=== PATIENT | male | born 1945 | race Caucasian/White ===

== ENCOUNTER 2019-10-10 13:25 | Emergency (ER) | payer MEDICARE, SELFPAY ==
[2019-10-10 13:26] VITALS: BP 148/107; PULSE 73; RESP 15; TEMP 36.4; O2SAT 96; BMI 29.4
[2019-10-10 14:32] LABS: Absolute Lymphocyte Count 1.58 X10^3/uL (0.83-4.51); Absolute Neutrophil Count 3.7 X10^3/uL (2.0-7.7); Basophil# 0.06 X10^3/uL; Eosinophil# 0.13 X10^3/uL; Eosinophils% 2.1 % (0-5); Hemoglobin 15.6 g/dL (13.0-16.5); Lymphocyte # 1.58 X10^3/ul (4.0); Lymphocyte % 25.5 % (19-41); Mean Corp Hgb Conc 33.2 g/dL (32-36); Mean Corpuscular Hgb 28.4 pg (27.0-32.0); Mean Corpuscular Volume 85.6 fL (80-94); Mean Platelet Vol. 10.1 fl (6.2-12.0); Monocyte# 0.75 X10^3/uL; Monocyte% 12.1 % (0-10); NRBC Flagged by Analyzer 0 % (0-5); Neutrophil # 3.65 X10^3/uL (2.7-7.7); Platelet Count 211 K/mm3 (150-450); RBC Distribution Width CV 12.2 % (11.6-14.6); RBC Distribution Width SD 38.5 fl (35.1-43.9); Red Blood Count 5.49 M/mm3 (4.6-6.2); White Blood Count 6.2 K/mm3 (4.4-11.0)
[2019-10-10 14:37] LABS: AST(SGOT) 17 U/L (15-37); Alanine Aminotransfer ALT/SGPT 25 U/L (16-61); Albumin, Serum 3.8 g/dL (3.2-5.0); Alkaline Phosphatase 90 U/L (45-117); Anion Gap 7 (5-15); BUN 15 mg/dL (7-18); BUN/Creat Ratio 13.3 RATIO (10-20); Calcium,Total 8.9 mg/dL (8.5-10.1); Chloride 105 mmol/L (98-107); Creatinine, Serum 1.13 mg/dL (0.70-1.30); EST Glomerular Filtration Rate 68 mL/min (>60); Est Glom Filt Rate - Afr Amer 82 mL/min (>60); Estimated Creatinine Clearance 61.01 ml/min; Globulin 3.9 g/dL (2.2-4.2); Glucose 87 mg/dL (74-106); Lipase 207 U/L (73-393); Protein, Total 7.7 g/dL (6.4-8.2); Sodium Level 138 mmol/L (136-145)
--- NOTE | 2019-10-10 16:01 | ED.DCSUM_ITS ---
- ER Visit Summary Date of Service: 10/10/19 Chief Complaint: Abdominal pain History of Present Illness: The patient is a 74 M who is been getting worse over the past 3 to 4 days. Patient states that it has actually been waxing and waning over the past 3 to 4 days. Patient states the pain is in the epigastric area. Patient describes the pain as aching. Patient states the pain has gradually gotten worse. Patient denies any radiation of the pain. Patient states nothing makes the pain better or worse. Patient denies any fevers or chills. Patient states he has had a slight cough. Patient denies any sputum production. Patient denies any nausea or vomiting. Patient denies any diarrhea or constipation. Physical Examination: Vital signs are stable. Patient is afebrile. Patient is in no acute distress. Oral mucosa is pink and moist. Neck is supple. Trachea is midline. There is no JVD noted. Heart was regular rate and rhythm. Lungs are clear and equal bilaterally. Abdomen is soft. Bowel sounds are normal. There is no tenderness. There is no rebound or guarding noted. Skin is warm dry. Cranial nerves II through XII are intact. There are no focal motor or sensory deficits noted. Extremities are intact. There is no calf tenderness or edema. Test Results: CBC, comprehensive metabolic profile, and lipase were obtained and were all within normal limits. Emergency Department Course and Treatment: Patient was feeling better on reevaluation. Patient was instructed to follow-up with his primary care physician for further evaluation. Patient was instructed to eat a bland diet and advance his diet as tolerated. Patient was instructed to return if worse in any way. Patient understood and was agreeable with the plan. All questions were answered. Disposition: Discharge home Impression: Epigastric abdominal pain This note was generated with [employer] dictation software. It may contain incorrect words, spelling, and punctuation that were not noted in review of the chart prior to signing ED Disposition - Plan for ED Patient: Disposition: Home or Assisted Living Diagnosis: Epigastric abdominal pain of unknown etiology Instructions: ED Unknown Causes of Abdominal Pain Male Referrals: Niki Nj NP-C [Primary Care Provider] - 5-7 Days
== END 2019-10-10 16:09 | disposition home or self-care (01) ==
PROVIDERS: Emergency Provider Emergency Medicine; PCP Registered Nurse
DX: R10.13 Epigastric pain (principal); R05 Cough
CPT/HCPCS: 80053; 83690; 85025; 99283

== ENCOUNTER 2021-06-21 13:19 | Emergency (ER) | payer MEDICARE, SELFPAY ==
[2021-06-21 13:21] VITALS: BP 150/109; PULSE 85; RESP 28; TEMP 36.7; O2SAT 99; BMI 29.4
[2021-06-21 13:44] VITALS: O2SAT 97
[2021-06-21 13:45] VITALS: O2SAT 98
--- NOTE | 2021-06-21 14:32 | ED.VIS.DYS ---
HPI History of Present Illness Chief Complaint: Shortness of Breath Narrative Narrative: 76-year-old male presenting with shortness of breath. Apparently he had started having symptoms of COVID-19 on . He tested positive on Saturday. He is here today for monoclonal antibodies and it was noted that he was tachypneic while they were evaluating him to get his monoclonal antibodies. He was not hypoxic. Patient denies any chest pain. He states he feels improved now that he has been able to sit and catch his breath. He feels otherwise well at this time. PFSH PFSH Home Medications NK 10/10/19 [History Last Taken Unknown] Allergy/AdvReac Type Severity Reaction Status Date / Time No Known Allergies Allergy Verified 06/21/21 13:21 Social History Smoking Status: Never smoker ROS ROS ED Constitutional Constitutional ED: Denies chills or fever(s) Eyes Eyes: Denies blurry vision or diplopia ENT ENT ED: Denies rhinorrhea or sore throat Cardiovascular Cardiovascular: Denies chest pain or palpitations Respiratory/Chest Respiratory/Chest: Reports cough, dyspnea and dyspnea on exertion Gastrointestinal Gastrointestinal: Denies abdominal pain, nausea or vomiting Genitourinary Genitourinary ED: Denies dysuria or hematuria Musculoskeletal Musculoskeletal: Denies arthralgias or myalgias Integumentary Denies Abrasions or rash Neurologic Neurologic: Denies headache(s) or paresthesias Psychiatric Psychiatric: Denies anxiety or depression EXAM Physical Exam Const Vital Signs: 06/21/21 13:21 06/21/21 13:44 06/21/21 13:45 Temperature 98.1 F Temperature Source Temporal Pulse Rate 85 Respiratory Rate 28 H Respiratory Effort Labored Respiratory Pattern Tachypnea Blood Pressure 150/109 H Blood Pressure Mean 122 Pulse Ox 99 97 Oxygen Delivery Method Room Air Room Air Room Air Positive well nourished General Appearance ED: NAD; Negative for pallor HEENT Reports moist mucous membranes atraumatic Eyes PERRL and EOMs intact bilaterally Resp normal respiratory effort and clear to auscultation bilaterally Cardio regular rate and regular rhythm GI non-tender and non-distended Palpation: soft Extremity General Extremety ED: Negative for edema or tenderness General Extremity: Negative for edema Neuro oriented x3 Sensorium / Orientation: alert Psych mental status grossly normal Thought Process: normal thought process Skin General Skin Exam: Negative for jaundice or pallor MDM MDM MDM Narrative Medical decision making narrative: Patient presenting from attempted to get his monoclonal antibodies and it was noted he was tachypneic. He currently feels well and his respiratory rate is 15-20 in the room while I am talking to him. His pulse ox is 97-99 while he is talking. He denies any chest pain. He feels like he has had time to catch his breath. Patient's lungs are clear to auscultation. At this point I do not believe the patient needs any further work-up. I spoke with Narcisa Romero at the infusion center and she will try to set him up for monoclonal antibodies tomorrow. She requested that I give him her telephone number and I will do this. Patient will be discharged home for follow-up tomorrow. Impression: 1. COVID-19 2. Dyspnea Discharge Plan Triage Chief Complaint: Shortness of Breath ED Provider: Toribio Holden Dx/Rx/DC Orders Instructions: Coronavirus Disease 2019 (COVID-19): Caring for Yourself or Others Prescriptions: No Action NK RF: 0 Primary Care Provider: Bryon Ovalles Referrals: Bryon Ovalles, PA [Primary Care Provider] - Disposition Disposition: Home, Self Care
[2021-06-21 15:09] VITALS: O2SAT 97
== END 2021-06-21 15:17 | disposition home or self-care (01) ==
LOC: ED 14:45
PROVIDERS: Emergency Provider Student in an Organized Health Care Education/Training Program; PCP Physician Assistant
DX: U07.1 COVID-19 (principal); R06.00 Dyspnea, unspecified
CPT/HCPCS: 99283; A4216

== ENCOUNTER 2021-06-22 16:55 | Outpatient (CLI) | payer MEDICARE, SELFPAY ==
--- NOTE | 2021-06-21 13:13 | NURSING ---
Pt received for antibody infusion w/ tachypnea and resps in 40. Narcisa Lepe notified and pt sent to ED
[2021-06-22] MEDS: 0.9% Saline Lock 10 ML Syringe IV (17:02)
[2021-06-22 17:05] VITALS: BP 126/91; PULSE 91; RESP 32; TEMP 36.6; O2SAT 100; BMI 29.4
[2021-06-22 18:08] VITALS: BP 129/88; PULSE 68; RESP 28; TEMP 37.1; O2SAT 99
[2021-06-22 19:00] VITALS: BP 149/79; PULSE 65; RESP 28; TEMP 36.8; O2SAT 100
== END 2021-06-22 19:04 ==
LOC: MS3OUT 16:55 → MS3 16:55
PROVIDERS: PCP Registered Nurse; Visit Provider Nurse Practitioner Adult Health
DX: Z23 Encounter for immunization (principal); U07.1 COVID-19
CPT/HCPCS: 99283; J7050; M0245; Q0245; A4216

== ENCOUNTER 2024-04-06 15:15 | Emergency (ER) | payer MEDICARE, SELFPAY ==
[2024-04-06 15:16] VITALS: BP 141/124; PULSE 82; RESP 18; TEMP 36.6; O2SAT 99; BMI 27.6
[2024-04-06 18:37] VITALS: BP 136/99; PULSE 76; RESP 18; O2SAT 99
--- NOTE | 2024-04-06 18:47 | RAD_ITS ---
STUDY: X-RAY - LEFT SHOULDER REASON FOR EXAM: Male, 78 years old. Pain TECHNIQUE: 2 view(s) of the shoulder. COMPARISON: None. FINDINGS: There is mild degenerative arthrosis of the glenohumeral articulation. There is hypertrophic osteoarthrosis of the acromioclavicular joint with inferior osseous spur formation. Normal acromion. There is demineralization of the humerus and visualized osseous structures. The soft tissue structures are unremarkable. There is no demonstrated fracture. Normal visualized pulmonary apex. RAD/Shoulder min 2 Views IMPRESSION: Degenerative change. Electronically Signed: Jed Escobar MD at 19:29 EDT ,
--- NOTE | 2024-04-06 19:25 | EDS_ITS ---
HPI History of Present Illness HPI Narrative: Patient presents with left shoulder pain that has been getting worse over the past 2 weeks. Patient states it became worse 2 days ago. Patient denies any trauma or injury. Patient describes the pain as sharp. Patient states it is worse with any movement. Patient states nothing seems to help with it. Patient mitts to some tingling into his left arm. Patient denies any weakness. Patient also admits to some pain in his neck. Chief Complaint: Upper Extremity Injury Informant: patient Onset/Context/Timing Onset: Weeks (2) Context: Gradual Onset Timing: Continuous Quality of Pain: Sharp Location: Left shoulder area Worsened by: Movement Relieved by: Rest Associated Symptoms Associated Symptoms: Positive for Parasthesia; Negative for Weakness or Loss of Funtion PFSH [facility] Medical History (Updated 04/06/24 @ 19:[address] Shilo Daugherty DO) Hypercholesterolemia Hypertension Home Medications ?Medication ?Instructions ?Recorded ?Last Taken ?Type hydrocodone-acetaminophen 5-325mg 1 tab PO Q6H PRN PRN Pain 3 days 04/06/24 Unknown Rx 5mg-325mg #10 TABLETS Allergy/AdvReac Type Severity Reaction Status Date / Time No Known Allergies Allergy Verified 04/06/24 15:16 Surgical History (Updated 04/06/24 @ 19:[address] Shilo Daugherty DO) Status post surgical removal of malignant neoplasm of skin Social History Smoking Status: Never smoker ROS ROS ED Constitutional Constitutional ED: Denies chills or fever(s) Eyes Eyes: Denies blurry vision or change in vision ENT ENT ED: Denies rhinorrhea or sore throat Cardiovascular Cardiovascular: Denies chest pain or palpitations Respiratory/Chest Respiratory/Chest: Denies cough or dyspnea Gastrointestinal Gastrointestinal: Reports nausea; Denies vomiting Genitourinary Genitourinary ED: Denies dysuria or hematuria Musculoskeletal Musculoskeletal: Reports neck pain; Denies back pain Integumentary Denies abscess or rash Neurologic Neurologic: Denies headache(s) or weakness Allergic/Immunologic Allergic/Immunologic ED: Denies mouth swelling or urticaria EXAM Physical Exam Const Vital Signs: 04/06/24 15:16 04/06/24 18:37 Temperature 98 F Temperature Source Oral Pulse Rate 82 76 Respiratory Rate 18 18 Blood Pressure 141/124 H 136/99 H Blood Pressure Mean 129 111 Pulse Ox 99 99 Oxygen Delivery Method Room Air Positive well nourished and well developed General Appearance ED: well developed and NAD HEENT Reports moist mucous membranes Neck Neck Narrative: There is tenderness over the left cervical paraspinal muscles and left trapezius muscle. There is no edema or ecchymosis. There is no bony crepitance or step- off noted. Range of motion of the cervical spine was somewhat limited secondary to pain. General: tenderness Extremity Extremity Narrative: There is tenderness over the left shoulder area. There is no edema or ecchymosis. There is no deformity noted. Range of motion of the left shoulder was limited in all motions of the shoulder secondary to pain. There is no pain with motion of the elbow or wrist. Strength is 5/5 bilaterally in the upper extremities. There are no sensory deficits noted. Radial pulses are equal bilaterally. Neuro oriented x3, CN's II-XII intact bilaterally, moves all extremities, no focal motor deficits and no sensory deficits noted Sensorium / Orientation: alert Motor Exam: strength 5/5 throughout MDM MDM MDM Narrative Medical decision making narrative: Differential diagnosis includes tendinitis, muscle strain, radiculopathy, occult fracture, rotator cuff tear, and arthritis. X-rays of the left shoulder will be obtained to assess for occult fracture and arthritis. Radiography Diagnostic Testing: X-rays of the left shoulder were obtained. There are 2 views. On my independent interpretation, there is no acute fracture. There are some degenerative changes noted. Radiologist also interpreted the x-rays and agrees. Treatment and Re-Evaluation Narrative: Patient was given a dose of [place] here. Patient was given a sling and ice pack. Patient was instructed to use ice to the area. Patient was instructed to take his arm out of his sling several times during the day to do range of motion exercises. Patient was given a prescription for a short course of [place]. Patient was instructed to follow-up with his primary care physician in 5 to 7 days. Patient and spouse were advised that if his symptoms do not improve, he may need referral for orthopedics or MRI or physical therapy, or further testing. Patient understood and was agreeable with the plan. All questions were answered. Discharge Plan Triage Chief Complaint: Upper Extremity Injury ED Provider: Shilo Daugherty Dx/Rx/DC Orders Clinical Impression: Acute pain of left shoulder, Hypertension Instructions: ED Shoulder Pain, Uncertain Cause Prescriptions: New hydrocodone-acetaminophen 5-325 mg tablet 1 tab PO Q6H PRN PRN (Reason: Pain) 3 Days Qty: 10 0RF Primary Care Provider: Bryon Ovalles Referrals: Bryon Ovalles, PA [Primary Care Provider] - 5-7 Days Print Language: Ukrainian Disposition Disposition: Home, Self Care
[2024-04-06] MEDS: HYDROcodone Bitartrate/Apap 5/325 Tablet PO (19:52)
[2024-04-06 20:00] VITALS: BP 187/95; PULSE 76; RESP 16; TEMP 36.6; O2SAT 99
== END 2024-04-06 20:02 | disposition home or self-care (01) ==
PROVIDERS: Emergency Provider Emergency Medicine; PCP Physician Assistant; Visit Provider Emergency Medicine
DX: M25.512 Pain in left shoulder (principal); E78.00 Pure hypercholesterolemia, unspecified; I10 Essential (primary) hypertension
CPT/HCPCS: 73030; 99283

== ENCOUNTER 2024-08-10 16:54 | Observation (INO) | payer MEDICARE, SELFPAY ==
[2024-08-10] VITALS (8 sets, daily range): BP systolic 108–202; BP diastolic 65–109; PULSE 64–95; RESP 18–34; TEMP 35.2; O2SAT 95–97; BMI 28.0
--- NOTE | 2024-08-10 17:02 | EKG12_ITS ---
Test Reason : DYSRHYTHMIA Blood Pressure : */* mmHG Vent. Rate : 94 BPM Atrial Rate : 94 BPM P-R Int : 164 ms QRS Dur : 132 ms QT Int : 428 ms P-R-T Axes : 37 -53 -7 degrees QTcB Int : 535 ms Normal sinus rhythm Possible Left atrial enlargement Right bundle branch block Left anterior fascicular block Bifascicular block Minimal voltage criteria for LVH, may be normal variant ( R in aVL ) Septal infarct , age undetermined Abnormal ECG Confirmed by SARAH TRAORE, ELIZABETH ([id number]), video editor AMITA FOREMAN ([id number]) on 08/11/2024 8:56:00 AM Referred By: Ashley Hess Confirmed By: ELIZABETH SMITH MD
--- NOTE | 2024-08-10 17:03 | CT_ITS ---
PROCEDURE: CTA CHST, ABD, PEL W AND/OR WO REASON FOR EXAM: Sudden onset of abdominal pain TECHNIQUE: Chest CTA with intravenous contrast and 3D reconstructions. Abdomen and pelvis CT using the same COMPARISON: None. FINDINGS: CHEST: Lines and tubes: None. Mediastinum: No evidence of mediastinal hemorrhage. Heart: Normal heart size. No pericardial effusion. Thoracic Aorta: No evidence of acute traumatic aortic injury. Lungs and Airways: The lungs are normally expanded and clear. Pleura: No pleural effusion. No pneumothorax. Bones: Degenerative changes of the spine. ABDOMEN AND PELVIS: Liver: Unremarkable. Gallbladder: Unremarkable. Spleen: Unremarkable. Pancreas: Unremarkable. Adrenals: Unremarkable. Kidneys: Right distal ureter 2 mm calculus with moderate upstream hydroureteronephrosis. Left kidney simple cyst. Assessment for renal calculi is limited with intravenous contrast. Bladder: Unremarkable. Reproductive Organs: Enlarged prostate indenting the posterior wall of the urinary bladder. Partially visualized fluid-filled scrotal sac. Bowel: Tubular appearance of the descending and sigmoid colon which may be due to underdistention or chronic findings of colitis. Vasculature: Moderate atherosclerosis. Peritoneum / Retroperitoneum: No free fluid. No free air. Bones: Degenerative changes of the spine. CT/CTA Chst, Abd, Pel W and/or WO IMPRESSION: Right distal ureter 2 mm calculus with moderate upstream hydroureteronephrosis. Enlarged prostate indenting the posterior wall of the urinary bladder. Correla te with PSA. Tubular appearance of the descending and sigmoid colon which may be due to unde rdistention or chronic findings of colitis. Specifically correlate for history of ulcerative colitis. Partially visualized fluid-filled scrotal sac which may represent hydroceles. One or more dose reduction techniques were used (e.g., Automated exposure contr ol, adjustment of the mA and/or kV according to patient size, use of iterative reconstruction technique). Reading Location: [id number]
--- NOTE | 2024-08-10 17:05 | EDS_ITS ---
<Statement entered by Bienvenido Del Cid DO - 08/10/24 23:27> Patient was seen and examined with nurse dianne Church All components of the history and physical confirmed and agreed. History of present illness and physical exam: Patient is a 79-year-old male with past medical history of hypertension, hyperlipidemia who presented to the emergency department with a chief complaint of abdominal pain. Per EMS the patient started having pain when he woke up this morning however progressively worsened throughout the day. According to them he was constantly thrashing and decided call the ambulance to have him brought here for the valuation management. He states that he is significant pain rates his pain a 10 out of 10. Review of systems: Agree with above Physical exam: General: Patient lying in bed does appear to be uncomfortable secondary to his abdominal pain Head: Atraumatic, normocephalic Eyes: PERRL bilaterally, EOMI bilaterally, no conjunctival injection noted Neck: Soft, supple, trachea midline Cardiovascular: Regular rate and rhythm no murmurs gallops rubs noted Respiratory: Clear to auscultation bilaterally Abdomen: Soft, nondistended, diffuse tenderness to palpation no rebound or guarding on exam Extremities: +5/5 strength noted in the bilateral upper and lower extremities, no pedal edema no exam Neurological: Patient following commands knew that he was at [facility] year is 2024 Skin: Warm, dry, intact no rashes or lesions noted MDM Patient is a 79-year-old male who presented to the emergency department with a chief complaint of abdominal pain. On the differential diagnose includes but not limited to small bowel obstruction, dissection, ischemic colitis, pancreatitis. Once workup is obtained reviewed he will be reevaluated. Patient CBC reviewed showed a leukocytosis of 16,000, hemoglobin 15.1, platelet count was noted be normal at 302. Patient sodium normal at 141, potassium normal at 3.1, creatinine was 1.66. Patient lactic acid elevated to 9, troponin was less than 3 lipase normal at 48. Patient's urinalysis reviewed showed no evidence of infection. Patient's glucose was noted to be 199 and his anion gap was noted to be 18. Patient's CTA of the chest abdomen pelvis showed a right distal ureter 2 mm calculus with moderate upstream hydroureteronephrosis. Enlarged prostate. Tubular appearance of the descending and sigmoid colon which may be due to underdistention or chronic findings of colitis patient does not have any history of ulcerative colitis. Partially visualized fluid-filled scrotal sac which may represent hydroceles. Patient's EKG reviewed and independently turbid of myself showed sinus rhythm with a rate of [address] changes noted.troponin normal less than 3 On reevaluation the patient he was still writhing in the bed in significant pain after multiple doses of pain medication. Given his lactic acidosis leukocytosis and myself reviewing the CT scan was concerned that he may have free air in his abdomen therefore I called the radiologist spoke with him directly and asked him to review the imaging which she did and states that he does not believe there is any free air. We called and discussed the case with on-call general surgeon Dr. Whitehead and states given his clinical presentation and his laboratory evaluation she would recommend doing CT with oral contrast. This was ordered. Patient did have vomiting here in the emergency department. Patient did not get the full noncontrast into his stomach however there still underwent CT CAP with oral contrast. This was reviewed as well which showed a right distal ureter 3 mm calculus with mild upstream hydroureteronephrosis bilateral nephrolithiasis and large prostate. Mild concentric urinary bladder wall thickening favored to represent chronic outlet obstruction patient does not have evidence of UTI on urinalysis. Fluid-filled scrotal sac which may represent bilateral hydroceles. We reach back out to Dr. Whitehead who is recommending observation admission to the medicine team. Discussed case with hospitalist Dr. Hess who is recommending adding a acetone level on which I did as well as I added a VBG on as there is a chance that he has new onset diabetes with DKA. Once these are obtained reviewed the patient will be admitted to her service. Patient's case signed out to oncoming provider to place ultimate admission ordered. Plan: Final impression: Abdominal pain Lactic acidosis resolved JANICE Hyperglycemia Disposition: Patient will be admitted to the hospital further evaluation management Supervising attending attestation: Bienvenido BARTHOLOMEW History of Present Illness Chief Complaint: Abd Pain Narrative Narrative: Patient is a 79-year-old male with history of dementia, hypertension, hyperlipidemia who presents to the emergency department for severe abdominal pain. Per the EMS, the patient started having some pain when he woke up this morning, however the pain is progressed over the day. The patient is now inconsolable, constantly thrashing and the decided to call the ambulance. Patient keeps his eyes closed, is holding his stomach and complaining of significant pain. Denies any known history of fever or chills. No vomiting PFSH PFSH Medical History (Updated 08/10/24 @ 23:[address] Ashley Hess MD) CKD (chronic kidney disease) Dementia Hypercholesterolemia Hypertension Home Medications ?Medication ?Instructions ?Recorded ?Last Taken ?Type hydrocodone-acetaminophen 5-325mg 1 tab PO Q6H PRN PRN Pain 3 days 04/06/24 Unknown Rx 5mg-325mg #10 TABLETS atorvastatin 40 mg tablet 40 mg PO DAILY 08/10/24 Unkn own History gabapentin 300 mg capsule 600 mg PO QHS 08/10/24 Unkno wn History Allergy/AdvReac Type Severity Reaction Status Date / Time No Known Allergies Allergy Verified 04/06/24 15:16 Surgical History (Updated 04/06/24 @ 19:[address] Shilo Daugherty DO) Status post surgical removal of malignant neoplasm of skin Social History Smoking Status: Never smoker ROS ROS ED ROS Narrative Upon my initial evaluation, patient was thrashing in the bed, eyes closed, difficulty answer questions, however he does complain of abdominal pain Constitutional: Negative for fever, chills, weight loss, weakness Eyes: Negative for vision loss, vision change, double vision ENT: Negative for any sore throat, ear pain, congestion Cardiovascular: Negative for any chest pain, tightness, palpitations Respiratory: Negative for any cough, sputum production, hemoptysis, dyspnea, dyspnea on exertion, orthopnea Gastrointestinal: Negative for any nausea, vomiting, diarrhea, constipation, blood in stool, blood in vomit. Positive for severe abdominal pain : Negative for any urinary frequency, dysuria, retention, blood in urine Muscle skeletal: Negative for any neck pain, back pain Neurological: Negative for any headache, syncope, dizziness Skin: Negative for any rashes, itching, abrasions, lacerations Psychiatric: Negative for any depression, anxiety, stress, suicidal ideation, homicidal ideation Hematologic: Negative for any excessive bruising, easy bleeding EXAM Physical Exam Const Vital Signs: 08/10/24 16:55 08/10/24 17:54 08/10/24 18:00 Temperature 95.4 F L Temperature Source Temporal Pulse Rate 94 95 Respiratory Rate 34 H 28 H Blood Pressure 175/109 H 202/92 H 202/92 H Blood Pressure Mean 131 128 128 Pulse Ox 97 95 Oxygen Delivery Method Room Air Room Air 08/10/24 19:00 08/10/24 19:57 08/10/24 21:00 Temperature Temperature Source Pulse Rate 88 64 Respiratory Rate 18 18 Blood Pressure 194/92 H 177/81 H 143/82 H Blood Pressure Mean 126 113 102 Pulse Ox 96 97 Oxygen Delivery Method Room Air Room Air 08/10/24 22:00 Temperature Temperature Source Pulse Rate 71 Respiratory Rate 18 Blood Pressure 108/65 Blood Pressure Mean 79 Pulse Ox 95 Oxygen Delivery Method Room Air MDM MDM Lab Data Labs: Laboratory Results - last 24 hr 08/10/24 08/10/24 08/10/24 17:04 18:14 21:47 WBC 16.7 H RBC 5.16 Hgb 15.1 Hct 45.3 MCV 87.8 MCH 29.3 MCHC 33.3 RDW Std Deviation 39.6 RDW Coeff of [place] 12.4 Plt Count 302 MPV 10.7 Immature Gran % (Auto) 0.700 Neut % (Auto) 71.1 H Lymph % (Auto) 19.4 [place] % (Auto) 7.6 Eos % (Auto) 0.7 Baso % (Auto) 0.5 Absolute Neuts (auto) 11.9 H Absolute Lymphs (auto) 3.25 Nucleated RBC % 0 PT 13.2 INR 1.0 Sodium 141 Potassium 3.1 L Chloride 106 Carbon Dioxide 17.0 L Anion Gap 18 H BUN 14 Creatinine 1.66 H Estim Creat Clear Calc 41.75 Est GFR (MDRD) Af Amer 52 L Est GFR (MDRD) Non-Af 43 L BUN/Creatinine Ratio 8.4 L Glucose 199 H Lactic Acid 9.0 H* 1.8 Calcium 10.1 Total Bilirubin 0.80 Direct Bilirubin 0.22 AST 29 ALT 33 Alkaline Phosphatase 146 H Troponin I High Sens < 3 L Total Protein 7.8 Albumin 4.1 Globulin 3.7 Lipase 48 Urine Color Yellow Urine Clarity Clear Urine pH 6.0 Ur Specific [place] 1.010 Urine Protein 15 H Urine Glucose (UA) 100 H Urine Ketones 50 H Urine Occult Blood 50 H Urine Nitrite Negative Urine Bilirubin Negative Urine Urobilinogen Normal Ur Leukocyte Esterase Negative Urine RBC 0-5 SEEN Urine WBC 0 SEEN Ur Squamous Epith Cells 0 SEEN Urine Bacteria 0 SEEN Urine Mucus 0 SEEN Radiography Diagnostic Testing: Clinical Impression(s) from Imaging Studies Chest/Abdomen/Pelvis CTA 08/10/24 17:03 IMPRESSION: Right distal ureter 2 mm calculus with moderate upstream hydroureteronephrosis. Enlarged prostate indenting the posterior wall of the urinary bladder. Correlate with PSA. Tubular appearance of the descending and sigmoid colon which may be due to underdistention or chronic findings of colitis. Specifically correlate for history of ulcerative colitis. Partially visualized fluid-filled scrotal sac which may represent hydroceles. One or more dose reduction techniques were used (e.g., Automated exposure control, adjustment of the mA and/or kV according to patient size, use of iterative reconstruction technique). Reading Location: [facility] Abdomen CT 08/10/24 18:56 IMPRESSION: Right distal ureter 3 mm calculus with mild upstream hydroureteronephrosis. Bilateral nephrolithiasis. Enlarged prostate. Correlate with PSA. Mild concentric urinary bladder wall thickening favored to represent chronic outlet obstruction. Correlate with urinalysis to exclude cystitis. Fluid-filled scrotal sac which may represent bilateral hydroceles. One or more dose reduction techniques were used (e.g., Automated exposure control, adjustment of the mA and/or kV according to patient size, use of iterative reconstruction technique). Reading Location: [facility] EKG Normal sinus rhythm: Attestation: I personally reviewed and interpreted this EKG as follows: Interpretation: Sinus Rhythm Comments: Normal sinus rhythm, rate of 94 bpm, AL interval 164 ms, QRS duration 132 ms, no acute ST elevation, no acute infarct noted. Treatment and Re-Evaluation :: Differential diagnosis includes however is not limited to: Aortic dissection, pancreatitis, free air, acute cholecystitis, bowel obstruction On my initial evaluation, patient was holding his stomach, rolling around the bed stating that he is in severe pain. It was difficult to do an examination. Anywhere I touch on his abdomen he did have pain, it did seem soft, I did not appreciate any peritoneal signs. Difficult to hear any bowel sounds. Patient had an 18-gauge to the right AC immediately placed, Nelly ordered a CTA of the chest abdomen pelvis concern for any dissection, patient will receive IV fluids, morphine, Zofran. All radiologic examinations were read, reviewed by the emergency department attending. From these reads, a plan of care will be put in place. Patient was given 4 mg IV morphine, then redosed of IV Dilaudid. Patient CT scan of the chest abdomen pelvis shows a right distal ureter 2 mm calculus with moderate upstream hydronephrosis. Enlarged prostate, tubular appearance of the descending and sigmoid colon which may be due to under distention or chronic findings of colitis. Patient is slightly improving however he still rolling around the bed. Patient rechecked at 6:26 PM,Patient still seems to be in significant amount of pain. We did reach out to the radiologist who did look through the scan again and did not see anything more acute. Patient did have only minor relief with the medications. Patient's CBC shows a leukocytosis white blood count 16.7, chemistries show a creatinine of 1.66, potassium 3.1, lactic acid was critical high at 9.0. Patient be given 1 more liter of normal saline. I spoke with surgery, they recommended a CT scan with oral contrast only. I did update the patient and the family. The patient does look better however he still rolling around in pain. Still slightly diaphoretic. Patient will drink the oral contrast. Will wait for 2 hours and go get a CT scan of the abdomen pelvis. Patient CT scan of the abdomen pelvis with p.o. contrast showed right distal ureter 3 mm calculus with mild upstream high sea kayaking guide, bilateral nephrolithiasis enlarged prostate. Mild concentric urinary bladder wall thickening could represent chronic outlet obstruction. Fluid-filled scrotal sac with may resent bilateral hydroceles. Secondary to this finding, I will reach out to Dr. Whitehead, currently waiting on a lactic acid. Discharge Plan Triage Chief Complaint: Abd Pain ED Midlevel Provider: Ranjit Willams ED Provider: Bienvenido Del Cid Dx/Rx/DC Orders Prescriptions: No Action hydrocodone-acetaminophen 5-325 mg tablet 1 tab PO Q6H PRN PRN (Reason: Pain) 3 Days Qty: 10 0RF atorvastatin 40 mg tablet 40 mg PO DAILY gabapentin 300 mg capsule 600 mg PO QHS Primary Care Provider: Bryon Ovalles Referrals: Bryon Ovalles, PA [Primary Care Provider] - Print Language: [place] Leone[place] Disposition Disposition: Acute Care [facility]
[2024-08-10] MEDS: 0.9% Normal Saline (1000mL) 1,000 ML 999 ML IV ×2 (17:17→19:55)
[2024-08-10] MEDS: Ondansetron 4 MG/2 ML Vial IV ×2 (17:18→18:35)
[2024-08-10] MEDS: Morphine 4 MG/ML Syringe IV (17:18)
[2024-08-10 17:29] LABS: Absolute Lymphocyte Count 3.25 X10^3/uL (0.83-4.51); Absolute Neutrophil Count 11.9 X10^3/uL (2.0-7.7); Basophil# 0.08 X10^3/uL; Basophil% 0.5 % (0-1); Eosinophil# 0.12 X10^3/uL; Eosinophils% 0.7 % (0-5); Hematocrit 45.3 % (40-54); Hemoglobin 15.1 g/dL (13.0-16.5); Lymphocyte # 3.25 X10^3/ul (0.83-4.51); Lymphocyte % 19.4 % (19-41); Mean Corp Hgb Conc 33.3 g/dL (32-36); Mean Corpuscular Hgb 29.3 pg (27.0-32.0); Mean Corpuscular Volume 87.8 fL (80-94); Mean Platelet Vol. 10.7 fl (6.2-12.0); Monocyte# 1.27 X10^3/uL; Monocyte% 7.6 % (0-10); NRBC Flagged by Analyzer 0 % (0-5); Neutrophil # 11.88 X10^3/uL (2.7-7.7); Neutrophil % 71.1 % (47-70); Platelet Count 302 K/mm3 (150-450); RBC Distribution Width CV 12.4 % (11.6-14.6); RBC Distribution Width SD 39.6 fl (35.1-43.9); Red Blood Count 5.16 M/mm3 (4.6-6.2); White Blood Count 16.7 K/mm3 (4.4-11.0)
[2024-08-10] MEDS: HYDROmorphone 1 MG/ML Syringe IV ×2 (17:36→18:35)
[2024-08-10 17:38] LABS: Prothrombin Time (Protime)PT. 13.2 SECONDS (11.7-14.9)
[2024-08-10 17:49] LABS: AST(SGOT) 29 U/L (15-37); Alanine Aminotransfer ALT/SGPT 33 U/L (16-61); Albumin, Serum 4.1 g/dL (3.2-5.0); Alkaline Phosphatase 146 U/L (45-117); Anion Gap 18 (5-15); BUN 14 mg/dL (7-18); BUN/Creat Ratio 8.4 RATIO (10-20); Bilirubin, Direct 0.22 mg/dL (0.00-0.30); Calcium,Total 10.1 mg/dL (8.5-10.1); Chloride 106 mmol/L (98-107); Creatinine, Serum 1.66 mg/dL (0.70-1.30); EST Glomerular Filtration Rate 43 mL/min (>60); Est Glom Filt Rate - Afr Amer 52 mL/min (>60); Estimated Creatinine Clearance 41.75 ml/min; Globulin 3.7 g/dL (2.2-4.2); Glucose 199 mg/dL (74-106); Lipase 48 U/L (13-75); Potassium 3.1 mmol/L (3.5-5.1); Protein, Total 7.8 g/dL (6.4-8.2); Sodium Level 141 mmol/L (136-145); Troponin-I HS < 3 pg/mL (3.0-78.0)
[2024-08-10 18:28] LABS: Bacteria 0 SEEN /hpf (None Seen); Mucous, Urine 0 SEEN /hpf (<or=2+); Squamous Epithelial Cells - UA 0 SEEN /hpf (0-5); White Blood Cells 0 SEEN /hpf (0-5)
[2024-08-10] MEDS: Piperacil/Tazobactam 4.5 GM in 0.9% Normal Saline (100mL MB+) 100 ML IV (18:35)
[2024-08-10 18:55] LABS: Color, Urine Yellow (Yellow); Glucose, Dipstick 100 mg/dl (Normal); Ketone-Dipstick 50 mg/dl (Negative); Leukocyte Esterase-Dipstick Negative /ul (Negative); Nitrite-Dipstick Negative (Negative); Occult Blood-Urine 50 /ul (Negative); Protein-Dipstick 15 mg/dl (Negative); Urine Bilirubin Dipstick Negative (Negative); Urine Clarity Clear (Clear); Urine Urobilinogen Normal (Normal)
--- NOTE | 2024-08-10 18:56 | CT_ITS ---
PROCEDURE: ABDOMEN/PEL W ORAL CONT ONLY REASON FOR EXAM: Abdominal pain. TECHNIQUE: Abdomen and pelvis CT with oral contrast. COMPARISON: None. FINDINGS: Lung bases: Clear Liver: Unremarkable. Gallbladder: Unremarkable. Spleen: Unremarkable. Pancreas: Unremarkable. Adrenals: Unremarkable. Kidneys: Right distal ureter 2 mm calculus with mild upstream hydroureteronephrosis. Additional bilateral renal calculi. Left kidney simple cyst. Bladder: Mild concentric urinary bladder wall thickening. Reproductive Organs: Enlarged prostate indenting the posterior wall of the urinary bladder. Fluid-filled scrotal sac. Bowel: Unremarkable. Appendix: Normal. Lymph nodes: No suspicious lymph node enlargement. Vasculature: Mild to moderate atherosclerosis. Peritoneum / Retroperitoneum: No ascites. No free air. Bones: Degenerative changes of the spine. CT/Abdomen/Pel W ORAL Cont Only IMPRESSION: Right distal ureter 3 mm calculus with mild upstream hydroureteronephrosis. Bilateral nephrolithiasis. Enlarged prostate. Correlate with PSA. Mild concentric urinary bladder wall thickening favored to represent chronic ou tlet obstruction. Correlate with urinalysis to exclude cystitis. Fluid-filled scrotal sac which may represent bilateral hydroceles. One or more dose reduction techniques were used (e.g., Automated exposure contr ol, adjustment of the mA and/or kV according to patient size, use of iterative reconstruction technique). Reading Location: [id number]
[2024-08-10 19:12] LABS: Red Blood Cells-Urine 0-5 SEEN /hpf (0-5)
[2024-08-10] MEDS: LORazepam 2 MG/ML Syringe 1 MG IV (19:54)
[2024-08-10 21:24] LABS: Reflex Lactate? Y
[2024-08-10 22:46] LABS: Lactic Acid 1.8 mmol/L (0.4-1.9)
[2024-08-10 23:45] LABS: Blood Gas Specimen Type VEN; O2 Delivery Device Room Air; SITE Not entered; VBG BASE EXCESS -2 mmol/L (-1.0-3.5); VBG Bicarbonate 24 mmol/L (22-26); VBG PO2 35 mmHg (25-40); VBG SO2 63 % (50-70); VBG TCO2 25 mmol/L (23-33); VBG pCO2 45.8 mmHg (41-51); VBG pH 7.33 (7.32-7.42)
[2024-08-10 23:59] LABS: Anion Gap 6 (5-15); BUN 13 mg/dL (7-18); BUN/Creat Ratio 10.3 RATIO (10-20); Chloride 112 mmol/L (98-107); Creatinine, Serum 1.26 mg/dL (0.70-1.30); EST Glomerular Filtration Rate 59 mL/min (>60); Est Glom Filt Rate - Afr Amer 71 mL/min (>60); Glucose 161 mg/dL (74-106); Potassium 4.1 mmol/L (3.5-5.1); Sodium Level 143 mmol/L (136-145)
[2024-08-11] VITALS (8 sets, daily range): BP systolic 118–147; BP diastolic 62–74; PULSE 58–86; RESP 14–20; TEMP 36.4–36.7; O2SAT 92–98; BMI 28.0
--- NOTE | 2024-08-11 00:01 | HP.PCM.HOS_ITS ---
[facility] - General General Date of Service: 08/10/24 Chief Complaint: Abdominal pain. HPI Narrative The patient is a 79-year-old male with past medical history chronic cannabis usage, hypertension, hyperlipidemia who presents to the [facility] ED on 08/10/2024 with persistent severe abdominal discomfort starting upon awakening in the morning however progressed throughout the day noted to be severe 10 out of 10 with patient thrashing at home prompting to eventually call the ambulance with no recent fevers or chills nor any episodes of emesis or diarrhea. Workup in the ED included T95.4, heart rate 94, BP 175/109, respiratory rate 34, 97% on room air with most recent repeat vitals heart rate 71, BP 108/65, respiratory rate 18, 95% room air, CBC with WBC 16.7, human 15.1, platelet 302 with left shift, unremarkable coags, CMP with potassium 3.1, come back side 17, anion gap 18, BUN/creatinine 14/1.66, GFR 43, glucose 199, initial lactic acid 9 with repeat 1.8, alk phos 146 otherwise hepatic profile unremarkable, troponin less than 3, urinalysis with specific [place] 1.010, protein 15, glucose 100, ketones 50, occult blood 50 with no evidence of UTI, CT chest/abdomen/pelvis with and/or without with a right distal ureter 2 mm calculus with moderate upstream hydroureteronephrosis with enlarged prostate indenting the posterior wall of the urinary bladder, tubular appearance of descending and sigmoid colon possibly secondary to underdistention or chronic findings, partially visualized fluid- filled scrotal sac possibly 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 In the ED patient administered 2 L normal saline, Zofran 4 mg IV x 2, morphine 4 mg IV x 1, Dilaudid 1 mg IV x 2, Ativan 1 mg IV x 1 as well as Zosyn 4.5 g IV x 1. Given mild anion gap elevation although in the setting of significant initial lactic acidosis with concurrent hyperglycemia and noted ketones and glucose in the urine with no diabetic previous history, discussed with ED physician and acetone will be obtained to be cautious. In addition repeat BMP and VBG will be obtained. ED discussed case with assessment consultant Surgeon Dr. Whitehead who recommended overnight observation. [facility] Medical History (Updated 08/11/24 @ 00:[address] Ashley Hess MD) CKD (chronic kidney disease) Hypercholesterolemia Hypertension Home Medications ?Medication ?Instructions ?Recorded ?Last Taken ?Type hydrocodone-acetaminophen 5-325mg 1 tab PO Q6H PRN PRN Pain 3 days 04/06/24 Unknown Rx 5mg-325mg #10 TABLETS atorvastatin 40 mg tablet 40 mg PO DAILY 08/10/24 Unkn own History gabapentin 300 mg capsule 600 mg PO QHS 08/10/24 Unkno wn History Allergy/AdvReac Type Severity Reaction Status Date / Time No Known Allergies Allergy Verified 04/06/24 15:16 Family History (Updated 08/10/24 @ 23:[address] Ashley Hess MD) Mother Cancer Father Cancer Surgical History (Updated 04/06/24 @ 19:[address] Shilo Daugherty, DO) Status post surgical removal of malignant neoplasm of skin Social History (Updated 08/10/24 @ 23:[address] Ashley Hess MD) household members: spouse Smoking Status: Never smoker alcohol intake: never substance use type: marijuana ROS Review of Systems ROS Unobtainable: other Details: s/p sedative medication in the ED. Unable to provide ROS. Family notes only periumbilical abdominal pain. Vital Signs Vital Signs Vital Signs: 08/10/24 16:55 08/10/24 17:54 08/10/24 18:00 Temperature 95.4 F L Temperature Source Temporal Pulse Rate 94 95 Respiratory Rate 34 H 28 H Blood Pressure 175/109 H 202/92 H 202/92 H Blood Pressure Mean 131 128 128 Pulse Ox 97 95 Oxygen Delivery Method Room Air Room Air 08/10/24 19:00 08/10/24 19:57 08/10/24 21:00 Temperature Temperature Source Pulse Rate 88 64 Respiratory Rate 18 18 Blood Pressure 194/92 H 177/81 H 143/82 H Blood Pressure Mean 126 113 102 Pulse Ox 96 97 Oxygen Delivery Method Room Air Room Air 08/10/24 22:00 Temperature Temperature Source Pulse Rate 71 Respiratory Rate 18 Blood Pressure 108/65 Blood Pressure Mean 79 Pulse Ox 95 Oxygen Delivery Method Room Air Weight Weight: 195 lb 1.745 oz Body Mass Index (BMI) 28.0 Physical Exam Narrative Physical Examination: General: Patient awakens but is very lethargic status post sedated regimen in the ED, not alert, not answering orientation questions, comfortable appearing, not grimacing to any palpation of the abdomen, currently no acute distress but had been previously severely agitated, thrashing in the bed reporting severe pain. Skin: Normal color, normal turgor, no icterus, no cyanosis. HEENT: AT/NC, EOMI, PERRLA, dry MM, no carotid bruits or JVD noted. Lungs: Mildly diminished, greater bases, poor effort, no rales, ronchi or wheezing. Heart: Currently regular rate and rhythm; no gallop, rub audible. Abdomen: Soft, no obvious evidence of any discomfort to palpation with no grimacing or guarding, nonsurgical abdomen, no obvious distention, normal BS, no appreciated HSM. Extremities: No cyanosis, clubbing, or edema. Neurological: Patient awakens but is very lethargic status post sedated regimen in the ED, not alert, not answering orientation questions, comfortable appearing, cognitive function not baseline intact given recent sedative regimen; pupils equally reactive to light and accommodation, cranial nerves difficult to assess given current sedated status, spontaneously still moving extremities during evaluation. Psychiatric: Affect appears flat, sedated, no acute evidence of depressive or anxiety feelings. Results Lab / Micro Data 08/10/24 17:04 08/10/24 23:34 Labs: Laboratory Results - last 24 hr 08/10/24 17:04: WBC 16.7 H, RBC 5.16, Hgb 15.1, Hct 45.3, MCV 87.8, MCH 29.3, MCHC 33.3, RDW Std Deviation 39.6, RDW Coeff of Clarence 12.4, Plt Count 302, MPV 10.7, Immature Gran % (Auto) 0.700, Neut % (Auto) 71.1 H, Lymph % (Auto) 19.4, [place] % (Auto) 7.6, Eos % (Auto) 0.7, Baso % (Auto) 0.5, Absolute Neuts (auto) 11.9 H, Absolute Lymphs (auto) 3.25, Nucleated RBC % 0, PT 13.2, INR 1.0, Sodium 141, Potassium 3.1 L, Chloride 106, Carbon Dioxide 17.0 L, Anion Gap 18 H, BUN 14, Creatinine 1.66 H, Estim Creat Clear Calc 41.75, Est GFR (MDRD) Af Amer 52 L , Est GFR (MDRD) Non-Af 43 L, BUN/Creatinine Ratio 8.4 L, Glucose 199 H, Lactic Acid 9.0 H*, Calcium 10.1, Total Bilirubin 0.80, Direct Bilirubin 0.22, AST 29, ALT 33, Alkaline Phosphatase 146 H, Troponin I High Sens < 3 L, Total Protein 7.8, Albumin 4.1, Globulin 3.7, Lipase 48 08/10/24 18:14: Urine Color Yellow, Urine Clarity Clear, Urine pH 6.0, Ur Specific [place] 1.010, Urine Protein 15 H, Urine Glucose (UA) 100 H, Urine Ketones 50 H, Urine Occult Blood 50 H, Urine Nitrite Negative, Urine Bilirubin Negative, Urine Urobilinogen Normal, Ur Leukocyte Esterase Negative, Urine RBC 0-5 SEEN, Urine WBC 0 SEEN, Ur Squamous Epith Cells 0 SEEN, Urine Bacteria 0 SEEN, Urine Mucus 0 SEEN 08/10/24 21:47: Lactic Acid 1.8 Imaging Radiology Impression Chest/Abdomen/Pelvis CTA 08/10/24 17:03 IMPRESSION: Right distal ureter 2 mm calculus with moderate upstream hydroureteronephrosis. Enlarged prostate indenting the posterior wall of the urinary bladder. Correlate with PSA. Tubular appearance of the descending and sigmoid colon which may be due to underdistention or chronic findings of colitis. Specifically correlate for history of ulcerative colitis. Partially visualized fluid-filled scrotal sac which may represent hydroceles. One or more dose reduction techniques were used (e.g., Automated exposure control, adjustment of the mA and/or kV according to patient size, use of iterative reconstruction technique). Reading Location: [id number] Abdomen CT 08/10/24 18:56 IMPRESSION: Right distal ureter 3 mm calculus with mild upstream hydroureteronephrosis. Bilateral nephrolithiasis. Enlarged prostate. Correlate with PSA. Mild concentric urinary bladder wall thickening favored to represent chronic outlet obstruction. Correlate with urinalysis to exclude cystitis. Fluid-filled scrotal sac which may represent bilateral hydroceles. One or more dose reduction techniques were used (e.g., Automated exposure control, adjustment of the mA and/or kV according to patient size, use of iterative reconstruction technique). Reading Location: [id number] Assessment & Plan Assessment/Plan (1) Abdominal pain: PLAN: Plan The patient is a 79-year-old male with past medical history Chronic cannabis usage, hypertension, hyperlipidemia who presents to the [facility] ED on 08/10/2024 with persistent severe abdominal discomfort starting upon awakening in the morning however progressed throughout the day noted to be severe 10 out of 10 with patient thrashing at home prompting to eventually call the ambulance with no recent fevers or chills nor any episodes of emesis or diarrhea. #1. Severe abdominal pain potentially secondary to right distal ureteral with moderate upstream hydroureteronephrosis with incidentally noted enlarged prostate as well as potential bilateral hydroceles with significant lactic acidosis potentially secondary to severe dehydration given normalized quickly in addition to #2 with ongoing evaluation as noted, concern for possibility of DKA: Given size likely would pass on its own, will maintain on hydration, urinalysis with no obvious evidence of UTI, once clinically improving would at least allow clears if amenable for surgery, maintain on IV PPI, will have as needed pain regimen and antiemetic regimen. Will hold on immediate urological involvement given very minimal size but given prostate size will benefit from early follow- up with urology outpatient. Will continue ED initiated general surgery consultation to be cautious; however, #2. Hyperglycemia with elevated anion gap with questionable mild Acute DKA with no diabetic history: Given mild anion gap elevation although in the setting of significant initial lactic acidosis with concurrently noted hyperglycemia and noted ketones and glucose in the urine with no diabetic previous history, discussed with ED physician and acetone will be obtained to be cautious. If this is consistent with DKA given very mild nature may be able to given significant recent hydration administer subcu insulin with repeat serial assessments and deferred drip, will obtain magnesium and phosphorus levels, will obtain hemoglobin A1c if this provides to be the case. Repeat BMP also requested in the ED. #3. Acute kidney injury on CKD stage III per previous GFR trending however labs are remote and from 2019 prior: Secondary to acute presentation. Admission BUN/Cr 14/1.66, GFR 43, prior baseline creatinine noted to be 1.1 however labs are from 2020 the certainly could have progressed with more chronic renal disease but uncertain. Will hydrate, hold nephrotoxic medications and repeat chemistry in AM. If no improvement would plan FeNa assessment and further investigate. #4. Hypokalemia: Admission K+ 3.1, magnesium level requested, supplementation given, repeat level in AM. #5. Hypertension: Noted history, per current list not on regimen, BP initially elevated upon arrival however clinically improved with pain control, continue to monitor and add oral regimen if clinically appropriate, as needed IV hydralazine in the interim. #6. Hyperlipidemia: We will continue patient on statin therapy. #7. DVT prophylaxis: Heparin. #8. CODE status: Patient healthcare power of trial attorney and living will are not in place but patient's who is present would be his medical decision-maker if necessary. Discussed CODE status at length including difference between FULL code, DNR-CCA and DNR-CC status. Following discussions about the differences in these status, patient's spouse requested Full Code status. She noted that he would not want long-term ventilation support. Advanced Care Planning Face to Face Time: 16 minutes. Charges/Coding Visit Charges Inpatient E&M: 84239 Init Hosp L3 Procedures Hospitalists Procedures: 60721 Advncd Care Plan 30 Min
[2024-08-11 00:34] LABS: Magnesium 2.2 mg/dL (1.6-2.6)
[2024-08-11 00:46] LABS: Procalcitonin 0.35 ng/mL (0.00-0.09)
[2024-08-11] MEDS: Pantoprazole Sodium 40 MG in 0.9% Normal Saline (100mL MB+) 100 ML 330 MG IV ×3 (03:11→21:11)
[2024-08-11] MEDS: 0.9% Normal Saline (1000mL) 1,000 ML 100 ML IV (03:11)
[2024-08-11] MEDS: oxyCODONE 5 MG Tablet PO ×2 (03:59→19:45)
[2024-08-11] MEDS: Morphine 2 MG/ML Syringe IV ×3 (04:44→17:02)
[2024-08-11] MEDS: Ondansetron 4 MG/2 ML Vial IV ×3 (04:44→20:42)
[2024-08-11 06:44] LABS: Bedside Glucose 162 mg/dL (74-106)
--- NOTE | 2024-08-11 08:13 | CON.PCM.SX_ITS ---
Assessment & Plan Assessment/Plan (1) Abdominal pain: QUALIFIERS: Abdominal location: epigastric Qualified Code(s): R 10.13 - Epigastric pain PLAN: I have been consulted in conjunction with Dr. Whitehead. She will independently evaluate this patient. Patient with a 1 day history of worsening epigastric pain associated with nausea and dry heaves. Patient's abdominal pain has improved since that time. Etiology of abdominal pain is unknown at this time. Possible gastritis. Discuss with patient and his family that no surgical intervention is being recommended at this time. Recommend increasing patient diet to regular. If no pain experienced with diet, patient may be discharged from a surgical standpoint. Recommend discharge on omeprazole for 2 months. Plan to follow-up with Dr. Whitehead as an outpatient in 2 weeks to review progress on the medication and possibly discuss upper scope. 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 Patient will need to follow-up with urology to monitor known kidney stone as well as enlarged prostate. Patient and his family have had the opportunity to ask and have questions answered. Patient verbally understands and agrees with the plan. Thank you for allowing us to participate in this patient's care. HPI Consult Data Date of Consult: 08/11/24 HPI Narrative Reason for Consultation: Abdominal pain HPI Narrative: MARQUEZ ENNIS, is a 79 M who presents with a 1 day history of abdominal pain. Patient notes mid morning yesterday he has a sharp stabbing pain in the upper middle part of his stomach. He noted the pain never let up and continued to increase in intensity. Patient states this pain was associated with nausea and dry heaves. He notes having previous stomach pain in the same area that would go away. He denies any recent change in appetite. He denies any fever. He denies being around any sick contacts. He states he is a chronic marijuana user multiple times per day. He denies any reflux symptoms. He is not currently on any PPI as an outpatient. He denies any previous abdominal surgeries. He denies any recent bowel habit changes. He denies any urinary concerns or issues. He has never had an upper scope. CTA scan of the chest/ab/pel demonstrated Right distal ureter 2 mm calculus with moderate upstream hydroureteronephrosis. Enlarged prostate indenting the posterior wall of the urinary bladder. Correlate with PSA. Tubular appearance of the descending and sigmoid colon which may be due to underdistention or chronic findings of colitis. Specifically correlate for history of ulcerative colitis. Partially visualized fluid-filled scrotal sac which may represent hydroceles. CT scan of ab/pel with oral contrast showed 3 mm calculus with mild upstream hydroureteronephrosis, bilateral nephrolithiasis, enlarged prostate, chronic outlet obstruction, fluid-filled scrotal sac which may represent bilateral hydroceles. [facility] Medical History (Updated 08/11/24 @ 11:57 by Sheila TENORIO, MARIAH) Skin cancer CKD (chronic kidney disease) Hypercholesterolemia Hypertension Home Medications ?Medication ?Instructions ?Recorded ?Last Taken ?Type atorvastatin 40 mg tablet 40 mg PO DAILY 08/10/2409/01 History gabapentin 300 mg capsule 600 mg PO QHS 08/10/2408/09 History acetaminophen 500 mg tablet 1,000 mg PO Q6H PRN pain 0 08/11/24 08/10/24 History diphenhydramine 25 2 tab PO QHS 08/11/24 History mg-acetaminophen 500 mg tablet (Tylenol PM Extra Strength) fluoxetine 20 mg capsule 20 mg PO QHS 08/11/24 History fluoxetine 40 mg capsule 40 mg PO DAILY 08/11/2409/29 History lisinopril 10 mg tablet 10 mg PO DAILY 08/11/2409/29 History Allergy/AdvReac Type Severity Reaction Status Date / Time No Known Allergies Allergy Verified 04/06/24 15:16 Family History (Updated 08/10/24 @ 23:[address] Ashley Hess MD) Mother Cancer Father Cancer Surgical History (Updated 04/06/24 @ 19:[address] Shilo Daugherty, DO) Status post surgical removal of malignant neoplasm of skin Social History (Updated 08/10/24 @ 23:[address] Ashley Hess MD) household members: spouse Smoking Status: Never smoker alcohol intake: never substance use type: marijuana ROS Constitutional Constitutional: Reports poor appetite Eyes Eyes: Reports systems reviewed and no addt'l complaints, except as documented ENT HEENT: Reports systems reviewed and no addt'l complaints, except as documented Cardiovascular Cardiovascular: Reports systems reviewed and no addt'l complaints, except as documented Respiratory/Chest Respiratory/Chest: Reports systems reviewed and no addt'l complaints, except as documented Gastrointestinal Gastrointestinal: Reports systems reviewed and no addt'l complaints, except as documented Genitourinary Genitourinary: Reports systems reviewed and no addt'l complaints, except as documented Musculoskeletal Musculoskeletal: Reports systems reviewed and no addt'l complaints, except as documented Integumentary Integumentary: Reports systems reviewed and no addt'l complaints, except as documented Neurologic Neurologic: Reports systems reviewed and no addt'l complaints, except as documented Psychiatric Psychiatric: Reports systems reviewed and no addt'l complaints, except as documented Endocrine Endocrinology: Reports systems reviewed and no addt'l complaints, except as documented Hematologic/Lymphatic Hematologic/Lymphatic: Reports systems reviewed and no addt'l complaints, except as documented Allergic/Immunologic Allergic/Immunologic: Reports systems reviewed and no addt'l complaints, except as documented Physical Exam Const alert, oriented x3 and no apparent distress HEENT normocephalic and head/scalp atraumatic Eyes PERRL Neck full ROM Resp normal respiratory effort and clear to auscultation bilaterally Cardio regular rate and regular rhythm GI GI Narrative: Abdomen- soft, non-distended, tenderness in the epigastric region. Positive bowel sounds. no CVA tenderness Back/Spine no CVA tenderness Extremity normal to inspection Skin no rashes or lesions noted Neuro no focal motor deficits and no sensory deficits noted Psych mental status grossly normal, thought process normal and cooperative Lab / Micro Data 08/11/24 08:10 08/11/24 08:10 Labs: Laboratory Results - last 24 hr 08/10/24 17:04: WBC 16.7 H, RBC 5.16, Hgb 15.1, Hct 45.3, MCV 87.8, MCH 29.3, MCHC 33.3, RDW Std Deviation 39.6, RDW Coeff of Clarence 12.4, Plt Count 302, MPV 10.7, Immature Gran % (Auto) 0.700, Neut % (Auto) 71.1 H, Lymph % (Auto) 19.4, [place] % (Auto) 7.6, Eos % (Auto) 0.7, Baso % (Auto) 0.5, Absolute Neuts (auto) 11.9 H, Absolute Lymphs (auto) 3.25, Nucleated RBC % 0, PT 13.2, INR 1.0, Sodium 141, Potassium 3.1 L, Chloride 106, Carbon Dioxide 17.0 L, Anion Gap 18 H, BUN 14, Creatinine 1.66 H, Estim Creat Clear Calc 41.75, Est GFR (MDRD) Af Amer 52 L , Est GFR (MDRD) Non-Af 43 L, BUN/Creatinine Ratio 8.4 L, Glucose 199 H, Lactic Acid 9.0 H*, Calcium 10.1, Total Bilirubin 0.80, Direct Bilirubin 0.22, AST 29, ALT 33, Alkaline Phosphatase 146 H, Troponin I High Sens < 3 L, Total Protein 7.8, Albumin 4.1, Globulin 3.7, Lipase 48 08/10/24 18:14: Urine Color Yellow, Urine Clarity Clear, Urine pH 6.0, Ur Specific [place] 1.010, Urine Protein 15 H, Urine Glucose (UA) 100 H, Urine Ketones 50 H, Urine Occult Blood 50 H, Urine Nitrite Negative, Urine Bilirubin Negative, Urine Urobilinogen Normal, Ur Leukocyte Esterase Negative, Urine RBC 0-5 SEEN, Urine WBC 0 SEEN, Ur Squamous Epith Cells 0 SEEN, Urine Bacteria 0 SEEN, Urine Mucus 0 SEEN 08/10/24 21:47: Lactic Acid 1.8 08/10/24 23:24: Procalcitonin 0.35 H, Acetone Level NEGATIVE 08/10/24 23:34: Sodium 143, Potassium 4.1, Chloride 112 H, Carbon Dioxide 25.0, Anion Gap 6, BUN 13, Creatinine 1.26, Estim Creat Clear Calc 55.00, Est GFR (MDRD) Af Amer 71, Est GFR (MDRD) Non-Af 59 L, BUN/Creatinine Ratio 10.3, G lucose 161 H, Calcium 9.0, Magnesium 2.2 08/11/24 06:23: POC Glucose 162 H ABG Data ABG results: ABG 08/10/24 23:42 Specimen Type ANAYELI Sample Site Not entered VBG pH 7.33 VBG pO2 35 VBG HCO3 24 VBG Total CO2 25 VBG O2 Sat (Calc) 63 VBG Base Excess -2 L POC Mix VBG pCO2 Pt Tmp 45.8 O2 Delivery Device Room Air Imaging Radiology Impression Chest/Abdomen/Pelvis CTA 08/10/24 17:03 IMPRESSION: Right distal ureter 2 mm calculus with moderate upstream hydroureteronephrosis. Enlarged prostate indenting the posterior wall of the urinary bladder. Correlate with PSA. Tubular appearance of the descending and sigmoid colon which may be due to underdistention or chronic findings of colitis. Specifically correlate for history of ulcerative colitis. Partially visualized fluid-filled scrotal sac which may represent hydroceles. One or more dose reduction techniques were used (e.g., Automated exposure control, adjustment of the mA and/or kV according to patient size, use of iterative reconstruction technique). Reading Location: [facility] Abdomen CT 08/10/24 18:56 IMPRESSION: Right distal ureter 3 mm calculus with mild upstream hydroureteronephrosis. Bilateral nephrolithiasis. Enlarged prostate. Correlate with PSA. Mild concentric urinary bladder wall thickening favored to represent chronic outlet obstruction. Correlate with urinalysis to exclude cystitis. Fluid-filled scrotal sac which may represent bilateral hydroceles. One or more dose reduction techniques were used (e.g., Automated exposure control, adjustment of the mA and/or kV according to patient size, use of iterative reconstruction technique). Reading Location: [facility] Charges/Coding Visit Charges Inpatient E&M: 89680 Init Hosp L2
[2024-08-11 08:26] LABS: Absolute Lymphocyte Count 1.67 X10^3/uL (0.83-4.51); Absolute Neutrophil Count 10.7 X10^3/uL (2.0-7.7); Basophil# 0.02 X10^3/uL; Basophil% 0.1 % (0-1); Eosinophil# 0.01 X10^3/uL; Eosinophils% 0.1 % (0-5); Hematocrit 39.6 % (40-54); Hemoglobin 13.1 g/dL (13.0-16.5); Lymphocyte # 1.67 X10^3/ul (0.83-4.51); Lymphocyte % 12.3 % (19-41); Mean Corp Hgb Conc 33.1 g/dL (32-36); Mean Corpuscular Hgb 29.8 pg (27.0-32.0); Mean Platelet Vol. 10.2 fl (6.2-12.0); Monocyte# 1.12 X10^3/uL; Monocyte% 8.2 % (0-10); NRBC Flagged by Analyzer 0 % (0-5); Neutrophil # 10.73 X10^3/uL (2.7-7.7); Neutrophil % 78.9 % (47-70); Platelet Count 233 K/mm3 (150-450); RBC Distribution Width SD 42.7 fl (35.1-43.9); White Blood Count 13.6 K/mm3 (4.4-11.0)
[2024-08-11 08:47] LABS: ALB/GLOB Ratio 1.1 RATIO (0.9-2.4); AST(SGOT) 27 U/L (15-37); Alanine Aminotransfer ALT/SGPT 27 U/L (16-61); Albumin, Serum 3.4 g/dL (3.2-5.0); Alkaline Phosphatase 110 U/L (45-117); Anion Gap 7 (5-15); BUN 13 mg/dL (7-18); Chloride 112 mmol/L (98-107); Creatinine, Serum 1.18 mg/dL (0.70-1.30); EST Glomerular Filtration Rate 64 mL/min (>60); Est Glom Filt Rate - Afr Amer 77 mL/min (>60); Estimated Creatinine Clearance 58.73 ml/min; Globulin 3.1 g/dL (2.2-4.2); Glucose 120 mg/dL (74-106); Potassium 3.9 mmol/L (3.5-5.1); Protein, Total 6.5 g/dL (6.4-8.2); Sodium Level 142 mmol/L (136-145)
[2024-08-11] MEDS: Heparin Injection (Vial) 5,000 UNIT/ML VIAL 5000 UNIT SC ×2 (09:52→21:00)
[2024-08-11 09:59] LABS: Hemoglobin A1c 5.6 % (3.8-5.6)
[2024-08-11] MEDS: 0.9% Saline Lock 10 ML Syringe IV ×4 (12:34→20:43)
--- NOTE | 2024-08-11 13:04 | PCM.CONS.U ---
Assessment & Plan Assessment/Plan (1) Abdominal pain: QUALIFIERS: Abdominal location: epigastric Qualified Code(s): R10.13 - Epigastric pain (2) Kidney stone on right side: PLAN: Small stone in the distal right ureter about 3 mm in size it's possible he may be a pass a stone the past is bone spontaneously to no intervention would be necessary but at this point without resolution to put him on the schedule for tomorrow for surgery, and pure midnight and will discussed the procedure the patient prior to him coming down. HPI Consult Data Date of Consult: 08/11/24 HPI Narrative Reason for Consultation: Abdominal pain and kidney stone HPI Narrative: MRAQUEZ ENNIS, is a 79 M who presents To the hospital with a small stone the distal right ureter about 3 mm in size is been having severe abdominal pain was a blood into the hospital for control of his pain CAT scan was done at demonstrated a small stone the distal right ureter he may be able to pass a stone on his own but if he fails a pass a stone little taken the surgery for surgical intervention. Will make them NPO tonight at him on the schedule for tomorrow. [facility] Medical History Skin cancer CKD (chronic kidney disease) Hypercholesterolemia Hypertension Home Medications ?Medication ?Instructions ?Recorded ?Last Taken ?Type atorvastatin 40 mg tablet 40 mg PO DAILY 08/10/24 08/09/24 History gabapentin 300 mg capsule 600 mg PO QHS 08/10/24 08/09/24 History acetaminophen 500 mg tablet 1,000 mg PO Q6H PRN pain 08/11/24 08/10/24 History diphenhydramine 25 2 tab PO QHS 08/11/24 08/09/24 History mg-acetaminophen 500 mg tablet (Tylenol PM Extra Strength) fluoxetine 20 mg capsule 20 mg PO QHS 08/11/24 08/09/24 History fluoxetine 40 mg capsule 40 mg PO DAILY 08/11/24 08/10/24 History lisinopril 10 mg tablet 10 mg PO DAILY 08/11/24 08/10/24 History Allergy/AdvReac Type Severity Reaction Status Date / Time No Known Allergies Allergy Verified 04/06/24 15:16 Family History Mother Cancer Father Cancer Surgical History Status post surgical removal of malignant neoplasm of skin Social History household members: spouse Smoking Status: Never smoker alcohol intake: never substance use type: marijuana ROS Constitutional Constitutional: Denies chills, fever(s) or malaise Eyes Eyes: Denies blurry vision or change in vision ENT HEENT: Reports none Cardiovascular Cardiovascular: Denies chest pain or palpitations Respiratory/Chest Respiratory/Chest: Denies cough or shortness of breath with exertion Gastrointestinal Gastrointestinal: Denies abdominal pain, constipation or diarrhea Musculoskeletal Musculoskeletal: Denies back pain, joint stiffness or joint swelling Integumentary Integumentary: Denies dry skin, jaundice, lesions or rash Neurologic Neurologic: Denies confusion, syncope or weakness Psychiatric Psychiatric: Reports none; Denies anxiety or depression Endocrine Endocrinology: Denies excessive sweating, fatigue or flushing Hematologic/Lymphatic Hematologic/Lymphatic: Denies anemia, easy bleeding or easy bruising Lab / Micro Data 08/11/24 08:10 08/11/24 08:10 Labs: Laboratory Results - last 24 hr 08/10/24 17:04: WBC 16.7 H, RBC 5.16, Hgb 15.1, Hct 45.3, MCV 87.8, MCH 29.3, MCHC 33.3, RDW Std Deviation 39.6, RDW Coeff of Clarence 12.4, Plt Count 302, MPV 10.7, Immature Gran % (Auto) 0.700, Neut % (Auto) 71.1 H, Lymph % (Auto) 19.4, [place] % (Auto) 7.6, Eos % (Auto) 0.7, Baso % (Auto) 0.5, Absolute Neuts (auto) 11.9 H, Absolute Lymphs (auto) 3.25, Nucleated RBC % 0, PT 13.2, INR 1.0, Sodium 141, Potassium 3.1 L, Chloride 106, Carbon Dioxide 17.0 L, Anion Gap 18 H, BUN 14, Creatinine 1.66 H, Estim Creat Clear Calc 41.75, Est GFR (MDRD) Af Amer 52 L, Est GFR (MDRD) Non-Af 43 L, BUN/Creatinine Ratio 8.4 L, Glucose 199 H, Lactic Acid 9.0 H*, Calcium 10.1, Total Bilirubin 0.80, Direct Bilirubin 0.22, AST 29, ALT 33, Alkaline Phosphatase 146 H, Troponin I High Sens < 3 L, Total Protein 7.8, Albumin 4.1, Globulin 3.7, Lipase 48 08/10/24 18:14: Urine Color Yellow, Urine Clarity Clear, Urine pH 6.0, Ur Specific [place] 1.010, Urine Protein 15 H, Urine Glucose (UA) 100 H, Urine Ketones 50 H, Urine Occult Blood 50 H, Urine Nitrite Negative, Urine Bilirubin Negative, Urine Urobilinogen Normal, Ur Leukocyte Esterase Negative, Urine RBC 0-5 SEEN, Urine WBC 0 SEEN, Ur Squamous Epith Cells 0 SEEN, Urine Bacteria 0 SEEN, Urine Mucus 0 SEEN 08/10/24 21:47: Lactic Acid 1.8 08/10/24 23:24: Procalcitonin 0.35 H, Acetone Level NEGATIVE 08/10/24 23:34: Sodium 143, Potassium 4.1, Chloride 112 H, Carbon Dioxide 25.0, Anion Gap 6, BUN 13, Creatinine 1.26, Estim Creat Clear Calc 55.00, Est GFR (MDRD) Af Amer 71, Est GFR (MDRD) Non-Af 59 L, BUN/Creatinine Ratio 10.3, Glucose 161 H, Calcium 9.0, Magnesium 2.2 08/11/24 06:23: POC Glucose 162 H 08/11/24 08:10: WBC 13.6 H, RBC 4.40 L, Hgb 13.1, Hct 39.6 L, MCV 90.0, MCH 29.8, MCHC 33.1, RDW Std Deviation 42.7, RDW Coeff of [place] 13.0, Plt Count 233, MPV 10.2, Immature Gran % (Auto) 0.400, Neut % (Auto) 78.9 H, Lymph % (Auto) 12.3 L, [place] % (Auto) 8.2, Eos % (Auto) 0.1, Baso % (Auto) 0.1, Absolute Neuts (auto) 10.7 H, Absolute Lymphs (auto) 1.67, Nucleated RBC % 0, Sodium 142, Potassium 3.9, Chloride 112 H, Carbon Dioxide 24.0, Anion Gap 7, BUN 13, Creatinine 1.18, Estim Creat Clear Calc 58.73, Est GFR (MDRD) Af Amer 77, Est GFR (MDRD) Non-Af 64, BUN/Creatinine Ratio 11.0, Glucose 120 H, Hemoglobin A1c 5.6, Calcium 9.0, Total Bilirubin 0.70, AST 27, ALT 27, Alkaline Phosphatase 110, Total Protein 6.5, Albumin 3.4, Globulin 3.1, Albumin/Globulin Ratio 1.1 ABG Data ABG results: ABG 08/10/24 23:42 Specimen Type ANAYELI Sample Site Not entered VBG pH 7.33 VBG pO2 35 VBG HCO3 24 VBG Total CO2 25 VBG O2 Sat (Calc) 63 VBG Base Excess -2 L POC Mix VBG pCO2 Pt Tmp 45.8 O2 Delivery Device Room Air Imaging Radiology Impression Chest/Abdomen/Pelvis CTA 08/10/24 17:03 IMPRESSION: Right distal ureter 2 mm calculus with moderate upstream hydroureteronephrosis. Enlarged prostate indenting the posterior wall of the urinary bladder. Correlate with PSA. Tubular appearance of the descending and sigmoid colon which may be due to underdistention or chronic findings of colitis. Specifically correlate for history of ulcerative colitis. Partially visualized fluid-filled scrotal sac which may represent hydroceles. One or more dose reduction techniques were used (e.g., Automated exposure control, adjustment of the mA and/or kV according to patient size, use of iterative reconstruction technique). Reading Location: [facility] Abdomen CT 08/10/24 18:56 IMPRESSION: Right distal ureter 3 mm calculus with mild upstream hydroureteronephrosis. Bilateral nephrolithiasis. Enlarged prostate. Correlate with PSA. Mild concentric urinary bladder wall thickening favored to represent chronic outlet obstruction. Correlate with urinalysis to exclude cystitis. Fluid-filled scrotal sac which may represent bilateral hydroceles. One or more dose reduction techniques were used (e.g., Automated exposure control, adjustment of the mA and/or kV according to patient size, use of iterative reconstruction technique). Reading Location: [facility]
--- NOTE | 2024-08-11 15:35 | PN_ITS ---
Subjective Subjective Patient seen and examined. His and brother were by his bedside. He had no active complaints. He was admitted with a complaint of abdominal pain which was mainly in the right flank and went down to his groin. He denied passing any kidney stones. Review of systems otherwise negative. Objective Data Objective Data Vital Signs: Vital Signs Temp Pulse Resp BP Pulse Ox O2 Del Method 97.7 F L 72 20 H 147/73 H 95 Room Air 08/11/24 08:30 08/11/24 08:30 08/11/24 08:30 08/11/24 08:30 08/11/24 08:30 08/11/24 10:00 Oxygen Delivery Method Room Air Weight: 195 lb 1.745 oz Body Mass Index (BMI) 28.0 Intake & Output: Intake and Output for Last 24 Hours 08/09/24 08/10/24 08/11/24 23:59 23:59 23:59 Intake Total 2099 / 2099 1919 / 192 Balance 2099 / 1919 Lab / Micro Data 08/11/24 08:10 08/11/24 08:10 Labs: Laboratory Results - last 24 hr 08/10/24 17:04: WBC 16.7 H, RBC 5.16, Hgb 15.1, Hct 45.3, MCV 87.8, MCH 29.3, MCHC 33.3, RDW Std Deviation 39.6, RDW Coeff of [place]rence 12.4, Plt Count 302, MPV 10.7, Immature Gran % (Auto) 0.700, Neut % (Auto) 71.1 H, Lymph % (Auto) 19.4, [place] % (Auto) 7.6, Eos % (Auto) 0.7, Baso % (Auto) 0.5, Absolute Neuts (auto) 11.9 H, Absolute Lymphs (auto) 3.25, Nucleated RBC % 0, PT 13.2, INR 1.0, Sodium 141, Potassium 3.1 L, Chloride 106, Carbon Dioxide 17.0 L, Anion Gap 18 H, BUN 14, Creatinine 1.66 H, Estim Creat Clear Calc 41.75, Est GFR (MDRD) Af Amer 52 L , Est GFR (MDRD) Non-Af 43 L, BUN/Creatinine Ratio 8.4 L, Glucose 199 H, Lactic Acid 9.0 H*, Calcium 10.1, Total Bilirubin 0.80, Direct Bilirubin 0.22, AST 29, ALT 33, Alkaline Phosphatase 146 H, Troponin I High Sens < 3 L, Total Protein 7.8, Albumin 4.1, Globulin 3.7, Lipase 48 08/10/24 18:14: Urine Color Yellow, Urine Clarity Clear, Urine pH 6.0, Ur Specific [employer] 1.010, Urine Protein 15 H, Urine Glucose (UA) 100 H, Urine Ketones 50 H, Urine Occult Blood 50 H, Urine Nitrite Negative, Urine Bilirubin Negative, Urine Urobilinogen Normal, Ur Leukocyte Esterase Negative, Urine RBC 0-5 SEEN, Urine WBC 0 SEEN, Ur Squamous Epith Cells 0 SEEN, Urine Bacteria 0 SEEN, Urine Mucus 0 SEEN 08/10/24 21:47: Lactic Acid 1.8 08/10/24 23:24: Procalcitonin 0.35 H, Acetone Level NEGATIVE 08/10/24 23:34: Sodium 143, Potassium 4.1, Chloride 112 H, Carbon Dioxide 25.0, Anion Gap 6, BUN 13, Creatinine 1.26, Estim Creat Clear Calc 55.00, Est GFR (MDRD) Af Amer 71, Est GFR (MDRD) Non-Af 59 L, BUN/Creatinine Ratio 10.3, G lucose 161 H, Calcium 9.0, Magnesium 2.2 08/11/24 06:23: POC Glucose 162 H 08/11/24 08:10: WBC 13.6 H, RBC 4.40 L, Hgb 13.1, Hct 39.6 L, MCV 90.0, MCH 29.8, MCHC 33.1, RDW Std Deviation 42.7, RDW Coeff of [place]rence 13.0, Plt Count 233, MPV 10.2, Immature Gran % (Auto) 0.400, Neut % (Auto) 78.9 H, Lymph % (Auto) 12.3 L, [place] % (Auto) 8.2, Eos % (Auto) 0.1, Baso % (Auto) 0.1, Absolute Neuts (auto) 10.7 H, Absolute Lymphs (auto) 1.67, Nucleated RBC % 0, Sodium 142, Potassium 3.9, Chloride 112 H, Carbon Dioxide 24.0, Anion Gap 7, BUN 13, Creatinine 1.18, Estim Creat Clear Calc 58.73, Est GFR (MDRD) Af Amer 77, Est GFR (MDRD) Non-Af 64, BUN/Creatinine Ratio 11.0, Glucose 120 H, Hemoglobin A1c 5.6, Calcium 9.0, Total Bilirubin 0.70, AST 27, ALT 27, Alkaline Phosphatase 110, Total Protein 6.5, Albumin 3.4, Globulin 3.1, Albumin/Globulin Ratio 1.1 ABG Data ABG results: ABG 08/10/24 23:42 Specimen Type ANAYELI Sample Site Not entered VBG pH 7.33 VBG pO2 35 VBG HCO3 24 VBG Total CO2 25 VBG O2 Sat (Calc) 63 VBG Base Excess -2 L POC Mix VBG pCO2 Pt Tmp 45.8 O2 Delivery Device Room Air Radiography Diagnostic Testing: Radiology Impression Chest/Abdomen/Pelvis CTA 08/10/24 17:03 IMPRESSION: Right distal ureter 2 mm calculus with moderate upstream hydroureteronephrosis. Enlarged prostate indenting the posterior wall of the urinary bladder. Correlate with PSA. Tubular appearance of the descending and sigmoid colon which may be due to underdistention or chronic findings of colitis. Specifically correlate for history of ulcerative colitis. Partially visualized fluid-filled scrotal sac which may represent hydroceles. One or more dose reduction techniques were used (e.g., Automated exposure control, adjustment of the mA and/or kV according to patient size, use of iterative reconstruction technique). Reading Location: [facility] Abdomen CT 08/10/24 18:56 IMPRESSION: Right distal ureter 3 mm calculus with mild upstream hydroureteronephrosis. Bilateral nephrolithiasis. Enlarged prostate. Correlate with PSA. Mild concentric urinary bladder wall thickening favored to represent chronic outlet obstruction. Correlate with urinalysis to exclude cystitis. Fluid-filled scrotal sac which may represent bilateral hydroceles. One or more dose reduction techniques were used (e.g., Automated exposure control, adjustment of the mA and/or kV according to patient size, use of iterative reconstruction technique). Reading Location: [facility] Physical Exam Const alert, oriented x3, no apparent distress and well nourished General Appearance: cooperative and well developed HEENT normocephalic, head/scalp atraumatic, moist oral mucous membranes and oropharynx normal Eyes PERRL and EOMs intact bilaterally Neck no lymphadenopathy and supple Lymph Lymphatic: no lymphadenopathy noted Resp normal respiratory effort, normal air movement and clear to auscultation bilaterally Cardio regular rate, regular rhythm, S1 normal heart sound, S2 normal heart sound and no murmurs GI normal to inspection, nondistended, normoactive bowel sounds, soft to palpation, non-tender and non-distended GI Narrative: no CVA tenderness. Extremity normal capillary refill, no clubbing, cyanosis or edema and no calf tenderness General Extremity: no tenderness to palpation of joints or extremities Skin General Skin Exam: no breakdown Neuro CN's II-XII intact bilaterally, no focal motor deficits and no sensory deficits noted Motor Exam: strength 5/5 throughout and general weakness Psych thought process normal and cooperative Appearance: appropriate Assessment & Plan Assessment/Plan (1) Kidney stone on right side: (2) Abdominal pain: QUALIFIERS: Abdominal location: epigastric Qualified Code(s): R 10.13 - Epigastric pain PLAN: Plan #Abdominal pain * Patient admitted with complaint of abdominal pain. Pain started in the right flank. * CT of the abdomen and pelvis done showed right distal ureter 2 mm calculus with moderate upstream hydroureteronephrosis with enlarged prostate indenting the posterior wall of the urinary bladder and tubular appearance of descending and sigmoid colon possibly secondary to underdistention or chronic findings and partially visualized fluid-filled scrotal sac possibly transportation services representative of hydrocele. * Abdominal pain has improved now. Patient is feeling better. * Urology consulted. General surgery was also consulted. I am not clear the reason why general surgery was consulted. However they did review patient and per their review they do not have any active recommendations from their end. * Per my discussion with patient he does not remember having passed any kidney stone. I do think he may have surreptitiously passed a kidney stone and that was likely the cause of his symptoms. * Per urology, to be placed on schedule for surgery tomorrow. * Keep n.p.o. past midnight. * Hydrate with IV fluids. P.o. Tylenol and p.o. oxycodone as well as IV morphine prn for pain * Lactic acid was markedly elevated at 9 on admission that went down to 1.8. WBC is down to 13.6 from 16. * Urinalysis did not show any evidence of UTI so hold off on antibiotics for now. * #Hyperlipidemia: On statin #Hypertension: Lisinopril #Depression: On fluoxetine DVT prophylaxis: heparin. Charges/Coding Visit Charges Inpatient E&M: 08577 Subs Hosp L2
--- NOTE | 2024-08-11 16:39 | CASEMGMT ---
Met with patient to complete FRASER form. FRASER form explained to patient who voiced understanding and signed form. Original form placed in pt?s chart and copy provided to patient. Alana Villagomez, Discharge Planning Asst
[2024-08-11] MEDS: proCHLORPERazine 10 MG/2 ML Vial 5 MG IV (17:25)
[2024-08-11] MEDS: Acetaminophen 325 MG Tablet 650 MG PO (19:45)
[2024-08-11] MEDS: MELATONIN 3 MG TABLET PO (21:00)
[2024-08-11] MEDS: Atorvastatin Calcium 40 MG Tablet PO (21:00)
[2024-08-11] MEDS: Gabapentin 600 MG Tablet PO (21:00)
[2024-08-12] VITALS (13 sets, daily range): BP systolic 145–166; BP diastolic 76–96; PULSE 63–86; RESP 16–18; TEMP 36.1–37.1; O2SAT 92–98; BMI 26.3
[2024-08-12 06:27] LABS: Absolute Lymphocyte Count 2.44 X10^3/uL (0.83-4.51); Absolute Neutrophil Count 5.1 X10^3/uL (2.0-7.7); Basophil# 0.02 X10^3/uL; Basophil% 0.2 % (0-1); Eosinophil# 0.07 X10^3/uL; Eosinophils% 0.8 % (0-5); Hemoglobin 12.3 g/dL (13.0-16.5); Lymphocyte # 2.44 X10^3/ul (0.83-4.51); Lymphocyte % 29.5 % (19-41); Mean Corp Hgb Conc 31.5 g/dL (32-36); Mean Corpuscular Hgb 28.7 pg (27.0-32.0); Mean Corpuscular Volume 90.9 fL (80-94); Mean Platelet Vol. 11.1 fl (6.2-12.0); Monocyte# 0.66 X10^3/uL; NRBC Flagged by Analyzer 0 % (0-5); Neutrophil # 5.07 X10^3/uL (2.7-7.7); Neutrophil % 61.3 % (47-70); Platelet Count 198 K/mm3 (150-450); RBC Distribution Width CV 13.1 % (11.6-14.6); RBC Distribution Width SD 42.8 fl (35.1-43.9); Red Blood Count 4.29 M/mm3 (4.6-6.2); White Blood Count 8.3 K/mm3 (4.4-11.0)
[2024-08-12 06:48] LABS: Anion Gap 6 (5-15); BUN 14 mg/dL (7-18); BUN/Creat Ratio 13.5 RATIO (10-20); Calcium,Total 9.3 mg/dL (8.5-10.1); Chloride 108 mmol/L (98-107); Creatinine, Serum 1.04 mg/dL (0.70-1.30); EST Glomerular Filtration Rate 74 mL/min (>60); Est Glom Filt Rate - Afr Amer 89 mL/min (>60); Estimated Creatinine Clearance 61.42 ml/min; Glucose 96 mg/dL (74-106); Potassium 3.4 mmol/L (3.5-5.1); Sodium Level 140 mmol/L (136-145)
--- NOTE | 2024-08-12 09:00 | PN.SURG_ITS ---
Subjective Subjective Patient seen and examined during AM rounds. Is found resting in bed and is initially difficult to arouse but this appears to be due to his hearing impairment. He awakens and responds appropriately. He denies any present abdominal discomfort. He confirms plans for later today to go if urology to address a kidney stone. Objective Data Objective Data Vital Signs: Vital Signs Temp Pulse Resp BP Pulse Ox O2 Del Method 98.1 F 72 16 149/77 H 93 Room Air 08/12/24 07:49 08/12/24 07:49 08/12/24 07:49 08/12/24 07:49 08/12/24 08:13 08/12/24 08:13 Oxygen Delivery Method Room Air Weight: 183 lb 10.321 oz Body Mass Index (BMI) 26.3 Intake & Output: Intake and Output for Last 24 Hours 08/10/24 08/11/24 08/12/24 23:59 23:59 23:59 Intake Total 2099 2430 / 2430 Output Total 200 / 200 Balance 2099 2430 / 2430 -200 / -200 Lab / Micro Data 08/12/24 04:50 08/12/24 04:50 Labs: Laboratory Results - last 24 hr 08/11/24 08:10: Hemoglobin A1c 5.6 08/12/24 04:50: WBC 8.3, RBC 4.29 L, Hgb 12.3 L, Hct 39.0 L, MCV 90.9, MCH 28.7, MCHC 31.5 L, RDW Std Deviation 42.8, RDW Coeff of [place]rence 13.1, Plt Count 198, MPV 11.1, Immature Gran % (Auto) 0.200, Neut % (Auto) 61.3, Lymph % (Auto) 29.5, [place] % (Auto) 8.0, Eos % (Auto) 0.8, Baso % (Auto) 0.2, Absolute Neuts (auto) 5.1, Absolute Lymphs (auto) 2.44, Nucleated RBC % 0, Sodium 140, Potassium 3.4 L , Chloride 108 H, Carbon Dioxide 26.0, Anion Gap 6, BUN 14, Creatinine 1.04, Estim Creat Clear Calc 61.42, Est GFR (MDRD) Af Amer 89, Est GFR (MDRD) Non-Af 74, BUN/Creatinine Ratio 13.5, Glucose 96, Calcium 9.3 Physical Exam Const oriented x3 and no apparent distress Resp normal respiratory effort GI GI Narrative: Nondistended, soft, no tenderness to palpation x 4 quadrants and absolutely no tenderness reported despite deeper palpation across the epigastrium where patient reported his initial discomfort. Assessment & Plan Assessment/Plan (1) Abdominal pain: QUALIFIERS: Abdominal location: epigastric Qualified Code(s): R 10.13 - Epigastric pain PLAN: Patient is seen in consultation related to a presentation of acute, severe epigastric pain with associated lactic acidosis. The latter spontaneously improved to normal and patient is seen today without any abdominal complaints. Further, his abdominal exam is entirely benign. He is pending treatment of a right-sided kidney stone with urology later today. As such I find no cause for further general surgical involvement and will now sign off. Patient was counseled to refrain from any use of cannabis during his recovery as this certainly can contribute epigastric pain (a more specifically stomach/early small bowel dysmotility). Patient confirms understanding and willingness to comply as directed. Malik Luna MD General Surgery Endocrine Surgery Pager: [facility] [address] [place] [address], [address] [place] [address] Office: [phone] Charges/Coding Visit Charges Inpatient E&M: 14182 Subs Hosp L2
[2024-08-12] MEDS: Pantoprazole Sodium 40 MG in 0.9% Normal Saline (100mL MB+) 100 ML 330 MG IV ×2 (10:26→21:23)
[2024-08-12] MEDS: 0.9% Saline Lock 10 ML Syringe IV ×2 (10:27→21:23)
--- NOTE | 2024-08-12 14:37 | PRE.ANES_ITS ---
ASA Classification* ASA Classification ASA Classification: 2 Assessment & Plan Anesthesia* Anesthesia Assessment Anesthesia Assessment: Discussed sedation and/or anesthesia options, risks, benefits, and alternatives with patient/parents/legal guardian/POA. Questions invited. The patient/parents/legal guardian/POA seems to understand and agrees to proceed with anesthesia plan. Reviewed the physical assessment, medical history, allergy history and patient home medications list prior to surgery/procedure/anesthetic and documented any changes. Performed airway and anesthesia risk assessments. Anesthesia Type Anesthesia Type: MAC Anesthesia Focused Assessment* Temperature: 98.1 F Pulse Rate: 72 Blood Pressure: 149/77 Respiratory Rate: 16 Pulse Ox: 93 Airway Assessment Mouth opens: >3 cm Mallampati Score: II Focused Labs Anesthesia Preop lab: CBC WBC 8.3 K/mm3 (4.4-11.0) 08/12/24 04:50 08/12/24 RBC 4.29 M/mm3 (4.6-6.2) L 08/12/24 04:50 08/12/24 Hgb 12.3 g/dL (13.0-16.5) L 08/12/24 04:50 5 Hct 39.0 % (40-54) L 08/12/24 04:50 08/12/24 Plt Count 198 K/mm3 (150-450) 08/12/24 04:50 08/12/24 CHEMISTRY Potassium 3.4 mmol/L (3.5-5.1) L 08/12/24 04:50 08/12/24 Sodium 140 mmol/L (136-145) 08/12/24 04:50 08/12/24 Magnesium 2.2 mg/dL (1.6-2.6) 08/10/24 23:34 08/10/24 BUN 14 mg/dL (7-18) 08/12/24 04:50 08/12/24 Creatinine 1.04 mg/dL (0.70-1.30) 08/12/24 04:50 08/12/24 Glucose 96 mg/dL (74-106) 08/12/24 04:50 08/12/24 POC Glucose 162 mg/dL (74-106) H 08/11/24 06:23 08/11/24 COAG PT 13.2 SECONDS (11.7-14.9) 08/10/24 17:04 Pre-Assessment Diagnosis/Proposed Procedure Planned Operative Procedure(s): Cystoscopy, right stent insertion ureter Anesthesia History Anesthesia History - medical director of hospice: Anesthesia History - medical director of hospice Hx Hospitalization Any Problems With Anesthesia No 08/11/24 21:23 Cholinesterase deficiency No 08/11/24 21:23 You/Your Family Experience No 08/11/24 21:23 fever (hyperthermia) with Relationship Recent Exposure to Contagious No 08/11/24 21:23 Disease Does patient have nerve No 08/11/24 21:23 stimulator Patient instructed to have device shut off --Does patient have Pacemaker or ICD? When Was Last Pacemaker Check QUESTION #4 FULL TEXT: You/Your Family Experience fever (hyperthermia) with Anesthesia Last Oral Intake Last Oral intake: Last Oral Intake NPO since Meds taken in AM with sips of water? Meds patient instructed to take am of surgery PONV PONV - medical director of hospice: PONV - medical director of hospice Female HX of Motion Sickness HX of N/V After Surgery Non-Smoker Duration of Surgery greater than 60 minutes Number of Risk Factors PONV Score Height & Weight Height & Weight: Anesthesia: Height & Weight Height 5 ft 10 in 08/11/24 02:08 Weight: 83.3 kg 08/12/24 04:21 Body Mass Index (BMI) 26.3 08/12/24 04:21 Respiratory Assessment Respiratory Assessment - medical director of hospice: Respiratory Tract Infection Hx - medical director of hospice Hx Respiratory Tract Infection No 08/11/24 21:23 STOP Sleep Apnea STOP Sleep Apnea - medical director of hospice: STOP Sleep Apnea - medical director of hospice Hx Hypertension Yes 08/11/24 02:10 Hx Sleep Apnea No 08/11/24 02:10 CPAP BIPAP Do you snore loudly (louder No 08/11/24 02:10 than talking or can be heard Do you often feel tired/ Yes 08/11/24 02:10 fatigued/ sleepy during daytime? Has anyone observed you stop No 08/11/24 02:10 breathing during sleep? STOP Results Positive 08/11/24 02:10 QUESTION #5 FULL TEXT : Do you snore loudly (louder than talking or can be heard through closed doors)? 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 Specify any problems Hx of Preganancy in last 3 N/A 08/11/24 02:10 Months Nurse Filling Out Transfusion JLAMP 08/11/24 02:10 & Questions: Date: 08/11/24 08/11/24 02:10 Time: 02:12 08/11/24 02:10 Patient unable to answer at this time (ie. confused, unrespo /Reproduction History /Reproductive History - medical director of hospice: /Reproductive Hx- medical director of hospice Hx Now No 08/11/24 21:23 Gestational Age (in weeks): EDC: Hx Hx Para Hx Section SAB No 08/11/24 21:23 Active Medications Active Medications: Current Medications Generic Name Dose Route Start Last Admin Trade Name Freq PRN Reason Stop Dose Admin Acetaminophen 650 mg 08/11/24 02:26 08/11/24 19:45 Acetaminophen 325 Mg Tablet PO 650 mg Q4H PRN PRN Administration Fever, pain 1-04/16 Al Hydroxide/Mg Hydroxide 30 ml 08/11/24 02:26 Mag Hydrox/Al Hydrox/Simeth 30 Ml Udc PO Q6H PRN PRN Gastric Burning Albuterol Sulfate 2.5 mg 08/11/24 02:26 Albuterol 2.5 Mg/3 Ml Vial.Neb. INHALATION Q2H PRN PRN Dyspnea, wheezing Atorvastatin Calcium 40 mg 08/11/24 22:00 08/11/24 21:00 Atorvastatin Calcium 40 Mg Tablet PO 40 mg 2200 ASHLEY Administration Gabapentin 600 mg 08/11/24 22:00 08/11/24 21:00 Gabapentin 600 Mg Tablet PO 600 mg QHS ASHLEY Administration Guaifenesin 20 ml 08/11/24 02:26 Guaifenesin 10 Ml Udc (200mg/10ml) PO Q4H PRN PRN COUGH Heparin Sodium (Porcine) 5,000 unit 08/11/24 10:00 08/12/24 09:30 Heparin Injection (Vial) 5,000 Unit/Ml Vial SC Not Given Q12 ASHLEY Hydralazine HCl 10 mg 08/11/24 02:26 Hydralazine 20 Mg/Ml Vial IV Q4H PRN PRN SBP > 160 Protocol Pantoprazole Sodium 40 mg/ 110 mls @ 330 mls/hr 08/11/24 02:26 08/12/24 10:46 Sodium Chloride IV Infused Q12 ASHLEY Infusion Sodium Chloride 100 mls @ 15 mls/hr 08/11/24 21:03 IV .Q6H40M PRN Saline Flush Sodium Chloride 100 mls @ 15 mls/hr 08/11/24 21:03 IV .Q6H40M PRN Additional IVPB Infusion Melatonin 3 mg 08/11/24 02:26 08/11/24 21:00 Melatonin 3 Mg Tablet PO 3 mg QHS PRN PRN Administration INSOMNIA Morphine Sulfate 2 mg 08/11/24 02:26 08/11/24 17:02 Morphine 2 Mg/Ml Syringe IV 2 mg Q3H PRN PRN Administration Pain Score 6-10 Ondansetron HCl 4 mg 08/11/24 02:26 08/11/24 20:42 Ondansetron 4 Mg/2 Ml Vial IV 4 mg Q8H PRN PRN Administration NAUSEA/VOMITING Oxycodone HCl 5 mg 08/11/24 02:26 08/11/24 19:45 Oxycodone 5 Mg Tablet PO 5 mg Q4H PRN PRN Administration Pain Score 4-10 Prochlorperazine Edisylate 5 mg 08/11/24 02:26 08/11/24 17:25 Prochlorperazine 10 Mg/2 Ml Vial IV 5 mg Q4H PRN PRN Administration Breakthrough nausea/vomiting Senna/Docusate Sodium 2 tablet 08/11/24 02:26 Senna/Docusate Sodium 1 Tablet PO BID PRN PRN Constipation Sodium Chloride 10 - 40 ml 08/11/24 02:13 08/12/24 10:27 0.9% Saline Lock 10 Ml Syringe IV 10 ml UD PRN Administration SALINE FLUSH PFSH Medical History Skin cancer CKD (chronic kidney disease) Hypercholesterolemia Hypertension Home Medications ?Medication ?Instructions ?Recorded ?Last Taken ?Type atorvastatin 40 mg tablet 40 mg PO DAILY 08/10/2409/01 History gabapentin 300 mg capsule 600 mg PO QHS 08/10/2408/09 History acetaminophen 500 mg tablet 1,000 mg PO Q6H PRN pain 0 08/11/24 08/10/24 History diphenhydramine 25 2 tab PO QHS 08/11/24 History mg-acetaminophen 500 mg tablet (Tylenol PM Extra Strength) fluoxetine 20 mg capsule 20 mg PO QHS 08/11/24 History fluoxetine 40 mg capsule 40 mg PO DAILY 08/11/2409/29 History lisinopril 10 mg tablet 10 mg PO DAILY 08/11/2409/29 History Allergy/AdvReac Type Severity Reaction Status Date / Time No Known Allergies Allergy Verified 04/06/24 15:16 Family History Mother Cancer Father Cancer Surgical History Status post surgical removal of malignant neoplasm of skin Social History household members: spouse Smoking Status: Never smoker alcohol intake: never substance use type: marijuana Review of Systems (Anesthesia) ROS Narrative System reviewed and no additional complaints, except as documented.
--- NOTE | 2024-08-12 15:02 | DCINST_ITS ---
Discharge Instructions Diet Discharge Diet: No restrictions DC O2, CPAP, BIPAP needs Home O2 Discharge instructions: No Dressing / Incision Discharge Activity: Return to Normal Activity and May Not Drive (while taking narcotic pain medications.) Dressing / Incision Call your doctor if you observe: Fever of 101 or Higher Follow Up Care Please Follow Up With: Armaan Solis MD When: Call [phone] for an appointment Test Results: Test results from this visit will be discussed in further detail at your follow- up appointment, if applicable. Discharge Plan Admission Admit Date/Time: 08/11/24 00:05 Attending Provider: Jing Tanner Primary Care Provider: Bryon Ovalles Consulting Providers: Alondra Whitehead; Ashley Hess; Armaan Solis Discharge Orders/Prescriptions Prescriptions: No Action atorvastatin 40 mg tablet 40 mg PO DAILY gabapentin 300 mg capsule 600 mg PO QHS fluoxetine 40 mg capsule 40 mg PO DAILY fluoxetine 20 mg capsule 20 mg PO QHS Patient Comments: take 1 capsule by mouth once daily WITH 40 MG AND 60 MG CAPSULES lisinopril 10 mg tablet 10 mg PO DAILY diphenhydramine-acetaminophen [Tylenol PM Extra Strength] 25-500 mg tablet 2 tab PO QHS acetaminophen 500 mg tablet 1,000 mg PO Q6H PRN (Reason: pain) Referrals / Follow Up: Bryon Ovalles PA [Primary Care Provider] -
--- NOTE | 2024-08-12 15:15 | CALC_PTH ---
PATIENT: MARQUEZ ENNIS LOC: MS2 U#:[id number] AGE/SX: 79/M ROOM: [facility] [place] RE08/11/[address]: Dr. Jing Tanner MD : 1945 BED: 1 DIS: 08/13/2024 SPEC #: [id number] RECD: 08/12/24 17:32 STATUS: OSCAR RERaghavendra #: [id number] MARTIN: 08/12/24 15:[address]: Armaan Solis DEPT: SURGICAL PATHOLOGY RECD BY: Charity Marcial ENTERED: 08/13/24 07:22 SP TYPE: Calculi OTHR DR: MD Dr. Armaan Goodwin MD Dr. Nana Yaa Koram, MD Dr. Tamera Robotham, MD M Gregory Barton, PA Tissues: CALCULI Procedures: Surgery Specimen Level I Comments: @ Ordering doctor for VERÓNICA edited from to @ by YOKASTA at 08/13/24 0851 @ Submitting doctor edited from to @ by YOKASTA at 08/13/24 0851 HEADER OPERATION: Cyst, stone removal PRE-OP DIAGNOSIS: Right ureteral calculi TISSUE SUBMITTED: Right ureteral stone GROSS DIAGNOSIS A fragment of stone, clinically right ureteral stone (gross only). 08/13/2024 COMMENT The calculus is submitted in its entirety for chemical stone analysis. The results from this study will be reported separately. GROSS DESCRIPTION Received without fixative labeled with the patient's name and designated right ureteral calculi. The specimen consists of a fragment of brown stone measuring 0.4 x 0.3 x 0.2 cm. The entire specimen is submitted for stone analysis. 08/13/2024 CPT: 51135
--- NOTE | 2024-08-12 15:23 | PN_ITS ---
Subjective Subjective Patient seen and examined. His and brother were by his bedside. He had no active complaints. Review of systems otherwise negative. He has remained hemodynamically stable. Objective Data Objective Data Vital Signs: Vital Signs Temp Pulse Resp BP Pulse Ox O2 Del Method 98.1 F 72 16 149/77 H 93 Room Air 08/12/24 14:38 08/12/24 14:38 08/12/24 14:38 08/12/24 14:38 08/12/24 14:38 08/12/24 14:15 Oxygen Delivery Method Room Air Weight: 183 lb 10.321 oz Body Mass Index (BMI) 26.3 Intake & Output: Intake and Output for Last 24 Hours 08/10/24 08/11/24 08/12/24 23:59 23:59 23:59 Intake Total 2099 / 2099 2430 / 2430 110 / 110 Output Total 380 / 380 Balance 2099 2430 / 2430 -270 / -270 Lab / Micro Data 08/12/24 04:50 08/12/24 04:50 Labs: Laboratory Results - last 24 hr 08/12/24 04:50: WBC 8.3, RBC 4.29 L, Hgb 12.3 L, Hct 39.0 L, MCV 90.9, MCH 28.7, MCHC 31.5 L, RDW Std Deviation 42.8, RDW Coeff of Clarence 13.1, Plt Count 198, MPV 11.1, Immature Gran % (Auto) 0.200, Neut % (Auto) 61.3, Lymph % (Auto) 29.5, Knott % (Auto) 8.0, Eos % (Auto) 0.8, Baso % (Auto) 0.2, Absolute Neuts (auto) 5.1, Absolute Lymphs (auto) 2.44, Nucleated RBC % 0, Sodium 140, Potassium 3.4 L , Chloride 108 H, Carbon Dioxide 26.0, Anion Gap 6, BUN 14, Creatinine 1.04, Estim Creat Clear Calc 61.42, Est GFR (MDRD) Af Amer 89, Est GFR (MDRD) Non-Af 74, BUN/Creatinine Ratio 13.5, Glucose 96, Calcium 9.3 Physical Exam Const alert, oriented x3, no apparent distress and well nourished General Appearance: cooperative and well developed HEENT normocephalic, head/scalp atraumatic, moist oral mucous membranes and oropharynx normal Eyes PERRL and EOMs intact bilaterally Neck no lymphadenopathy and supple Lymph Lymphatic: no lymphadenopathy noted Resp normal respiratory effort, normal air movement and clear to auscultation bilaterally Cardio regular rate, regular rhythm, S1 normal heart sound, S2 normal heart sound and no murmurs GI normal to inspection, nondistended, normoactive bowel sounds, soft to palpation, non-tender and non-distended GI Narrative: no CVA tenderness. Extremity normal capillary refill, no clubbing, cyanosis or edema and no calf tenderness General Extremity: no tenderness to palpation of joints or extremities Skin General Skin Exam: no breakdown Neuro CN's II-XII intact bilaterally, no focal motor deficits and no sensory deficits noted Motor Exam: strength 5/5 throughout and general weakness Psych thought process normal and cooperative Appearance: appropriate Assessment & Plan Assessment/Plan (1) Kidney stone on right side: (2) Abdominal pain: QUALIFIERS: Abdominal location: epigastric Qualified Code(s): R 10.13 - Epigastric pain PLAN: Plan #Abdominal pain due to kidney stone * abdominal pain has resolved. 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 * urology on board. For cystoscopy and stent placement today. * Per my discussion with patient he does not remember having passed any kidney stone. I do think he may have surreptitiously passed a kidney stone and that was likely the cause of his symptoms. * Hydrate with IV fluids. P.o. Tylenol and p.o. oxycodone as well as IV morphine prn for pain * Lactic acid was markedly elevated at 9 on admission that went down to 1.8. wbc is down to 8.3 today * Urinalysis did not show any evidence of UTI so hold off on antibiotics for now. * #Hyperlipidemia: On statin #Hypertension: Lisinopril #Depression: On fluoxetine DVT prophylaxis: heparin. Charges/Coding Visit Charges Inpatient E&M: 99846 Subs Hosp L2
[2024-08-12] MEDS: Cefazolin 2 GM in Syringe IV (15:25)
--- NOTE | 2024-08-12 15:31 | OP.PCM_ITS ---
Operative Report (Standard) Operative Information Date of Procedure: 08/12/24 Pre-Operative Diagnosis: right ureteral calculi Post-Operative Diagnosis: same Surgery/Procedure Performed: cysto and right stent placement administrative services officer: No Type of Anesthesia: General RN Documented Start/Stop Times: Operation Date: 08/12/24 15:15 Case Time Into Pre-Op 08/12/24 14:45 Out of Pre-Op 08/12/24 15:18 Procedure Start Time: 15:31 Select all DRAINS/GRAFTS/IMPLANTS that apply: Drains Drain details: stent right Estimated Blood Loss: 0 Specimen collected: No Description of surgery: Patient was taken back to the operating room after induction of general anesthesia, the patient was placed in dorsolithotomy position. The urethra and genitals were prepped and draped in usual sterile fashion. Using a 21 [place]ian rigid cystourethroscope the entire length of the urethra was normal then went into the bladder. Identified the trigone the left and right ureteral orifice. I then cannulated the right ureteral orifice and advanced a wire up into the kidney. I then backloaded a 5 Namibian open ended catheter over the wire and injected contrast to delineate the anatomy. After the retrograde was performed I then used fluoroscopic images and guidance to advanced a wire up into the kidney and over the 0.038 glidewire I advanced a 6 [place]ian by 26 cm double pigtail stent. I then pulled the 0.038 Glidewire off and the stent coiled in the kidney bladder good position. The bladder was then drained. We confirmed the position of the stent by fluoroscopy. Patient anesthetic was reversed and was taken back to the PACU in good condition. Surgical Findings: stent placed on right side Complications Complications: No Admit VTE Documentation VTE Present on Admission: No VTE Mechan Device Prophylaxis: SCD's VTE Pharm Prophylaxis ordered?: No
--- NOTE | 2024-08-12 15:31 | PCM.OPRPT ---
Operative Report (Standard) Operative Information Date of Procedure: 08/12/24 Pre-Operative Diagnosis: right ureteral calculi Post-Operative Diagnosis: same Surgery/Procedure Performed: cystoscopy right ureteroscopy basket removal of stone, no stent business risk analyst: No Type of Anesthesia: General RN Documented Start/Stop Times: Operation Date: 08/12/24 15:15 Case Time Into Pre-Op 08/12/24 14:45 Out of Pre-Op 08/12/24 15:18 Procedure Start Time: 15:31 Procedure Stop Time: 15:40 Select all DRAINS/GRAFTS/IMPLANTS that apply: Drains Drain details: stent right Estimated Blood Loss: 0 Specimen collected: No Description of surgery: Patient was taken back to the op room after smooth induction of MAC local anesthesia he is placed in dorsolithotomy position. Went into the bladder with a cystoscope and then he could see the stone emanating from the right ureteral orifice I then ureter did a ureteroscope and with that I was able to extract the stone from the distal ureter using just the tip of the ureteroscope and a basket and after the stone was extracted then I decided not to put another stent in send the stone was completely out is a 3 mm stone in the distal ureter it was removed today in the surgery the stone was sent off as a specimen to see what type of stone it is no stent placed patient anesthetic was reversed and is taken back to PACU in good condition. Surgical Findings: stone removed, no stent Complications Complications: No Admit VTE Documentation VTE Present on Admission: No VTE Mechan Device Prophylaxis: SCD's VTE Pharm Prophylaxis ordered?: No
[2024-08-12] MEDS: Lidocaine Jelly 2% 20 ML Syringe (URO-JET) 1 APPLIC (15:35)
--- NOTE | 2024-08-12 16:13 | PCM.POST.ANE ---
Anesthesia: Postop Eval I Current Vital Signs Temperature: 98.8 F Pulse Rate: 74 Blood Pressure: 166/92 Respiratory Rate: 16 Pulse Ox: 96 Oxygen Delivery Method: Room Air Assessment Airway patent: Yes Spontaneous unlabored respirations: Yes Mental status: Awake and Calm nausea: No Vomiting: No Anesthesia Complication: No Fluid Hydration Crystalloid volume administer (ml): 0 Total IV fluid infused: 0 Progress Note Anesthesia document: Postop Eval 1 completed: Yes
[2024-08-12] MEDS: Atorvastatin Calcium 40 MG Tablet PO (21:23)
[2024-08-12] MEDS: Heparin Injection (Vial) 5,000 UNIT/ML VIAL 5000 UNIT SC (21:23)
[2024-08-12] MEDS: Gabapentin 600 MG Tablet PO (21:23)
[2024-08-13 02:56] VITALS: BP 140/93; PULSE 66; RESP 16; TEMP 36.9; O2SAT 95
[2024-08-13 04:49] LABS: Absolute Neutrophil Count 3.2 X10^3/uL (2.0-7.7); Basophil# 0.04 X10^3/uL; Basophil% 0.6 % (0-1); Eosinophil# 0.27 X10^3/uL; Eosinophils% 4.4 % (0-5); Hematocrit 39.3 % (40-54); Hemoglobin 12.9 g/dL (13.0-16.5); Lymphocyte % 32.5 % (19-41); Mean Corp Hgb Conc 32.8 g/dL (32-36); Mean Corpuscular Hgb 29.4 pg (27.0-32.0); Mean Corpuscular Volume 89.5 fL (80-94); Monocyte# 0.62 X10^3/uL; Monocyte% 10.1 % (0-10); NRBC Flagged by Analyzer 0 % (0-5); Neutrophil # 3.22 X10^3/uL (2.7-7.7); Neutrophil % 52.2 % (47-70); Platelet Count 184 K/mm3 (150-450); RBC Distribution Width CV 12.5 % (11.6-14.6); RBC Distribution Width SD 41.1 fl (35.1-43.9); Red Blood Count 4.39 M/mm3 (4.6-6.2); White Blood Count 6.2 K/mm3 (4.4-11.0)
[2024-08-13 05:04] LABS: Anion Gap 6 (5-15); BUN 12 mg/dL (7-18); BUN/Creat Ratio 12.2 RATIO (10-20); Calcium,Total 8.7 mg/dL (8.5-10.1); Chloride 106 mmol/L (98-107); Creatinine, Serum 0.98 mg/dL (0.70-1.30); EST Glomerular Filtration Rate 79 mL/min (>60); Est Glom Filt Rate - Afr Amer 95 mL/min (>60); Estimated Creatinine Clearance 65.18 ml/min; Glucose 90 mg/dL (74-106); Potassium 3.4 mmol/L (3.5-5.1); Sodium Level 141 mmol/L (136-145)
[2024-08-13 05:49] VITALS: BMI 26.0
[2024-08-13 07:16] VITALS: O2SAT 97
[2024-08-13] MEDS: Potassium Chloride Oral Tablet 20 MEQ 40 MEQ PO (09:57)
[2024-08-13] MEDS: Heparin Injection (Vial) 5,000 UNIT/ML VIAL 5000 UNIT SC (09:58)
[2024-08-13 10:08] VITALS: BP 140/92; PULSE 64; RESP 17; TEMP 36.5; O2SAT 98
--- NOTE | 2024-08-13 10:54 | CASEMGMT ---
JODIE MOSS NOTE: Per Dr Tanner, plan is to discharge pt today. JODIE MOSS to room. Pt sitting up in chair in room. 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 He denies having any discharge needs/concerns. Per Sweetie FELICIANO, pt has been up ad santos. Armando MEYER RN, CM
--- NOTE | 2024-08-13 11:25 | DCINST_ITS ---
Discharge Instructions Diet Discharge Diet: Low fat / Low cholesterol DC O2, CPAP, BIPAP needs Home O2 Discharge instructions: No Dressing / Incision Discharge Activity: Return to Normal Activity Weight Bearing Status: Weight bearing as tolerated Dressing / Incision Call your doctor if you observe: Fever of 101 or Higher, Shortness of breath, Dizziness, Swelling in the ankles and Chest pain Follow Up Care Please Follow Up With: Armaan Solis MD Test Results: Test results from this visit will be discussed in further detail at your follow- up appointment, if applicable. Discharge Plan Admission Admit Date/Time: 08/11/24 00:05 Primary Reason for Your Visit: kidney stone Attending Provider: Jing Tanner Primary Care Provider: Bryon Ovalles Consulting Providers: Alondra Whitehead; Ashley Hess; Armaan Solis Instructions Patient Instructions: Kidney Stone (Urine), Kidney Stone Ureteroscopy Discharge Orders/Prescriptions Prescriptions: Continued atorvastatin 40 mg tablet 40 mg PO DAILY gabapentin 300 mg capsule 600 mg PO QHS fluoxetine 40 mg capsule 40 mg PO DAILY fluoxetine 20 mg capsule 20 mg PO QHS Patient Comments: take 1 capsule by mouth once daily WITH 40 MG AND 60 MG CAPSULES lisinopril 10 mg tablet 10 mg PO DAILY diphenhydramine-acetaminophen [Tylenol PM Extra Strength] 25-500 mg tablet 2 tab PO QHS acetaminophen 500 mg tablet 1,000 mg PO Q6H PRN (Reason: pain) Referrals / Follow Up: Armaan Solis MD [Med Staff - Active Staff] - Within 2 Weeks Bryon Ovalles PA [Primary Care Provider] - Within 1 Week Disposition Disposition (needs filled in before D/C Order can be placed): Home, Self Care
--- NOTE | 2024-08-13 11:26 | DS.PCM_ITS ---
Providers Date of Admission: 08/11/24 Date of Discharge: 08/13/24 Primary Care Physician: JONA Ruano Consultations 08/11/24 02:26 Consult: General Surgery Routine Consulting Provider: Alondra Whitehead Reason for Consult: Abdominal pain, intractable EMERGENT Consult: No Notified: Yes Date Notified: 08/11/24 Time Notified: 00:08 Method of Notification: ED Physician Initiated 08/11/24 08:09 Consult: Urology Routine Consulting Provider: Armaan Solis Reason for Consult: hydronephrosis, right distal ureter 3mm calculus EMERGENT Consult: No Notified: Yes Date Notified: 08/11/24 Time Notified: 08:09 Method of Notification: Text Reason For Visit: ABDOMINAL PAIN Diagnosis Discharge Diagnosis (1) Kidney stone on right side: Status: Acute Code(s): N20.0 - Calculus of kidney (2) Abdominal pain: Status: Acute Code(s): R10.9 - Unspecified abdominal pain Qualifiers: Abdominal location: epigastric Qualified Code(s): R10.13 - Epigastric pain Plan #Abdominal pain due to kidney stone * abdominal pain has resolved. * CT of the abdomen and pelvis done showed right distal ureter 2 mm calculus with moderate upstream hydroureteronephrosis with enlarged prostate indenting the posterior wall of the urinary bladder and tubular appearance of descending and sigmoid colon possibly secondary to underdistention or chronic findings and partially visualized fluid-filled scrotal sac possibly representative phlebotomy services of hydrocele. * urology on board. For cystoscopy and stent placement today. * Per my discussion with patient he does not remember having passed any kidney stone. I do think he may have surreptitiously passed a kidney stone and that was likely the cause of his symptoms. * Hydrate with IV fluids. P.o. Tylenol and p.o. oxycodone as well as IV morphine prn for pain * Lactic acid was markedly elevated at 9 on admission that went down to 1.8. wbc is down to 8.3 today * Urinalysis did not show any evidence of UTI so hold off on antibiotics for now. * #Hyperlipidemia: On statin #Hypertension: Lisinopril #Depression: On fluoxetine DVT prophylaxis: heparin. Medications at Discharge Home Medications atorvastatin 40 mg tablet 40 mg PO DAILY 08/10/24 gabapentin 300 mg capsule 600 mg PO QHS 08/10/24 acetaminophen 500 mg tablet 1,000 mg PO Q6H PRN pain 08/11/24 diphenhydramine 25 mg-acetaminophen 500 mg tablet (Tylenol PM Extra Strength) 2 tab PO QHS 08/11/24 fluoxetine 20 mg capsule 20 mg PO QHS 08/11/24 fluoxetine 40 mg capsule 40 mg PO DAILY 08/11/24 lisinopril 10 mg tablet 10 mg PO DAILY 08/11/24 Hospital Course Operations None Procedures - (cystoscopy and ureteroscopy) Summary of Care Provided Minutes Spent on Discharge: 45 Hospital Course: Patient is a 79-year-old male with a past medical history as outlined was admitted to the ED on 08/10/2024 with a complaint of severe abdominal pain. The pain is started in the morning on waking up. He said it was mainly in the right flank and radiated down to his groin. He denied any nausea vomiting or urinary symptoms. On admission CT of the chest abdomen and pelvis with and without contrast showed right distal ureter 2 mm calculus with moderate upstream hydroureteronephrosis with enlarged prostate indenting the posterior wall of the urinary bladder and a tubular appearance of the descending and sigmoid colon possibly secondary to underdistention and partially visualized fluid-filled scrotal sac possibly representative phlebotomy services of hydrocele. He had a mildly elevated anion gap. Lactic acid was also elevated. He was admitted and managed for abdominal pain likely due to kidney stone which probably may have passed. Urology was consulted. Abdominal pain resolved with oral pain meds. Urology was consulted and he had cystoscopy with right ureteroscopy and basket removal of stone, with no stent inserted. Patient remained stable after procedure and pain did not recur. He was therefore discharged home on 08/13/2024. He is to follow up with his PCP and urologist within 1-2 weeks. Patient seen and examined. He felt very well and had no complaints. He had an uneventful night. Review of systems otherwise negative. Labs negative. Home meds reviewed and reconciled. Physical Exam Const alert, oriented x3, no apparent distress and well nourished General Appearance: cooperative, comfortable, well kempt and well developed Exam Limitations: no limitations HEENT normocephalic, head/scalp atraumatic, hearing grossly normal bilaterally, moist oral mucous membranes and oropharynx normal Eyes PERRL, EOMs intact bilaterally and conjunctivae normal Neck no lymphadenopathy and supple Lymph Lymphatic: no lymphadenopathy noted Resp normal respiratory effort, normal air movement and clear to auscultation bilaterally Cardio regular rate, regular rhythm, S1 normal heart sound, S2 normal heart sound and no murmurs GI normal to inspection, nondistended, normoactive bowel sounds, soft to palpation, non-tender and non-distended GI Narrative: no CVA tenderness. Extremity normal to inspection, full ROM, normal capillary refill, no clubbing, cyanosis or edema and no calf tenderness General Extremity: no tenderness to palpation of joints or extremities Skin no rashes or lesions noted General Skin Exam: no breakdown Neuro oriented x3, CN's II-XII intact bilaterally, moves all extremities, no focal motor deficits and no sensory deficits noted Sensorium / Orientation: awake and alert Motor Exam: strength 5/5 throughout and general weakness Psych thought process normal, cooperative and affect normal Appearance: appropriate Weight / BMI Weight Weight: 181 lb 7.047 oz Body Mass Index (BMI) 26.0 ABG / Lab / Microbiology Data 08/13/24 04:10 08/13/24 04:10 Laboratory: Laboratory Results - last 24 hr 08/13/24 04:10: WBC 6.2, RBC 4.39 L, Hgb 12.9 L, Hct 39.3 L, MCV 89.5, MCH 29.4, MCHC 32.8, RDW Std Deviation 41.1, RDW Coeff of Clarence 12.5, Plt Count 184, MPV 11.0, Immature Gran % (Auto) 0.200, Neut % (Auto) 52.2, Lymph % (Auto) 32.5, M cathy % (Auto) 10.1 H, Eos % (Auto) 4.4, Baso % (Auto) 0.6, Absolute Neuts (auto) 3.2, Absolute Lymphs (auto) 2.00, Nucleated RBC % 0, Sodium 141, Potassium 3.4 L , Chloride 106, Carbon Dioxide 29.0, Anion Gap 6, BUN 12, Creatinine 0.98, Estim Creat Clear Calc 65.18, Est GFR (MDRD) Af Amer 95, Est GFR (MDRD) Non-Af 79, BUN/Creatinine Ratio 12.2, Glucose 90, Calcium 8.7 D/C Instructions Discharge Diet: Low fat / Low cholesterol Discharge Activity: Return to Normal Activity Weight Bearing Status: Weight bearing as tolerated Call your doctor if you observe: Fever of 101 or Higher, Shortness of breath, Dizziness, Swelling in the ankles and Chest pain DC O2, CPAP, BIPAP Needs Home O2 Discharge instructions: No Please Follow Up With: Armaan Solis MD When: Call [phone] for an appointment Meaningful Use Info Meaningful Use Meaningful Use Diagnoses (Choose all that apply): None applicable Ischemic Stroke Statin Dosing Therapy Reference: STATIN DOSE THERAPY REFERENCE: * Patients > 75 years receive moderate or high dose statin therapy. * Patients 75 years or YOUNGER should receive HIGH intensity statin dose unless contraindicated. You will be required to document reason for non-treatment if statin daily dose does not meet guidelines. HIGH DOSE STATIN THERAPY DAILY Atorvastatin > than or = to 40 mg Rosuvastatin > than or = to 20 mg Amlodipine + Atorvastatin > than or = to 2.5/40 mg Ezetimibe + Simvastatin 10/80 mg Simvastatin 80mg Discharge Plan Admission Admit Date/Time: 08/11/24 00:05 Primary Reason for Your Visit: kidney stone Attending Provider: Jing Tanner Primary Care Provider: Bryon Ovalles Consulting Providers: Alondra Whitehead; Ashley Hess; Armaan Solis Instructions Patient Instructions: Kidney Stone (Urine), Kidney Stone Ureteroscopy Discharge Orders/Prescriptions Prescriptions: Continued atorvastatin 40 mg tablet 40 mg PO DAILY gabapentin 300 mg capsule 600 mg PO QHS fluoxetine 40 mg capsule 40 mg PO DAILY fluoxetine 20 mg capsule 20 mg PO QHS Patient Comments: take 1 capsule by mouth once daily WITH 40 MG AND 60 MG CAPSULES lisinopril 10 mg tablet 10 mg PO DAILY diphenhydramine-acetaminophen [Tylenol PM Extra Strength] 25-500 mg tablet 2 tab PO QHS acetaminophen 500 mg tablet 1,000 mg PO Q6H PRN (Reason: pain) Referrals / Follow Up: Armaan Solis MD [Med Staff - Active Staff] - Within 2 Weeks Bryon Ovalles PA [Primary Care Provider] - Within 1 Week Disposition Disposition (needs filled in before D/C Order can be placed): Home, Self Care Charges/Coding Visit Charges Inpatient E&M: 51356 Disch Hosp >30min
--- NOTE | 2024-08-13 15:57 | POSTOPAN2_ITS ---
Anesthesia Postop Eval I Sum Postop Eval Completion status Anesthesia document: Postop Eval 1 completed: Yes Anesthesia Postop Eval I Summary Anesthesia Postop Eval I Summary: Anesthesia Postop Eval I: Assessment Summary Airway patent Yes 08/12/24 16:13 CIVIL ENGINEERING [email or web address].[email or web address] Spontaneous unlabored Yes 08/12/24 16:13 CIVIL ENGINEERING [email or web address].JOSE respirations Mental status Awake,Calm 08/12/24 16:13 CIVIL ENGINEERING [email or web address].SKOBY nausea No 08/12/24 16:13 CIVIL ENGINEERING PROFESSIONAL.[email or web address] Vomiting No 08/12/24 16:13 CIVIL ENGINEERING PROFESSIONAL.EULAOBMalissa Anesthesia Postop Eval I: Fluid Summary Crystalloid volume administer 0 08/12/24 16:13 CIVIL ENGINEERING PROFESSIONAL.SKOBY (ml) Colloids volume administered ( ml) Blood Product volume administered (ml) Total IV fluid infused 0 08/12/24 16:13 CIVIL ENGINEERING PROFESSIONAL.JOSE Anesthesia Postop Eval I: Summary Notes Anesthesia Complication No 08/12/24 16:13 CIVIL ENGINEERING PROFESSIONAL.JOSE Anesthesia Complication Comment: Post-operative progress note Anesthesia: Postop Eval II Evaluation Mental status: Awake and Calm Pain Level: 1 nausea: No Vomiting: No Complications Anesthesia Complication: No
--- NOTE | 2024-08-13 15:57 | PCM.POSTANE2 ---
Anesthesia Postop Eval I Sum Postop Eval Completion status Anesthesia document: Postop Eval 1 completed: Yes Anesthesia Postop Eval I Summary Anesthesia Postop Eval I Summary: Anesthesia Postop Eval I: Assessment Summary Airway patent Yes 08/12/24 16:13 IGNITER [email or web address] Spontaneous unlabored Yes 08/12/24 16:13 IGNITER CAPPER.JOSE respirations Mental status Awake,Calm 08/12/24 16:13 IGNITER [email or web address].SKOBY nausea No 08/12/24 16:13 IGNITER CAPPER.[email or web address] Vomiting No 08/12/24 16:13 IGNITER CAPPER.EULAOBMalissa Anesthesia Postop Eval I: Fluid Summary Crystalloid volume administer 0 08/12/24 16:13 IGNITER [email or web address] (ml) Colloids volume administered ( ml) Blood Product volume administered (ml) Total IV fluid infused 0 08/12/24 16:13 IGNITER CAPPER.JOSE Anesthesia Postop Eval I: Summary Notes Anesthesia Complication No 08/12/24 16:13 IGNITER CAPPER.JOSE Anesthesia Complication Comment: Post-operative progress note Anesthesia: Postop Eval II Evaluation Mental status: Awake and Calm Pain Level: 1 nausea: No Vomiting: No Complications Anesthesia Complication: No
[2024-08-19 20:07] LABS: Ca Oxalate, Dihydrate 70 % (.); Ca Oxalate, Monohydrate 30 % (.); Size 5x3 mm (.)
== END 2024-08-13 13:10 | disposition home or self-care (01) ==
LOC: ED 23:19 → MS3 08-11 02:06 → MS2 08-11 11:48
PROVIDERS: Nurse Practitioner; Urology; Admitting Provider Family Medicine; Emergency Provider Emergency Medicine; PCP Physician Assistant; Referring Provider Family Medicine; Visit Provider Student in an Organized Health Care Education/Training Program
PROC: (CPT 52352; principal; 2024-08-12 15:05)
DX: N20.1 Calculus of ureter (principal); F03.90 Unspecified dementia, unspecified severity, without behavioral disturbance, psychotic disturbance, mood disturbance, and anxiety; N18.30 Chronic kidney disease, stage 3 unspecified; N17.9 Acute kidney failure, unspecified; E78.00 Pure hypercholesterolemia, unspecified; E87.20 Acidosis, unspecified; I12.9 Hypertensive chronic kidney disease with stage 1 through stage 4 chronic kidney disease, or unspecified chronic kidney disease; R73.9 Hyperglycemia, unspecified; Z79.899 Other long term (current) drug therapy; E87.6 Hypokalemia; F32.A Depression, unspecified
CPT/HCPCS: 52352; 00918; 36415; 71275; 74174; 74176; 80048; 80053; 80076; 81001; 82009; 82360; 82803; 82962; 83036; 83605; 83690; 83735; 84145; 84484; 85025; 85610; 88300; 93005; 96361; 96365; 96366; 96367; 96372; 96375; 96376; 99221; 99285; Q9967; A4216; C1769; G0378; J2405

== ENCOUNTER → 2024-09-30 | Outpatient (CLI) | payer MEDICARE, SELFPAY ==
--- NOTE | 2024-09-30 15:27 | MRI_ITS ---
EXAM: MRI brain without and with contrast CLINICAL HISTORY: Visual disturbance COMPARISON: None available TECHNIQUE: Multi planar and multi sequence MRI of the brain without and with contrast. 17 cc Clariscan FINDINGS: No acute infarct, mass effect or intracranial hemorrhage identified. The ventricles are within limits and midline. Mild volume loss, atrophy. Mild patchy bilateral supratentorial periventricular white matter foci of T2 prolongation mildly more focal in the left frontal lobe without associated enhancement statistically would represent chronic small-vessel ischemic change, nonspecific. Major intracranial flow voids appear within limits. Internal auditory canals appear within limits. Optic chiasm, suprasellar cistern and pituitary appear within limits. The orbits, paranasal sinuses and mastoids appear within limits. No abnormal enhancement identified. The temporal lobes appear symmetric. MRI/Brain W/WO Contrast IMPRESSION: No acute infarct, mass effect or intracranial hemorrhage identified. Mild patchy bilateral supratentorial periventricular white matter foci of T2 pr olongation mildly more focal in the left frontal lobe without associated enhancement statistically would represent chronic small -vessel ischemic change, nonspecific. Mild volume loss, atrophy. Reading Location: [id number]
== END | disposition home or self-care (01) ==
LOC: MRI 15:23
PROVIDERS: PCP Physician Assistant; Referring Provider Ophthalmology; Visit Provider Ophthalmology
DX: H53.10 Unspecified subjective visual disturbances (principal)
CPT/HCPCS: 70553; A9575

== ENCOUNTER 2025-04-02 23:18 | Inpatient (IN) | payer MEDICARE, SELFPAY ==
--- OUTSIDE RECORDS SUMMARY | 2025-03-22 10:27 | XMS RPT_ITS ---
Author Name Auto Generated Organization OHIP Care Team Providers Care Environmental Planning Engineer Name Role Phone RANJIT BLEVINS Referring Unavailable HAAGEN, NIKI Primary Care Unavailable MASCIRANJIT Attending Unavailable HAAGEN, NIKI Primary Care Unavailable ELIZABETH GRANADOS Referring Unavailable SOLANOLUIS Referring Unavailable KOSMORSKYMONIKA Attending Unavailable HAAGEN, NIKI Primary Care Unavailable SELF Referring Unavailable KOSMORSKYMONIKA S Attending Unavailable HAAGEN, NIKI Primary Care Unavailable MASCIRANJIT Referring Unavailable HAAGEN, NIKI Primary Care Unavailable HAAGEN, NIKI Primary Care Unavailable KOSMORSKYMONIKA Referring Unavailable HAAGEN, NIKI Primary Care Unavailable KOSMORSKYMONIKA S Referring Unavailable HAAGEN, NIKI Primary Care Unavailable HAAGEN, NIKI Primary Care Unavailable HAAGEN, NIKI Attending Unavailable SOLANO, LUIS BARRIGAORY Primary Care Unavailable HAAGEN, NIKI Attending Unavailable SOLANO, LUIS MONIKA Primary Care Unavailable HAAGEN, NIKI Attending Unavailable MASCI, RANJIT A Referring Unavailable HAAGEN, NIKI Primary Care Unavailable HAAGEN, NIKI Attending Unavailable HAAGEN, NIKI Primary Care Unavailable HAAGEN, NIKI Primary Care Unavailable HAAGEN, NIKI Attending Unavailable MASCI, RANJIT A Referring Unavailable HAAGEN, NIKI Primary Care Unavailable PROBLEMS DATE TYPE CONDITION / CODE ATTENDING STATUS [facility] 03/22/2025 Active Generalized anxi ety disorder / F41.1(ICD-10) NIKI [place] Active [facility] 03/22/2025 Active Major depressive disorder, recurrent episode, 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) NIKI NJ Active [facility] 03/22/2025 Active Restless legs sy ndrome / G25.81(ICD-10) NIKI NJ Active [facility] 03/22/2025 Active Hypertensive hea rt disease without heart failure / I11.9(ICD-10) NIKI NJ Active [facility] 03/22/2025 Active Unspecified visu al loss / H54.7(ICD-10) PREMERIC NIKI Active [facility] 03/15/2025 Active Need for influen za vaccination / Z23(ICD-10) PREMERIC [facility] Active [facility] 01/26/2025 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) NA Active [facility] 12/07/2024 Active 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) NITHYA PENDLETONDENZEL Bueno Active [facility] 11/02/2024 Active Vision loss, josep ateral / H54.3(ICD-10) Active [facility] 11/02/2024 Active 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) NA Active [facility] 11/02/2024 Active Nuclear scleroti c cataract of both eyes / H25.13(ICD-10) Active [facility] 11/02/2024 Active Retinopathy / H35.00(ICD-10) NA Active [facility] 10/29/2024 Active Malignant neopla sm of unspecified part of unspecified bronchus or lung (HCC) / C34.90(ICD-10) Active [facility] 09/16/2024 Active Kidney stone / N20.0(ICD-10) GEORGINA NIKI [facility] 12/01/2020 Active Hypertension, es sential / I10(ICD-10) GEORGINA [facility] Active [facility] 05/27/2019 Active Hyperlipidemia, mixed / E78.2(ICD-10) [facility] 08/31/2009 Active Moderate episode of recurrent major depressive disorder (HCC) / F33.1(ICD-10) GEORGINA [facility] 09/16/2024 Active Elevated glucose / R73.09(ICD-10) GEORGINA [facility] 09/16/2024 Active Fatigue, unspeci fied type / R53.83(ICD-10) GEORGINA [facility] 09/16/2024 Active Encounter for immunization / Z23(ICD-10) SANTOS NJY Active [facility] 09/16/2024 Active Bilateral impact ed cerumen / H61.23(ICD-10) PREMSANTOS REYESY [facility] 09/16/2024 Active Swallowing probl em / R13.10(ICD-10) GEORGINA NIKI [facility] 09/16/2024 Active Encounter to est ablish care / Z76.89(ICD-10) PREMERIC NIKI Active [facility] 04/07/2024 Active Acute pain of le ft shoulder / M25.512(ICD-10) GEORGINA NIKI Active [facility] PROCEDURES No Procedure Records Found RESULTS PROGRESS Observed: 03/22/2025 11:40 AM Status: COMPLETED Source: [facility] HNO ID: [id number] Author: NIKI NJ APRN.SPACE ENGINEER Service: ? Author Type: Nurse Practitioner Type: Progress Notes Filed: 03/22/2025 11:49 Note Text: This is a 79 year old male who presents today with: The patient is a 79-year-old male here for 6 month recheck. Presents with spouse. HISTORY OF PRESENT ILLNESS: Irritability: - Prabhakar Norwood and his reports increased irritability and anxiety, occurring daily or every other day. - Triggered by minor events. - Longstanding issue, but has worsened recently. - Denies physical aggression or throwing objects. - Managed with fluoxetine; no side effects reported. - Prabhakar has tried multiple antidepressants in the past with limited success. - feels more that it is an irritability or anxiety issues; as opposed to depressive. Blurred Vision: Following with heme-onc for paraneoplastic retinopathy. - Persistent blurred vision, described as a film over the eyes. - Ongoing evaluation with multiple blood tests; no diagnosis yet. - Prabhakar is scheduled for additional blood work today. Restless Leg Syndrome: - Managed with gabapentin at bedtime; Prabhakar reports effective symptom control. Hyperlipidemia: - Managed with atorvastatin, taken in the evening; no side effects reported. - Prabhakar is due for cholesterol panel. No special diet. Hypertension: - Managed with lisinopril; no side effects reported. - Denies chest pain, palpitations, dyspnea, peripheral edema, dizziness, or syncope. - Prabhakar does not monitor blood pressure at home. Diet: - Prabhakar describes diet as high in junk food and sweets. PAST MEDICAL HISTORY: PAST MEDICAL HISTORY Diagnosis Date Depression Diverticulosis of colon (without mention of hemorrhage) Hypercholesteremia Kidney stone 09/16/2024 Restless leg PAST SURGICAL HISTORY Procedure Laterality Date COLONOSCOPY FLX DX W/COLLJ SPEC WHEN PFRMD 10/26/2009 Colonoscopy CYSTOSCOPY TONSILLECTOMY AND ADENOIDECTOMY <AGE 14 ALLERGIES Patient has no known allergies. MEDICATIONS Current Outpatient Medications Medication Sig atorvastatin (LIPITOR) 40 mg tablet Take 1 tablet by mouth daily at bedtime. For cholesterol. busPIRone (BUSPAR) 5 mg tablet Start one pill by mouth at bedtime X 3 nights, then start taking it twice a day in the morning and evening. You can add a dose in the afternoon, if needed. acetaminophen (TYLENOL) 500 mg tablet Take 1,000 mg by mouth every 8 hours as needed for pain. iv contrast (will be provided with radiology test) CT Chest W -Inject, intravenously, once for 1 dose.No IV access, insert saline lock prior to the beginning of sedation, infusion, injection of imaging exam. Discontinue saline lock post exam. If Pt. has a central line or IVAD, may access for administration according to line specific nursing protocol. Once exam is complete flush line and de-access according to line specific nursing protocol in the CT contrast administration guidelines link. iv contrast (will be provided with radiology test) CT ABD/PEL -Inject, intravenously, once for 1 dose.No IV access, insert saline lock prior to the beginning of sedation, infusion, injection of imaging exam. Discontinue saline lock post exam. If Pt. has a central line or IVAD, may access for administration according to line specific nursing protocol. Once exam is complete flush line and de-access according to line specific nursing protocol in the CT contrast administration guidelines link. enteric contrast (will be provided with radiology test) For CT ABD/PEL W IVCON Routine order Administer, As Directed One Time Only, via Oral, Rectal, both Oral and Rectal, Enteric Tube, Stoma or Indwelling Catheter, Enteric Contrast as designated per enteric contrast guidelines gabapentin (NEURONTIN) 300 mg capsule Take 2 capsules by mouth daily at bedtime for 180 days. FLUoxetine (PROZAC) 40 mg capsule Take 1 capsule by mouth two times a day. lisinopril (ZESTRIL) 10 mg tablet Take 1 tablet by mouth once daily. No current facility-administered medications for this visit. FAMILY HISTORY Problem Relation Age of Onset Lung Cancer Mother other (tobacco) Mother Lung Cancer Father other (tobacco) Father other (heart problems) Sister Lung Cancer Brother ? cause other (brain tumor) Brother other (old age) Maternal Grandmother other (old age) Maternal Grandfather other (old age) Paternal Grandmother No Known Problems Paternal Grandfather None Other SOCIAL HISTORY[1] REVIEW OF SYSTEMS Eyes: (+) blurry vision, (+) vision loss Cardiovascular: (-) chest pain, (-) palpitations, (-) peripheral edema Respiratory: (-) shortness of breath Neurological: (+) finger weakness, (-) dizziness, (-) syncope, (-) seizures Psychiatric: (+) depressed mood, (+) irritability, (+) anxiety EXAM: BP 130/78 Pulse 65 Resp 16 Wt 83.5 kg (184 lb) SpO2 97% BMI 28.82 kg/m? PHYSICAL EXAM: General Appearance: Well appearing, alert, in no acute distress, well-hydrated, well nourished.. Skin: Skin color, texture, turgor normal, no suspicious rashes or lesions. Head: Normocephalic, no masses, lesions, tenderness or abnormalities. Eyes: Anicteric sclera. Extraocular movements are intact. . Neck: Supple, no adenopathy; thyroid symmetric, normal size, no bruits. Lungs: Lungs clear to auscultation. No wheezing, rhonchi, rales.. Heart: RRR without murmur, gallop, or rubs. No ectopy. Extremities: No deformities, edema, skin discoloration, clubbing or cyanosis. Good capillary refill. . Neurologic: Gait normal. Sensation grossly intact. . ASSESSMENT/PLAN 1. Hyperlipidemia, mixed (E78.2) 2. Elevated glucose (R73.09) - Takes atorvastatin in the evening with no reported side effects. - No special diet followed; high intake of junk food and sweets. - Ordered cholesterol panel. 3. Generalized anxiety disorder (F41.1) 4. Major depressive disorder, recurrent episode, mild (F33.0) - Mood described as not great with frequent irritability and anxiety; depression appears well controlled on fluoxetine. - Start buspirone, beginning with a small dose in the evening for a few days, then increase to BID; may add a midday dose if needed. - Educated on potential drowsiness with buspirone, especially when first starting. - Discussed that fluoxetine is at a high dose; if buspirone is ineffective, may consider tapering fluoxetine and starting a new medication. - Follow-up in 1 month to assess response to buspirone and adjust treatment as needed. 5. Restless legs syndrome (G25.81) - Gabapentin at bedtime is effective. 6. Hypertensive heart disease without heart failure (I11.9) - Takes lisinopril with no reported side effects. - No home BP monitoring; no chest pain, palpitations, dyspnea, edema, dizziness, or syncope. 7. Unspecified visual loss (H54.7) - Ongoing blurry vision described as a film over my eyes; etiology unknown. - Recent blood work ordered by Dr. Blevins; patient to complete labs today. Discussed treatment plan and patient voices understanding. Patient's questions answered appropriately. Medications and potential side effects were discussed and patient voices understanding. Return to the office as scheduled or as needed for worsening/no improvement. Niki Nj APRN.SPACE ENGINEER Recording using Nolio software for draft documentation of the visit was discussed with the patient/authorized labor representative; all questions welcomed and answered. Patient/authorized labor representative agreed to proceed [1] Social History Tobacco Use Smoking status: Never Smokeless tobacco: Never Vaping Use Vaping status: Never Used Substance Use Topics Alcohol use: Yes Comment: seldom - beer Drug use: Yes Types: Marijuana Comment: a little at night to help sleep ALDOLASE SERPL-CCNC Collected: 03/22/20 10:33 AM Status: F Source: [facility] Order Comment: Specimen Type : BLOOD SPECIMEN Ordering Facility: [facility] Address: [address] [place] [address] TYPE CODE TESTS RESULT OUT OF RANGE REFERENCE UNITS LAB 1761-6(LOINC) Aldolase SerPl-cCnc 3.6 1.5-8.1 U/L Result Comment: This test wa s developed, and its performance characteristics determined by the [facility] Department of Pathology and Laboratory Medicine. It has not been cleared or approved by the FDA. The [facility] Department of Pathology and Laboratory Medicine is regulated under CLIA as qualified to perform high-complexity testing. This test is used for clinical purposes. It should not be regarded as investigational or for research. Performed By: #### 1761-6 ## ## [facility] CLIA [id number] [address] [place] [address] OF GOLDEN DEPRECATED HGB A1C BLD Collected: 03/22 10:33 AM Status: F Source: [facility] Order Comment: Specimen Type : BLOOD SPECIMEN Ordering Facility: [facility] Address: [address] [place] [address] TYPE CODE TESTS RESULT OUT OF RANGE REFERENCE UNITS LAB 4548-4(LOINC) HbA1c MFr Bld 5.7 High 4.3-5.6 % Result Comment: [place] [employer] guidelines indicate that patients with HgbA1c in the range 5.7-6.4% are at increased risk for development of diabetes, and intervention by lifestyle modification may be beneficial. HgbA1c greater or equal to 6.5% is considered diagnostic of diabetes. LAB 05111-2(LOINC) Est. average glucose Bld gHb Est-mCnc 117 mg/dL Result Comment: eAG: (Estima lyndon average glucose) is a calculated value from HgbA1c and is labor representative of the average blood glucose level in the last 2-3 month period. Performed By: #### [id number] # ### [facility] CLIA [id number] [address] [place] [address] [place] CAR AUTOANTIBODY BLD Collected: 03/22/2025 10:33 AM Status: F Source: [facility] Order Comment: Specimen Type : BLOOD SPECIMEN Ordering Facility: [facility] Address: [address] [place] [address] TYPE CODE TESTS RESULT OUT OF RANGE REFERENCE UNITS LAB [id number] INTERPRETATION SEE NOTE Result Comment: NEGATIVE This test did not detect abnormal levels of anti-recoverin antibodies. LAB [id number] TECHNICAL RESULTS SEE NOTE Result Comment: Interpretive Result Table INTERPRETIVE RESULT: Negative TEST: anti-recoverin TECHNICAL RESULT: <1:50 REFERENCE RANGE: Serum <1:50 ----- LAB [id number] COMMENTS SEE NOTE Result Comment: Comments: Th is result does not exclude a diagnosis of an autoimmune etiology for the neurological symptoms associated with paraneoplastic disorder. Recommendations: Health care providers, please contact the [facility] Client Services Department at if you wish to speak with a clinical professional housing consultant regarding this test result. Other testing available: [facility] currently offers the following antibody tests: anti-amphiphysin, anti-CASPR2, anti-CV2, anti-GAD65, anti-ganlionic nAChR, anti-Hu, anti-LGI1, anti-Ma, anti-Ta, anti-NMDA, anti-Ri, anti-VGCC, anti-VGKC, anti-Yo, and anti-Zic4. Please contact the [facility] Client Services Department or visit [email or web address] for information regarding additional testing that may be appropriate based on this individual's clinical presentation. Background information: Paraneoplastic neurological syndromes or disorders (PNS or PND) are rare immune-mediated disorders resulting from nervous system damage due to the remote effects of a tumor. PND of the central nervous system may occur in association with either onconeural antibodies directed against intracellular antigens, or antibodies targeted against neuronal surface antigens. These autoantibodies have been associated with various clinical presentations and malignancies. LAB [id number] METHODS SEE NOTE Result Comment: Detection of antibodies was performed by automated nanoliter scale immunoassay. Although rare, false positive or false negative results may occur. All results should be interpreted in the context of clinical findings, relevant history, and other laboratory data. LAB [id number] REFERENCES SEE NOTE Result Comment: 1. KAMALA Harrington et al. (2011) Eur J Neurol 18: 19-e3. (PMID: 71652075) 2. Mao Yee et al. (2012) J Neurol Neurosurg Psychiatry 83: 638-45. (PMID: 22385220) This test was developed and its analytical performance characteristics have been determined by [facility]. It has not been cleared or approved by the U.S. Food and Drug Administration. This assay has been validated pursuant to the CLIA regulations and is used for clinical purposes. Laboratory oversight provided by Debbie Ramon M.D., Ph.D., CLIA license amezquita, [facility] (CLIA# [id number]) Testing performed at: [facility] [address] [place] [address] Performed By: #### CARAB ### # JESSICA CLIA [id number] [address] [place] [address] CREATININE + EGFR PNL SERPLBLD Collecte d: 03/22/2025 10:33 AM Status: F Source: [facility] Order Comment: Specimen Type : BLOOD SPECIMEN Ordering Facility: [facility] Address: [address] [place] [address] TYPE CODE TESTS RESULT OUT OF RANGE REFERENCE UNITS LAB 2160-0(LOINC) Creat SerPl-mCnc 0.95 0.73-1.22 mg/dL LAB 54072-1(LOINC) eGFRcr SerPlBld CKD-EPI 2020 82 >=60 mL/min/1. 73m??? Result Comment: Estimated Gl omerular Filtration Rate (eGFR) is calculated using the 2020 CKD-EPI creatinine equation. This equation utilizes serum creatinine, sex, and age as parameters. The creatinine assay has traceable calibration to isotope dilution-mass spectrometry. Refer to KDIGO guidelines for clinical interpretation. In patients with unstable renal function, e.g. those with acute kidney injury, the eGFR may not accurately reflect actual GFR. Performed By: #### 21148-8, LIPNF #### [facility] CLIA [id number] [address] [place] [address] [place] [address] [place] LIPID PANEL, NONFASTING Collected: 03/08 10:33 AM Status: F Source: [facility] Order Comment: Specimen Type : BLOOD SPECIMEN Ordering Facility: [facility] Address: [address] [place] [address] TYPE CODE TESTS RESULT OUT OF RANGE REFERENCE UNITS LAB CHOLNF TOTAL CHOLESTEROL NF 151 <200 mg/dL Result Comment: <200 mg/dL, Desirable 200-239 mg/dL, Borderline high >239 mg/dL, High LAB TRIGNF TRIGLYCERIDES, NF 117 <150 mg/dL Result Comment: <150 mg/dL, Normal 150-199 mg/dL, Borderline high 200-499 mg/dL, High >499 mg/dL, Very high LAB HDLNF HDL CHOLESTEROL, NF 50 >39 mg/dL Result Comment: 40-59 mg/dL, Acceptable >59 mg/dL, High: Negative risk factor for coronary heart disease <40 mg/dL, Low: Positive risk factor for coronary heart disease LAB LDLNF LDL CHOLESTEROL CALCULATED, NF 80 <100 mg/dL Result Comment: <100 mg/dL, Optimal 100-129 mg/dL, Near optimal/above optimal 130-159 mg/dL, Borderline high 160-189 mg/dL, High >189 mg/dL, Very high Secondary prevention optimal LDL Cholesterol levels are recommended to be <70 mg/dL LDL cholesterol is calculated using the Orta-NIH equation. LAB NOHDLN NON HDL CHOL, NF 101 <130 mg/dL Result Comment: <130 mg/dL, Optimal 130-159 mg/dL, Near optimal/above optimal 160-189 mg/dL, Borderline high 190-219 mg/dL, High >219 mg/dL, Very high Secondary prevention optimal non HDL Cholesterol levels are recommended to be <100 mg/dL LAB VLDLNF VLDL CHOLESTEROL, NF 18 <30 mg/dL LAB TCHDLN T CHOL/HDL RATIO NF 3.02 <5.10 mg/dL LAB LDLHDN LDL/HDL RATIO, NF 1.60 <2.54 mg/dL Result Comment: Reference: 1. National Cholesterol Education Program ATP III Guideline At-A-Glance Quick Desk Reference: National Heart, Lung, and Blood [place]. National Institutes of Health. 2001: NIH Publication No. 01-3305. 2. An International Atherosclerosis Society position paper: global recommendations for the management of dyslipidemia: executive summary, Atherosclerosis. 2014: 232(2):410-413. Performed By: #### 22657-3, LIPNF #### [facility] CLIA [id number] [address] [place] [address] CNOV Observed: 03/22/2025 9:40 AM Status: COMPLETED Source: [facility] MARQUEZ NORWOOD ([id number]) 1945 M Date Time Provider Department 03/22/25 9:40 AM NIKI NJ During your visit today, we recorded the following information about you: Pulse Respiration Blood pressure Weight 65/minute 16/minute 130/78 83.5 kg Niki Nj APRN.CNP 03/22/2025 10:08 AM Signed Continue same medications. Start the buspar (take nightly for a couple of nights, then increase to twice daily. You can add a dose in the afternoon, if needed. Get labs. Recheck in 1 month. Niki Nj APRN.CNP 03/22/2025 11:49 AM Signed This is a 79 year old male who presents today with: The patient is a 79-year-old male here for 6 month recheck. Presents with spouse. HISTORY OF PRESENT ILLNESS: Irritability: - Prabhakar Norwood and his reports increased irritability and anxiety, occurring daily or every other day. - Triggered by minor events. - Longstanding issue, but has worsened recently. - Denies physical aggression or throwing objects. - Managed with fluoxetine; no side effects reported. - Prabhakar has tried multiple antidepressants in the past with limited success. - feels more that it is an irritability or anxiety issues; as opposed to depressive. Blurred Vision: Following with heme-onc for paraneoplastic retinopathy. - Persistent blurred vision, described as a film over the eyes. - Ongoing evaluation with multiple blood tests; no diagnosis yet. - Prabhakar is scheduled for additional blood work today. Restless Leg Syndrome: - Managed with gabapentin at bedtime; Prabhakar reports effective symptom control. Hyperlipidemia: - Managed with atorvastatin, taken in the evening; no side effects reported. - Prabhakar is due for cholesterol panel. No special diet. Hypertension: - Managed with lisinopril; no side effects reported. - Denies chest pain, palpitations, dyspnea, peripheral edema, dizziness, or syncope. - Prabhakar does not monitor blood pressure at home. Diet: - Prabhakar describes diet as high in junk food and sweets. PAST MEDICAL HISTORY: PAST MEDICAL HISTORY Diagnosis Date Depression Diverticulosis of colon (without mention of hemorrhage) Hypercholesteremia Kidney stone 09/16/2024 Restless leg PAST SURGICAL HISTORY Procedure Laterality Date COLONOSCOPY FLX DX W/COLLJ SPEC WHEN PFRMD 10/26/2009 Colonoscopy CYSTOSCOPY TONSILLECTOMY AND ADENOIDECTOMY <AGE 14 ALLERGIES Patient has no known allergies. MEDICATIONS Current Outpatient Medications Medication Sig atorvastatin (LIPITOR) 40 mg tablet Take 1 tablet by mouth daily at bedtime. For cholesterol. busPIRone (BUSPAR) 5 mg tablet Start one pill by mouth at bedtime X 3 nights, then start taking it twice a day in the morning and evening. You can add a dose in the afternoon, if needed. acetaminophen (TYLENOL) 500 mg tablet Take 1,000 mg by mouth every 8 hours as needed for pain. iv contrast (will be provided with radiology test) CT Chest W -Inject, intravenously, once for 1 dose.No IV access, insert saline lock prior to the beginning of sedation, infusion, injection of imaging exam. Discontinue saline lock post exam. If Pt. has a central line or IVAD, may access for administration according to line specific nursing protocol. Once exam is complete flush line and de-access according to line specific nursing protocol in the CT contrast administration guidelines link. iv contrast (will be provided with radiology test) CT ABD/PEL -Inject, intravenously, once for 1 dose.No IV access, insert saline lock prior to the beginning of sedation, infusion, injection of imaging exam. Discontinue saline lock post exam. If Pt. has a central line or IVAD, may access for administration according to line specific nursing protocol. Once exam is complete flush line and de-access according to line specific nursing protocol in the CT contrast administration guidelines link. enteric contrast (will be provided with radiology test) For CT ABD/PEL W IVCON Routine order Administer, As Directed One Time Only, via Oral, Rectal, both Oral and Rectal, Enteric Tube, Stoma or Indwelling Catheter, Enteric Contrast as designated per enteric contrast guidelines gabapentin (NEURONTIN) 300 mg capsule Take 2 capsules by mouth daily at bedtime for 180 days. FLUoxetine (PROZAC) 40 mg capsule Take 1 capsule by mouth two times a day. lisinopril (ZESTRIL) 10 mg tablet Take 1 tablet by mouth once daily. No current facility-administered medications for this visit. FAMILY HISTORY Problem Relation Age of Onset Lung Cancer Mother other (tobacco) Mother Lung Cancer Father other (tobacco) Father other (heart problems) Sister Lung Cancer Brother ? cause other (brain tumor) Brother other (old age) Maternal Grandmother other (old age) Maternal Grandfather other (old age) Paternal Grandmother No Known Problems Paternal Grandfather None Other SOCIAL HISTORY[1] REVIEW OF SYSTEMS Eyes: (+) blurry vision, (+) vision loss Cardiovascular: (-) chest pain, (-) palpitations, (-) peripheral edema Respiratory: (-) shortness of breath Neurological: (+) finger weakness, (-) dizziness, (-) syncope, (-) seizures Psychiatric: (+) depressed mood, (+) irritability, (+) anxiety EXAM: BP 130/78 Pulse 65 Resp 16 Wt 83.5 kg (184 lb) SpO2 97% BMI 28.82 kg/m? PHYSICAL EXAM: General Appearance: Well appearing, alert, in no acute distress, well-hydrated, well nourished.. Skin: Skin color, texture, turgor normal, no suspicious rashes or lesions. Head: Normocephalic, no masses, lesions, tenderness or abnormalities. Eyes: Anicteric sclera. Extraocular movements are intact. . Neck: Supple, no adenopathy; thyroid symmetric, normal size, no bruits. Lungs: Lungs clear to auscultation. No wheezing, rhonchi, rales.. Heart: RRR without murmur, gallop, or rubs. No ectopy. Extremities: No deformities, edema, skin discoloration, clubbing or cyanosis. Good capillary refill. . Neurologic: Gait normal. Sensation grossly intact. . ASSESSMENT/PLAN 1. Hyperlipidemia, mixed (E78.2) 2. Elevated glucose (R73.09) - Takes atorvastatin in the evening with no reported side effects. - No special diet followed; high intake of junk food and sweets. - Ordered cholesterol panel. 3. Generalized anxiety disorder (F41.1) 4. Major depressive disorder, recurrent episode, mild (F33.0) - Mood described as not great with frequent irritability and anxiety; depression appears well controlled on fluoxetine. - Start buspirone, beginning with a small dose in the evening for a few days, then increase to BID; may add a midday dose if needed. - Educated on potential drowsiness with buspirone, especially when first starting. - Discussed that fluoxetine is at a high dose; if buspirone is ineffective, may consider tapering fluoxetine and starting a new medication. - Follow-up in 1 month to assess response to buspirone and adjust treatment as needed. 5. Restless legs syndrome (G25.81) - Gabapentin at bedtime is effective. 6. Hypertensive heart disease without heart failure (I11.9) - Takes lisinopril with no reported side effects. - No home BP monitoring; no chest pain, palpitations, dyspnea, edema, dizziness, or syncope. 7. Unspecified visual loss (H54.7) - Ongoing blurry vision described as a film over my eyes; etiology unknown. - Recent blood work ordered by Dr. Blevins; patient to complete labs today. Discussed treatment plan and patient voices understanding. Patient's questions answered appropriately. Medications and potential side effects were discussed and patient voices understanding. Return to the office as scheduled or as needed for worsening/no improvement. Niki Nj APRN.SPACE ENGINEER Recording using Nolio software for draft documentation of the visit was discussed with the patient/authorized labor representative; all questions welcomed and answered. Patient/authorized labor representative agreed to proceed [1] Social History Tobacco Use Smoking status: Never Smokeless tobacco: Never Vaping Use Vaping status: Never Used Substance Use Topics Alcohol use: Yes Comment: seldom - beer Drug use: Yes Types: Marijuana Comment: a little at night to help sleep Allergies As of Date: 03/22/2025 (No Known Allergies) Date Reviewed: 03/22/2025 Reviewed by: Amber Sawyer LPN - Fully Assessed Reason for Visit: Recheck [92] Cmt: 6 month follow up Primary Visit Diagnosis:Elevated glucose [R73.09] Other Visit Diagnoses:Hyperlipidemia, mixed [E78.2] Generalized anxiety disorder [F41.1] Major depressive disorder, recurrent episode, mild [F33.0] Restless legs syndrome [G25.81] Hypertensive heart disease without heart failure [I11.9] Unspecified visual loss [H54.7] Order(s):atorvastatin (LIPITOR) 40 mg tabletTake 1 tablet by mouth daily at bedtime. For cholesterol.Disp: 90 tabletRfl: 1 busPIRone (BUSPAR) 5 mg tabletStart one pill by mouth at bedtime X 3 nights, then start taking it twice a day in the morning and evening. You can add a dose in the afternoon, if needed.Disp: 90 tabletRfl: 1 LIPID PANEL, NONFASTING [SQLIPNF] Order #: [id number] FUTURE HEMOGLOBIN A1C [USQPN2S] Order #: [id number] FUTURE Prescriptions as of 03/22/2025 - atorvastatin (LIPITOR) 40 mg tablet Take 1 tablet by mouth daily at bedtime. For cholesterol. - busPIRone (BUSPAR) 5 mg tablet Start one pill by mouth at bedtime X 3 nights, then start taking it twice a day in the morning and evening. You can add a dose in the afternoon, if needed. - acetaminophen (TYLENOL) 500 mg tablet Take 1,000 mg by mouth every 8 hours as needed for pain. - iv contrast (will be provided with radiology test) CT Chest W -Inject, intravenously, once for 1 dose.No IV access, insert saline lock prior to the beginning of sedation, infusion, injection of imaging exam. Discontinue saline lock post exam. If Pt. has a central line or IVAD, may access for administration according to line specific nursing protocol. Once exam is complete flush line and de-access according to line specific nursing protocol in the CT contrast administration guidelines link. - iv contrast (will be provided with radiology test) CT ABD/PEL -Inject, intravenously, once for 1 dose.No IV access, insert saline lock prior to the beginning of sedation, infusion, injection of imaging exam. Discontinue saline lock post exam. If Pt. has a central line or IVAD, may access for administration according to line specific nursing protocol. Once exam is complete flush line and de-access according to line specific nursing protocol in the CT contrast administration guidelines link. - enteric contrast (will be provided with radiology test) For CT ABD/PEL W IVCON Routine order Administer, As Directed One Time Only, via Oral, Rectal, both Oral and Rectal, Enteric Tube, Stoma or Indwelling Catheter, Enteric Contrast as designated per enteric contrast guidelines - gabapentin (NEURONTIN) 300 mg capsule Take 2 capsules by mouth daily at bedtime for 180 days. - FLUoxetine (PROZAC) 40 mg capsule Take 1 capsule by mouth two times a day. - lisinopril (ZESTRIL) 10 mg tablet Take 1 tablet by mouth once daily. Problem List As Of Date 03/22/2025 Noted Resolved Depression [F32.A] 08/31/2009 Elevated BP [HTK4766] 08/31/2009 Hyperlipidemia, mixed [E78.2] 05/27/2019 BCC (basal cell carcinoma), face [C44.310] 12/01/2020 Hypertension, essential [I10] 12/01/2020 Recurrent major depressive disorder, in partial*12/01/2020 Kidney stone [N20.0] 09/16/2024 Other instructions from your clinician: Continue same medications. Start the buspar (take nightly for a couple of nights, then increase to twice daily. You can add a dose in the afternoon, if needed. Get labs. Recheck in 1 month. Prescriptions ordered this encounter Disp Refills Start End ATORVASTATIN 40 MG TABLET 90 t* 1 03/22/2025 09/18/2025 Route: PO Sig: Take 1 tablet by mouth daily at bedtime. For cholesterol. BUSPIRONE 5 MG TABLET 90 t* 1 03/22/2025 Sig: Start one pill by mouth at bedtime X 3 nights, then start taking it twice a day in the morning and evening. You can add a dose in the afternoon, if needed. Medications Discontinued During This Encounter Prescriptions - atorvastatin (LIPITOR) 40 mg tablet (Discontinued) Take 1 tablet by mouth daily at bedtime. For cholesterol. Level of Service: OFFICE/OUTPATIENT ESTABLISHED [facility] 30 MIN [01496] Additional E/M codes: VISIT CPLX INHERENT EANDM ASSOC WITH MED * Encounter Status:Closed by NIKI NJ on 03/22/25 CNNURSE Observed: 03/15/2025 10:20 AM Status: COMPLETED Source: [facility] Nurse Visit (FAMPWS) MARQUEZ NORWOOD ([id number]) 1945 M Date Time Provider Department 03/15/25 10:20 AM NIKI JN During your visit today, we recorded the following information about you: Allergies As of Date: 03/15/2025 (No Known Allergies) Date Reviewed: 02/08/2025 Reviewed by: Ivonne Petty, RT(R) - Fully Assessed Reason for Visit: Immunizations [194] Cmt: Flu vaccination Primary Visit Diagnosis:Need for influenza vaccination [Z23] Order(s):INFLUENZA VACCINE, PRSV FREE, AGE 65+ YR, HIGH DOSE, TRIVALENT (FLUZONE HIGH-DOSE) [[id number]] Order #: [id number] Prescriptions as of 03/15/2025 - acetaminophen (TYLENOL) 500 mg tablet Take 1,000 mg by mouth every 8 hours as needed for pain. - iv contrast (will be provided with radiology test) CT Chest W -Inject, intravenously, once for 1 dose.No IV access, insert saline lock prior to the beginning of sedation, infusion, injection of imaging exam. Discontinue saline lock post exam. If Pt. has a central line or IVAD, may access for administration according to line specific nursing protocol. Once exam is complete flush line and de-access according to line specific nursing protocol in the CT contrast administration guidelines link. - iv contrast (will be provided with radiology test) CT ABD/PEL -Inject, intravenously, once for 1 dose.No IV access, insert saline lock prior to the beginning of sedation, infusion, injection of imaging exam. Discontinue saline lock post exam. If Pt. has a central line or IVAD, may access for administration according to line specific nursing protocol. Once exam is complete flush line and de-access according to line specific nursing protocol in the CT contrast administration guidelines link. - enteric contrast (will be provided with radiology test) For CT ABD/PEL W IVCON Routine order Administer, As Directed One Time Only, via Oral, Rectal, both Oral and Rectal, Enteric Tube, Stoma or Indwelling Catheter, Enteric Contrast as designated per enteric contrast guidelines - gabapentin (NEURONTIN) 300 mg capsule Take 2 capsules by mouth daily at bedtime for 180 days. - FLUoxetine (PROZAC) 40 mg capsule Take 1 capsule by mouth two times a day. - atorvastatin (LIPITOR) 40 mg tablet Take 1 tablet by mouth daily at bedtime. For cholesterol. - lisinopril (ZESTRIL) 10 mg tablet Take 1 tablet by mouth once daily. Problem List As Of Date 03/15/2025 Noted Resolved Depression [F32.A] 08/31/2009 Elevated BP [BWH6862] 08/31/2009 Hyperlipidemia, mixed [E78.2] 05/27/2019 BCC (basal cell carcinoma), face [C44.310] 12/01/2020 Hypertension, essential [I10] 12/01/2020 Recurrent major depressive disorder, in partial*12/01/2020 Kidney stone [N20.0] 09/16/2024 Encounter Status:Closed by AMBER SAWYER on 03/15/25 VALERI Observed: 03/04/2025 12:00 AM Status: COMPLETED Source: [facility] Telephone (DELMIS) MARQUEZ NORWOOD ([id number]) 1945 M Date Time Provider Department 03/04/25 RANJIT BLEVINS During your visit today, we recorded the following information about you: Fanny May LPN 03/04/2025 4:04 PM Signed Please call to reschedule lab apt. has cancelled and no showed this lab apt. CAMELIA BarreraZi buenoa 03/04/2025 4:10 PM Signed Spoke with patients spouse who stated he will do a walk in lab tomorrow or Saturday at the other building Becki Garcialins Allergies As of Date: 03/04/2025 (No Known Allergies) Date Reviewed: 02/08/2025 Reviewed by: Ivonne Petty, RT(R) - Fully Assessed Reason for Visit: Appointment [186] Prescriptions as of 03/04/2025 - acetaminophen (TYLENOL) 500 mg tablet Take 1,000 mg by mouth every 8 hours as needed for pain. - iv contrast (will be provided with radiology test) CT Chest W -Inject, intravenously, once for 1 dose.No IV access, insert saline lock prior to the beginning of sedation, infusion, injection of imaging exam. Discontinue saline lock post exam. If Pt. has a central line or IVAD, may access for administration according to line specific nursing protocol. Once exam is complete flush line and de-access according to line specific nursing protocol in the CT contrast administration guidelines link. - iv contrast (will be provided with radiology test) CT ABD/PEL -Inject, intravenously, once for 1 dose.No IV access, insert saline lock prior to the beginning of sedation, infusion, injection of imaging exam. Discontinue saline lock post exam. If Pt. has a central line or IVAD, may access for administration according to line specific nursing protocol. Once exam is complete flush line and de-access according to line specific nursing protocol in the CT contrast administration guidelines link. - enteric contrast (will be provided with radiology test) For CT ABD/PEL W IVCON Routine order Administer, As Directed One Time Only, via Oral, Rectal, both Oral and Rectal, Enteric Tube, Stoma or Indwelling Catheter, Enteric Contrast as designated per enteric contrast guidelines - gabapentin (NEURONTIN) 300 mg capsule Take 2 capsules by mouth daily at bedtime for 180 days. - FLUoxetine (PROZAC) 40 mg capsule Take 1 capsule by mouth two times a day. - atorvastatin (LIPITOR) 40 mg tablet Take 1 tablet by mouth daily at bedtime. For cholesterol. - lisinopril (ZESTRIL) 10 mg tablet Take 1 tablet by mouth once daily. Problem List As Of Date 03/04/2025 Noted Resolved Depression [F32.A] 08/31/2009 Elevated BP [LGS6439] 08/31/2009 Hyperlipidemia, mixed [E78.2] 05/27/2019 BCC (basal cell carcinoma), face [C44.310] 12/01/2020 Hypertension, essential [I10] 12/01/2020 Recurrent major depressive disorder, in partial*12/01/2020 Kidney stone [N20.0] 09/16/2024 Encounter Status:Closed by BECKI MARES on 03/04/25 VALERI Observed: 02/21/2025 12:00 AM Status: COMPLETED [facility] Tele[facility] (HEMJERE) MARQUEZ NORWOOD ([id number]) 1945 M Date Time Provider Department 02/21/25 RANJIT BLEVINS During your visit today, we recorded the following information about you: Fanny May LPN 02/22/2025 11:10 AM Signed Path requested from 2020 BCC left cheek. -Anti-recoverin test he said to order CARAB -Zpdn-vqnfd-fokmyxn is a miscellaneous test that [facility] will result -anti-carbonic anhydrase is an immunohistology that can be tested on tissue -Anti-TRPM1 is a miscellaneous will result through [facility] -Arrestin-the only resulting lab that was found was [facility] ocular immunology institute. Our lab cannot send to their lab. I wonder if [facility] can since 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 I could order that at [facility] if you'd like. If not I will find the closest [facility] outpt lab. Ranjit Blevins DO 02/22/2025 12:58 PM Signed Thank you. We'll see what the first four show, then order the last via [facility] if needed. DO Shawn Gregory Melanie, LPN 03/01/2025 11:11 AM Signed PSS- please contact patient to schedule a lab appointment for the labs ordered by Dr. Blevins on 02/22/2025. 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 - iv contrast (will be provided with radiology test) CT Chest W -Inject, intravenously, once for 1 dose.No IV access, insert saline lock prior to the beginning of sedation, infusion, injection of imaging exam. Discontinue saline lock post exam. If Pt. has a central line or IVAD, may access for administration according to line specific nursing protocol. Once exam is complete flush line and de-access according to line specific nursing protocol in the CT contrast administration guidelines link. - iv contrast (will be provided with radiology test) CT ABD/PEL -Inject, intravenously, once for 1 dose.No IV access, insert saline lock prior to the beginning of sedation, infusion, injection of imaging exam. Discontinue saline lock post exam. If Pt. has a central line or IVAD, may access for administration according to line specific nursing protocol. Once exam is complete flush line and de-access according to line specific nursing protocol in the CT contrast administration guidelines link. - enteric contrast (will be provided with radiology test) For CT ABD/PEL W IVCON Routine order Administer, As Directed One Time Only, via Oral, Rectal, both Oral and Rectal, Enteric Tube, Stoma or Indwelling Catheter, Enteric Contrast as designated per enteric contrast guidelines - gabapentin (NEURONTIN) 300 mg capsule Take 2 capsules by mouth daily at bedtime for 180 days. - FLUoxetine (PROZAC) 40 mg capsule Take 1 capsule by mouth two times a day. - atorvastatin (LIPITOR) 40 mg tablet Take 1 tablet by mouth daily at bedtime. For cholesterol. - lisinopril (ZESTRIL) 10 mg tablet Take 1 tablet by mouth once daily. Problem List As Of Date 02/21/2025 Noted Resolved Depression [F32.A] 08/31/2009 Elevated BP [KWN3649] 08/31/2009 Hyperlipidemia, mixed [E78.2] 05/27/2019 BCC (basal cell carcinoma), face [C44.310] 12/01/2020 Hypertension, essential [I10] 12/01/2020 Recurrent major depressive disorder, in partial*12/01/2020 Kidney stone [N20.0] 09/16/2024 Encounter Status:Closed by GERALD CHOW on 03/03/25 CT ABD/PEL W IVCON Observed: 02/08/2025 11:18 AM Status: F Source: [facility] * * *Final Report* * * DATE OF EXAM: Feb 08 2025 11:18AM [facility] 0530 - CT ABD/PEL W IVCON / PROCEDURE REASON: Paraneoplastic retinopathy * * * * Physician Interpretation * * * * EXAMINATION: CT CHEST W IVCON, CT ABD/PEL W IVCON CLINICAL HISTORY: Paraneoplastic retinopathy. Evaluate for malignancy. TECHNIQUE: CT of the chest from the thoracic inlet through the diaphragm was performed following administration of IV contrast. CT of the abdomen and pelvis was performed using standard technique, scanning from just above the dome of the diaphragm to the iliac crest. MQ: CTACW_4 Contrast: IV: 100 ml of Omnipaque 350 Oral: 10 ml of Omni 240 10-25ml diluted with water CT Radiation dose: Integrated Dose-length product (DLP) for this visit = 859 mGy*cm. CT Dose Reduction Employed: Automated exposure control(AEC) and iterative recon COMPARISON: CT chest 10/29/2024. RESULT: Limitations: None. Lines, tubes, and devices: None. Lung parenchyma and airways: Mild scarring in the left lower lobe is again noted. No consolidation or edema. No suspicious pulmonary nodule. The central airways are patent. Pleural space: No pleural effusion. No pleural thickening. Lower neck, lymph nodes, and mediastinum: 5 mm right thyroid nodule is stable better delineated on the current postcontrast exam. No lymphadenopathy in the supraclavicular, axillary, mediastinal, or hilar regions. Heart, pericardium, and thoracic vessels: The thoracic aorta is normal in caliber. The main pulmonary artery is normal in caliber. The cardiac chambers are normal in size. Moderate to severe coronary artery atherosclerotic calcifications are again noted, although the study is not optimized for coronary assessment. No pericardial effusion or thickening. Liver: No mass. Biliary: No bile duct dilation. A few tiny gallstones in the gallbladder neck without gallbladder wall thickening. Spleen: No mass. No splenomegaly. Pancreas: No mass or duct dilation. Adrenals: No mass. Kidneys: Simple cyst left kidney upper pole measures 3.1 cm. No other renal lesion on early phase imaging. 2 mm nonobstructing calculus in the right kidney lower pole. No other nephrolithiasis. No hydronephrosis. GI tract: Small diverticulum extends posteriorly off the gastric fundus. No dilation or wall thickening. Lymph nodes: No lymphadenopathy. Mesentery/Peritoneum: No ascites or mass. Retroperitoneum: No mass. Vasculature: The abdominal aorta is normal in caliber with moderate atherosclerotic change. Pelvis: No lymphadenopathy. No mass, ascites or fluid collection. Tiny bilateral fat-containing inguinal hernias. No asymmetric bladder wall thickening. Bilateral hydroceles is larger on the left. Bones/Soft Tissues: Stable mild dextroscoliosis of the thoracic spine. Multiple anterior bridging osteophytes throughout the thoracic spine are noted. Moderate to severe degenerative disc disease in the thoracic and lumbar spine. No acute osseous abnormality. No lytic or blastic lesions. Cloth Napping Supervisor (topogram) images: No additional findings. IMPRESSION: 1. No evidence of malignancy in the chest, abdomen, or pelvis. 2. Small nonobstructing right nephrolithiasis and a few tiny gallstones. Credit Coordinator: BIANCA Transcribe Date/Time: Feb 10 2025 8:57A Dictated by : DAVE CARTER MD This examination was interpreted and the report reviewed and electronically signed by: DAVE CARTER MD on Feb 10 2025 11:20AM EST [id number] CT CHEST W IVCON Observed: 02/08/2025 11:18 AM Status: F Source: [facility] * * *Final Report* * * DATE OF EXAM: Feb 08 2025 11:18AM [facility] 0539 - CT CHEST W IVCON / PROCEDURE REASON: Paraneoplastic retinopathy * * * * Physician Interpretation * * * * EXAMINATION: CT CHEST W IVCON, CT ABD/PEL W IVCON CLINICAL HISTORY: Paraneoplastic retinopathy. Evaluate for malignancy. TECHNIQUE: CT of the chest from the thoracic inlet through the diaphragm was performed following administration of IV contrast. CT of the abdomen and pelvis was performed using standard technique, scanning from just above the dome of the diaphragm to the iliac crest. MQ: CTACW_4 Contrast: IV: 100 ml of Omnipaque 350 Oral: 10 ml of Omni 240 10-25ml diluted with water CT Radiation dose: Integrated Dose-length product (DLP) for this visit = 859 mGy*cm. CT Dose Reduction Employed: Automated exposure control(AEC) and iterative recon COMPARISON: CT chest 10/29/2024. RESULT: Limitations: None. Lines, tubes, and devices: None. Lung parenchyma and airways: Mild scarring in the left lower lobe is again noted. No consolidation or edema. No suspicious pulmonary nodule. The central airways are patent. Pleural space: No pleural effusion. No pleural thickening. Lower neck, lymph nodes, and mediastinum: 5 mm right thyroid nodule is stable better delineated on the current postcontrast exam. No lymphadenopathy in the supraclavicular, axillary, mediastinal, or hilar regions. Heart, pericardium, and thoracic vessels: The thoracic aorta is normal in caliber. The main pulmonary artery is normal in caliber. The cardiac chambers are normal in size. Moderate to severe coronary artery atherosclerotic calcifications are again noted, although the study is not optimized for coronary assessment. No pericardial effusion or thickening. Liver: No mass. Biliary: No bile duct dilation. A few tiny gallstones in the gallbladder neck without gallbladder wall thickening. Spleen: No mass. No splenomegaly. Pancreas: No mass or duct dilation. Adrenals: No mass. Kidneys: Simple cyst left kidney upper pole measures 3.1 cm. No other renal lesion on early phase imaging. 2 mm nonobstructing calculus in the right kidney lower pole. No other nephrolithiasis. No hydronephrosis. GI tract: Small diverticulum extends posteriorly off the gastric fundus. No dilation or wall thickening. Lymph nodes: No lymphadenopathy. Mesentery/Peritoneum: No ascites or mass. Retroperitoneum: No mass. Vasculature: The abdominal aorta is normal in caliber with moderate atherosclerotic change. Pelvis: No lymphadenopathy. No mass, ascites or fluid collection. Tiny bilateral fat-containing inguinal hernias. No asymmetric bladder wall thickening. Bilateral hydroceles is larger on the left. Bones/Soft Tissues: Stable mild dextroscoliosis of the thoracic spine. Multiple anterior bridging osteophytes throughout the thoracic spine are noted. Moderate to severe degenerative disc disease in the thoracic and lumbar spine. No acute osseous abnormality. No lytic or blastic lesions. Cloth Napping Supervisor (topogram) images: No additional findings. IMPRESSION: 1. No evidence of malignancy in the chest, abdomen, or pelvis. 2. Small nonobstructing right nephrolithiasis and a few tiny gallstones. Credit Coordinator: BIANCA Transcribe Date/Time: Feb 10 2025 8:57A Dictated by : DAVE CARTER MD This examination was interpreted and the report reviewed and electronically signed by: DAVE CARTER MD on Feb 10 2025 11:20AM EST [id number] PROGRESS Observed: 02/08/2025 10:40 AM Status: COMPLETED Source: [facility] HNO ID: [id number] Author: IVONNE PETTY RT(R) Service: ? Author Type: Log Chipper Operator Type: Progress Notes Filed: 02/08/2025 15:24 Note Text: Radiology Service Progress Note DATE OF SERVICE: February 08, 2025 TIME: 3:24 PM PATIENT IDENTITY VERIFICATION COMPLETED USING TWO (2) STANDARD IDENTIFIERS: Name and Date of confirmed by patient verbally. FALL SCREENING: Has the patient had 2 falls in the last year or 1 fall with injury or currently using an Ambulatory Assistive Device (Walker, Cane, Wheelchair, Crutches, etc.)? No PATIENT GENDER DATA: Assigned male at PATIENT RELEVANT IMPLANT DATA REVIEWED: Yes PATIENT PRESENTS WITH AN IMPLANTABLE OR ATTACHED BAND NAILER: No ALLERGIES: Reviewed and unchanged CONTRAST ALLERGY: NO. EXAM: CT -CONTRAST INDUCED NEPHROPATHY RISK FACTORS: Patient age > 60 years CREATININE: Creatinine Date Value Ref Range Status 01/26/2025 0.90 0.73 - 1.22 mg/dL Final 09/24/2023 0.96 0.73 - 1.22 mg/dL Final 07/04/2021 0.84 0.73 - 1.22 mg/dL Final Estimated Glomerular Filtration Rate Date Value Ref Range Status 01/26/2025 88 >=60 mL/min/1.73m? Final Comment: Estimated Glomerular Filtration Rate (eGFR) is calculated using the 2020 CKD-EPI creatinine equation. This equation utilizes serum creatinine, sex, and age as parameters. The creatinine assay has traceable calibration to isotope dilution-mass spectrometry. Refer to KDIGO guidelines for clinical interpretation. In patients with unstable renal function, e.g. those with acute kidney injury, the eGFR may not accurately reflect actual GFR. eGFR- Date Value Ref Range Status 07/04/2021 >60 Final P.O.C.T. RESULTS: POC done: Yes, See Lab Tab February 08, 2025 TREATMENT: N/A PERIPHERAL IV DATA: Ambulatory: A peripheral IV was started in the Left antecubital site with a Angio cath: 22 gauge. RADIOLOGY DEPARTMENT: CT; Exam(s) Completed: Chest Abdomen Pelvis SIGNATURE: RT Leonel(R) PATIENT NAME: Marquez Norwood DATE: February 08, 2025 TIME: 3:24 PM COMP METAB 1999 PNL SERPL Collected: 11:48 AM Status: F Source: [facility] Order Comment: Specimen Type : BLOOD SPECIMEN Ordering Facility: [facility] Address: [address] [place] [address] TYPE CODE TESTS RESULT OUT OF RANGE REFERENCE UNITS LAB 2885-2(LOINC) Prot SerPl-mCnc 7.0 6.3-8.0 g/dL LAB 1751-7(LOINC) Albumin SerPl-mCnc 4.4 3.9-4.9 g/dL LAB 68038-6(LOINC) Calcium SerPl-mCnc 9.5 8.5-10.2 mg/dL LAB 1975-2([facility]) Bilirub SerPl-mCnc 0.6 0.2-1.3 mg/dL LAB 6768-6([facility]) ALP SerPl-cCnc 100 38-113 U/L LAB 1920-8([facility]) AST SerPl-cCnc 21 14-40 U/L LAB 1742-6([facility]) ALT SerPl-cCnc 20 10-54 U/L LAB 2345-7([facility]) Glucose SerPl-mCnc 93 74-99 mg/dL Result Comment: The [place] [employer] (ADA) provides guidance for cutoff values for fasting glucose and random glucose. The ADA defines fasting as no caloric intake for at least 8 hours. Fasting plasma glucose results between 100 to 125 mg/dL indicate increased risk for diabetes (prediabetes). Fasting plasma glucose results greater than or equal to 126 mg/dL meet the criteria for diagnosis of diabetes. In the absence of unequivocal hyperglycemia, results should be confirmed by repeat testing. In a patient with classic symptoms of hyperglycemia or hyperglycemic crisis, random plasma glucose results greater than or equal to 200 mg/dL meet the criteria for diagnosis of diabetes. Reference: Standards of Medical Care in Diabetes 2016, [place] [employer] Association. Diabetes Care. 2016.39(Suppl 1). LAB 3094-0(LOINC) BUN SerPl-mCnc 10 9-24 mg/dL LAB 2160-0([facility]) Creat SerPl-mCnc 0.90 0.73-1.22 mg/dL LAB 2951-2(INC) Sodium SerPl-sCnc 139 136-144 mmol/L LAB 2823-3(INC) Potassium SerPl-sCnc 4.1 3.7-5.1 mmol/L LAB 2075-0(INC) Chloride SerPl-sCnc 103 98-107 mmol/L LAB 202-9(LOINC) CO2 SerPl-sCnc 23 22-30 mmol/L LAB 99649-9([facility]) Anion Gap SerPl-sCnc 13 8-15 mmol/L LAB 60876-7([facility]) eGFRcr SerPlBld CKD-EPI 2020 88 >=60 mL/min/1. 73m??? Result Comment: Estimated Gl omerular Filtration Rate (eGFR) is calculated using the 2020 CKD-EPI creatinine equation. This equation utilizes serum creatinine, sex, and age as parameters. The creatinine assay has traceable calibration to isotope dilution-mass spectrometry. Refer to KDIGO guidelines for clinical interpretation. In patients with unstable renal function, e.g. those with acute kidney injury, the eGFR may not accurately reflect actual GFR. Performed By: #### [id number] # ### [facility] CLIA [id number] [address] [place] [address] [place] CBC W AUTO DIFF BLD Collected: 01/26/2025 11:48 AM S tatus: F Source: [facility] Order Comment: Specimen Type : BLOOD SPECIMEN Ordering Facility: [facility] Address: [address] [place] [address] TYPE CODE TESTS RESULT OUT OF RANGE REFERENCE UNITS LAB 6690-2(LOINC) WBC # Bld Auto 7.96 3.70-11.00 k/uL LAB 789-8(LOINC) RBC # Bld Auto 4.45 4.20-6.00 m/ uL LAB 718-7(LOINC) Hgb Bld-mCnc 13.4 13.0-17.0 g/dL LAB 4544-3(LOINC) Hct VFr Bld Auto 40.1 39.0-51.0 % LAB 787-2(LOINC) MCV RBC Auto 90.1 80.0-100.0 fL LAB 785-6(LOINC) MCH RBC Qn Auto 30.1 26.0-34.0 p g LAB 786-4(LOINC) MCHC RBC Auto-mCnc 33.4 30.5-36.0 g/dL LAB 37740-7(LOINC) RDW RBC-Rto 12.6 11.5-15.0 % LAB 777-3(LOINC) Platelet # Bld Auto 226 150-400 k/uL LAB 16053-9(LOINC) PMV Bld Auto 9.4 9.0-12.7 fL LAB 770-8(LOINC) Neutrophils/leuk NFr Bld Auto 62.2 % LAB 751-8(LOINC) Neutrophils # Bld Auto 4.96 1.45-7.50 k/uL LAB 736-9(LOINC) Lymphocytes/leuk NFr Bld Auto 27.9 % LAB 731-0(LOINC) Lymphocytes # Bld Auto 2.22 1.00-4.00 k/uL LAB 5905-5(LOINC) Monocytes/leuk NFr Bld Auto 7.3 % LAB 742-7(LOINC) Monocytes # Bld Auto 0.58 <0.87 k/uL LAB 713-8(LOINC) Eosinophil/leuk NFr Bld Auto 1.8 % LAB 711-2(LOINC) Eosinophil # Bld Auto 0.14 <0.46 k/uL LAB 706-2(LOINC) Basophils/leuk NFr Bld Auto 0.5 % LAB 704-7(LOINC) Basophils # Bld Auto 0.04 <0.11 k/uL LAB 22170-5(LOINC) Imm Granulocytes/marie k NFr Bld Auto 0.3 % LAB 47485-3(LOINC) Imm Granulocytes # Bld Auto <0.03 <0.10 k/uL LAB 70940-7(LOINC) nRBC/100 WBC Bld-Rto 0.0 /100 WBC LAB 771-6(LOINC) nRBC # Bld Auto <0.01 <0.01 k/u L LAB 26172-6(LOINC) Differential method Bld Auto Performed By: #### [id number] # ### [facility] CLIA [id number] [address] [place] [address] [place] PARANEOPLAST AUTOABS Collected: 025 11:48 AM Status: F Source: [facility] Order Comment: Specimen Type : BLOOD SPECIMEN Ordering Facility: [facility] Address: [address] [place] [address] TYPE CODE TESTS RESULT OUT OF RANGE REFERENCE UNITS LAB PARCOM INTERP COMMENT (PARNEO/NOEVAL) SEE NOTE Result Comment: A negative b asic paraneoplastic evaluation result does not rule out all clinically relevant antibodies. If indicated, a comprehensive neurological phenotype-specific autoimmune/paraneoplastic evaluation (e.g. encephalopathy, movement disorders, myelopathy, or axonal neuropathy) should be considered [email or web address] These evaluations include screening cell-based assays optimized for detection of recently discovered antibodies. LAB AMPHIS AMPHIPHYSIN AB Negative Negative Result Comment: ADDITIONAL INFORMATION This test was developed and its performance characteristics determined by [facility] in a manner consistent with CLIA requirements. This test has not been cleared or approved by the U.S. Food and Drug Administration. LAB AGNA1 ANTI-GLIAL NUCLEAR AB, TYPE 1 Negative Negative Result Comment: ADDITIONAL INFORMATION This test was developed and its performance characteristics determined by [facility] in a manner consistent with CLIA requirements. This test has not been cleared or approved by the U.S. Food and Drug Administration. LAB ANNA1S ANTI-NEURONAL NUC AB, TYPE 1 Negative Negative Result Comment: ADDITIONAL INFORMATION This test was developed and its performance characteristics determined by [facility] in a manner consistent with CLIA requirements. This test has not been cleared or approved by the U.S. Food and Drug Administration. LAB ANNA2S ANTI-NEURONAL NUC AB, TYPE 2 Negative Negative Result Comment: ADDITIONAL INFORMATION This test was developed and its performance characteristics determined by [facility] in a manner consistent with CLIA requirements. This test has not been cleared or approved by the U.S. Food and Drug Administration. LAB ANNA3S ANTI-NEURONAL NUC AB, TYPE 3 Negative Negative Result Comment: ADDITIONAL INFORMATION This test was developed and its performance characteristics determined by [facility] in a manner consistent with CLIA requirements. This test has not been cleared or approved by the U.S. Food and Drug Administration. LAB CRMP5G CRMP-5, IGG Negative Negative Result Comment: ADDITIONAL INFORMATION This test was developed and its performance characteristics determined by [facility] in a manner consistent with CLIA requirements. This test has not been cleared or approved by the U.S. Food and Drug Administration. LAB PCA1S PURKINJE CELL CYTO AB, TYPE 1 Negative Negative Result Comment: ADDITIONAL INFORMATION This test was developed and its performance characteristics determined by [facility] in a manner consistent with CLIA requirements. This test has not been cleared or approved by the U.S. Food and Drug Administration. LAB PCA2S PURKINJE CELL CYTO AB, TYPE 2 Negative Negative Result Comment: ADDITIONAL INFORMATION This test was developed and its performance characteristics determined by [facility] in a manner consistent with CLIA requirements. This test has not been cleared or approved by the U.S. Food and Drug Administration. LAB PCATRS PURKINJE CELL CYTO AB, TYPE TR Negative Negative Result Comment: ADDITIONAL INFORMATION This test was developed and its performance characteristics determined by [facility] in a manner consistent with CLIA requirements. This test has not been cleared or approved by the U.S. Food and Drug Administration. Test Performed by: [facility] [place] [address] Board Handler: Dona Arredondo Ph.D.; CLIA# [id number] LAB [facility] - NICKI None. Performed By: #### NICKI ## ## [facility] CLIA [id number] [address] [place] [address] PSA/PROSTATE SPECIFIC ANTIGEN SCREENING Collected: 01/26/2025 11:48 AM Status: F Source: [facility] Order Comment: Specimen Type : BLOOD SPECIMEN Ordering Facility: [facility] Address: [address] [place] [address] TYPE CODE TESTS RESULT OUT OF RANGE REFERENCE UNITS LAB 2857-1(LOINC) PSA SerPl-mCnc 3.42 High <2.60 ng/mL Result Comment: Total PSA te st methodology used is the Electrochemiluminescence Immunoassay by [employer]. Total PSA values by differing methodologies cannot be interchanged. For an individual patient, the significance of a PSA level should be interpreted in a broad clinical context, including age, race, family history, digital rectal exam, prostate size, results of prior testing (prostate biopsy, free PSA, PCA3), and use of 5-alpha reductase inhibitors. Considering the high incidence of asymptomatic cancer in the general population that may not pose an ultimate risk to a patient, the decision to recommend urological evaluation or prostate biopsy should be individualized after consideration of all these factors. REFERENCE: Amber Merchant M.D., M.P.H., Eze Waller M.D., Ph.D., Luis Gillespie M.D., Ivonne Preciado, M.P.H., Nicole Layne, ScGina. Effect of Verification Bias on Screening for Prostate Cancer by Measurement of Prostatic Specific Antigen. N Engl J Med 2003,349:335-42. Performed By: #### PSAS1 ### # [facility] CLIA [id number] [address] [place], [place] [address] [place] [address] [place] PROGRESS Observed: 01/26/2025 10:56 AM Status: COMPLETED Source: [facility] HNO ID: [id number] Author: RANJIT BLEVINS, DO Service: ? 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 HPI: The patient is a 79-year-old male with past medical history as outlined below. Was seen by Dr. 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 Get chest CT, Electroretinogram and repeat MRI with pituitary protocol given the bitemporal defect (despite normal MRI at [facility]). Patient woke up one morning with blurred vision in both eyes. No other visual symptoms. No subjective change in symptoms since it came on. No headache. Has not complaints otherwise. Remains active, but can't see wall enough to fish which he really enjoyed. Hasn't noticed any changing skin lesions. Occasional spell of coughing. Non-productive. No dyspnea or wheezing. Life-long smoker. Sense of taste and smell subjectively normal. Has lost about 30 lbs since 2016. endorses he has time where he's had loss of appetite and then improves. Had lesion removed from left face in [place]. Mother and father both smoked in the home. age 52 lung cancer and mother was 49 when from lung cancer. Sister--Cancer---not known to patient what type. Two brothers of cancer--Brain cancer and lung cancer. Brother who of lung cancer was about 60-61. Both were smokers and heavy drinkers. Colonoscopy 2009. PSA 2004. PAST MEDICAL HISTORY Diagnosis Date Depression Diverticulosis of colon (without mention of hemorrhage) Hypercholesteremia Kidney stone 09/16/2024 Restless leg PAST SURGICAL HISTORY Procedure Laterality Date COLONOSCOPY FLX DX W/COLLJ SPEC WHEN PFRMD 10/26/2009 Colonoscopy CYSTOSCOPY TONSILLECTOMY AND ADENOIDECTOMY <AGE 14 acetaminophen (TYLENOL) 500 mg tablet Take 1,000 mg by mouth every 8 hours as needed for pain. gabapentin (NEURONTIN) 300 mg capsule Take 2 capsules by mouth daily at bedtime for 180 days. FLUoxetine (PROZAC) 40 mg capsule Take 1 capsule by mouth two times a day. atorvastatin (LIPITOR) 40 mg tablet Take 1 tablet by mouth daily at bedtime. For cholesterol. lisinopril (ZESTRIL) 10 mg tablet Take 1 tablet by mouth once daily. ALLERGIES No Known Allergies Social History Tobacco Use Smoking status: Never Smokeless tobacco: Never Vaping Use Vaping status: Never Used Substance Use Topics Alcohol use: Yes Comment: seldom - beer Drug use: Yes Types: Marijuana Comment: a little at night to help sleep FAMILY HISTORY Problem Relation Age of Onset Lung Cancer Mother other (tobacco) Mother Lung Cancer Father other (tobacco) Father other (heart problems) Sister Lung Cancer Brother ? cause other (brain tumor) Brother other (old age) Maternal Grandmother other (old age) Maternal Grandfather other (old age) Paternal Grandmother No Known Problems Paternal Grandfather None Other REVIEW OF SYSTEMS: Constitutional: No episodes of fever and night sweats. Not significantly fatigued. Normal appetite. Neuro: No AMARO, vertigo, dizziness and imbalance. No symptoms of neuropathy. HEENT: No recent change in voice or hearing (RINCON). Resp: See above. CVS: No exertional chest pain, PND, orthopnea and LE edema. GI: No reflux, n/v, change in bowel habits or abdominal pain. : No dysuria or gross hematuria. Endo: No hot flashes. Musculoskeletal: No bone, joint and muscular pain. Occasional back and knee pain if active. Derm: No current rash. Heme: No unusual bleeding and unexplained bruising. Psych: Normal mood. PHYSICAL EXAM: Vitals: Blood pressure 166/60, pulse 62, temperature 36.7 ?C (98.1 ?F), temperature source Temporal, height 170.2 cm (5' 7), weight 82.8 kg (182 lb 8 oz), SpO2 96%. Well-appearing and in no acute distress. EYES: Sclerae are anicteric bilaterally. LYMPHATIC: There is no palpable adenopathy. RESPIRATORY: Resonant throughout. CARDIOVASCULAR: Rhythm is regular. ABDOMEN: The abdomen is nondistended. No splenomegaly or hepatomegaly. No tenderness. Extremities: No swelling or edema. SKIN: No jaundice or rash. 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 Symptoms started abruptly about 8 months ago but have not changed subjectively since that time. He had imaging of his chest in the past without evidence of malignancy. Discussed with him most common malignancies associated with his syndrome would be lung cancer and melanoma although nearly any cancer could lead to this if indeed paraneoplastic retinopathy is the diagnosis. I discussed a stepwise workup with him and his . Plan: - Labs including CBC, chemistry panel, PSA and paraneoplastic antibody panel. If that is negative then he will need further special antibody testing via [facility] or other outside lab. - CT C/A/P - Records and pathology report of lesion removed from left face from 's office. - May need repeat dermatology evaluation. I spent a total of 65 minutes on the date of the service which included preparing to see the patient, [id number] patient care, completing clinical documentation, obtaining and/or reviewing separately obtained history, performing a medically appropriate examination, counseling and educating the patient/family/caregiver, ordering medications, tests, or procedures, and communicating results to the patient/family/caregiver. 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 HPI: The patient is a 79-year-old male with past medical history as outlined below. Was seen by Dr. 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 Get chest CT, Electroretinogram and repeat MRI with pituitary protocol given the bitemporal defect (despite normal MRI at [facility]). Patient woke up one morning with blurred vision in both eyes. No other visual symptoms. No subjective change in symptoms since it came on. No headache. Has not complaints otherwise. Remains active, but can't see wall enough to fish which he really enjoyed. Hasn't noticed any changing skin lesions. Occasional spell of coughing. Non-productive. No dyspnea or wheezing. Life-long smoker. Sense of taste and smell subjectively normal. Has lost about 30 lbs since 2016. endorses he has time where he's had loss of appetite and then improves. Had lesion removed from left face in [place]. Mother and father both smoked in the home. age 52 lung cancer and mother was 49 when from lung cancer. Sister--Cancer---not known to patient what type. Two brothers of cancer--Brain cancer and lung cancer. Brother who of lung cancer was about 60-61. Both were smokers and heavy drinkers. Colonoscopy 2009. PSA 2004. PAST MEDICAL HISTORY Diagnosis Date Depression Diverticulosis of colon (without mention of hemorrhage) Hypercholesteremia Kidney stone 09/16/2024 Restless leg PAST SURGICAL HISTORY Procedure Laterality Date COLONOSCOPY FLX DX W/COLLJ SPEC WHEN PFRMD 10/26/2009 Colonoscopy CYSTOSCOPY TONSILLECTOMY AND ADENOIDECTOMY <AGE 14 acetaminophen (TYLENOL) 500 mg tablet Take 1,000 mg by mouth every 8 hours as needed for pain. gabapentin (NEURONTIN) 300 mg capsule Take 2 capsules by mouth daily at bedtime for 180 days. FLUoxetine (PROZAC) 40 mg capsule Take 1 capsule by mouth two times a day. atorvastatin (LIPITOR) 40 mg tablet Take 1 tablet by mouth daily at bedtime. For cholesterol. lisinopril (ZESTRIL) 10 mg tablet Take 1 tablet by mouth once daily. ALLERGIES No Known Allergies Social History Tobacco Use Smoking status: Never Smokeless tobacco: Never Vaping Use Vaping status: Never Used Substance Use Topics Alcohol use: Yes Comment: seldom - beer Drug use: Yes Types: Marijuana Comment: a little at night to help sleep FAMILY HISTORY Problem Relation Age of Onset Lung Cancer Mother other (tobacco) Mother Lung Cancer Father other (tobacco) Father other (heart problems) Sister Lung Cancer Brother ? cause other (brain tumor) Brother other (old age) Maternal Grandmother other (old age) Maternal Grandfather other (old age) Paternal Grandmother No Known Problems Paternal Grandfather None Other REVIEW OF SYSTEMS: Constitutional: No episodes of fever and night sweats. Not significantly fatigued. Normal appetite. Neuro: No AMARO, vertigo, dizziness and imbalance. No symptoms of neuropathy. HEENT: No recent change in voice or hearing (RINCON). Resp: See above. CVS: No exertional chest pain, PND, orthopnea and LE edema. GI: No reflux, n/v, change in bowel habits or abdominal pain. : No dysuria or gross hematuria. Endo: No hot flashes. Musculoskeletal: No bone, joint and muscular pain. Occasional back and knee pain if active. Derm: No current rash. Heme: No unusual bleeding and unexplained bruising. Psych: Normal mood. PHYSICAL EXAM: Vitals: Blood pressure 166/60, pulse 62, temperature 36.7 ?C (98.1 ?F), temperature source Temporal, height 170.2 cm (5' 7), weight 82.8 kg (182 lb 8 oz), SpO2 96%. Well-appearing and in no acute distress. EYES: Sclerae are anicteric bilaterally. LYMPHATIC: There is no palpable adenopathy. RESPIRATORY: Resonant throughout. CARDIOVASCULAR: Rhythm is regular. ABDOMEN: The abdomen is nondistended. No splenomegaly or hepatomegaly. No tenderness. Extremities: No swelling or edema. SKIN: No jaundice or rash. 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 Symptoms started abruptly about 8 months ago but have not changed subjectively since that time. He had imaging of his chest in the past without evidence of malignancy. Discussed with him most common malignancies associated with his syndrome would be lung cancer and melanoma although nearly any cancer could lead to this if indeed paraneoplastic retinopathy is the diagnosis. I discussed a stepwise workup with him and his . Plan: - Labs including CBC, chemistry panel, PSA and paraneoplastic antibody panel. If that is negative then he will need further special antibody testing via [facility] or other outside lab. - CT C/A/P - Records and pathology report of lesion removed from left face from 's office. - May need repeat dermatology evaluation. I spent a total of 65 minutes on the date of the service which included preparing to see the patient, depl-yb-flci patient care, completing clinical documentation, obtaining and/or reviewing separately obtained history, performing a medically appropriate examination, counseling and educating the patient/family/caregiver, ordering medications, tests, or procedures, and communicating results to the patient/family/caregiver. Ranjit Blevins DO Referring Provider: ELIZABETH GRANADOS [[id number]] Allergies As of Date: 01/26/2025 (No Known Allergies) Date Reviewed: 01/26/2025 Reviewed by: Bronwyn Hermosillo MA - Fully Assessed Reason for Visit: New Patient [172] Primary Visit Diagnosis:Paraneoplastic retinopathy [H35.00] Order(s):CONSULT TO HEMATOLOGY/ONCOLOGY [19990708] Order #: [id number]: 1 PARANEOPLAST AUTOABS [SQPARNEO] Order #: [id number] FUTURE COMPLETE BLOOD COUNT AND DIFFERENTIAL [SQCBCDIF] Order #: [id number] FUTURE COMPREHENSIVE METABOLIC PANEL [SQCMP] Order #: [id number] FUTURE PSA/PROSTATE SPECIFIC ANTIGEN SCREENING [SQPSAS1] Order #: [id number] FUTURE CT CHEST W IVCON [[id number]] Order #: [id number] FUTURE iv contrast (will be provided with radiology test)CT Chest W -Inject, intravenously, once for 1 dose.No IV access, insert saline lock prior to the beginning of sedation, infusion, injection of imaging exam. Discontinue saline lock post exam. If Pt. has a central line or IVAD, may access for administration according to line specific nursing protocol. Once exam is complete flush line and de-access according to line specific nursing protocol in the CT contrast administration guidelines link.Disp: 1 eachRfl: 0 CT ABD/PEL W IVCON [[id number]] Order #: [id number] FUTURE iv contrast (will be provided with radiology test)CT ABD/PEL -Inject, intravenously, once for 1 dose.No IV access, insert saline lock prior to the beginning of sedation, infusion, injection of imaging exam. Discontinue saline lock post exam. If Pt. has a central line or IVAD, may access for administration according to line specific nursing protocol. Once exam is complete flush line and de-access according to line specific nursing protocol in the CT contrast administration guidelines link.Disp: 1 eachRfl: 0 enteric contrast (will be provided with radiology test)For CT ABD/PEL W IVCON Routine order Administer, As Directed One Time Only, via Oral, Rectal, both Oral and Rectal, Enteric Tube, Stoma or Indwelling Catheter, Enteric Contrast as designated per enteric contrast guidelinesDisp: 1 eachRfl: 0 CREATININE BLD [SQCRET] Order #: [id number] FUTURE Follow-up and Disposition History for Encounter Date Provider Department Center 01/26/2025 [id number] BLEVINS [place] Prescriptions as of 01/27/2025 - acetaminophen (TYLENOL) 500 mg tablet Take 1,000 mg by mouth every 8 hours as needed for pain. - iv contrast (will be provided with radiology test) CT Chest W -Inject, intravenously, once for 1 dose.No IV access, insert saline lock prior to the beginning of sedation, infusion, injection of imaging exam. Discontinue saline lock post exam. If Pt. has a central line or IVAD, may access for administration according to line specific nursing protocol. Once exam is complete flush line and de-access according to line specific nursing protocol in the CT contrast administration guidelines link. - iv contrast (will be provided with radiology test) CT ABD/PEL -Inject, intravenously, once for 1 dose.No IV access, insert saline lock prior to the beginning of sedation, infusion, injection of imaging exam. Discontinue saline lock post exam. If Pt. has a central line or IVAD, may access for administration according to line specific nursing protocol. Once exam is complete flush line and de-access according to line specific nursing protocol in the CT contrast administration guidelines link. - enteric contrast (will be provided with radiology test) For CT ABD/PEL W IVCON Routine order Administer, As Directed One Time Only, via Oral, Rectal, both Oral and Rectal, Enteric Tube, Stoma or Indwelling Catheter, Enteric Contrast as designated per enteric contrast guidelines - gabapentin (NEURONTIN) 300 mg capsule Take 2 capsules by mouth daily at bedtime for 180 days. - FLUoxetine (PROZAC) 40 mg capsule Take 1 capsule by mouth two times a day. - atorvastatin (LIPITOR) 40 mg tablet Take 1 tablet by mouth daily at bedtime. For cholesterol. - lisinopril (ZESTRIL) 10 mg tablet Take 1 tablet by mouth once daily. Problem List As Of Date 01/26/2025 Noted Resolved Depression [F32.A] 08/31/2009 Elevated BP [CMJ9461] 08/31/2009 Hyperlipidemia, mixed [E78.2] 05/27/2019 BCC (basal cell carcinoma), face [C44.310] 12/01/2020 Hypertension, essential [I10] 12/01/2020 Recurrent major depressive disorder, in partial*12/01/2020 Kidney stone [N20.0] 09/16/2024 Encounter Status:Closed by RANJIT BLEVINS on 01/27/25 CNPN Observed: 01/26/2025 12:00 AM Status: COMPLETED Source: [facility] Telephone (HEMAWS) MARQUEZ NORWOOD ([id number]) 1945 M Date Time Provider Department 01/26/25 RANJIT BLEVINS HEMAWS During your visit today, we recorded the following information about you: Silvestre Alfred 01/26/2025 11:54 AM Signed AVS 01/[address] C/A/P when able. Orders pended. Follow up based on results. DR CUEVAS PLEASE FILE ORDER. Ranjit Mckenzie, 01/26/2025 12:44 PM Signed Sorry. Orders filed. Silvestre Alfred 01/26/2025 1:53 PM Signed Spoke w pt and this has been scheduled. Silvestre Alfred Allergies As of Date: 01/26/2025 (No Known Allergies) Date Reviewed: 01/26/2025 Reviewed by: Bronwyn Hermosillo MA - Fully Assessed Prescriptions as of 01/26/2025 - acetaminophen (TYLENOL) 500 mg tablet Take 1,000 mg by mouth every 8 hours as needed for pain. - iv contrast (will be provided with radiology test) CT Chest W -Inject, intravenously, once for 1 dose.No IV access, insert saline lock prior to the beginning of sedation, infusion, injection of imaging exam. Discontinue saline lock post exam. If Pt. has a central line or IVAD, may access for administration according to line specific nursing protocol. Once exam is complete flush line and de-access according to line specific nursing protocol in the CT contrast administration guidelines link. - iv contrast (will be provided with radiology test) CT ABD/PEL -Inject, intravenously, once for 1 dose.No IV access, insert saline lock prior to the beginning of sedation, infusion, injection of imaging exam. Discontinue saline lock post exam. If Pt. has a central line or IVAD, may access for administration according to line specific nursing protocol. Once exam is complete flush line and de-access according to line specific nursing protocol in the CT contrast administration guidelines link. - enteric contrast (will be provided with radiology test) For CT ABD/PEL W IVCON Routine order Administer, As Directed One Time Only, via Oral, Rectal, both Oral and Rectal, Enteric Tube, Stoma or Indwelling Catheter, Enteric Contrast as designated per enteric contrast guidelines - gabapentin (NEURONTIN) 300 mg capsule Take 2 capsules by mouth daily at bedtime for 180 days. - FLUoxetine (PROZAC) 40 mg capsule Take 1 capsule by mouth two times a day. - atorvastatin (LIPITOR) 40 mg tablet Take 1 tablet by mouth daily at bedtime. For cholesterol. - lisinopril (ZESTRIL) 10 mg tablet Take 1 tablet by mouth once daily. Problem List As Of Date 01/26/2025 Noted Resolved Depression [F32.A] 08/31/2009 Elevated BP [UMA3280] 08/31/2009 Hyperlipidemia, mixed [E78.2] 05/27/2019 BCC (basal cell carcinoma), face [C44.310] 12/01/2020 Hypertension, essential [I10] 12/01/2020 Recurrent major depressive disorder, in partial*12/01/2020 Kidney stone [N20.0] 09/16/2024 Encounter Status:Closed by SILVESTRE ALFRED on 01/26/25 PROGRESS Observed: 12/30/2024 2:55 PM Status: COMPLETED Source: [facility] HNO ID: [id number] Author: RANJIT BLEVINS, DO Service: ? 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 HPI: The patient is a 79-year-old male with past medical history as outlined below. Was seen by Dr. 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 Get chest CT, Electroretinogram and repeat MRI with pituitary protocol given the bitemporal defect (despite normal MRI at [facility]). PAST MEDICAL HISTORY Diagnosis Date Depression Diverticulosis of colon (without mention of hemorrhage) Kidney stone 09/16/2024 HTN. PAST SURGICAL HISTORY Procedure Laterality Date COLONOSCOPY FLX DX W/COLLJ SPEC WHEN PFRMD 10/26/2009 Colonoscopy CYSTOSCOPY atorvastatin (LIPITOR) 40 mg tablet Take 1 tablet by mouth daily at bedtime. For cholesterol. gabapentin (NEURONTIN) 300 mg capsule Take 2 capsules by mouth daily at bedtime for 180 days. FLUoxetine (PROZAC) 40 mg capsule Take 1 capsule by mouth two times a day. lisinopril (ZESTRIL) 10 mg tablet Take 1 tablet by mouth once daily. ALLERGIES No Known Allergies Social History Tobacco Use Smoking status: Never Smokeless tobacco: Never Vaping Use Vaping status: Never Used Substance Use Topics Alcohol use: Yes Comment: seldom - beer Drug use: Yes Types: Marijuana Comment: a little at night to help sleep FAMILY HISTORY Problem Relation Age of Onset Lung Cancer Mother other (tobacco) Mother Lung Cancer Father other (tobacco) Father other (heart problems) Sister Lung Cancer Brother ? cause other (brain tumor) Brother other (old age) Maternal Grandmother other (old age) Maternal Grandfather other (old age) Paternal Grandmother No Known Problems Paternal Grandfather None Other ASSESSMENT/PLAN: No diagnosis found. PROGRESS Observed: 12/07/2024 11:39 AM Status: COMPLETED Source: [facility] ID: [id number] Author: MONIKA PENDLETON, DO Service: ? 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 I have seen and examined Marquez Norwood. I have discussed the case and the management of this patient's care with the Resident/Fellow, if applicable. I also have reviewed and agree with the assessment and plan as stated above and agree with all of its relevant components. VALERI Observed: 11/16/2024 12:00 AM Status: COMPLETED Source: [facility] Telephone (OPHTLN) ZEKEMARQUEZ Jessica ([id number]) 1945 M Date Time Provider Department 11/16/24 ELIZABETH GRANADOSTLJorge During your visit today, we recorded the following information about you: Elizabeth Granados MD 11/16/2024 9:01 AM Signed Called and spoke with patient's regarding need for oncology visit and full screening based on the results of his Electroretinogram. Preferred point of contact is the . It is OK to call his phone or hers and it is ok to leave a message / VM on either phone. MD William Shanks Danita 11/18/2024 10:59 AM Signed Contacting the patient and left the following message on his VM. Elizabeth Granados MD Kosmorsky, Gregory S, DO17 hours ago (5:24 PM) Consult placed! Monika Pendleton DO Babiuch, Amy, MD (7:58 AM) Please place the consult as well Monika Pendleton DO Babiuch, Amy, MD; Karlo Clifford MD (7:57 AM) I'll send him a copy of this message. Youseff--this liya has a retinopathy of unknown origin that might be paraneoplastic. Can you please evaluate him for an occult CA? Elizabeth Granados MD You; Monika Pendleton DO2 days ago I called and let the know that he will need to be seen by oncology. do Stephanie you want to touch base with Venessa for this or should I place a general consult to onc in [facility]? Thanks Elizabeth Kim Ekta 11/23/2024 9:54 AM Signed Janee dallas, I am reaching out from the regional cancer answer line. I spoke with Dr Clifford about this patient and got the go ahead to get him scheduled. After speaking with patient, they do not want to go to [place] as they do not drive well in traffic. They are requesting the [place] location. [place] staff - can we please have this triaged? Ranjit Blevins DO 11/24/2024 5:08 PM Signed First available either me or Dr. Damon. DO Suzan Gregory Angela 11/25/2024 8:36 AM Signed Spoke with patients spouse and scheduled [address]st available with Dr. 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 For cholesterol. - gabapentin (NEURONTIN) 300 mg capsule Take 2 capsules by mouth daily at bedtime for 180 days. - FLUoxetine (PROZAC) 40 mg capsule Take 1 capsule by mouth two times a day. - lisinopril (ZESTRIL) 10 mg tablet Take 1 tablet by mouth once daily. Problem List As Of Date 11/16/2024 Noted Resolved Depression [F32.A] 08/31/2009 Elevated BP [SNS4803] 08/31/2009 Hyperlipidemia, mixed [E78.2] 05/27/2019 BCC (basal cell carcinoma), face [C44.310] 12/01/2020 Hypertension, essential [I10] 12/01/2020 Recurrent major depressive disorder, in partial*12/01/2020 Kidney stone [N20.0] 09/16/2024 Encounter Status:Closed by PAU DANIELLE on 11/18/24 CNPN Observed: 11/14/2024 12:00 AM Status: COMPLETED Source: [facility] Telephone (OPHTMN) MARQUEZ NORWOOD ([id number]) 1945 M Date Time Provider Department 11/14/[address] [facility] During your visit today, we recorded the following information about you: Sourav Palafox MD 11/14/2024 11:28 AM Signed Received page that patient had called. Spoke to them on the phone: Patient with visit with Dr. Pendleton (10/14/2024) with severe reduction in vision since summer 2023 along with color and night vision loss. 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 Reports that his vision is the same in both eyes. No severe eye pain, eye redness, flashing lights, numerous new floaters, complete black out of vision. No follow up has been made. ERG and CT chest obtained. Will reach out to schedulers and Dr. Fleming about scheduling appropriate follow up for this patient to review findings. Return precautions given. If any significant change in symptoms, worsening of vision, pain or new symptoms please don't hesitate to call back or go to the ED. The eye clinic can be reached at [phone] and you can ask to speak to the latex fashions designer electronic console display operator. Sourav Palafox MD Ophthalmology Resident, [facility] [place] Allergies As of Date: 11/14/2024 (No Known Allergies) Date Reviewed: 10/14/2024 Reviewed by: Monika Pendleton DO - Fully Assessed Prescriptions as of 11/14/2024 - atorvastatin (LIPITOR) 40 mg tablet Take 1 tablet by mouth daily at bedtime. For cholesterol. - gabapentin (NEURONTIN) 300 mg capsule Take 2 capsules by mouth daily at bedtime for 180 days. - FLUoxetine (PROZAC) 40 mg capsule Take 1 capsule by mouth two times a day. - lisinopril (ZESTRIL) 10 mg tablet Take 1 tablet by mouth once daily. Problem List As Of Date 11/14/2024 Noted Resolved Depression [F32.A] 08/31/2009 Elevated BP [LOO3790] 08/31/2009 Hyperlipidemia, mixed [E78.2] 05/27/2019 BCC (basal cell carcinoma), face [C44.310] 12/01/2020 Hypertension, essential [I10] 12/01/2020 Recurrent major depressive disorder, in partial*12/01/2020 Kidney stone [N20.0] 09/16/2024 Encounter Status:Closed by SOURAV PALAFOX on 11/14/24 PROGRESS Observed: 10/29/2024 1:01 PM Status: COMPLETED Source: [facility] HNO ID: [id number] Author: MONIKA PENDLETON, DO Service: ? Author Type: Physician Type: Progress Notes Filed: 10/29/2024 13:01 Note Text: IMPRESSION: No discrete pituitary, sellar, or suprasellar mass. Normal pituitary gland. Questionable mild atrophy of the optic chiasm and post chiasmatic optic nerves, without associated signal abnormality or abnormal enhancement, however evaluation is limited on this exam. Consider further evaluation with dedicated thin cut MR orbits protocol without and with contrast if clinically warranted. Tortuosity of the LEFT anterior cerebral artery which abuts the superior margin of the optic chiasm, of doubtful clinical significance. Credit Coordinator: BIANCA Transcribe Date/Time: Oct 29 2024 11:15A Dictated by : MARCUS FONG MD PROGRESS Observed: 10/29/2024 9:18 AM Status: COMPLETED Source: [facility] HNO ID: [id number] Author: MONIKA PENDLETON, Service: ? Author Type: Physician Type: Progress Notes Filed: 10/29/2024 09:18 Note Text: IMPRESSION: No CT evidence of acute abnormality. Unremarkable chest CT. Credit Coordinator: BIANCA Transcribe Date/Time: Oct 29 2024 8:32A Dictated by : MAURY FRENCH MD MRI PITUITARY WO/W IVCON Observed: 10/29 8:45 AM Status: F Source: [facility] * * *Final Report* * * DATE OF EXAM: Oct 29 2024 8:45AM [facility] 0314 - MRI PITUITARY WO/W IVCON / PROCEDURE REASON: multiple diagnoses * * * * Physician Interpretation * * * * EXAMINATION: MRI PITUITARY WO/W IVCON CLINICAL HISTORY: Worsening vision loss. Bitemporal hemianopia. TECHNIQUE: High resolution sagittal and coronal T1, coronal T2, and gadolinium enhanced, fat-suppressed sagittal and coronal T1-weighted images of the pituitary region. Contrast: 4.5 mL Elucirem IV COMPARISON: None. RESULT: Postop Changes: None Adenohypophysis: The pituitary gland is within normal limits of size and configuration for age. The adenohypophysis is uniformly hypointense on T1 and T2 and uniformly enhances following gadolinium administration. No evidence of an underlying mass. Neurohypophysis: The posterior pituitary gland is present and normal in size and location. The infundibulum is intact and normal in appearance. Suprasellar Region: No evidence of a suprasellar mass. Tortuosity of the LEFT anterior cerebral artery which abuts the superior margin of the optic chiasm, of doubtful clinical significance. There is questionable mild atrophy of the optic chiasm and post chiasmatic optic nerves without associated signal abnormality, however evaluation is limited on this exam. No abnormal enhancement of optic nerves. Cavernous Sinuses: The cavernous sinuses are normal in appearance. A normal flow void is noted in the carotid siphons suggesting patency by spin echo criteria. Brain Parenchyma: The overlying hypothalamus is normal in appearance. Mild generalized cerebral parenchymal volume loss. Multiple foci of increased T2 and FLAIR signal intensity are present throughout the periventricular white matter, nonspecific but likely the sequelae of chronic small vessel ischemia. Skull Base: No evidence of a marrow replacement process in the underlying skull base. IMPRESSION: No discrete pituitary, sellar, or suprasellar mass. Normal pituitary gland. Questionable mild atrophy of the optic chiasm and post chiasmatic optic nerves, without associated signal abnormality or abnormal enhancement, however evaluation is limited on this exam. Consider further evaluation with dedicated thin cut MR orbits protocol without and with contrast if clinically warranted. Tortuosity of the LEFT anterior cerebral artery which abuts the superior margin of the optic chiasm, of doubtful clinical significance. Credit Coordinator: BIANCA Transcribe Date/Time: Oct 29 2024 11:15A Dictated by : MARCUS FONG MD This examination was interpreted and the report reviewed and electronically signed by: MARCUS FONG MD on Oct 29 2024 11:22AM EST [id number] PROGRESS Observed: 10/29/2024 8:30 AM Status: COMPLETED Source: [facility] HNO ID: [id number] Author: SHAUN CHAN RT(R) Service: ? Author Type: Technologist Type: Progress Notes Filed: 10/29/2024 08:39 Note Text: Radiology Service Progress Note DATE OF SERVICE: October 29, 2024 TIME: 8:38 AM PATIENT IDENTITY VERIFICATION COMPLETED USING TWO (2) STANDARD IDENTIFIERS: Name and Date of confirmed by patient verbally. FALL SCREENING: Has the patient had 2 falls in the last year or 1 fall with injury or currently using an Ambulatory Assistive Device (Walker, Cane, Wheelchair, Crutches, etc.)? No PATIENT GENDER DATA: Assigned male at PATIENT RELEVANT IMPLANT DATA REVIEWED: Yes PATIENT PRESENTS WITH AN IMPLANTABLE OR ATTACHED BAND NAILER: No ALLERGIES: Reviewed and unchanged CONTRAST ALLERGY: NO. EXAM: MRI - CONTRAST TYPE: GROUP II PERIPHERAL IV DATA: Ambulatory: A peripheral IV was started in the Left antecubital site with a Angio cath: 22 gauge. RADIOLOGY DEPARTMENT: MR; Exam(s) Completed: Head: Pituitary SIGNATURE: RT J Luis(R) PATIENT NAME: Marquez Norwood DATE: October 29, 2024 TIME: 8:[address] CHEST WO IVCON Observed: 10/29/2024 8:23 AM Status: F Source: [facility] * * *Final Report* * * DATE OF EXAM: Oct 29 2024 8:23AM [facility] 0541 - CT CHEST WO IVCON / PROCEDURE REASON: Malignant neoplasm of unspecified part of unspecified bronchus or lung (HCC) * * * * Physician Interpretation * * * * EXAMINATION: CHEST CT WITHOUT CONTRAST CLINICAL HISTORY: Lung cancer Technique: Spiral CT acquisition of the chest from the thoracic inlet to the upper abdomen without contrast. MQ: [id number] CT Radiation dose: Integrated Dose-length product (DLP) for this visit = 255 mGy*cm CT Dose Reduction Employed: Automated exposure control(AEC) and iterative recon Comparison: None. RESULT: Limitations: None. Lines, tubes, and devices: None. Lung parenchyma and airways: No consolidation. Bandlike opacities in left lower lobe likely reflect atelectasis. No suspicious pulmonary nodule. The central airways are patent. Pleural space: No pleural effusion. No pleural thickening. Lower neck, lymph nodes, and mediastinum: The imaged thyroid gland is normal. No lymphadenopathy in the supraclavicular, axillary, mediastinal, or hilar regions. Heart, pericardium, and thoracic vessels: The thoracic aorta and main pulmonary artery are normal in caliber. The cardiac chambers are normal in size. Multivessel coronary artery atherosclerotic calcifications are noted, although the study is not optimized for coronary assessment. No pericardial effusion or thickening. Bones and soft tissues: No destructive bone lesion. Chest wall is unremarkable. Upper abdomen: No abnormality in the imaged upper abdomen. Localizer images: No additional findings. IMPRESSION: No CT evidence of acute abnormality. Unremarkable chest CT. Credit Coordinator: PSCB Transcribe Date/Time: Oct 29 2024 8:32A Dictated by : MAURY FRENCH MD This examination was interpreted and the report reviewed and electronically signed by: MAURY FRENCH MD on Oct 29 2024 8:44AM EST [id number] PROGRESS Observed: 10/29/2024 8:00 AM Status: COMPLETED Source: [facility] ID: [id number] Author: IVONNE PETTY RT(R) Service: ? Author Type: Log Chipper Operator Type: Progress Notes Filed: 10/29/2024 14:30 Note Text: Radiology Service Progress Note PATIENT NAME: Marquez Norwood DATE OF SERVICE: October 29, 2024 TIME: 2:30 PM PATIENT IDENTITY VERIFICATION COMPLETED USING TWO (2) IDENTIFIERS: Name and Date of confirmed by patient verbally. FALL SCREENING: Has the patient had 2 falls in the last year or 1 fall with injury or currently using an Ambulatory Assistive Device (Walker, Cane, Wheelchair, Crutches, etc.)? No PATIENT GENDER DATA: Assigned male at PATIENT RELEVANT IMPLANT DATA REVIEWED: Yes PATIENT PRESENTS WITH AN IMPLANTABLE OR ATTACHED BAND NAILER: No RADIOLOGY DEPARTMENT: CT; Exam(s) Completed: Chest PERIPHERAL IV DATA: Not applicable SIGNED BY: RT Leonel(R) October 29, 2024 2:30 PM PROGRESS Observed: 10/14/2024 8:37 AM Status: COMPLETED Source: [facility] HNO ID: [id number] Author: MONIKA PENDLETON, DO Service: ? Author Type: Physician Type: Progress Notes Filed: 10/14/2024 12:06 Note Text: New patient referred by Dr Glover ([place] [employer] Information) for decline in visual acuity both eyes Course: - late summer 2023 he began noticed acute vision decline upon awakening and then it continued to progress slowly - saw Dr Glover and per patient had MRI at [facility] (no results or images available today) - also notices significant nyctalopia and color vision loss Medical Hx: HTN; HLD Recent Neuro-Imaging: - as above - per patient he had MRI at [facility] (no results or images available today) Recent LP: none EXAM: - Pupils: dilated for MD exam - colors: 07/20 in both eyes - Ortho - EOM: full both eyes; no pain with eye movement - Nystagmus: none - V1,2,3 normal and symmetric - Normal and symmetric upper and lower facial movement - Denies imbalance, vertigo, dizziness, tinnitus - slightly weaker shoulder shrug on the left - Normal XII ASSESSMENT/PLAN Last dilated fundus exam: October 14, 2024 H54.3 Vision loss, bilateral (primary encounter diagnosis) H47.20 Optic atrophy of both eyes H53.47 Bitemporal hemianopia Comment: - ragged appearing RPE on OCT both eyes - nyctalopia and color vision loss with some optic pallor on exam both eyes but largely normal RNFL - also with bitemporal hemianopia on Visual field today but with reported normal recent MRI - 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 Get chest CT, Electroretinogram and repeat MRI with pituitary protocol given the bitemporal defect (despite normal MRI at [facility]). I have confirmed and edited as necessary the relevant HPI, ophthalmic history, ROS, and the neuro exam findings as obtained by others. I have seen and examined Marquez Norwood. I have discussed the case and the management of this patient's care with the Resident/Fellow, if applicable. I also have reviewed and agree with the assessment and plan as stated above and agree with all of its relevant components. PROGRESS Observed: 09/16/2024 5:12 PM Status: COMPLETED Source: [facility] HNO ID: [id number] Author: AMBER SAWYER LPN Service: ? Author Type: LICENSED NURSE Type: Progress Notes Filed: 09/18/2024 11:29 Note Text: Ambulatory Ear Lavage Pre-treatment: No pre-treatment Treatment: Both ears Equipment and Irrigation solution and Volume used: Single use syringe with single use irrigation tip Water Total Irrigation Volume: L ear 400cc; R ear 300cc Return flow appearance: Clear Other Large amount of cerumen from L and R ear Patient tolerated procedure: yes Tympanic membrane assessment: Tympanic membrane assessed by LIP pre and post procedure PROGRESS Observed: 09/16/2024 3:18 PM Status: COMPLETED Source: [facility] HNO ID: [id number] Author: NIKI NJ APRN.SPACE ENGINEER Service: ? Author Type: Nurse Practitioner Type: Progress Notes Filed: 09/18/2024 11:29 Note Text: This is a 79 year old male who presents today with: Patient presents with: Recheck: 1 month follow up HISTORY OF PRESENT ILLNESS: Marquez Norwood is a 79 year old male. Patient presents with: Recheck: 1 month follow up Establish care. Occ trouble with swallowing. Rarely occurs. Happens sometimes with foods, like breads. Does go down. No pain. No heartburn/indigestion. No smoking/tobacco hx. Refers that mood has been improved with the higher dose of prozac. Happy with current regimen. Complains of fatigue. Can fall asleep easily. Sleeps okay at night. reports only occ minimal snoring and no apnea noted. Ears Refers just doesn't hear as well. Just sounds like mumbling. REVIEW OF SYSTEMS GENERAL: No weight loss, malaise or fevers/chills. + fatigue HEENT: Negative for frequent or significant headaches. Worsening vision -- following with eye doctor (Adalberto) and scheduled for MRI. NECK: Negative for lumps, goiter, pain and significant neck swelling RESPIRATORY: Negative for cough, hemoptysis, wheezing, dyspnea or shortness of breath CARDIOVASCULAR: Negative for chest pain, leg swelling, orthopnea, or palpitations GI: No nausea, vomiting, or diarrhea/constipation. No hematochezia/melena. No heartburn or reflux symptoms. : No history of dysuria, frequency or incontinence MUSCULOSKELETAL: Negative for joint pain or swelling. SKIN: Negative for lesions, rash, and itching ENDOCRINE: Negative for cold or heat intolerance, polyuria, polydipsia and goiter NEURO: No history of headaches, syncope, paralysis, seizures or tremors PAST MEDICAL HISTORY: PAST MEDICAL HISTORY Diagnosis Date Depression Diverticulosis of colon (without mention of hemorrhage) Kidney stone 09/16/2024 PAST SURGICAL HISTORY Procedure Laterality Date COLONOSCOPY FLX DX W/COLLJ SPEC WHEN PFRMD 10/26/2009 Colonoscopy CYSTOSCOPY ALLERGIES Patient has no known allergies. MEDICATIONS Current Outpatient Medications Medication Sig atorvastatin (LIPITOR) 40 mg tablet Take 1 tablet by mouth daily at bedtime. For cholesterol. gabapentin (NEURONTIN) 300 mg capsule Take 2 capsules by mouth daily at bedtime for 180 days. FLUoxetine (PROZAC) 40 mg capsule Take 1 capsule by mouth two times a day. lisinopril (ZESTRIL) 10 mg tablet Take 1 tablet by mouth once daily. No current facility-administered medications for this visit. FAMILY HISTORY Problem Relation Age of Onset Lung Cancer Mother other (tobacco) Mother Lung Cancer Father other (tobacco) Father other (heart problems) Sister Lung Cancer Brother ? cause other (brain tumor) Brother other (old age) Maternal Grandmother other (old age) Maternal Grandfather other (old age) Paternal Grandmother No Known Problems Paternal Grandfather None Other Social History Tobacco Use Smoking status: Never Smokeless tobacco: Never Vaping Use Vaping status: Never Used Substance Use Topics Alcohol use: Yes Comment: seldom - beer Drug use: Yes Types: Marijuana Comment: a little at night to help sleep EXAM: BP 126/82 Pulse 67 Resp 16 Wt 83.9 kg (185 lb) SpO2 94% PHYSICAL EXAM: General Appearance: Well appearing, alert, in no acute distress, well-hydrated, well nourished.. Skin: Skin color, texture, turgor normal, no suspicious rashes or lesions. Head: Normocephalic, no masses, lesions, tenderness or abnormalities. Eyes: Anicteric sclera. Pupils are equally round and reactive to light. Extraocular movements are intact. . Ears: External ears normal, canals clear, + cerumen impaction bilaterally that was successfully irrigated by nursing. TMs normal. Oropharynx: Lips, mucosa, and tongue normal, teeth and gums normal, oropharynx normal. Neck: Supple, no adenopathy; thyroid symmetric, normal size, no bruits. Lungs: Lungs clear to auscultation. No wheezing, rhonchi, rales.. Heart: RRR without murmur, gallop, or rubs. No ectopy. Abdomen: Abdomen soft, non-tender. Bowel sounds normal. No masses, organomegaly. Extremities: No deformities, edema, skin discoloration, clubbing or cyanosis. Good capillary refill. . Neurologic: Gait normal. ASSESSMENT/PLAN: 1. Hypertension, essential - ICD9: 401.9, ICD10: I10 (primary diagnosis) - Controlled - Continue current medications - Recommend home blood pressure monitoring, to bring results to next visit - Encouraged sodium restriction, DASH or Mediterranean diet - Recommend regular aerobic exercise - COMPLETE BLOOD COUNT AND DIFFERENTIAL - COMPREHENSIVE METABOLIC PANEL 2. Moderate episode of recurrent major depressive disorder (HCC) - ICD9: 296.32, ICD10: F33.1 Improved since increasing fluoxetine. 3. Elevated glucose - ICD9: 790.29, ICD10: R73.09 - COMPREHENSIVE METABOLIC PANEL - HEMOGLOBIN A1C 4. Hyperlipidemia, mixed - ICD9: 272.2, ICD10: E78.2 - Controlled - Continue current medications - Counseled on healthy diet and regular exercise - COMPREHENSIVE METABOLIC PANEL - LIPID PANEL BASIC - ATORVASTATIN 40 MG TABLET 5. Fatigue, unspecified type - ICD9: 780.79, ICD10: R53.83 Check labs. Follow-up pending results. - VITAMIN D 25 HYDROXY - VITAMIN B12 - IRON AND TIBC - FERRITIN - THYROID STIMULATING HORMONE - T4 FREE/FREE THYROXINE 6. Kidney stone - ICD9: 592.0, ICD10: N20.0 Continue per urology. 7. Encounter for immunization - ICD9: V03.89, ICD10: Z23 - PFIZER-BIONTECH COVID-19 VACCINE AGE 12+ YR (COMIRNATY) - PNEUMOCOCCAL VACCINE, 20 VALENT (PREVNAR 20) 8. Bilateral impacted cerumen - ICD9: 380.4, ICD10: H61.23 Successfully irrigated by nursing. - AMBULATORY EAR LAVAGE/IRRIGATION 9. Swallowing problem - ICD9: 787.20, ICD10: R13.10 Notices rarely with breads. 10. Encounter to establish care - ICD9: V65.8, ICD10: Z76.89 Discussed treatment plan and patient voices understanding. Patient's questions answered appropriately. Medications and potential side effects were discussed and patient voices understanding. Return to the office as scheduled or as needed for worsening/no improvement. MEENA SamOV Observed: 09/16/2024 3:00 PM Status: COMPLETED Source: [facility] Office Visit ([facility]) MARQUEZ NORWOOD ([id number]) 1945 M Date Time Provider Department 09/16/24 3:00 PM [facility] During your visit today, we recorded the following information about you: Pulse Respiration Blood pressure Weight 67/minute 16/minute 126/82 83.9 kg Niki Nj APRN.CNP 09/18/2024 11:29 AM Signed This is a 79 year old male who presents today with: Patient presents with: Recheck: 1 month follow up HISTORY OF PRESENT ILLNESS: Marquez Mathew Zekemacarena is a 79 year old male. Patient presents with: Recheck: 1 month follow up Establish care. Occ trouble with swallowing. Rarely occurs. Happens sometimes with foods, like breads. Does go down. No pain. No heartburn/indigestion. No smoking/tobacco hx. Refers that mood has been improved with the higher dose of prozac. Happy with current regimen. Complains of fatigue. Can fall asleep easily. Sleeps okay at night. reports only occ minimal snoring and no apnea noted. Ears Refers just doesn't hear as well. Just sounds like mumbling. REVIEW OF SYSTEMS GENERAL: No weight loss, malaise or fevers/chills. + fatigue HEENT: Negative for frequent or significant headaches. Worsening vision -- following with eye doctor (Adalberto) and scheduled for MRI. NECK: Negative for lumps, goiter, pain and significant neck swelling RESPIRATORY: Negative for cough, hemoptysis, wheezing, dyspnea or shortness of breath CARDIOVASCULAR: Negative for chest pain, leg swelling, orthopnea, or palpitations GI: No nausea, vomiting, or diarrhea/constipation. No hematochezia/melena. No heartburn or reflux symptoms. : No history of dysuria, frequency or incontinence MUSCULOSKELETAL: Negative for joint pain or swelling. SKIN: Negative for lesions, rash, and itching ENDOCRINE: Negative for cold or heat intolerance, polyuria, polydipsia and goiter NEURO: No history of headaches, syncope, paralysis, seizures or tremors PAST MEDICAL HISTORY: PAST MEDICAL HISTORY Diagnosis Date Depression Diverticulosis of colon (without mention of hemorrhage) Kidney stone 09/16/2024 PAST SURGICAL HISTORY Procedure Laterality Date COLONOSCOPY FLX DX W/COLLJ SPEC WHEN PFRMD 10/26/2009 Colonoscopy CYSTOSCOPY ALLERGIES Patient has no known allergies. MEDICATIONS Current Outpatient Medications Medication Sig atorvastatin (LIPITOR) 40 mg tablet Take 1 tablet by mouth daily at bedtime. For cholesterol. gabapentin (NEURONTIN) 300 mg capsule Take 2 capsules by mouth daily at bedtime for 180 days. FLUoxetine (PROZAC) 40 mg capsule Take 1 capsule by mouth two times a day. lisinopril (ZESTRIL) 10 mg tablet Take 1 tablet by mouth once daily. No current facility-administered medications for this visit. FAMILY HISTORY Problem Relation Age of Onset Lung Cancer Mother other (tobacco) Mother Lung Cancer Father other (tobacco) Father other (heart problems) Sister Lung Cancer Brother ? cause other (brain tumor) Brother other (old age) Maternal Grandmother other (old age) Maternal Grandfather other (old age) Paternal Grandmother No Known Problems Paternal Grandfather None Other Social History Tobacco Use Smoking status: Never Smokeless tobacco: Never Vaping Use Vaping status: Never Used Substance Use Topics Alcohol use: Yes Comment: seldom - beer Drug use: Yes Types: Marijuana Comment: a little at night to help sleep EXAM: BP 126/82 Pulse 67 Resp 16 Wt 83.9 kg (185 lb) SpO2 94% PHYSICAL EXAM: General Appearance: Well appearing, alert, in no acute distress, well-hydrated, well nourished.. Skin: Skin color, texture, turgor normal, no suspicious rashes or lesions. Head: Normocephalic, no masses, lesions, tenderness or abnormalities. Eyes: Anicteric sclera. Pupils are equally round and reactive to light. Extraocular movements are intact. . Ears: External ears normal, canals clear, + cerumen impaction bilaterally that was successfully irrigated by nursing. TMs normal. Oropharynx: Lips, mucosa, and tongue normal, teeth and gums normal, oropharynx normal. Neck: Supple, no adenopathy; thyroid symmetric, normal size, no bruits. Lungs: Lungs clear to auscultation. No wheezing, rhonchi, rales.. Heart: RRR without murmur, gallop, or rubs. No ectopy. Abdomen: Abdomen soft, non-tender. Bowel sounds normal. No masses, organomegaly. Extremities: No deformities, edema, skin discoloration, clubbing or cyanosis. Good capillary refill. . Neurologic: Gait normal. ASSESSMENT/PLAN: 1. Hypertension, essential - ICD9: 401.9, ICD10: I10 (primary diagnosis) - Controlled - Continue current medications - Recommend home blood pressure monitoring, to bring results to next visit - Encouraged sodium restriction, DASH or Mediterranean diet - Recommend regular aerobic exercise - COMPLETE BLOOD COUNT AND DIFFERENTIAL - COMPREHENSIVE METABOLIC PANEL 2. Moderate episode of recurrent major depressive disorder (HCC) - ICD9: 296.32, ICD10: F33.1 Improved since increasing fluoxetine. 3. Elevated glucose - ICD9: 790.29, ICD10: R73.09 - COMPREHENSIVE METABOLIC PANEL - HEMOGLOBIN A1C 4. Hyperlipidemia, mixed - ICD9: 272.2, ICD10: E78.2 - Controlled - Continue current medications - Counseled on healthy diet and regular exercise - COMPREHENSIVE METABOLIC PANEL - LIPID PANEL BASIC - ATORVASTATIN 40 MG TABLET 5. Fatigue, unspecified type - ICD9: 780.79, ICD10: R53.83 Check labs. Follow-up pending results. - VITAMIN D 25 HYDROXY - VITAMIN B12 - IRON AND TIBC - FERRITIN - THYROID STIMULATING HORMONE - T4 FREE/FREE THYROXINE 6. Kidney stone - ICD9: 592.0, ICD10: N20.0 Continue per urology. 7. Encounter for immunization - ICD9: V03.89, ICD10: Z23 - PFIZER-BIONTECH COVID-19 VACCINE AGE 12+ YR (COMIRNATY) - PNEUMOCOCCAL VACCINE, 20 VALENT (PREVNAR 20) 8. Bilateral impacted cerumen - ICD9: 380.4, ICD10: H61.23 Successfully irrigated by nursing. - AMBULATORY EAR LAVAGE/IRRIGATION 9. Swallowing problem - ICD9: 787.20, ICD10: R13.10 Notices rarely with breads. 10. Encounter to establish care - ICD9: V65.8, ICD10: Z76.89 Discussed treatment plan and patient voices understanding. Patient's questions answered appropriately. Medications and potential side effects were discussed and patient voices understanding. Return to the office as scheduled or as needed for worsening/no improvement. Niki Nj APRN.Niki Mejias APRN.SHEA 09/16/2024 3:55 PM Signed Get labs. Continue same medications. Recheck in 6 months. Amber Sawyer LPN 09/18/2024 11:29 AM Signed Ambulatory Ear Lavage Pre-treatment: No pre-treatment Treatment: Both ears Equipment and Irrigation solution and Volume used: Single use syringe with single use irrigation tip Water Total Irrigation Volume: L ear 400cc; R ear 300cc Return flow appearance: Clear Other Large amount of cerumen from L and R ear Patient tolerated procedure: yes Tympanic membrane assessment: Tympanic membrane assessed by LIP pre and post procedure Allergies As of Date: 09/16/2024 (No Known Allergies) Date Reviewed: 09/16/2024 Reviewed by: Amber Sawyer LPN - Fully Assessed Reason for Visit: Recheck [92] Cmt: 1 month follow up Primary Visit Diagnosis:Hypertension, essential [I10] Other Visit Diagnoses:Moderate episode of recurrent major depressive disorder (HCC) [F33.1] Elevated glucose [R73.09] Hyperlipidemia, mixed [E78.2] Fatigue, unspecified type [R53.83] Kidney stone [N20.0] Encounter for immunization [Z23] Bilateral impacted cerumen [H61.23] Swallowing problem [R13.10] Encounter to establish care [Z76.89] Order(s):COMPLETE BLOOD COUNT AND DIFFERENTIAL [SQCBCDIF] Order #: [id number] FUTURE COMPREHENSIVE METABOLIC PANEL [SQCMP] Order #: [id number] FUTURE LIPID PANEL BASIC [SQLIPB] Order #: [id number] FUTURE HEMOGLOBIN A1C [YINDC0V] Order #: [id number] FUTURE VITAMIN D 25 HYDROXY [SQVITD] Order #: [id number] FUTURE VITAMIN B12 [SQB12] Order #: [id number] FUTURE IRON AND TIBC [SQIRON] Order #: [id number] FUTURE FERRITIN [SQFERR] Order #: [id number] FUTURE THYROID STIMULATING HORMONE [SQTSH] Order #: [id number] FUTURE T4 FREE/FREE THYROXINE [SQFT4] Order #: [id number] FUTURE atorvastatin (LIPITOR) 40 mg tabletTake 1 tablet by mouth daily at bedtime. For cholesterol.Disp: 90 tabletRfl: 1 [employer]ruit COVID-19 VACCINE AGE 12+ YR (COMIRNATY) [36981MSA] Order #: [id number] PNEUMOCOCCAL VACCINE, 20 VALENT (PREVNAR 20) [22702VNZ] Order #: [id number] AMBULATORY EAR LAVAGE/IRRIGATION [98413VAY] Order #: [id number] Prescriptions as of 09/18/2024 - atorvastatin (LIPITOR) 40 mg tablet Take 1 tablet by mouth daily at bedtime. For cholesterol. - gabapentin (NEURONTIN) 300 mg capsule Take 2 capsules by mouth daily at bedtime for 180 days. - FLUoxetine (PROZAC) 40 mg capsule Take 1 capsule by mouth two times a day. - lisinopril (ZESTRIL) 10 mg tablet Take 1 tablet by mouth once daily. Problem List As Of Date 09/16/2024 Noted Resolved Depression [F32.A] 08/31/2009 Elevated BP [YKS8908] 08/31/2009 Hyperlipidemia, mixed [E78.2] 05/27/2019 BCC (basal cell carcinoma), face [C44.310] 12/01/2020 Hypertension, essential [I10] 12/01/2020 Recurrent major depressive disorder, in partial*12/01/2020 Kidney stone [N20.0] 09/16/2024 Other instructions from your clinician: Get labs. Continue same medications. Recheck in 6 months. Prescriptions ordered this encounter Disp Refills Start End ATORVASTATIN 40 MG TABLET 90 t* 1 09/16/2024 03/15/2025 Route: ORAL Sig: Take 1 tablet by mouth daily at bedtime. For cholesterol. Medications Discontinued During This Encounter Prescriptions - atorvastatin (LIPITOR) 40 mg tablet (Discontinued) Take 1 tablet by mouth daily at bedtime. For cholesterol. Level of Service: OFFICE/OUTPATIENT ESTABLISHED MOD MDM 30 MIN [23360] Additional E/M codes: VISIT CPLX INHERENT EANDM ASSOC WITH MED * Encounter Status:Closed by NIKI NJ on 09/18/24 PROGRESS Observed: 08/19/2024 11:35 AM Status: COMPLETED Source: [facility] ID: [id number] Author: NIKI NJ APRN.SPACE ENGINEER Service: ? Author Type: Nurse Practitioner Type: Progress Notes Filed: 08/21/2024 09:37 Note Text: This is a 79 year old male who presents today with: Patient presents with: ER F/U: [facility] ER f/u 08/12/24 dx: kidney stone HISTORY OF PRESENT ILLNESS: Marquez Norwood is a 79 year old male. Patient presents with: ER F/U: [facility] ER f/u 08/12/24 dx: kidney stone Patient presents for hospital follow-up. He was admitted with [facility] on 08/10/2024 with complaints of severe abdominal pain. The pain was in his right flank and radiated down to his groin. He denied any nausea/vomiting or urinary symptoms. Got a CT of the chest which showed a right distal ureter 2 mm calculus with moderate upstream hydroureteronephrosis with enlarged prostate indenting the posterior wall of the urinary bladder and a tubular appearance of the descending and sigmoid colon possibly secondary to underdistention and partially visualized fluid-filled scrotal sac possibly labor representative of hydrocele. He had a mildly elevated anion gap. Lactic acid was also elevated. He was admitted and managed for abdominal pain likely due to kidney stone which probably is in the past. Urology was consulted. Abdominal pain resolved with oral pain medication. Urology was consulted and he had cystoscopy with right ureteroscopy and basket removal of stone, with no stent inserted. Pain remained stable after the procedure and pain did not recur. He was discharged on 08/13/2024. He needs to follow-up with urology. He reports that he is doing much better. He has a follow-up with urology next week. Mood hasn't been quite as good. reports that she thinks the medication could be increased. PAST MEDICAL HISTORY: PAST MEDICAL HISTORY Diagnosis Date Depression Diverticulosis of colon (without mention of hemorrhage) PAST SURGICAL HISTORY Procedure Laterality Date COLONOSCOPY FLX DX W/COLLJ SPEC WHEN PFRMD 10/26/2009 Colonoscopy ALLERGIES Patient has no known allergies. MEDICATIONS Current Outpatient Medications Medication Sig lisinopril (ZESTRIL) 10 mg tablet Take 1 tablet by mouth once daily. gabapentin (NEURONTIN) 300 mg capsule Take 2 capsules by mouth daily at bedtime for 180 days. FLUoxetine (PROZAC) 40 mg capsule Take 1 capsule by mouth once daily. atorvastatin (LIPITOR) 40 mg tablet Take 1 tablet by mouth daily at bedtime. For cholesterol. FLUoxetine (PROZAC) 20 mg capsule Take 1 capsule by mouth once daily. With 40mg + 60mg daily No current facility-administered medications for this visit. FAMILY HISTORY Problem Relation Age of Onset None Other Social History Tobacco Use Smoking status: Never Smokeless tobacco: Never Substance Use Topics Alcohol use: Yes Comment: seldom EXAM: BP 138/92 Pulse 72 Resp 16 SpO2 94% PHYSICAL EXAM: General Appearance: Well appearing, alert, in no acute distress, well-hydrated, well nourished.. Skin: Skin color, texture, turgor normal, no suspicious rashes or lesions. Head: Normocephalic, no masses, lesions, tenderness or abnormalities. Eyes: Anicteric sclera. Extraocular movements are intact. . Lungs: Lungs clear to auscultation. No wheezing, rhonchi, rales.. Heart: RRR without murmur, gallop, or rubs. No ectopy. Neurologic: Gait normal. ASSESSMENT/PLAN: 1. Kidney stone - ICD9: 592.0, ICD10: N20.0 (primary diagnosis) Follow-up with urology as scheduled. 2. Hypertension, essential - ICD9: 401.9, ICD10: I10 - Controlled - Continue current medications - Recommend home blood pressure monitoring, to bring results to next visit - Encouraged sodium restriction, DASH or Mediterranean diet - Recommend regular aerobic exercise - LISINOPRIL 10 MG TABLET 3. Moderate episode of recurrent major depressive disorder (HCC) - ICD9: 296.32, ICD10: F33.1 Will go ahead and increase the fluoxetine. If not effective, will need to look at changing to a different medication. Patient agreeable to plan. Discussed treatment plan and patient voices understanding. Patient's questions answered appropriately. Medications and potential side effects were discussed and patient voices understanding. Return to the office as scheduled or as needed for worsening/no improvement. Niki Nj APRN.CNP CNOV Observed: 08/19/2024 11:00 AM Status: COMPLETED Source: [facility] MAR[facility] NOR[facility] ([id number]) 1945 M Date Time Provider Department 08/19/24 11:00 AM NIKI NJ During your visit today, we recorded the following information about you: Pulse Respiration Blood pressure 72/minute 16/minute 138/92 Niki Nj APRN.CNP 08/21/2024 9:37 AM Signed This is a 79 year old male who presents today with: Patient presents with: ER F/U: [facility] ER f/u 08/12/24 dx: kidney stone HISTORY OF PRESENT ILLNESS: Marquez Norwood is a 79 year old male. Patient presents with: ER F/U: [facility] ER f/u 08/12/24 dx: kidney stone Patient presents for hospital follow-up. He was admitted with [facility] on 08/10/2024 with complaints of severe abdominal pain. The pain was in his right flank and radiated down to his groin. He denied any nausea/vomiting or urinary symptoms. Got a CT of the chest which showed a right distal ureter 2 mm calculus with moderate upstream hydroureteronephrosis with enlarged prostate indenting the posterior wall of the urinary bladder and a tubular appearance of the descending and sigmoid colon possibly secondary to underdistention and partially visualized fluid-filled scrotal sac possibly labor representative of hydrocele. He had a mildly elevated anion gap. Lactic acid was also elevated. He was admitted and managed for abdominal pain likely due to kidney stone which probably is in the past. Urology was consulted. Abdominal pain resolved with oral pain medication. Urology was consulted and he had cystoscopy with right ureteroscopy and basket removal of stone, with no stent inserted. Pain remained stable after the procedure and pain did not recur. He was discharged on 08/13/2024. He needs to follow-up with urology. He reports that he is doing much better. He has a follow-up with urology next week. Mood hasn't been quite as good. reports that she thinks the medication could be increased. PAST MEDICAL HISTORY: PAST MEDICAL HISTORY Diagnosis Date Depression Diverticulosis of colon (without mention of hemorrhage) PAST SURGICAL HISTORY Procedure Laterality Date COLONOSCOPY FLX DX W/COLLJ SPEC WHEN PFRMD 10/26/2009 Colonoscopy ALLERGIES Patient has no known allergies. MEDICATIONS Current Outpatient Medications Medication Sig lisinopril (ZESTRIL) 10 mg tablet Take 1 tablet by mouth once daily. gabapentin (NEURONTIN) 300 mg capsule Take 2 capsules by mouth daily at bedtime for 180 days. FLUoxetine (PROZAC) 40 mg capsule Take 1 capsule by mouth once daily. atorvastatin (LIPITOR) 40 mg tablet Take 1 tablet by mouth daily at bedtime. For cholesterol. FLUoxetine (PROZAC) 20 mg capsule Take 1 capsule by mouth once daily. With 40mg + 60mg daily No current facility-administered medications for this visit. FAMILY HISTORY Problem Relation Age of Onset None Other Social History Tobacco Use Smoking status: Never Smokeless tobacco: Never Substance Use Topics Alcohol use: Yes Comment: seldom EXAM: BP 138/92 Pulse 72 Resp 16 SpO2 94% PHYSICAL EXAM: General Appearance: Well appearing, alert, in no acute distress, well-hydrated, well nourished.. Skin: Skin color, texture, turgor normal, no suspicious rashes or lesions. Head: Normocephalic, no masses, lesions, tenderness or abnormalities. Eyes: Anicteric sclera. Extraocular movements are intact. . Lungs: Lungs clear to auscultation. No wheezing, rhonchi, rales.. Heart: RRR without murmur, gallop, or rubs. No ectopy. Neurologic: Gait normal. ASSESSMENT/PLAN: 1. Kidney stone - ICD9: 592.0, ICD10: N20.0 (primary diagnosis) Follow-up with urology as scheduled. 2. Hypertension, essential - ICD9: 401.9, ICD10: I10 - Controlled - Continue current medications - Recommend home blood pressure monitoring, to bring results to next visit - Encouraged sodium restriction, DASH or Mediterranean diet - Recommend regular aerobic exercise - LISINOPRIL 10 MG TABLET 3. Moderate episode of recurrent major depressive disorder (HCC) - ICD9: 296.32, ICD10: F33.1 Will go ahead and increase the fluoxetine. If not effective, will need to look at changing to a different medication. Patient agreeable to plan. Discussed treatment plan and patient voices understanding. Patient's questions answered appropriately. Medications and potential side effects were discussed and patient voices understanding. Return to the office as scheduled or as needed for worsening/no improvement. Niki Nj APRN.Niki Mejias APRN.CNP 08/19/2024 12:04 PM Signed Return for [facility] labs. Increase the fluoxetine to 40 mg twice daily. Try the miralax up to twice daily to get bowels moving. If miralax is not effect, can try the magnesium citrate (1/3 of the bottle, if no response in 4 hours take another 1/3 of the bottle, if no results in 4 hours, finish the bottle). This is the liquid dynamite. Recheck in 1 month. Allergies As of Date: 08/19/2024 (No Known Allergies) Date Reviewed: 08/19/2024 Reviewed by: Amber Sawyer LPN - Fully Assessed Reason for Visit: ER F/U [41] Cmt: [facility] ER f/u 08/12/24 dx: kidney stone Primary Visit Diagnosis:Kidney stone [N20.0] Other Visit Diagnoses:Hypertension, essential [I10] Moderate episode of recurrent major depressive disorder (HCC) [F33.1] Order(s):gabapentin (NEURONTIN) 300 mg capsuleTake 2 capsules by mouth daily at bedtime for 180 days.Disp: 180 capsuleRfl: 1 FLUoxetine (PROZAC) 40 mg capsuleTake 1 capsule by mouth two times a day.Disp: 180 capsuleRfl: 1 lisinopril (ZESTRIL) 10 mg tabletTake 1 tablet by mouth once daily.Disp: 90 tabletRfl: 3 Prescriptions as of 08/21/2024 - gabapentin (NEURONTIN) 300 mg capsule Take 2 capsules by mouth daily at bedtime for 180 days. - FLUoxetine (PROZAC) 40 mg capsule Take 1 capsule by mouth two times a day. - lisinopril (ZESTRIL) 10 mg tablet Take 1 tablet by mouth once daily. - atorvastatin (LIPITOR) 40 mg tablet Take 1 tablet by mouth daily at bedtime. For cholesterol. Problem List As Of Date 08/19/2024 Noted Resolved Depression [F32.A] 08/31/2009 Elevated BP [ESB5216] 08/31/2009 Hyperlipidemia, mixed [E78.2] 05/27/2019 BCC (basal cell carcinoma), face [C44.310] 12/01/2020 Hypertension, essential [I10] 12/01/2020 Recurrent major depressive disorder, in partial*12/01/2020 Other instructions from your clinician: Return for fating labs. Increase the fluoxetine to 40 mg twice daily. Try the miralax up to twice daily to get bowels moving. If miralax is not effect, can try the magnesium citrate (1/3 of the bottle, if no response in 4 hours take another 1/3 of the bottle, if no results in 4 hours, finish the bottle). This is the liquid dynamite. Recheck in 1 month. Prescriptions ordered this encounter Disp Refills Start End GABAPENTIN 300 MG CAPSULE 180 * 1 08/19/2024 02/15/2025 Route: ORAL Sig: Take 2 capsules by mouth daily at bedtime for 180 days. FLUOXETINE 40 MG CAPSULE 180 * 1 08/19/2024 Route: ORAL Sig: Take 1 capsule by mouth two times a day. LISINOPRIL 10 MG TABLET 90 t* 3 08/19/2024 Route: ORAL Sig: Take 1 tablet by mouth once daily. Medications Discontinued During This Encounter Prescriptions - FLUoxetine (PROZAC) 20 mg capsule (Discontinued) Take 1 capsule by mouth once daily. With 40mg + 60mg daily - FLUoxetine (PROZAC) 40 mg capsule (Discontinued) Take 1 capsule by mouth once daily. - gabapentin (NEURONTIN) 300 mg capsule (Discontinued) Take 2 capsules by mouth daily at bedtime for 180 days. - lisinopril (ZESTRIL) 10 mg tablet (Discontinued) Take 1 tablet by mouth once daily. Level of Service: OFFICE/OUTPATIENT ESTABLISHED MOD [facility] 30 MIN [89988] Additional E/M codes: VISIT [facility] WITH MED * Encounter Status:Closed by NIKI NJ on 08/21/24 VALERI Observed: 05/08/2024 12:00 AM Status: COMPLETED Source: [facility] Telephone ([employer]) MARQUEZ NORWOOD ([id number]) 1945 M Date Time Provider Department 05/08/24 Bryon SOLANO [facility] During your visit today, we recorded the following information about you: Bronwyn Terrazas LPN 05/08/2024 11:29 AM Signed Pt's Katya called they had to cancel Ortho and PT thru [facility] because they are not covered on pt's insurance . Katya will call their insurance and check to see who is covered for PT and Ortho and let us know so referral and support information can be faxed. CAMELIA Peck Rilee, MA 05/11/2024 11:08 AM Signed Can we ask if MRI has been setup? See TE 03/24 where Provider is asking. Connie Crooks MA Allergies As of Date: 05/08/2024 (No Known Allergies) Date Reviewed: 04/07/2024 Reviewed by: Amber Sawyer LPN - Fully Assessed Reason for Visit: pateint update on apts [Other] Prescriptions as of 05/11/2024 - lisinopril (ZESTRIL) 10 mg tablet Take 1 tablet by mouth once daily. - gabapentin (NEURONTIN) 300 mg capsule Take 2 capsules by mouth daily at bedtime for 180 days. - FLUoxetine (PROZAC) 40 mg capsule Take 1 capsule by mouth once daily. - atorvastatin (LIPITOR) 40 mg tablet Take 1 tablet by mouth daily at bedtime. For cholesterol. - FLUoxetine (PROZAC) 20 mg capsule Take 1 capsule by mouth once daily. With 40mg + 60mg daily Problem List As Of Date 05/08/2024 Noted Resolved Depression [F32.A] 08/31/2009 Elevated BP [[id number]] 08/31/2009 Hyperlipidemia, mixed [E78.2] 05/27/2019 BCC (basal cell carcinoma), face [C44.310] 12/01/2020 Hypertension, essential [I10] 12/01/2020 Recurrent major depressive disorder, in partial*12/01/2020 Encounter Status:Closed by BRONWYN TERRAZAS on 05/08/24 VALERI Observed: 04/17/2024 12:00 AM Status: COMPLETED Source: [facility] Telephone ([employer]) MARQUEZ NORWOOD ([id number]) 1945 Bryon Date Time Provider Department 04/17/24 Bryon SOLANO [id number] During your visit today, we recorded the following information about you: Haily Kennedy, [employer] 04/17/2024 3:07 PM Signed Pt's calls states pt is still in a good amount of pain with neck shoulder and into arm. He is now completely out of medication she is giving him tyl. Which is doing nothing. He is not due to start therapy until the 18 th. Asking if there is anything that could be called in for pain until he is to start therapy. Please advise. Niki Nj APRN.SPACE ENGINEER 04/17/2024 3:49 PM Signed I went ahead and sent a refill of the pain medication into the pharmacy. Did he get scheduled with ortho for the shoulder pain? Sheila Ayala RN 04/17/2024 4:06 PM Signed Called and left a voicemail for the Patient's to call back and ask for a nurse to receive the providers message. JODIE Steve Amanda, JODIE 04/25/2024 11:10 AM Signed Looks like Pt has a VV with Sanam Ortiz in [place] for shoulder. Niki Nj APRN.SHEA 04/27/2024 8:25 AM Signed It looks like that was cancelled. He needs follow-up scheduled with ortho. Meme Robertson 04/27/2024 12:08 PM Signed 1st call attempt, left vm Meme Robertson 04/29/2024 9:58 AM Signed 2nd call attempt, left vm Edwige Martinez 05/01/2024 11:17 AM Signed 3rd attempt, left vm. Edwige Martinez May 01, 2024 11:17 AM Allergies As of Date: 04/17/2024 (No Known Allergies) Date Reviewed: 04/07/2024 Reviewed by: Amber Sawyer LPN - Fully Assessed Reason for Visit: Patient Update [1234] Visit Diagnosis:Acute pain of left shoulder [M25.512] Order(s):[] oxyCODONE-acetaminophen (PERCOCET) 5-325 mg tabletTake 1 tablet by mouth every 8 hours as needed for pain for up to 7 days.Disp: 21 tabletRfl: 0 Prescriptions as of 05/01/2024 - lisinopril (ZESTRIL) 10 mg tablet Take 1 tablet by mouth once daily. - gabapentin (NEURONTIN) 300 mg capsule Take 2 capsules by mouth daily at bedtime for 180 days. - FLUoxetine (PROZAC) 40 mg capsule Take 1 capsule by mouth once daily. - atorvastatin (LIPITOR) 40 mg tablet Take 1 tablet by mouth daily at bedtime. For cholesterol. - FLUoxetine (PROZAC) 20 mg capsule Take 1 capsule by mouth once daily. With 40mg + 60mg daily Problem List As Of Date 04/17/2024 Noted Resolved Depression [F32.A] 08/31/2009 Elevated BP [[id number]] 08/31/2009 Hyperlipidemia, mixed [E78.2] 05/27/2019 BCC (basal cell carcinoma), face [C44.310] 12/01/2020 Hypertension, essential [I10] 12/01/2020 Recurrent major depressive disorder, in partial*12/01/2020 Prescriptions ordered this encounter Disp Refills Start End OXYCODONE-ACETAMINOPHEN 5 MG-325 MG * 21 t* 0 04/17/2024 04/24/2024 Route: ORAL Sig: Take 1 tablet by mouth every 8 hours as needed for pain for up to 7 days. Medications Discontinued During This Encounter Prescriptions - oxyCODONE-acetaminophen (PERCOCET) 5-325 mg tablet (Discontinued) Take 1 tablet by mouth every 8 hours as needed for pain for up to 7 days. Encounter Status:Closed by SHEILA AYALA on 04/25/24 PROGRESS Observed: 04/14/2024 1:34 PM Status: COMPLETED Source: [facility] HNO ID: [id number] Author: ?, ?, ? Service: ? Author Type: ? Type: Progress Notes Filed: 04/14/2024 13:35 Note Text: POPULATION HEALTH NAVIGATION OUTREACH Action/FYI No answer, lvm and sent my chart message for pt to call to schedule ortho consult Reason for Outreach Care Gap/HCC or Scheduling Wellness Visits Care Gaps due: N/A Patient Contacted: Unable or unnecessary to reach patient: Left message [employer] message sent Navigation Signature: Whitley Vazquez April 14, 2024 1:35 PM CNPTOUTREACH Observed: 04/14/2024 12:00 AM Status: COMPLETED Source: [facility] Patient Outreach ([employer]) MARQUEZ NORWOOD ([id number]) 1945 M Date Time Provider Department 04/14/24 NO PCP [employer] During your visit today, we recorded the following information about you: Whitley Vazquez 04/14/2024 1:35 PM Signed POPULATION HEALTH NAVIGATION OUTREACH Action/FYI No answer, lvm and sent my chart message for pt to call to schedule ortho consult Reason for Outreach Care Gap/HCC or Scheduling Wellness Visits Care Gaps due: N/A Patient Contacted: Unable or unnecessary to reach patient: Left message MyChart message sent Navigation Signature: Whitley Vazquez April 14, 2024 1:35 PM Allergies As of Date: 04/14/2024 (No Known Allergies) Date Reviewed: 04/07/2024 Reviewed by: Amber Sawyer LPN - Fully Assessed Prescriptions as of 04/14/2024 - predniSONE (DELTASONE) 10 mg tablet Take 4 tabs daily x 3 days, then 3 tabs x 3 days, 2 tabs x 3 days, then 1 tab x3 days with food. - oxyCODONE-acetaminophen (PERCOCET) 5-325 mg tablet Take 1 tablet by mouth every 8 hours as needed for pain for up to 7 days. - lisinopril (ZESTRIL) 10 mg tablet Take 1 tablet by mouth once daily. - gabapentin (NEURONTIN) 300 mg capsule Take 2 capsules by mouth daily at bedtime for 180 days. - FLUoxetine (PROZAC) 40 mg capsule Take 1 capsule by mouth once daily. - atorvastatin (LIPITOR) 40 mg tablet Take 1 tablet by mouth daily at bedtime. For cholesterol. - FLUoxetine (PROZAC) 20 mg capsule Take 1 capsule by mouth once daily. With 40mg + 60mg daily Problem List As Of Date 04/14/2024 Noted Resolved Depression [F32.A] 08/31/2009 Elevated BP [[id number]] 08/31/2009 Hyperlipidemia, mixed [E78.2] 05/27/2019 BCC (basal cell carcinoma), face [C44.310] 12/01/2020 Hypertension, essential [I10] 12/01/2020 Recurrent major depressive disorder, in partial*12/01/2020 Encounter Status:Closed by WHITLEY VAZQUEZ on 04/14/24 CNPN Observed: 04/08/2024 12:00 AM Status: COMPLETED Source: [facility] MARQUEZ NORWOOD ([id number]) 1945 M Date Time Provider Department 04/08/24 NIKI NJ During your visit today, we recorded the following information about you: Concepcion Rausch LPN 04/08/2024 10:27 AM Signed Received a call from [facility]. They do not accept patients insurance. Amber Sawyer LPN 04/08/2024 10:42 AM Signed Noted. Will fax referral to [facility]. Pt was aware [facility] may not accept insurance and was aware they would notify office if they didn't. CAMELIA Tee Jamie, LPN 04/08/2024 12:04 PM Signed Phoned pt to give update. No answer, unable to leave message. CAMELIA Tee M Robin, RN 04/09/2024 9:24 AM Signed [facility] phoned to report they received a referral from [facility] provider, for this patient, but they do not accept patient's insurance. Left vm for patient to return call to nurse for message. Karley Campbell RN 04/09/2024 10:09 AM Signed Patient's Katya updated of message below. Patient or to let PCP office know which Ortho they wish to use. Karley Campbell RN Allergies As of Date: 04/08/2024 (No Known Allergies) Date Reviewed: 04/07/2024 Reviewed by: Amber Sawyer LPN - Fully Assessed Prescriptions as of 04/09/2024 - predniSONE (DELTASONE) 10 mg tablet Take 4 tabs daily x 3 days, then 3 tabs x 3 days, 2 tabs x 3 days, then 1 tab x3 days with food. - oxyCODONE-acetaminophen (PERCOCET) 5-325 mg tablet Take 1 tablet by mouth every 8 hours as needed for pain for up to 7 days. - lisinopril (ZESTRIL) 10 mg tablet Take 1 tablet by mouth once daily. - gabapentin (NEURONTIN) 300 mg capsule Take 2 capsules by mouth daily at bedtime for 180 days. - FLUoxetine (PROZAC) 40 mg capsule Take 1 capsule by mouth once daily. - atorvastatin (LIPITOR) 40 mg tablet Take 1 tablet by mouth daily at bedtime. For cholesterol. - FLUoxetine (PROZAC) 20 mg capsule Take 1 capsule by mouth once daily. With 40mg + 60mg daily Problem List As Of Date 04/08/2024 Noted Resolved Depression [F32.A] 08/31/2009 Elevated BP [[id number]] 08/31/2009 Hyperlipidemia, mixed [E78.2] 05/27/2019 BCC (basal cell carcinoma), face [C44.310] 12/01/2020 Hypertension, essential [I10] 12/01/2020 Recurrent major depressive disorder, in partial*12/01/2020 Encounter Status:Closed by KARLEY CAMPBELL on 04/09/24 PROGRESS Observed: 04/07/2024 2:32 PM Status: COMPLETED Source: [facility] ID: [id number] Author: NIKI NJ APRN.SPACE ENGINEER Service: ? Author Type: Nurse Practitioner Type: Progress Notes Filed: 04/08/2024 08:27 Note Text: This is a 78 year old male who presents today with: Patient presents with: ER F/U: L shoulder pain x2 weeks; no known injury HISTORY OF PRESENT ILLNESS: Marquez Norwood is a 78 year old male. Patient presents with: ER F/U: L shoulder pain x2 weeks; no known injury Patient presents today for emergency room follow-up. He presented to the emergency room on 04/06/2024 with complaint of left shoulder pain has been getting worse over the past 2 weeks. Reportedly it became worse 2 days prior to presentation. Described the pain as sharp and was worse with movement. He admitted to some tingling in his left arm. Denied any weakness. Also had some pain in the left neck. He was noted to have tenderness over the left shoulder. Range of motion to the left shoulder was limited. He had an x-ray of the left shoulder. There was no acute fracture. There was some degenerative changes noted. He was treated with [place]. He was given a sling and an ice pack. He was discharged with a short course of [place]. Refers that the shoulder is still painful. He has tried the norco, but it hasn't helped at all. Has taken three doses. He is also taking tylenol and ibuprofen. He has used icy hot, Aspercreme, ice, and heat. PAST MEDICAL HISTORY: PAST MEDICAL HISTORY Diagnosis Date Depression Diverticulosis of colon (without mention of hemorrhage) PAST SURGICAL HISTORY Procedure Laterality Date COLONOSCOPY FLX DX W/COLLJ SPEC WHEN PFRMD 10/26/2009 Colonoscopy ALLERGIES Patient has no known allergies. MEDICATIONS Current Outpatient Medications Medication Sig lisinopril (ZESTRIL) 10 mg tablet Take 1 tablet by mouth once daily. gabapentin (NEURONTIN) 300 mg capsule Take 2 capsules by mouth daily at bedtime for 180 days. FLUoxetine (PROZAC) 40 mg capsule Take 1 capsule by mouth once daily. atorvastatin (LIPITOR) 40 mg tablet Take 1 tablet by mouth daily at bedtime. For cholesterol. FLUoxetine (PROZAC) 20 mg capsule Take 1 capsule by mouth once daily. With 40mg + 60mg daily No current facility-administered medications for this visit. FAMILY HISTORY Problem Relation Age of Onset None Other Social History Tobacco Use Smoking status: Never Smokeless tobacco: Never Substance Use Topics Alcohol use: Yes Comment: seldom EXAM: BP 140/92 Pulse 63 Resp 16 SpO2 94% PHYSICAL EXAM: General Appearance: Well appearing, alert, in no acute distress, well-hydrated, well nourished.. Skin: Skin color, texture, turgor normal, no suspicious rashes or lesions. Head: Normocephalic, no masses, lesions, tenderness or abnormalities. Eyes: Anicteric sclera. Extraocular movements are intact. . Extremities: shoulder in guarded position. ROM significantly limited by pain. Peripheral Pulses: Normal. Neurologic: Gait normal. Reflexes normal and symmetric. = hand grasps. ASSESSMENT/PLAN: 1. Acute pain of left shoulder - ICD9: 719.41, ICD10: M25.512 (primary diagnosis) Will go ahead and start prednisone taper. Aware to not use other antiinflammatories while on prednisone. Change norco to percocet, as norco has not been helpful. (Pt is aware to not use both). Discussed potential side effects of ordered medications. Patient voices understanding. Referral to PT. Referral to ortho. Currently in sling and discussed concern for developing a frozen shoulder and to get arm out of the sling and gentle ROM. - CONSULT TO ORTHOPAEDICS - CONSULT TO PHYSICAL THERAPY - PREDNISONE 10 MG TABLET - OXYCODONE-ACETAMINOPHEN 5 MG-325 MG TABLET 2. Encounter for immunization - ICD9: V03.89, ICD10: Z23 - INFLUENZA VACCINE, PRSV FREE, AGE 65+ YR, HIGH DOSE, TRIVALENT (FLUZONE HIGH-DOSE) Discussed treatment plan and patient voices understanding. Patient's questions answered appropriately. Medications and potential side effects were discussed and patient voices understanding. Return to the office as scheduled or as needed for worsening/no improvement. Niki Nj APRN.CNP CNOV Observed: 04/07/2024 2:20 PM Status: COMPLETED Source: [facility] MAR[facility] NOR[facility] ([id number]) 1945 M Date Time Provider Department 04/07/24 2:20 PM NIKI NJ During your visit today, we recorded the following information about you: Pulse Respiration Blood pressure 63/minute 16/minute 140/92 Niki Nj APRN.CNP 04/08/2024 8:27 AM Signed This is a 78 year old male who presents today with: Patient presents with: ER F/U: L shoulder pain x2 weeks; no known injury HISTORY OF PRESENT ILLNESS: Marquez Norwood is a 78 year old male. Patient presents with: ER F/U: L shoulder pain x2 weeks; no known injury Patient presents today for emergency room follow-up. He presented to the emergency room on 04/06/2024 with complaint of left shoulder pain has been getting worse over the past 2 weeks. Reportedly it became worse 2 days prior to presentation. Described the pain as sharp and was worse with movement. He admitted to some tingling in his left arm. Denied any weakness. Also had some pain in the left neck. He was noted to have tenderness over the left shoulder. Range of motion to the left shoulder was limited. He had an x-ray of the left shoulder. There was no acute fracture. There was some degenerative changes noted. He was treated with [place]. He was given a sling and an ice pack. He was discharged with a short course of [place]. Refers that the shoulder is still painful. He has tried the norco, but it hasn't helped at all. Has taken three doses. He is also taking tylenol and ibuprofen. He has used icy hot, Aspercreme, ice, and heat. PAST MEDICAL HISTORY: PAST MEDICAL HISTORY Diagnosis Date Depression Diverticulosis of colon (without mention of hemorrhage) PAST SURGICAL HISTORY Procedure Laterality Date COLONOSCOPY FLX DX W/COLLJ SPEC WHEN PFRMD 10/26/2009 Colonoscopy ALLERGIES Patient has no known allergies. MEDICATIONS Current Outpatient Medications Medication Sig lisinopril (ZESTRIL) 10 mg tablet Take 1 tablet by mouth once daily. gabapentin (NEURONTIN) 300 mg capsule Take 2 capsules by mouth daily at bedtime for 180 days. FLUoxetine (PROZAC) 40 mg capsule Take 1 capsule by mouth once daily. atorvastatin (LIPITOR) 40 mg tablet Take 1 tablet by mouth daily at bedtime. For cholesterol. FLUoxetine (PROZAC) 20 mg capsule Take 1 capsule by mouth once daily. With 40mg + 60mg daily No current facility-administered medications for this visit. FAMILY HISTORY Problem Relation Age of Onset None Other Social History Tobacco Use Smoking status: Never Smokeless tobacco: Never Substance Use Topics Alcohol use: Yes Comment: seldom EXAM: BP 140/92 Pulse 63 Resp 16 SpO2 94% PHYSICAL EXAM: General Appearance: Well appearing, alert, in no acute distress, well-hydrated, well nourished.. Skin: Skin color, texture, turgor normal, no suspicious rashes or lesions. Head: Normocephalic, no masses, lesions, tenderness or abnormalities. Eyes: Anicteric sclera. Extraocular movements are intact. . Extremities: shoulder in guarded position. ROM significantly limited by pain. Peripheral Pulses: Normal. Neurologic: Gait normal. Reflexes normal and symmetric. = hand grasps. ASSESSMENT/PLAN: 1. Acute pain of left shoulder - ICD9: 719.41, ICD10: M25.512 (primary diagnosis) Will go ahead and start prednisone taper. Aware to not use other antiinflammatories while on prednisone. Change norco to percocet, as norco has not been helpful. (Pt is aware to not use both). Discussed potential side effects of ordered medications. Patient voices understanding. Referral to PT. Referral to ortho. Currently in sling and discussed concern for developing a frozen shoulder and to get arm out of the sling and gentle ROM. - CONSULT TO ORTHOPAEDICS - CONSULT TO PHYSICAL THERAPY - PREDNISONE 10 MG TABLET - OXYCODONE-ACETAMINOPHEN 5 MG-325 MG TABLET 2. Encounter for immunization - ICD9: V03.89, ICD10: Z23 - INFLUENZA VACCINE, PRSV FREE, AGE 65+ YR, HIGH DOSE, TRIVALENT (FLUZONE HIGH-DOSE) Discussed treatment plan and patient voices understanding. Patient's questions answered appropriately. Medications and potential side effects were discussed and patient voices understanding. Return to the office as scheduled or as needed for worsening/no improvement. Niki Nj APRN.Niki Mejias APRN.CNP 04/07/2024 3:01 PM Signed Start the prednisone. The prednisone taper will be 4 tablets for 3 days; 3 tablets for 3 days; 2 tablets for 3 days; then 1 tablet for 3 days. Please do no use other anti-inflammatories (like ibuprofen, aleve, naproxen, etc) while you are on this medication. 2. Schedule with ortho. 3. Schedule with physical therapy. Pain medication as needed, as discussed. Allergies As of Date: 04/07/2024 (No Known Allergies) Date Reviewed: 04/07/2024 Reviewed by: Amber Sawyer LPN - Fully Assessed Reason for Visit: ER F/U [41] Cmt: L shoulder pain x2 weeks; no known injury Primary Visit Diagnosis:Acute pain of left shoulder [M25.512] Other Visit Diagnosis:Encounter for immunization [Z23] Order(s):CONSULT TO ORTHOPAEDICS [9019] Order #: [id number]: 1 FUTURE CONSULT TO PHYSICAL THERAPY [9048] Order #: [id number]: 1 FUTURE predniSONE (DELTASONE) 10 mg tabletTake 4 tabs daily x 3 days, then 3 tabs x 3 days, 2 tabs x 3 days, then 1 tab x3 days with food.Disp: 30 tabletRfl: 0 oxyCODONE-acetaminophen (PERCOCET) 5-325 mg tabletTake 1 tablet by mouth every 8 hours as needed for pain for up to 7 days.Disp: 21 tabletRfl: 0 INFLUENZA VACCINE, PRSV FREE, AGE 65+ YR, HIGH DOSE, TRIVALENT (FLUZONE HIGH-DOSE) [51008TKB] Order #: [id number] Prescriptions as of 04/08/2024 - predniSONE (DELTASONE) 10 mg tablet Take 4 tabs daily x 3 days, then 3 tabs x 3 days, 2 tabs x 3 days, then 1 tab x3 days with food. - oxyCODONE-acetaminophen (PERCOCET) 5-325 mg tablet Take 1 tablet by mouth every 8 hours as needed for pain for up to 7 days. - lisinopril (ZESTRIL) 10 mg tablet Take 1 tablet by mouth once daily. - gabapentin (NEURONTIN) 300 mg capsule Take 2 capsules by mouth daily at bedtime for 180 days. - FLUoxetine (PROZAC) 40 mg capsule Take 1 capsule by mouth once daily. - atorvastatin (LIPITOR) 40 mg tablet Take 1 tablet by mouth daily at bedtime. For cholesterol. - FLUoxetine (PROZAC) 20 mg capsule Take 1 capsule by mouth once daily. With 40mg + 60mg daily Problem List As Of Date 04/07/2024 Noted Resolved Depression [F32.A] 08/31/2009 Elevated BP [YPR4745] 08/31/2009 Hyperlipidemia, mixed [E78.2] 05/27/2019 BCC (basal cell carcinoma), face [C44.310] 12/01/2020 Hypertension, essential [I10] 12/01/2020 Recurrent major depressive disorder, in partial*12/01/2020 Other instructions from your clinician: Start the prednisone. The prednisone taper will be 4 tablets for 3 days; 3 tablets for 3 days; 2 tablets for 3 days; then 1 tablet for 3 days. Please do no use other anti-inflammatories (like ibuprofen, aleve, naproxen, etc) while you are on this medication. 2. Schedule with ortho. 3. Schedule with physical therapy. Pain medication as needed, as discussed. Prescriptions ordered this encounter Disp Refills Start End PREDNISONE 10 MG TABLET 30 t* 0 04/07/2024 04/19/2024 Sig: Take 4 tabs daily x 3 days, then 3 tabs x 3 days, 2 tabs x 3 days, then 1 tab x3 days with food. OXYCODONE-ACETAMINOPHEN 5 MG-325 MG * 21 t* 0 04/07/2024 04/14/2024 Route: ORAL Sig: Take 1 tablet by mouth every 8 hours as needed for pain for up to 7 days. Level of Service: OFFICE/OUTPATIENT ESTABLISHED [facility] 30 MIN [05329] Additional E/M codes: VISIT CPLX INHERENT EANDM ASSOC WITH MED * Encounter Status:Closed by AMBER SAWYER on 04/08/24 VALERI Observed: 04/07/2024 12:00 AM Status: COMPLETED Source: [facility] Telephone (4CQ) MARQUEZ NORWOOD ([id number]) 1945 M Date Time Provider Department 04/07/24 Bryon SOLANO 4CQ During your visit today, we recorded the following information about you: Rosa Lane 04/07/2024 3:29 PM Signed Pt wanted to stay in [facility] and decided to go to [facility]. Niki Nj APRN.SPACE ENGINEER 04/07/2024 6:10 PM Signed I'm not sure what this is in reference to. Is this for physical therapy referral? Or the ortho referral? Amber Sawyer LPN 04/08/2024 9:56 AM Signed Pt has appt with [facility] PT. states they were asking for referral to local Ortho because they do not want to travel to [place]. Referral faxed to [facility]. Amber Sawyer LPN Allergies As of Date: 04/07/2024 (No Known Allergies) Date Reviewed: 04/07/2024 Reviewed by: Amber Sawyer LPN - Fully Assessed Prescriptions as of 04/08/2024 - predniSONE (DELTASONE) 10 mg tablet Take 4 tabs daily x 3 days, then 3 tabs x 3 days, 2 tabs x 3 days, then 1 tab x3 days with food. - oxyCODONE-acetaminophen (PERCOCET) 5-325 mg tablet Take 1 tablet by mouth every 8 hours as needed for pain for up to 7 days. - lisinopril (ZESTRIL) 10 mg tablet Take 1 tablet by mouth once daily. - gabapentin (NEURONTIN) 300 mg capsule Take 2 capsules by mouth daily at bedtime for 180 days. - FLUoxetine (PROZAC) 40 mg capsule Take 1 capsule by mouth once daily. - atorvastatin (LIPITOR) 40 mg tablet Take 1 tablet by mouth daily at bedtime. For cholesterol. - FLUoxetine (PROZAC) 20 mg capsule Take 1 capsule by mouth once daily. With 40mg + 60mg daily Problem List As Of Date 04/07/2024 Noted Resolved Depression [F32.A] 08/31/2009 Elevated BP [ADD3140] 08/31/2009 Hyperlipidemia, mixed [E78.2] 05/27/2019 BCC (basal cell carcinoma), face [C44.310] 12/01/2020 Hypertension, essential [I10] 12/01/2020 Recurrent major depressive disorder, in partial*12/01/2020 Encounter Status:Closed by AMBER SAWYER on 04/08/24 ALLERGIES DATE TYPE / CODE NAME / CODE REACTION SEVERITY SOURCE Drug Class/[id number](SNO MED CT) NO KNOWN ALLERGIES [facility] ENCOUNTERS ADMIT/DISCHARGE ACCOUNT NUMBER ADMITTING ENCOUNTER CLASS LOC ATION SOURCE 03/22/2025/ 5 [id number] [facility] ing:CARLIE [facility] 03/22/2025/ 5 [id number] [facility] 5 [id number] [facility] 02/08/2025 [id number] [facility] 02/08/2025 [id number] [facility] 01/26/2025/ 5 [id number] Ambulatory [facility] HospitalBuild ing:WOL2 [facility] 01/26/2025/ 5 [id number] Ambulatory [facility] HospitalBuild ing:WOHE [facility] 12/07/2024/ 5 [id number] Ambulatory [facility] HospitalBuild ing:OPHT [facility] 11/02/2024/ 5 [id number] Ambulatory [facility] HospitalBuild ing:OPHT [facility] 10/29/2024 [id number] Ambulatory [facility] HospitalBuild ing:WOMR [facility] 10/29/2024 [id number] Ambulatory [facility] HospitalBuild ing:WOCT [facility] 10/14/2024/ 5 [id number] Ambulatory [facility] HospitalBuild ing:OPHT [facility] 09/16/2024/ 5 [id number] Ambulatory [facility] HospitalBuild ing:WOFM [facility] 08/19/2024/ 5 [id number] [facility] 04/07/2024/ 4 [id number] [facility] HospitalBuild ing:WOFM [facility] PAYERS ENCOUNTER GUARANTOR PAYER SUBSCRIBER SOURCE 03/22/2025 [place] MED[place] Number: [id number] Date:5588-60-74Kljv Name:Jorge MARQUEZ QUINTANILLA: [id number] [place] [address] [facility] 03/22/2025 [place]: [id number] Date:5404-39-44Zjap Name:Jorge QUINTANILLA: [id number] [place] [address] [facility] 03/15/2025 [place] Number: [id number] Date:6723-74-52Yozg Name:Jorge Carmona ZEKEODOB: [id number] [place] [address] [facility] 02/08/2025 [place]: [id number] Date:3389-71-12Zynh Name:Jorge ALANISODOB: [id number] [place] [address] [facility] 02/08/2025 [place]: [id number] Date:2374-66-03Fsck Name:Jorge MARQUEZ Mathew ALANISODOB: [id number] [address] [address] [address] [facility] 01/26/2025 [place]: [id number] Date:4408-54-70Matf Name:Jorge MARQUEZ Mathew ALANISODOB: [id number] [address] [address] [facility] 01/26/2025 [place]: [id number] Date:8396-63-89Wyrn Name:Jorge ALANISODOB: [id number] [place] [address] [facility] 12/07/2024 [place]: [id number] Date:8053-28-26Hvse Name:Jorge ALANISODOB: [id number] [place] [address] [facility] 11/02/2024 [place]: [id number] Date:0029-47-78Ggpb Name:Jorge ALANISODOB: [id number] [place] [address] [facility] 10/29/2024 [place]: [id number] Date:5951-26-84Aeet Name:Jorge VARGASOB: [id number] [place] [address] [facility] 10/29/2024 [place]: [id number] Date:2903-79-20Fvux Name:Jorge ALANISODOB: [id number] [place] [address] [facility] 10/14/2024 [place]: [id number] Date:3357-48-11Boch Name:Jorge VARGASOB: [id number] [place] [address] [facility] 09/16/2024 [place]: [id number] Date:4507-97-98Dbve Name:Jorge VARGASOB: [id number] [place] [address] [facility] 08/19/2024 [place]: [id number] Date:6966-65-49Oqyr Name:Jorge VARGASOB: [id number] [place] [address] [facility] 04/07/2024 Primary Insuranc e:[facility] HMOPolicy Number: [id number] Date:9058-61-85Apyp Name:Jorge VARGASOB: [id number] [place] [address] [facility]
--- OUTSIDE RECORDS SUMMARY | 2025-03-22 10:27 | XMS RPT_ITS ---
Author Name Auto Generated Organization OH[facility] Care Team Providers [facility] Name Role Phone HAAGEN, NIKI Primary Care Unavailable MASCI, RANJIT Referring Unavailable HAAGEN, NIKI Primary Care Unavailable MASCI, RANJIT Attending Unavailable ELIZABETH GRANADOS Referring Unavailable SOLANO, LUIS FRANK Referring Unavailable HAAGEN, NIKI Primary Care Unavailable KOSMORSKY, MONIKA S Attending Unavailable HAAGEN, NIKI Primary Care Unavailable SELF Referring Unavailable KOSMORSKY, MONIKA S Attending Unavailable MASCI, RANJIT Referring Unavailable HAAGEN, NIKI Primary Care Unavailable HAAGEN, NIKI Primary Care Unavailable HAAGEN, NIKI Primary Care Unavailable KOSMORSKY, MONIKA S Referring Unavailable HAAGEN, NIKI Primary Care Unavailable KOSMORSKY, MONIKA S Referring Unavailable HAAGEN, NIKI Primary Care Unavailable HAAGEN, NIKI Attending Unavailable SOLANO, LUIS MONIKA Primary Care Unavailable HAAGEN, NIKI Attending Unavailable SOLANO, LUIS MONIKA Primary Care Unavailable HAAGEN, NIKI Attending Unavailable MASCI, RANJIT Referring Unavailable HAAGEN, NIKI Primary Care Unavailable HAAGEN, NIKI Primary Care Unavailable HAAGEN, NIKI Attending Unavailable HAAGEN, NIKI Attending Unavailable HAAGEN, NIKI Primary Care Unavailable MASCI, RANJIT Referring Unavailable HAAGEN, NIKI Primary Care Unavailable PROBLEMS DATE TYPE CONDITION / CODE ATTENDING STATUS [facility] 03/22/2025 Active Generalized anxi ety disorder / F41.1(ICD-10) NIKI NJ Active [facility] 03/22/2025 Active Major depressive disorder, recurrent episode, 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) NIKI NJ Active [facility] 03/22/2025 Active Restless legs sy ndrome / G25.81(ICD-10) ERIC [facility] 03/22/2025 Active Hypertensive hea rt disease without heart failure / I11.9(ICD-10) NIKI NJ Active [facility] 03/22/2025 Active Unspecified visu al loss / H54.7(ICD-10) GEORGINA NIKI Active [facility] 03/15/2025 Active Need for influen za vaccination / Z23(ICD-10) [facility] Active [facility] 01/26/2025 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) NA Active [facility] 12/07/2024 Active 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) MONIKA PENDLETON Active [facility] 11/02/2024 Active Vision loss, josep ateral / H54.3(ICD-10) Active [facility] 11/02/2024 Active 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) NA Active [facility] 11/02/2024 Active Nuclear scleroti c cataract of both eyes / H25.13(ICD-10) Active [facility] 11/02/2024 Active Retinopathy / H35.00(ICD-10) NA Active [facility] 10/29/2024 Active Malignant neopla sm of unspecified part of unspecified bronchus or lung (HCC) / C34.90(ICD-10) Active [facility] 09/16/2024 Active Kidney stone / N20.0(ICD-10) PREMERIC NIKI [facility] 12/01/2020 Active Hypertension, es sential / I10(ICD-10) [facility] 05/27/2019 Active Hyperlipidemia, mixed / E78.2(ICD-10) [facility] 08/31/2009 Active Moderate episode of recurrent major depressive disorder (HCC) / F33.1(ICD-10) GEORGINA [facility] 09/16/2024 Active Elevated glucose / R73.09(ICD-10) GEORGINA [facility] 09/16/2024 Active Fatigue, unspeci fied type / R53.83(ICD-10) GEORGINA [facility] 09/16/2024 Active Encounter for immunization / Z23(ICD-10) PREMERIC NIKI Active [facility] 09/16/2024 Active Bilateral impact ed cerumen / H61.23(ICD-10) GEORGINA NIKI Active [facility] 09/16/2024 Active Swallowing probl em / R13.10(ICD-10) PREMSANTOS REYESY Active [facility] 09/16/2024 Active Encounter to est ablish care / Z76.89(ICD-10) GEORGINA NIKI Active [facility] 04/07/2024 Active Acute pain of le ft shoulder / M25.512(ICD-10) GEORGINA NIKI Active [facility] PROCEDURES No Procedure Records Found RESULTS PROGRESS Observed: 03/22/2025 11:40 AM Status: COMPLETED Source: [facility] HNO ID: [id number] Author: NIKI NJ APRN.STAGE BUILDER Service: ? Author Type: Nurse Practitioner Type: [...] as needed for worsening/no improvement. Niki Nj APRN.STAGE BUILDER Recording using [employer] software for draft documentation of the visit was discussed with the patient/authorized sales representative public utilities; all questions welcomed and answered. Patient/authorized sales representative public utilities agreed to proceed [1] Social History Tobacco Use Smoking status: Never Smokeless tobacco: Never Vaping Use Vaping status: Never Used Substance Use Topics Alcohol use: Yes Comment: seldom - beer Drug use: Yes Types: Marijuana Comment: a little at night to help sleep ALDOLASE SERPL-CCNC Collected: 03/22/20 10:33 AM Status: F Source: [facility] Order Comment: Specimen Type : BLOOD SPECIMEN Ordering Facility: [facility] Address: [address] [place] [address] TYPE CODE TESTS RESULT OUT OF RANGE REFERENCE UNITS LAB 1761-6(LOINC) Aldolase SerPl-cCnc 3.6 1.5-8.1 U/L Result Comment: This test wa s developed, and its performance characteristics determined by the [facility] Department of Pathology and Laboratory Medicine. It has not been cleared or approved by the FDA. The [facility] Department of Pathology and Laboratory Medicine is regulated under CLIA as qualified to perform high-complexity testing. This test is used for clinical purposes. It should not be regarded as investigational or for research. Performed By: #### 1761-6 ## ## [facility] CLIA [id number] [address] [place] [address] OF [place] DEPRECATED HGB A1C BLD Collected: 03/22 10:33 AM Status: F Source: [facility] Comment: Specimen Type : BLOOD SPECIMEN Ordering Facility: [facility] Address: [address] [place] [address] TYPE CODE TESTS RESULT OUT OF RANGE REFERENCE UNITS LAB 4548-4(INC) HbA1c MFr Bld 5.7 High 4.3-5.6 % Result Comment: [place] [employer] guidelines indicate that patients with HgbA1c in the range 5.7-6.4% are at increased risk for development of diabetes, and intervention by lifestyle modification may be beneficial. HgbA1c greater or equal to 6.5% is considered diagnostic of diabetes. LAB 61019-8(LOINC) Est. average glucose Bld gHb Est-mCnc 117 mg/dL Result Comment: eAG: (Estima lyndon average glucose) is a calculated value from HgbA1c and is sales representative public utilities of the average blood glucose level in the last 2-3 month period. Performed By: #### 93715-4 # ### [facility] IA [id number] [address] [place] [address] [place] CAR AUTOANTIBODY BLD Collected: 03/22/2025 10:33 AM Status: F Source: [facility] Comment: Specimen Type : BLOOD SPECIMEN Ordering Facility: [facility] Address: [address] [place] [address] TYPE CODE TESTS RESULT OUT OF RANGE REFERENCE UNITS LAB [id number] INTERPRETATION SEE NOTE Result Comment: NEGATIVE This test did not detect abnormal levels of anti-recoverin antibodies. LAB [id number] TECHNICAL RESULTS SEE NOTE Result Comment: Interpretive Result Table INTERPRETIVE RESULT: Negative TEST: anti-recoverin TECHNICAL RESULT: <1:50 REFERENCE RANGE: Serum <1:50 ----- LAB [id number] COMMENTS SEE NOTE Result Comment: Comments: Th is result does not exclude a diagnosis of an autoimmune etiology for the neurological symptoms associated with paraneoplastic disorder. Recommendations: Health care providers, please contact the [facility] Client Services Department at if you wish to speak with a clinical senior billing consultant regarding this test result. Other testing available: [facility] currently offers the following antibody tests: anti-amphiphysin, anti-CASPR2, anti-CV2, anti-GAD65, anti-ganlionic nAChR, anti-Hu, anti-LGI1, anti-Ma, anti-Ta, anti-NMDA, anti-Ri, anti-VGCC, anti-VGKC, anti-Yo, and anti-Zic4. Please contact the [facility] Client Services Department or visit [email or web address] for information regarding additional testing that may [...] with various clinical presentations and malignancies. LAB [id number] METHODS SEE NOTE Result Comment: Detection of antibodies was performed by automated nanoliter scale immunoassay. Although rare, false positive or false negative results may occur. All results should be interpreted in the context of clinical findings, relevant history, and other laboratory data. LAB [id number] REFERENCES SEE NOTE Result Comment: 1. KAMALA Harrington et al. (2011) Eur J Neurol 18: 19-e3. (PMID: 22119652) 2. Mao Yee et al. (2012) J Neurol Neurosurg Psychiatry 83: 638-45. (PMID: 12980594) This test was developed and its analytical performance characteristics have been determined by [facility]. It has not been cleared or approved by the U.S. Food and Drug Administration. This assay has been validated pursuant to the CLIA regulations and is used for clinical purposes. Laboratory oversight provided by Debbie Ramon M.D., Ph.D., CLIA license amezquita, [facility] (CLIA# [id number]) Testing performed at: [facility] [address] [place] [address] Performed By: #### CARAB ### # JESSICA CLIA [id number] [address] [place] [address] CREATININE + EGFR PNL SERPLBLD Collecte d: 03/22/2025 10:33 AM Status: F Source: [facility] Order Comment: Specimen Type : BLOOD SPECIMEN Ordering Facility: [facility] Address: [address] [place] [address] TYPE CODE TESTS RESULT OUT OF RANGE REFERENCE UNITS LAB 2160-0(LOINC) Creat SerPl-mCnc 0.95 0.73-1.22 mg/dL LAB 49872-8(LOINC) eGFRcr SerPlBld CKD-EPI 2020 82 >=60 mL/min/1. [...] accurately reflect actual GFR. Performed By: #### LIPNF, 45 066-8 #### [facility] CLIA [id number] [address] [place] [address] [place] [address] [place] LIPID PANEL, NONFASTING Collected: 03/08 10:33 AM Status: F Source: [facility] Order Comment: Specimen Type : BLOOD SPECIMEN Ordering Facility: [facility] Address: [address] [place] [address] TYPE CODE TESTS RESULT OUT OF RANGE [...] Desk Reference: National Heart, Lung, and Blood [place]. National Institutes of Health. 2001: NIH Publication No. 01-3305. 2. An International Atherosclerosis Society position paper: global recommendations for the management of dyslipidemia: executive summary, Atherosclerosis. 2014: 232(2):410-413. Performed By: #### LIPNF, 45 066-8 #### [facility] CLIA [id number] [address] [place] [address] CNOV Observed: 03/22/2025 9:40 AM Status: COMPLETED Source: [facility] MARQUE[facility] NOR[facility] ([id number]) 1945 M Date Time Provider Department 03/22/25 [...] as needed for worsening/no improvement. Niki Nj APRN.STAGE BUILDER Recording using [employer] software for draft documentation of the visit was discussed with the patient/authorized sales representative public utilities; all questions welcomed and answered. Patient/authorized sales representative public utilities agreed to proceed [1] Social History Tobacco [...] 1 LIPID PANEL, NONFASTING [SQLIPNF] Order #: [id number] FUTURE HEMOGLOBIN A1C [HMVOU6Q] Order #: [id number] FUTURE Prescriptions as of 03/22/2025 - atorvastatin [...] Noted Resolved Depression [F32.A] 08/31/2009 Elevated BP [PXD9599] 08/31/2009 Hyperlipidemia, mixed [E78.2] 05/27/2019 BCC (basal [...] cholesterol. Level of Service: OFFICE/OUTPATIENT ESTABLISHED MOD [facility] 30 MIN [95095] Additional E/M codes: VISIT CPLX INHERENT EANDM ASSOC WITH MED * Encounter Status:Closed by NIKI NJ on 03/22/25 CNNURSE Observed: 03/15/2025 10:20 AM Status: COMPLETED Source: [facility] Nurse Visit ([facility]) MARQUEZ NORWOOD ([id number]) 1945 M Date Time Provider Department 03/15/25 10:20 AM NIKI NJ During your visit today, we recorded the following information about you: Allergies As of Date: 03/15/2025 (No Known Allergies) Date Reviewed: 02/08/2025 Reviewed by: Ivonne Petty, RT(R) - Fully Assessed Reason for Visit: Immunizations [194] Cmt: Flu vaccination Primary Visit Diagnosis:Need for influenza vaccination [Z23] Order(s):INFLUENZA VACCINE, PRSV FREE, AGE 65+ YR, HIGH DOSE, TRIVALENT (FLUZONE HIGH-DOSE) [90315RIV] Order #: [id number] Prescriptions as of 03/15/2025 - acetaminophen (TYLENOL) [...] Noted Resolved Depression [F32.A] 08/31/2009 Elevated BP [WQA8768] 08/31/2009 Hyperlipidemia, mixed [E78.2] 05/27/2019 BCC (basal cell carcinoma), face [C44.310] 12/01/2020 Hypertension, essential [I10] 12/01/2020 Recurrent major depressive disorder, in partial*12/01/2020 Kidney stone [N20.0] 09/16/2024 Encounter Status:Closed by AMBER SAWYER on 03/15/25 VALERI Observed: 03/04/2025 12:00 AM Status: COMPLETED Source: [facility] Telephone (DELMIS) MARQUEZ NORWOOD ([id number]) 1945 M Date Time Provider Department 03/04/25 [...] or Saturday at the other building Becki Mares Allergies As of Date: 03/04/2025 (No Known [...] Noted Resolved Depression [F32.A] 08/31/2009 Elevated BP [XOX7591] 08/31/2009 Hyperlipidemia, mixed [E78.2] 05/27/2019 BCC (basal cell carcinoma), face [C44.310] 12/01/2020 Hypertension, essential [I10] 12/01/2020 Recurrent major depressive disorder, in partial*12/01/2020 Kidney stone [N20.0] 09/16/2024 Encounter Status:Closed by BECKI MARES on 03/04/25 VALERI Observed: 02/21/2025 12:00 AM Status: COMPLETED Source: [facility] Telephone (HEMAWS) MARQUEZ NORWOOD ([id number]) 1945 M Date Time Provider Department 02/21/25 RANJIT BLEVINS During your visit today, we recorded the following information about you: Fanny May LPN 02/22/2025 11:10 AM Signed Path requested from 2020 BCC left cheek. -Anti-recoverin test he said to order CARAB -Ybwo-lprgi-aczxget is a miscellaneous test that [facility] will result -anti-carbonic anhydrase is an immunohistology that can be tested on tissue -Anti-TRPM1 is a miscellaneous will result through [facility] -Arrestin-the only resulting lab that was found was [facility] ocular immunology institute. Our lab cannot send to their lab. I wonder if [facility] can since [facility] of [facility] lab states when she searches for an anti-Arrestin test, she finds a test listed as an [id number] as a biomarker of various INGREDIENT SCALER HELPER pathologies and as a tumor marker for malignant melanoma. I could order that at [facility] if you'd like. If not I will [...] SEND OUT TST 1 [SQMISC1] Order #: [id number] FUTURE CAR AUTOANTIBODY BLD [SQCARAB] Order #: [id number] FUTURE ALDOLASE BLD [SQALD] Order #: [id number] FUTURE MISC SEND OUT TST 1 [SQMISC1] Order #: [id number] FUTURE Prescriptions as of 03/03/2025 - acetaminophen [...] Noted Resolved Depression [F32.A] 08/31/2009 Elevated BP [WHA3755] 08/31/2009 Hyperlipidemia, mixed [E78.2] 05/27/2019 BCC (basal cell carcinoma), face [C44.310] 12/01/2020 Hypertension, essential [I10] 12/01/2020 Recurrent major depressive disorder, in partial*12/01/2020 Kidney stone [N20.0] 09/16/2024 Encounter Status:Closed by GERALD CHOW on 03/03/25 CT ABD/PEL W IVCON Observed: 02/08/2025 11:18 AM Status: F Source: [facility] * * *Final Report* * * DATE OF EXAM: Feb 08 2025 11:18AM [facility] 0530 - CT ABD/PEL W IVCON / [...] osseous abnormality. No lytic or blastic lesions. Electric Mule Operator (topogram) images: No additional findings. IMPRESSION: 1. No evidence of malignancy in the chest, abdomen, or pelvis. 2. Small nonobstructing right nephrolithiasis and a few tiny gallstones. Restaurant Maintenance Technician: PSCB Transcribe Date/Time: Feb 10 2025 8:57A Dictated by : DAVE CARTER MD This examination was interpreted and the report reviewed and electronically signed by: DAVE CARTER MD on Feb 10 2025 11:20AM EST [id number] CT CHEST W IVCON Observed: 02/08/2025 11:18 AM Status: F Source: [facility] * * *Final Report* * * DATE OF EXAM: Feb 08 2025 11:18AM [facility] 0539 - CT CHEST W IVCON / [...] osseous abnormality. No lytic or blastic lesions. Electric Mule Operator (topogram) images: No additional findings. IMPRESSION: 1. No evidence of malignancy in the chest, abdomen, or pelvis. 2. Small nonobstructing right nephrolithiasis and a few tiny gallstones. Restaurant Maintenance Technician: PSCB Transcribe Date/Time: Feb 10 2025 8:57A Dictated by : DAVE CARTER MD This examination was interpreted and the report reviewed and electronically signed by: DAVE CARTER MD on Feb 10 2025 11:20AM EST [id number] PROGRESS Observed: 02/08/2025 10:40 AM Status: COMPLETED Source: [facility] HNO ID: [id number] Author: IVONNE PETTY RT(R) Service: ? Author Type: Rac Specialist Type: Progress Notes Filed: 02/08/2025 15:24 Note [...] PATIENT PRESENTS WITH AN IMPLANTABLE OR ATTACHED INSURANCE MARKETING SPECIALIST: No ALLERGIES: Reviewed and unchanged CONTRAST ALLERGY: [...] 08, 2025 TIME: 3:24 PM COMP METAB 2000 PNL SERPL Collected: 11:48 AM Status: F Source: [facility] Order Comment: Specimen Type : BLOOD SPECIMEN Ordering Facility: [facility] Address: [address] [place] [address] TYPE CODE TESTS RESULT OUT OF RANGE REFERENCE UNITS LAB 2885-2(LOINC) Prot SerPl-mCnc 7.0 6.3-8.0 g/dL LAB 1751-7(LOINC) Albumin SerPl-mCnc 4.4 3.9-4.9 g/dL LAB 56147-2(LOINC) Calcium SerPl-mCnc 9.5 8.5-10.2 mg/dL LAB 1975-2(LOINC) Bilirub SerPl-mCnc 0.6 0.2-1.3 mg/dL LAB 6768-6(LOINC) ALP SerPl-cCnc 100 38-113 U/L LAB 1920-8(LOINC) AST SerPl-cCnc 21 14-40 U/L LAB 1742-6(LOINC) ALT SerPl-cCnc 20 10-54 U/L LAB 2345-7(INC) Glucose SerPl-mCnc 93 74-99 mg/dL Result Comment: The [place] Diabetes Association (ADA) provides guidance for cutoff [...] Standards of Medical Care in Diabetes 2016, [place] Diabetes Association. Diabetes Care. 2016.39(Suppl 1). LAB 3094-0(LOINC) BUN SerPl-mCnc 10 9-24 mg/dL LAB 2160-0(LOINC) Creat SerPl-mCnc 0.90 0.73-1.22 mg/dL LAB 2951-2(INC) Sodium SerPl-sCnc 139 136-144 mmol/L LAB 2823-3(INC) Potassium SerPl-sCnc 4.1 3.7-5.1 mmol/L LAB 2075-0(INC) Chloride SerPl-sCnc 103 98-107 mmol/L LAB 2027-9(LOINC) CO2 SerPl-sCnc 23 22-30 mmol/L LAB 90689-4(INC) Anion Gap SerPl-sCnc 13 8-15 mmol/L LAB 01137-5([facility]) eGFRcr SerPlBld CKD-EPI 2020 88 >=60 [...] accurately reflect actual GFR. Performed By: #### 29128-8 # ### [facility] CLIA [id number] [address] [place] [address] OF [facility] CBC W AUTO DIFF BLD Collected: 01/26/2025 11:48 AM S tatus: F Source: [facility] Order Comment: Specimen Type : BLOOD SPECIMEN Ordering Facility: [facility] Address: [address] [place] [address] TYPE CODE TESTS RESULT OUT OF RANGE [...] MCHC RBC Auto-mCnc 33.4 30.5-36.0 g/dL LAB 89171-4(LOINC) RDW RBC-Rto 12.6 11.5-15.0 % LAB 777-3(LOINC) Platelet # Bld Auto 226 150-400 k/uL LAB 93513-4(LOINC) PMV Bld Auto 9.4 9.0-12.7 fL LAB [...] # Bld Auto 0.04 <0.11 k/uL LAB 56878-6(LOINC) Imm Granulocytes/marie k NFr Bld Auto 0.3 % LAB 75798-6(LOINC) Imm Granulocytes # Bld Auto <0.03 <0.10 k/uL LAB 95166-5(LOINC) nRBC/100 WBC Bld-Rto 0.0 /100 WBC LAB 771-6(LOINC) nRBC # Bld Auto <0.01 <0.01 k/u L LAB 13999-1(LOINC) Differential method Bld Auto Performed By: #### 94468-5 # ### [facility] CLIA [id number] [address] [place] [address] OF GOLDEN PARANEOPLAST AUTOABS Collected: 025 11:48 AM Status: F Source: [facility] Order Comment: Specimen Type : BLOOD SPECIMEN Ordering Facility: [facility] Address: [address] [place] [address] TYPE CODE TESTS RESULT OUT OF RANGE REFERENCE UNITS LAB PARCOM INTERP COMMENT (PARNEO/NOEVAL) SEE NOTE Result Comment: A negative b asic paraneoplastic evaluation result does not rule out all clinically relevant antibodies. If indicated, a comprehensive neurological phenotype-specific autoimmune/paraneoplastic evaluation (e.g. encephalopathy, movement disorders, myelopathy, or axonal neuropathy) should be considered [email or web address] These evaluations include screening cell-based assays optimized for detection of recently discovered antibodies. LAB AMPHIS AMPHIPHYSIN AB Negative Negative Result Comment: ADDITIONAL INFORMATION This test was developed and its performance characteristics determined by [facility] in a manner consistent with CLIA requirements. This test has not been cleared or approved by the U.S. Food and Drug Administration. LAB AGNA1 ANTI-GLIAL NUCLEAR AB, TYPE 1 Negative Negative Result Comment: ADDITIONAL INFORMATION This test was developed and its performance characteristics determined by [facility] in a manner consistent with CLIA requirements. This test has not been cleared or approved by the U.S. Food and Drug Administration. LAB ANNA1S ANTI-NEURONAL NUC AB, TYPE 1 Negative Negative Result Comment: ADDITIONAL INFORMATION This test was developed and its performance characteristics determined by [facility] in a manner consistent with CLIA requirements. This test has not been cleared or approved by the U.S. Food and Drug Administration. LAB ANNA2S ANTI-NEURONAL NUC AB, TYPE 2 Negative Negative Result Comment: ADDITIONAL INFORMATION This test was developed and its performance characteristics determined by [facility] in a manner consistent with CLIA requirements. This test has not been cleared or approved by the U.S. Food and Drug Administration. LAB ANNA3S ANTI-NEURONAL NUC AB, TYPE 3 Negative Negative Result Comment: ADDITIONAL INFORMATION This test was developed and its performance characteristics determined by [facility] in a manner consistent with CLIA requirements. This test has not been cleared or approved by the U.S. Food and Drug Administration. LAB CRMP5G CRMP-5, IGG Negative Negative Result Comment: ADDITIONAL INFORMATION This test was developed and its performance characteristics determined by [facility] in a manner consistent with CLIA requirements. This test has not been cleared or approved by the U.S. Food and Drug Administration. LAB PCA1S PURKINJE CELL CYTO AB, TYPE 1 Negative Negative Result Comment: ADDITIONAL INFORMATION This test was developed and its performance characteristics determined by [facility] in a manner consistent with CLIA requirements. This test has not been cleared or approved by the U.S. Food and Drug Administration. LAB PCA2S PURKINJE CELL CYTO AB, TYPE 2 Negative Negative Result Comment: ADDITIONAL INFORMATION This test was developed and its performance characteristics determined by [facility] in a manner consistent with CLIA requirements. This test has not been cleared or approved by the U.S. Food and Drug Administration. LAB PCATRS PURKINJE CELL CYTO AB, TYPE TR Negative Negative Result Comment: ADDITIONAL INFORMATION This test was developed and its performance characteristics determined by [facility] in a manner consistent with CLIA requirements. This test has not been cleared or approved by the U.S. Food and Drug Administration. Test Performed by: [facility] - [address] [address] Vermin Exterminator: Dona Arredondo Ph.D.; CLIA# [id number] LAB MANUEL CACERES None. Performed By: #### NICKI ## ## [facility] [facility] CLIA [id number] [address] [place] [id number] PSA/PROSTATE SPECIFIC ANTIGEN SCREENING Collected: 01/26/2025 11:48 AM Status: F Source: [facility] Order Comment: Specimen Type : BLOOD SPECIMEN Ordering Facility: [facility] Address: [address] [place] [address] TYPE CODE TESTS RESULT OUT OF RANGE [...] Gillespie M.D., Ivonne Preciado, M.P.H., Nicole Layne, Sc.Ck. Effect of Verification Bias on Screening for Prostate Cancer by Measurement of Prostatic Specific Antigen. N Engl J Med 2003,349:335-42. Performed By: #### PSAS1 ### # [facility] CLIA [id number] [address] [place], [place] [address] [address] [place] Observed: 01/26/2025 10:56 AM Status: COMPLETED Source: [facility] HNO ID: [id number] Author: RANJIT BLEVINS, DO Service: ? Author [...] the bitemporal defect (despite normal MRI at [facility]). Patient woke up one morning with blurred [...] Had lesion removed from left face in [place]. Mother and father both smoked in the [...] No recent change in voice or hearing (SHISHMAREF IRA). Resp: See above. CVS: No exertional chest [...] which included preparing to see the patient, vwco-cv-tdfu patient care, completing clinical documentation, obtaining and/or reviewing separately obtained history, performing a medically appropriate examination, counseling and educating the patient/family/caregiver, ordering medications, tests, or procedures, and communicating results to the patient/family/caregiver. Ranjit Blevins DO CNOVSP Observed: 01/26/2025 10:30 AM Status: COMPLETED Source: [facility] Visit (SP) Office (DELMIS) MARQUEZ NORWOOD ([id number]) 1945 M Date Time Provider Department 01/26/25 [...] the bitemporal defect (despite normal MRI at [facility]). Patient woke up one morning with blurred [...] Had lesion removed from left face in [place]. Mother and father both smoked in the [...] No recent change in voice or hearing (SHISHMAREF IRA). Resp: See above. CVS: No exertional chest [...] which included preparing to see the patient, puio-sr-dyzk patient care, completing clinical documentation, obtaining and/or reviewing separately obtained history, performing a medically appropriate examination, counseling and educating the patient/family/caregiver, ordering medications, tests, or procedures, and communicating results to the patient/family/caregiver. 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] Order(s):CONSULT TO HEMATOLOGY/ONCOLOGY [19990708] Order #: [id number]: 1 PARANEOPLAST AUTOABS [SQPARNEO] Order #: [id number] FUTURE COMPLETE BLOOD COUNT AND DIFFERENTIAL [SQCBCDIF] Order #: [id number] FUTURE COMPREHENSIVE METABOLIC PANEL [SQCMP] Order #: [id number] FUTURE PSA/PROSTATE SPECIFIC ANTIGEN SCREENING [SQPSAS1] Order #: [id number] FUTURE CT CHEST W IVCON [8621691] Order #: [id number] FUTURE iv contrast (will be provided with [...] 1 eachRfl: 0 CT ABD/PEL W IVCON [5734116] Order #: [id number] FUTURE iv contrast (will be provided with [...] eachRfl: 0 CREATININE BLD [SQCRET] Order #: [id number] FUTURE Follow-up and Disposition History for Encounter Date Provider Department Center 01/26/2025 [id number] BLEVINS [place] [facility] [place] Prescriptions as of 01/27/2025 - acetaminophen [...] Noted Resolved Depression [F32.A] 08/31/2009 Elevated BP [UMF6343] 08/31/2009 Hyperlipidemia, mixed [E78.2] 05/27/2019 BCC (basal cell carcinoma), face [C44.310] 12/01/2020 Hypertension, essential [I10] 12/01/2020 Recurrent major depressive disorder, in partial*12/01/2020 Kidney stone [N20.0] 09/16/2024 Encounter Status:Closed by RANJIT BLEVINS on 01/27/25 VALERI Observed: 01/26/2025 12:00 AM Status: COMPLETED Source: [facility] Telephone (HEMAWS) MARQUEZ NORWOOD ([id number]) 1945 M Date Time Provider Department 01/26/25 RANJIT BLEVINS HEMAWS During your visit today, we recorded the following information about you: Silvestre Alfred 01/26/2025 11:54 AM Signed AVS 01/[address] C/A/P when able. Orders pended. Follow up based on results. DR CUEVAS PLEASE FILE ORDER. Ranjit Mckenzie DO 01/26/2025 12:44 PM Signed Sorry. Orders filed. [...] Noted Resolved Depression [F32.A] 08/31/2009 Elevated BP [SIP1763] 08/31/2009 Hyperlipidemia, mixed [E78.2] 05/27/2019 BCC (basal cell carcinoma), face [C44.310] 12/01/2020 Hypertension, essential [I10] 12/01/2020 Recurrent major depressive disorder, in partial*12/01/2020 Kidney stone [N20.0] 09/16/2024 Encounter Status:Closed by SILVESTRE ALFRED on 01/26/25 PROGRESS Observed: 12/30/2024 2:55 PM Status: COMPLETED [id number] Author: RANJIT BLEVINS, DO Service: ? Author [...] the bitemporal defect (despite normal MRI at [facility]). PAST MEDICAL HISTORY Diagnosis Date Depression Diverticulosis [...] Observed: 12/07/2024 11:39 AM Status: COMPLETED Source: [facility] Author: MONIKA PENDLETON, DO Service: ? 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 Kos, do you want to touch base with Venessa for this or should I place a general consult to onc in [facility]? Thanks Elizabeth Christinejagdeep Ekta 11/23/2024 9:54 AM Signed Janee dallas, I am reaching out from the regional cancer answer line. I spoke with Dr Clifford about this patient and got the go ahead to get him scheduled. After speaking with patient, they do not want to go to [place] as they do not drive well in traffic. They are requesting the [place] location. [place] staff - can we please have this [...] [H35.00] Order(s):CONSULT TO HEMATOLOGY/ONCOLOGY [19990708] Order #: [id number]: 1 FUTURE Prescriptions as of 11/25/2024 - [...] Noted Resolved Depression [F32.A] 08/31/2009 Elevated BP [YKN4653] 08/31/2009 Hyperlipidemia, mixed [E78.2] 05/27/2019 BCC (basal cell carcinoma), face [C44.310] 12/01/2020 Hypertension, essential [I10] 12/01/2020 Recurrent major depressive disorder, in partial*12/01/2020 Kidney stone [N20.0] 09/16/2024 Encounter Status:Closed by PAU DANIELLE on 11/18/24 CNPN Observed: 11/14/2024 12:00 AM Status: COMPLETED Source: [facility] Telephone (OPHTMN) MARQUEZ NORWOOD ([id number]) 1945 M Date Time Provider Department 11/14/24 [facility] During your visit today, we recorded [...] The eye clinic can be reached at [phone] and you can ask to speak to the registered radiation therapist spectrograph operator. Sourav Palafox MD Ophthalmology Resident, [facility] [place] Allergies As of Date: 11/14/2024 (No Known [...] Noted Resolved Depression [F32.A] 08/31/2009 Elevated BP [RRR9337] 08/31/2009 Hyperlipidemia, mixed [E78.2] 05/27/2019 BCC (basal cell carcinoma), face [C44.310] 12/01/2020 Hypertension, essential [I10] 12/01/2020 Recurrent major depressive disorder, in partial*12/01/2020 Kidney stone [N20.0] 09/16/2024 Encounter Status:Closed by SOURAV PALAFOX on 11/14/24 PROGRESS Observed: 10/29/2024 1:01 PM Status: COMPLETED Source: [facility] HNO ID: [id number] Author: MONIKA PENDLETON, DO Service: ? Author [...] the optic chiasm, of doubtful clinical significance. Restaurant Maintenance Technician: BIANCA Transcribe Date/Time: Oct 29 2024 11:15A Dictated by : MARCUS FONG MD PROGRESS Observed: 10/29/2024 9:18 AM Status: COMPLETED Source: [facility] HNO ID: [id number] Author: MONIKA PENDLETON, DO Service: ? Author Type: Physician Type: Progress Notes Filed: 10/29/2024 09:18 Note Text: IMPRESSION: No CT evidence of acute abnormality. Unremarkable chest CT. Restaurant Maintenance Technician: BIANCA Transcribe Date/Time: Oct 29 2024 8:32A Dictated by : MAURY FRENCH MD MRI PITUITARY WO/W IVCON Observed: 10/29 8:45 AM Status: F Source: [facility] * * *Final Report* * * [...] the optic chiasm, of doubtful clinical significance. Restaurant Maintenance Technician: BIANCA Transcribe Date/Time: Oct 29 2024 11:15A Dictated by : MARCUS FONG MD This examination was interpreted and the report reviewed and electronically signed by: MARCUS FONG MD on Oct 29 2024 11:22AM EST [id number] PROGRESS Observed: 10/29/2024 8:30 AM Status: COMPLETED Source: [facility] HNO ID: [id number] Author: SHAUN CHAN RT(R) Service: ? Author [...] PATIENT PRESENTS WITH AN IMPLANTABLE OR ATTACHED INSURANCE MARKETING SPECIALIST: No ALLERGIES: Reviewed and unchanged CONTRAST ALLERGY: [...] Observed: 10/29/2024 8:23 AM Status: F Source: [facility] * * *Final Report* * * DATE OF EXAM: Oct 29 2024 8:23AM [facility] 0541 - CT CHEST WO IVCON / [...] evidence of acute abnormality. Unremarkable chest CT. Restaurant Maintenance Technician: BIANCA Transcribe Date/Time: Oct 29 2024 8:32A Dictated by : MAURY FRENCH MD This examination was interpreted and the report reviewed and electronically signed by: MAURY FRENCH MD on Oct 29 2024 8:44AM EST [id number] PROGRESS Observed: 10/29/2024 8:00 AM Status: COMPLETED Source: [facility] Author: IVONNE PETTY RT(R) Service: ? Author Type: Rac Specialist Type: Progress Notes Filed: 10/29/2024 14:30 Note [...] PATIENT PRESENTS WITH AN IMPLANTABLE OR ATTACHED INSURANCE MARKETING SPECIALIST: No RADIOLOGY DEPARTMENT: CT; Exam(s) Completed: Chest PERIPHERAL IV DATA: Not applicable SIGNED BY: RT Leonle(R) October 29, 2024 2:30 PM PROGRESS Observed: 10/14/2024 8:37 AM Status: COMPLETED Source: [facility] HNO ID: [id number] Author: MONIKA PENDLETON, DO Service: ? Author Type: Physician Type: Progress Notes Filed: 10/14/2024 12:06 Note Text: New patient referred by Dr Glover ([place] Patent Legal Assistant) for decline in visual acuity both eyes Course: - late summer 2023 he began noticed acute vision decline upon awakening and then it continued to progress slowly - saw Dr Glover and per patient had MRI at [facility] (no results or images available today) - also notices significant nyctalopia and color vision loss Medical Hx: HTN; HLD Recent Neuro-Imaging: - as above - per patient he had MRI at [facility] (no results or images available today) Recent [...] the bitemporal defect (despite normal MRI at [facility]). I have confirmed and edited as necessary [...] Observed: 09/16/2024 5:12 PM Status: COMPLETED Source: [facility] HNO ID: [id number] Author: AMBER SAWYER LPN Service: ? Author [...] Observed: 09/16/2024 3:18 PM Status: COMPLETED Source: [facility] HNO ID: [id number] Author: NIKI NJ APRN.STAGE BUILDER Service: ? Author Type: Nurse Practitioner Type: [...] worsening/no improvement. Niki Nj APRN.CNP CNOV Observed: 09/16/2024 3:00 PM Status: COMPLETED Source: [facility] MARQUEZ NOR[facility] ([id number]) 1945 M Date Time Provider Department 09/16/24 3:00 PM NIKI NJ During your visit today, we recorded the following information about you: Pulse Respiration Blood pressure Weight 67/minute 16/minute 126/82 83.9 kg Niki Nj APRN.CNP 09/18/2024 11:29 AM Signed This is a 79 year old male who presents today with: Patient presents with: Recheck: 1 month follow up HISTORY OF PRESENT ILLNESS: Marquez Mathew Norwood is a 79 year old male. [...] BLOOD COUNT AND DIFFERENTIAL [SQCBCDIF] Order #: [id number] FUTURE COMPREHENSIVE METABOLIC PANEL [SQCMP] Order #: [id number] FUTURE LIPID PANEL BASIC [SQLIPB] Order #: [id number] FUTURE HEMOGLOBIN A1C [UUCIO7N] Order #: [id number] FUTURE VITAMIN D 25 HYDROXY [SQVITD] Order #: [id number] FUTURE VITAMIN B12 [SQB12] Order #: [id number] FUTURE IRON AND TIBC [SQIRON] Order #: [id number] FUTURE FERRITIN [SQFERR] Order #: [id number] FUTURE THYROID STIMULATING HORMONE [SQTSH] Order #: [id number] FUTURE T4 FREE/FREE THYROXINE [SQFT4] Order #: [id number] FUTURE atorvastatin (LIPITOR) 40 mg tabletTake 1 tablet by mouth daily at bedtime. For cholesterol.Disp: 90 tabletRfl: 1 [employer] COVID-19 VACCINE AGE 12+ YR (COMIRNATY) [27969FDR] Order #: [id number] PNEUMOCOCCAL VACCINE, 20 VALENT (PREVNAR 20) [56794TDX] Order #: [id number] AMBULATORY EAR LAVAGE/IRRIGATION [72253UKQ] Order #: [id number] Prescriptions as of 09/18/2024 - atorvastatin (LIPITOR) [...] Noted Resolved Depression [F32.A] 08/31/2009 Elevated BP [SNQ2050] 08/31/2009 Hyperlipidemia, mixed [E78.2] 05/27/2019 BCC (basal [...] Service: OFFICE/OUTPATIENT ESTABLISHED MOD MDM 30 MIN [87571] Additional E/M codes: VISIT CPLX INHERENT EANDM ASSOC WITH MED * Encounter Status:Closed by NIKI NJ on 09/18/24 PROGRESS Observed: 08/19/2024 11:35 AM Status: COMPLETED Source: [facility] Author: NIKI NJ APRN.[facility] Service: ? Author Type: Nurse Practitioner Type: Progress Notes Filed: 08/21/2024 09:37 Note Text: This is a 79 year old male who presents today with: Patient presents with: ER F/U: [facility] ER f/u 08/12/24 dx: kidney stone HISTORY OF PRESENT ILLNESS: Marquez Norwood is a 79 year old male. Patient presents with: ER F/U: [facility] ER f/u 08/12/24 dx: kidney stone Patient presents for hospital follow-up. 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 He had a mildly elevated [...] needed for worsening/no improvement. MEENA SamOV Observed: 08/19/2024 11:00 AM Status: COMPLETED Source: [facility] MARQUEZ NORWOOD ([id number]) 1945 M Date Time Provider Department 08/19/24 11:00 AM NIKI NJ During your visit today, we recorded the following information about you: Pulse Respiration Blood pressure 72/minute 16/minute 138/92 Niki Nj APRN.CNP 08/21/2024 9:37 AM Signed This is a 79 year old male who presents today with: Patient presents with: ER F/U: [facility] ER f/u 08/12/24 dx: kidney stone HISTORY OF PRESENT ILLNESS: Marquez Norwood is a 79 year old male. Patient presents with: ER F/U: [facility] ER f/u 08/12/24 dx: kidney stone Patient presents for hospital follow-up. 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 He had a mildly elevated [...] scheduled or as needed for worsening/no improvement. iNki Nj APRN.Niki Mejias APRN.CNP 08/19/2024 12:04 PM Signed Return for [facility] labs. Increase the fluoxetine to 40 [...] Reason for Visit: ER F/U [41] Cmt: [facility] ER f/u 08/12/24 dx: kidney stone Primary [...] Noted Resolved Depression [F32.A] 08/31/2009 Elevated BP [CVB6800] 08/31/2009 Hyperlipidemia, mixed [E78.2] 05/27/2019 BCC (basal [...] daily. Level of Service: OFFICE/OUTPATIENT ESTABLISHED MOD [facility] 30 MIN [55276] Additional E/M codes: VISIT CPLX INHERENT EANDM ASSOC WITH MED * Encounter Status:Closed by NIKI NJ on 08/21/24 VALERI Observed: 05/08/2024 12:00 AM Status: COMPLETED Source: [facility] MARQUEZ NORWOOD ([id number]) 1945 M Date Time Provider Department 05/08/24 Bryon SOLANO [facility] During your visit today, we recorded the [...] Noted Resolved Depression [F32.A] 08/31/2009 Elevated BP [PKC5698] 08/31/2009 Hyperlipidemia, mixed [E78.2] 05/27/2019 BCC (basal cell carcinoma), face [C44.310] 12/01/2020 Hypertension, essential [I10] 12/01/2020 Recurrent major depressive disorder, in partial*12/01/2020 Encounter Status:Closed by BRONWYN TERRAZAS on 05/08/24 VALERI Observed: 04/17/2024 12:00 AM Status: COMPLETED Source: [facility] MARQUEZ NORWOOD ([id number]) 1945 M Date Time Provider Department 04/17/24 Bryon SOLANO [facility] During your visit today, we recorded the following information about you: Haily Kennedy, QUALITY CHECKER 04/17/2024 3:07 PM Signed Pt's calls states [...] to start therapy. Please advise. Niki Nj APRN.STAGE BUILDER 04/17/2024 3:49 PM Signed I went ahead and sent a refill of the pain medication into the pharmacy. Did he get scheduled with ortho for the shoulder pain? Sheila Ayala RN 04/17/2024 4:06 PM Signed Called and left a voicemail for the Patient's to call back and ask for a nurse to receive the providers message. JODIE Steve Amanda, RN 04/25/2024 11:10 AM Signed Looks like Pt has a VV with Sanam Ortiz in [place] for shoulder. Niki Nj APRN.SHEA 04/27/2024 8:25 AM Signed It looks like that was cancelled. He needs follow-up scheduled with ortho. Meme Robertson 04/27/2024 12:08 PM Signed 1st call attempt, left vm Meme Robertson 04/29/2024 9:58 AM Signed 2nd call attempt, left vm Edwige [place] 05/01/2024 11:17 AM Signed 3rd attempt, left vm. dEwige [place] May 01, 2024 11:17 AM Allergies [...] Noted Resolved Depression [F32.A] 08/31/2009 Elevated BP [TBY5956] 08/31/2009 Hyperlipidemia, mixed [E78.2] 05/27/2019 BCC (basal [...] Observed: 04/14/2024 1:34 PM Status: COMPLETED Source: [facility] HNO ID: [id number] Author: ?, ?, ? Service: ? Author Type: ? Type: Progress Notes Filed: 04/14/2024 13:35 Note Text: POPULATION HEALTH NAVIGATION OUTREACH Action/FYI No answer, lvm and sent my chart message for pt to call to schedule ortho consult Reason for Outreach Care Gap/HCC or Scheduling Wellness Visits Care Gaps due: N/A Patient Contacted: Unable or unnecessary to reach patient: Left message [employer] message sent Navigation Signature: Whitley Vazquez April 14, 2024 1:35 PM CNPTOUTREACH Observed: 04/14/2024 12:00 AM Status: COMPLETED Source: [facility] Patient Outreach (NETNAV) MARQUEZ NORWOOD ([id number]) 1945 M Date Time Provider Department 04/14/24 [...] Noted Resolved Depression [F32.A] 08/31/2009 Elevated BP [EQB2408] 08/31/2009 Hyperlipidemia, mixed [E78.2] 05/27/2019 BCC (basal cell carcinoma), face [C44.310] 12/01/2020 Hypertension, essential [I10] 12/01/2020 Recurrent major depressive disorder, in partial*12/01/2020 Encounter Status:Closed by WHITLEY VAZQUEZ on 04/14/24 CNPN Observed: 04/08/2024 12:00 AM Status: COMPLETED Source: [facility] Telephone (FAMPWS) MARQUEZ NORWOOD ([id number]) 1945 M Date Time Provider Department 04/08/24 NIKI NJ During your visit today, we recorded the following information about you: Concepcion Rausch LPN 04/08/2024 10:27 AM Signed Received a call from [facility]. They do not accept patients insurance. Amber Sawyer LPN 04/08/2024 10:42 AM Signed Noted. Will fax referral to [facility]. Pt was aware [facility] may not accept insurance and was aware they would notify office if they didn't. CAMELIA Tee Jamie, LPN 04/08/2024 12:04 PM Signed Phoned pt to give update. No answer, unable to leave message. CAMELIA Tee M Robin, RN 04/09/2024 9:24 AM Signed [facility] phoned to report they received a referral from [facility] provider, for this patient, but they do [...] Noted Resolved Depression [F32.A] 08/31/2009 Elevated BP [NGN7249] 08/31/2009 Hyperlipidemia, mixed [E78.2] 05/27/2019 BCC (basal cell carcinoma), face [C44.310] 12/01/2020 Hypertension, essential [I10] 12/01/2020 Recurrent major depressive disorder, in partial*12/01/2020 Encounter Status:Closed by KARLEY CAMPBELL on 04/09/24 PROGRESS Observed: 04/07/2024 2:32 PM Status: COMPLETED Source: [facility] Author: NIKI NJ APRN.STAGE BUILDER Service: ? Author Type: Nurse Practitioner Type: [...] degenerative changes noted. He was treated with [place]. He was given a sling and an ice pack. He was discharged with a short course of [place]. Refers that the shoulder is still painful. [...] Observed: 04/07/2024 2:20 PM Status: COMPLETED Source: [facility] MARQUEZ NORWOOD ([id number]) 1945 M Date Time Provider Department 04/07/24 [...] degenerative changes noted. He was treated with [place]. He was given a sling and an ice pack. He was discharged with a short course of [place]. Refers that the shoulder is still painful. [...] Diagnosis:Encounter for immunization [Z23] Order(s):CONSULT TO ORTHOPAEDICS [9037] Order #: [id number]: 1 FUTURE CONSULT TO PHYSICAL THERAPY [9006] Order #: [id number]: 1 FUTURE predniSONE (DELTASONE) 10 mg tabletTake [...] 65+ YR, HIGH DOSE, TRIVALENT (FLUZONE HIGH-DOSE) [04416GAQ] Order #: [id number] Prescriptions as of 04/08/2024 - predniSONE (DELTASONE) [...] Noted Resolved Depression [F32.A] 08/31/2009 Elevated BP [ILK8805] 08/31/2009 Hyperlipidemia, mixed [E78.2] 05/27/2019 BCC (basal [...] days. Level of Service: OFFICE/OUTPATIENT ESTABLISHED MOD [facility] 30 MIN [10713] Additional E/M codes: VISIT CPLX INHERENT EANDM ASSOC WITH MED * Encounter Status:Closed by AMBER SAWYER on 04/08/24 VALERI Observed: 04/07/2024 12:00 AM Status: COMPLETED Source: [facility] Telephone (4CQ) MARQUEZ NORWOOD ([id number]) 1945 M Date Time Provider Department 04/07/24 Bryon SOLANO 4CQ During your visit today, we recorded the following information about you: Rosa Lane 04/07/2024 3:29 PM Signed Pt wanted to stay in [place] and decided to go to [facility]. Niki Nj APRN.STAGE BUILDER 04/07/2024 6:10 PM Signed I'm not sure what this is in reference to. Is this for physical therapy referral? Or the ortho referral? Amber Sawyer LPN 04/08/2024 9:56 AM Signed Pt has appt with [facility] PT. states they were asking for referral to local Ortho because they do not want to travel to [place]. Referral faxed to [facility]. Amber Sawyer LPN Allergies As of Date: [...] Noted Resolved Depression [F32.A] 08/31/2009 Elevated BP [FDQ6196] 08/31/2009 Hyperlipidemia, mixed [E78.2] 05/27/2019 BCC (basal cell carcinoma), face [C44.310] 12/01/2020 Hypertension, essential [I10] 12/01/2020 Recurrent major depressive disorder, in partial*12/01/2020 Encounter Status:Closed by AMBER SAWYER on 04/08/24 ALLERGIES DATE TYPE / CODE NAME / CODE REACTION SEVERITY SOURCE Drug Class/125231153(SNO MED CT) NO KNOWN ALLERGIES [facility] ENCOUNTERS ADMIT/DISCHARGE ACCOUNT NUMBER ADMITTING ENCOUNTER CLASS LOC ATION SOURCE 03/22/2025/ 5 [id number] [facility] ing:[facility]IE [facility] 03/22/2025/ 5 [id number] [facility] 03/15/2025/ 5 [id number] [facility] ing:[facility] 02/08/2025 [id number] [facility] Hospital[facility] ing:[facility] 02/08/2025 [id number] Ambulatory [facility] HospitalBuild ing:[facility] 01/26/2025/ 5 [id number] [facility] 01/26/2025/ 5 [id number] Ambulatory [facility] HospitalBuild ing:WOHE [facility] 12/07/2024/ 5 [id number] Ambulatory [facility] HospitalBuild ing:OPHT [facility] 11/02/2024/ 5 [id number] Ambulatory [facility] HospitalBuild ing:OPHT [facility] 10/29/2024 [id number] [facility] 10/29/2024 [id number] Ambulatory [facility] HospitalBuild ing:WOCT [facility] 10/14/2024/ 5 [id number] Ambulatory [facility] HospitalBuild ing:OPHT [facility] 09/16/2024/ 5 [id number] [facility] HospitalBuild ing:WOFM [facility] 08/19/2024/ [id number] [facility]/07[facility]24/ 4 [id number] [facility] PAYERS ENCOUNTER GUARANTOR PAYER SUBSCRIBER SOURCE 03/22/2025 Primary Insuranc e:[place] MEDICAREPolicy Number: [id number] Date:1429-58-72Rwje Name:Jorge QUINTANILLA: [id number] [place] [address] [facility] 03/22/2025 Primary Insuranc e:[place] MEDICAREPolicy Number: [id number] Date:6866-68-42Cutr Name:Jorge QUINTANILLA: [id number] [place] [address] [facility] 03/15/2025 Primary Insuranc e:[place] MEDICAREPolicy Number: [id number] Date:6054-31-95Utda Name:Jorge ALANISODOB: [id number] [place] [address] [facility] 02/08/2025 Primary Insuranc e:[place] MEDICAREPolicy Number: [id number] Date:7275-66-39Luft Name:Jorge ALANISODOB: [id number] [place] [address] [facility] 02/08/2025 Primary Insuranc e:[place] MEDICAREPolicy Number: [id number] Date:4955-44-88Palo Name:Jorge ALANISODOB: [id number] [place] [address] [facility] 01/26/2025 Primary Insuranc e:[place] MEDICAREPolicy Number: [id number] Date:9049-44-38Ztwr Name:Jorge ALANISODOB: [id number] [place] [address] [facility] 01/26/2025 Primary Insuranc e:[place] MEDICAREPolicy Number: [id number] Date:4923-17-95Jmgs Name:Jorge ALANISODOB: [id number] [place] [address] [facility] 12/07/2024 Primary Insuranc e:[place] MEDICAREPolicy Number: [id number] Date:3417-64-10Qhxb Name:Jorge ALANISODOB: [id number] [place] [address] [facility] 11/02/2024 Primary Insuranc e:[place] MEDICAREPolicy Number: [id number] Date:2615-76-21Tioo Name:Jorge ALANISODOB: [id number] [place] [address] [facility] 10/29/2024 Primary Insuranc e:[place] MEDICAREPolicy Number: [id number] Date:5138-07-97Dihu Name:Jorge VARGASOB: [id number] [place] [address] [facility] 10/29/2024 Primary Insuranc e:[place] MEDICAREPolicy Number: [id number] Date:8272-30-19Niio Name:Jorge ALANISODOB: [id number] [place] [address] [facility] 10/14/2024 Primary Insuranc e:[place] MEDICAREPolicy Number: [id number] Date:9304-06-17Lcwh Name:Jorge VARGASOB: [id number] [place] [address] [facility] 09/16/2024 Primary Insuranc e:[place] MEDICAREPolicy Number: [id number] Date:2264-85-98Pqhb Name:Jorge VARGASOB: [id number] [place] [address] [facility] 08/19/2024 Primary Insuranc e:[place] MEDICAREPolicy Number: [id number] Date:6069-27-95Hxih Name:Jorge VARGASOB: [id number] [place] [address] [facility] 04/07/2024 Primary Insuranc e:[facility] Number: [id number] Date:5386-13-22Odmh Name:Jorge VARGASOB: [id number] [place] [address] [facility]
[2025-04-02 23:18] VITALS: BP 153/111; PULSE 72; RESP 18; TEMP 36.6; O2SAT 99
[2025-04-03] VITALS (7 sets, daily range): BP systolic 107–170; BP diastolic 53–100; PULSE 66–92; RESP 16–18; TEMP 36.5–36.7; O2SAT 94–100; BMI 27.0
[2025-04-03 00:17] LABS: Hematocrit 43.9 % (40-54); Hemoglobin 14.7 g/dL (13.0-16.5); Immature Granulocytes Count 0.090 X10^3/uL (0.0-0.0); Mean Corp Hgb Conc 33.5 g/dL (32-36); Mean Corpuscular Volume 88.7 fL (80-94); Mean Platelet Vol. 10.8 fl (6.2-12.0); NRBC Flagged by Analyzer 0 % (0-5); Platelet Count 301 K/mm3 (150-450); RBC Distribution Width CV 12.2 % (11.6-14.6); RBC Distribution Width SD 39.8 fl (35.1-43.9); Red Blood Count 4.95 M/mm3 (4.6-6.2); White Blood Count 16.4 K/mm3 (4.4-11.0)
[2025-04-03 00:21] LABS: AST(SGOT) 30 U/L (<=37); Alanine Aminotransfer ALT/SGPT 21 U/L (<=46); Albumin, Serum 4.6 g/dL (3.4-4.8); Alkaline Phosphatase 93 U/L (40-129); Anion Gap 21 (5-15); BUN 13 mg/dL (4-19); BUN/Creat Ratio 13.1 RATIO (10-20); Calcium,Total 9.7 mg/dL (7.6-11.0); Carbon Dioxide 16.6 mmol/L (21.0-32.0); Chloride 102 mmol/L (98-108); Globulin 1.7 g/dL (2.2-4.2); Glucose 175 mg/dL (70-99); Lipase 36 U/L (13-75); Potassium 3.9 mmol/L (3.3-5.1)
--- NOTE | 2025-04-03 00:22 | CT_ITS ---
PROCEDURE: ABDOMEN/PELVIS W IV CONT ONLY 04/03/2025 REASON FOR EXAM: SHARP ABDOMINAL PAIN, R/O PERFORATION/OBSTRUCTION TECHNIQUE: Procedure Code: [id number] Modality: CT Procedure: ABDOMEN/PELVIS W IV CONT ONLY Coronal and Sagittal reconstruction series were provided. CONTRAST: OMNIPAQUE 350 VOLUME: 100 mL One or more dose reduction techniques were used (e.g., Automated exposure control, adjustment of the mA and/or kV according to patient size, use of iterative reconstruction technique. RADIATION DOSE SUMMARY: CTDlvol: 20.78 mGy DLP: 1032 mGycm COMPARISON: CT SCAN ON 08/10/2024. FINDINGS: 3 mm right renal nonobstructing stone. Scattered left renal simple cysts with the largest measuring 2 cm. Unchanged mild prostatomegaly. Unchanged mild diffuse thickening of the wall of the bladder, probably chronic bladder outlet obstruction. Mild diffuse thickening of the colon, underdistention/spasm versus mild colitis. Bilateral fat containing inguinal hernias without incarceration. Mild gastroparesis/gastritis. Cholelithiasis without acute cholecystitis. Calcified atheromatous plaques of the tortuous, mildly ectatic aorta and iliac arteries. The visualized lung bases are unremarkable. Normal liver. Normal extrahepatic biliary system. Normal spleen. Normal pancreas. Normal bilateral adrenal glands. Normal size of the right kidney. There is no right renal mass. There is no right hydronephrosis. Normal visualized right ureter. Normal size of the left kidney. There is no left renal mass. There are no left renal calculi. There is no left hydronephrosis. Normal visualized left ureter. Normal small intestine. The appendix is visualized and appears normal. There is no demonstrated peritoneal fluid. Normal inferior vena cava. Normal retroperitoneum. There is no pelvic mass lesion or lymphadenopathy. There is no pelvic fluid. Mild osteopenia. Diffuse spondylosis. CT/Abdomen/Pelvis W IV Cont ONLY IMPRESSION: 3 mm right renal nonobstructing stone. Scattered left renal simple cysts with the largest measuring 2 cm. Unchanged mild prostatomegaly. Unchanged mild diffuse thickening of the wall of the bladder, probably chronic bladder outlet obstruction. Mild diffuse thickening of the colon, underdistention/spasm versus mild colitis . Bilateral fat containing inguinal hernias without incarceration. Mild gastroparesis/gastritis. Cholelithiasis without acute cholecystitis. Calcified atheromatous plaques of the tortuous, mildly ectatic aorta and iliac arteries. [facility]
[2025-04-03] MEDS: 0.9% Normal Saline (1000mL) 1,000 ML 999 ML IV ×2 (01:17→06:34)
[2025-04-03 01:34] LABS: Color, Urine Straw (Yellow); Glucose, Dipstick 1000 mg/dl (Normal); Ketone-Dipstick 15 mg/dl (Negative); Leukocyte Esterase-Dipstick Negative /ul (Negative); Mucous, Urine 0 SEEN /hpf (<or=2+); Nitrite-Dipstick Negative (Negative); Occult Blood-Urine 25 /ul (Negative); Protein-Dipstick 30 mg/dl (Negative); Specific Gravity, Urine 1.005 (1.002-1.030); Urine Bilirubin Dipstick Negative (Negative)
[2025-04-03 02:09] LABS: Red Blood Cells-Urine 0-5 SEEN /hpf (0-5); Squamous Epithelial Cells - UA 0-5 SEEN /hpf (0-5)
[2025-04-03] MEDS: HYDROmorphone 0.5 MG/0.5 ML SYRINGE IV (02:38)
--- NOTE | 2025-04-03 04:54 | EDS_ITS ---
HPI History of Present Illness Chief Complaint: [facility] Medical History Skin cancer CKD (chronic kidney disease) Hypercholesterolemia Hypertension Home Medications ?Medication ?Instructions ?Recorded ?Last Taken ?Type atorvastatin 40 mg tablet 40 mg PO DAILY 08/10/2409/01 History gabapentin 300 mg capsule 600 mg PO QHS 08/10/2408/09 History acetaminophen 500 mg tablet 1,000 mg PO Q6H PRN pain 0 08/11/24 08/10/24 History diphenhydramine 25 2 tab PO QHS 08/11/24 History mg-acetaminophen 500 mg tablet (Tylenol PM Extra Strength) fluoxetine 20 mg capsule 20 mg PO QHS 08/11/24 History fluoxetine 40 mg capsule 40 mg PO DAILY 08/11/2409/29 History lisinopril 10 mg tablet 10 mg PO DAILY 08/11/2409/29 History buspirone 5 mg tablet 5 mg PO QHS 04/03/25 Unknown History ondansetron 4 mg disintegrating 4 mg PO Q8H PRN PRN Na usea #10 tabs 04/03/25 Unknown Rx tablet Allergy/AdvReac Type Severity Reaction Status Date / Time No Known Allergies Allergy Verified 04/06/24 15:16 Family History Mother Cancer Father Cancer Surgical History Status post surgical removal of malignant neoplasm of skin Social History household members: spouse Smoking Status: Never smoker alcohol intake: never substance use type: marijuana EXAM Physical Exam Const Vital Signs: 04/02/25 23:18 04/03/25 01:18 04/03/25 03:00 Temperature 97.8 F Temperature Source Oral Pulse Rate 72 92 83 Respiratory Rate 18 18 18 Blood Pressure 153/111 H 170/100 H 139/65 H Blood Pressure Mean 125 123 89 Pulse Ox 99 100 99 Oxygen Delivery Method Room Air Room Air 04/03/25 05:00 04/03/25 05:00 04/03/25 07:00 Temperature 98 F Temperature Source Pulse Rate 69 69 66 Respiratory Rate 16 16 16 Blood Pressure 107/53 L 107/53 L 114/60 Blood Pressure Mean 71 71 78 Pulse Ox 94 94 100 Oxygen Delivery Method Room Air Room Air [facility] Narrative Medical decision making narrative: HISTORY OF PRESENT ILLNESS: Chief complaint: Abdominal pain, nausea vomiting 79-year-old male history of hypertension, no past abdominal surgical history presents with acute onset abdominal pain nausea vomiting began tonight. Notes he uses THC occasionally. Denies alcohol use. Denies any new foods. Denies diarrhea. Denies fever. Denies chest pain shortness of breath REVIEW OF SYSTEMS: Pertinent positives: Abdominal pain, nausea vomiting Pertinent negatives: CP, SOB, syncope PHYSICAL EXAM: Nursing triage notes reviewed, Vital signs reviewed Constitutional: please see [facility] HENT: MMM Eyes: Pupils equal round and reactive to light, Extraocular muscles intact Neck: No stridor, no JVD, full neck ROM Lungs: Clear to auscultation, No wheezing or rales. No increased work of breathing, no conversational dyspnea, no accessory muscle use, no nasal flaring. No respiratory distress noted Heart: Regular rate and rhythm, No murmurs, No rubs and No gallops, 2+ distal pulses (radial, femoral, posterior tibial) in all extremities Abdomen: Soft, diffuse tenderness but no rigidity, rebound or guarding, no obvious peritoneal signs, no palpable pulsatile abdominal masses, no auscultated abdominal bruit : No CVAT Extremities: No edema Neuro: No new focal neurological deficits, cranial nerves II through XII intact, 5/5 strength in all present extremities. Intact sensation to light touch in all present extremities, 2+ reflexes bilateral patella tendons. Skin: No rash or lesions noted MEDICAL DECISION MAKING: Chief Complaint: please see HPI External records reviewed: Reviewed prior imaging studies Factors affecting care: As per HPI Social determinants of health: n history of THC use History obtained from others: n EMS, family Consults: Internal Medicine [facility] Narrative: Patient was initially hemodynamically stable, afebrile and nontoxic-appearing. Exam with diffuse TTP. But no right upper quadrant tenderness. Negative Rangel sign I considered the following differential diagnosis: Abdominal pain differential I obtained a broad lab and imaging work to further determine if the patient was suffering from a life-threatening etiology. Initially treated with morphine, Toradol. Patient got Zofran by EMS ALL IMAGES (IF OBTAINED) HAVE BEEN PERSONALLY REVIEWED AND INTERPRETED BY MYSELF. CBC with leukocytosis suggestive of systemic relation, no anemia or thrombocytopenia BMP without significant electrolyte disturbance, noted metabolic acidosis and elevated anion gap consistent with endorgan hypoperfusion and dehydration. No acute kidney injury. Mild hyperglycemia Lipase is wnl indicating no pancreatic inflammation. Urinalysis shows no evidence of urinary inflammation suggestive of UTI CT scan abdomen pelvis no evidence of obvious perforation obstruction or other acute ernestina gical pathology Despite initial treatments he continued to have abdominal pain and nausea vomiting. Treated with 5 mg IV Dilaudid and 1 mg of IV Haldol with improvement in symptoms Upon reevaluation after treatments patient noted improvement. He was initially able to tolerate p.o. But as I was examining him he became nauseous. He was given third dose of antiemetic in the form of Reglan. Despite this he continued to be nauseous. This point EKG was obtained today to check his intervals. EKG showed normal sinus rhythm rate 88, left axis deviation, prolonged QT interval at 500, no obvious ischemic changes. Gave IV magnesium, then Compazine given concern for prolonged QT. Given intractable nausea vomiting patient be admitted to internal medicine service for further treatment. Discussed with Dr. Ambrose The patient and/or family, caregivers express understanding. The patient and/or family, caregivers agrees with the plan. Shared decision making: I will have a discussion with the patient and or visitors regarding risk/benefits of further testing or admission. They will be made aware of of the risk/benefits inherent in this decision they will be given the opportunity to voice understanding. Total critical care time today provided was at least 0 minutes. This excludes separately billable procedures. Critical care time (if documented) is secondary to the patient having high probability of clinically significant/life threatening deterioration in the patient's condition which required my urgent intervention. Impression: 1. Acute abdominal pain 2. Acute nausea 3. Colitis 4. Intractable nausea and vomiting Dispo: Discharge home This note was generated with [employer] dictation software. It may contain incorrect words, spelling, and punctuation that were not noted in review of the chart prior to signing. Lab Data Labs: Laboratory Results - last 24 hr 04/02/25 04/03/25 23:42 01:26 WBC 16.4 H RBC 4.95 Hgb 14.7 Hct 43.9 MCV 88.7 MCH 29.7 MCHC 33.5 RDW Std Deviation 39.8 RDW Coeff of Clarence 12.2 Plt Count 301 MPV 10.8 Immature Gran % (Auto) 0.500 Neut % (Auto) 86.2 H Lymph % (Auto) 6.1 L [place] % (Auto) 6.9 Eos % (Auto) 0.0 Baso % (Auto) 0.3 Absolute Neuts (auto) 14.2 H Absolute Lymphs (auto) 1.01 Nucleated RBC % 0 Sodium 139 Potassium 3.9 Chloride 102 Carbon Dioxide 16.6 L Anion Gap 21 H BUN 13 Creatinine 0.97 Est GFR (MDRD) Non-Af 81 BUN/Creatinine Ratio 13.1 Glucose 175 H Calcium 9.7 Total Bilirubin 0.58 AST 30 ALT 21 Alkaline Phosphatase 93 Total Protein 6.3 Albumin 4.6 Globulin 1.7 L Albumin/Globulin Ratio 2.7 H Lipase 36 Urine Color Straw Urine Clarity Clear Urine pH 7.0 Ur Specific [place] 1.005 Urine Protein 30 H Urine Glucose (UA) 1000 H Urine Ketones 15 H Urine Occult Blood 25 H Urine Nitrite Negative Urine Bilirubin Negative Urine Urobilinogen Normal Ur Leukocyte Esterase Negative Urine RBC 0-5 SEEN Urine WBC 0-5 SEEN Ur Squamous Epith Cells 0-5 SEEN Urine Bacteria 0 SEEN Urine Mucus 0 SEEN Radiography Diagnostic Testing: Clinical Impression(s) from Imaging Studies Abdomen/Pelvis CT 04/03/25 00:22 IMPRESSION: 3 mm right renal nonobstructing stone. Scattered left renal simple cysts with the largest measuring 2 cm. Unchanged mild prostatomegaly. Unchanged mild diffuse thickening of the wall of the bladder, probably chronic bladder outlet obstruction. Mild diffuse thickening of the colon, underdistention/spasm versus mild colitis. Bilateral fat containing inguinal hernias without incarceration. Mild gastroparesis/gastritis. Cholelithiasis without acute cholecystitis. Calcified atheromatous plaques of the tortuous, mildly ectatic aorta and iliac arteries. [facility] T[facility] Chief Complaint: Abd Pain ED Provider: Renny Martinez Dx/Rx/DC Orders Instructions: ED Abdominal Pain Unkn Cause Male... Prescriptions: New ondansetron 4 mg tablet,disintegrating 4 mg PO Q8H PRN PRN (Reason: Nausea) Qty: 10 0RF No Action buspirone 5 mg tablet 5 mg PO QHS atorvastatin 40 mg tablet 40 mg PO DAILY gabapentin 300 mg capsule 600 mg PO QHS fluoxetine 40 mg capsule 40 mg PO DAILY fluoxetine 20 mg capsule 20 mg PO QHS Patient Comments: take 1 capsule by mouth once daily WITH 40 MG AND 60 MG CAPSULES lisinopril 10 mg tablet 10 mg PO DAILY diphenhydramine-acetaminophen [Tylenol PM Extra Strength] 25-500 mg tablet 2 tab PO QHS acetaminophen 500 mg tablet 1,000 mg PO Q6H PRN (Reason: pain) Primary Care Provider: Bryon Ovalles Referrals: Friend,DO Matthew [Med Staff - Active Staff, Gastroenterology] Bryon Ovalles PA [Primary Care Provider, Medical] Activity Restrictions/Additional Instructions: Thank you for trusting us with your care today! Your labs images were overall reassuring. They showed signs of inflammation of your colon which is nonspecific and may cause your abdominal pain. Please take Zofran as needed for nausea vomiting control Please take Tylenol (2 pills, 650 mg), ibuprofen (2 pills, 400 mg) every 6 hours as needed for pain and fever control. Please return to the emergency department if your symptoms change or worsen. Please follow with your primary care physician for further outpatient evaluation and management. Print Language: Yakut Disposition Disposition: Home, Self Care
--- NOTE | 2025-04-03 05:29 | EKG12_ITS ---
Test Reason : N/V Blood Pressure : */* mmHG Vent. Rate : 88 BPM Atrial Rate : 88 BPM P-R Int : 162 ms QRS Dur : 140 ms QT Int : 414 ms P-R-T Axes : 52 -36 25 degrees QTcB Int : 500 ms Normal sinus rhythm Left axis deviation Right bundle branch block Minimal voltage criteria for LVH, may be normal variant ( R in aVL ) Septal infarct (cited on or before 10-Aug-2024) Abnormal ECG Confirmed by NISHA QUEVEDO ([id number]), online editor JEANNE MONTANA ([id number]) on 04/05/2025 8:45:59 AM Referred By: Confirmed By: NISHA QUEVEDO
[2025-04-03] MEDS: Magnesium Sulfate 2 GM in Dextrose 5%-Water (100mL Bag) 100 ML IV (06:34)
--- NOTE | 2025-04-03 07:53 | PCM.HP.STD ---
HPI - General General Date of Service: 04/03/25 Chief Complaint: abdominal pain HPI Narrative MARQUEZ ENNIS, is a 79 M who presents with intractable nausea, vomiting and abdominal pain. Symptoms began around 1830 on the . Presented to the emergency room and as there is concern that he may have another kidney stone again. Patient had similar presentation when he had a kidney stone. Patient had a CAT scan that showed a 3 mm right renal nonobstructive stone. Mild gastroparesis/gastritis. Mild diffuse thickening of the colon. Patient received morphine, Toradol, IV fluids, hydromorphone, Haldol, metoclopramide. Was feeling better and then got worse again. Currently feeling better at this time. [facility] Medical History Skin cancer CKD (chronic kidney disease) Hypercholesterolemia Hypertension Home Medications ?Medication ?Instructions ?Recorded ?Last Taken ?Type atorvastatin 40 mg tablet 40 mg PO DAILY 08/10/24 08/09/24 History gabapentin 300 mg capsule 600 mg PO QHS 08/10/24 08/09/24 History acetaminophen 500 mg tablet 1,000 mg PO Q6H PRN pain 08/11/24 08/10/24 History diphenhydramine 25 2 tab PO QHS 08/11/24 08/09/24 History mg-acetaminophen 500 mg tablet (Tylenol PM Extra Strength) fluoxetine 20 mg capsule 20 mg PO QHS 08/11/24 08/09/24 History fluoxetine 40 mg capsule 40 mg PO DAILY 08/11/24 08/10/24 History lisinopril 10 mg tablet 10 mg PO DAILY 08/11/24 08/10/24 History buspirone 5 mg tablet 5 mg PO QHS 04/03/25 Unknown History ondansetron 4 mg disintegrating 4 mg PO Q8H PRN PRN Nausea #10 tabs 04/03/25 Unknown Rx tablet Allergy/AdvReac Type Severity Reaction Status Date / Time No Known Allergies Allergy Verified 04/06/24 15:16 Family History Mother Cancer Father Cancer Surgical History Status post surgical removal of malignant neoplasm of skin Social History household members: spouse Smoking Status: Never smoker alcohol intake: never substance use type: marijuana ROS ROS Narrative All review of systems were negative except as mentioned above in the history of present illness and the other review of systems. Vital Signs Vital Signs Vital Signs: 04/02/25 23:18 04/03/25 01:18 04/03/25 03:00 Temperature 36.6 C Temperature Source Oral Pulse Rate 72 92 83 Respiratory Rate 18 18 18 Blood Pressure 153/111 H 170/100 H 139/65 H Blood Pressure Mean 125 123 89 Pulse Ox 99 100 99 Oxygen Delivery Method Room Air Room Air 04/03/25 05:00 04/03/25 05:00 04/03/25 07:00 Temperature 36.6 C Temperature Source Pulse Rate 69 69 66 Respiratory Rate 16 16 16 Blood Pressure 107/53 L 107/53 L 114/60 Blood Pressure Mean 71 71 78 Pulse Ox 94 94 100 Oxygen Delivery Method Room Air Room Air Physical Exam Const Constitutional Narrative: Up in bed. Afebrile. Nontoxic. HEENT normocephalic and head/scalp atraumatic HEENT Narrative: Redness of the head extending into to his upper chest. No other rashes noted. Resp normal respiratory effort, no retractions, no use of accessory muscles and clear to auscultation bilaterally Cardio regular rate, regular rhythm, S1 normal heart sound and S2 normal heart sound GI normal to inspection, nondistended, normoactive bowel sounds, soft to palpation, non-tender, non-distended and hepatosplenomegaly Extremity normal to inspection Neuro Sensorium / Orientation: awake and alert Psych affect normal Results Lab / Micro Data Attestation: I reviewed the patient's lab results. Lab results narrative: EKG shows rectal bundle branch block. No change since August 11, 2024. 04/02/25 23:42 04/02/25 23:42 Labs: Laboratory Results - last 24 hr 04/02/25 23:42: WBC 16.4 H, RBC 4.95, Hgb 14.7, Hct 43.9, MCV 88.7, MCH 29.7, MCHC 33.5, RDW Std Deviation 39.8, RDW Coeff of Clarence 12.2, Plt Count 301, MPV 10.8, Immature Gran % (Auto) 0.500, Neut % (Auto) 86.2 H, Lymph % (Auto) 6.1 L, [place] % (Auto) 6.9, Eos % (Auto) 0.0, Baso % (Auto) 0.3, Absolute Neuts (auto) 14.2 H, Absolute Lymphs (auto) 1.01, Nucleated RBC % 0, Sodium 139, Potassium 3.9, Chloride 102, Carbon Dioxide 16.6 L, Anion Gap 21 H, BUN 13, Creatinine 0.97, Est GFR (MDRD) Non-Af 81, BUN/Creatinine Ratio 13.1, Glucose 175 H, Calcium 9.7, Total Bilirubin 0.58, AST 30, ALT 21, Alkaline Phosphatase 93, Total Protein 6.3, Albumin 4.6, Globulin 1.7 L, Albumin/Globulin Ratio 2.7 H, Lipase 36 04/03/25 01:26: Urine Color Straw, Urine Clarity Clear, Urine pH 7.0, Ur Specific [place] 1.005, Urine Protein 30 H, Urine Glucose (UA) 1000 H, Urine Ketones 15 H, Urine Occult Blood 25 H, Urine Nitrite Negative, Urine Bilirubin Negative, Urine Urobilinogen Normal, Ur Leukocyte Esterase Negative, Urine RBC 0-5 SEEN, Urine WBC 0-5 SEEN, Ur Squamous Epith Cells 0-5 SEEN, Urine Bacteria 0 SEEN, Urine Mucus 0 SEEN Imaging Radiology Impression Abdomen/Pelvis CT 04/03/25 00:22 IMPRESSION: 3 mm right renal nonobstructing stone. Scattered left renal simple cysts with the largest measuring 2 cm. Unchanged mild prostatomegaly. Unchanged mild diffuse thickening of the wall of the bladder, probably chronic bladder outlet obstruction. Mild diffuse thickening of the colon, underdistention/spasm versus mild colitis. Bilateral fat containing inguinal hernias without incarceration. Mild gastroparesis/gastritis. Cholelithiasis without acute cholecystitis. Calcified atheromatous plaques of the tortuous, mildly ectatic aorta and iliac arteries. [facility] Assessment & Plan Assessment/Plan (1) Intractable nausea and vomiting: PLAN: May be due to gastroenteritis versus gastroparesis versus other. Other possibilities could be cardiac variant as patient does have a right bundle branch block though that is not new. And other possibility could include cannabinoid hyperemesis syndrome. Patient does smoke marijuana daily though he only uses 1 bowl to smoke daily. Will cycle troponins Give IV fluids, antiemetics. Noted that possible gastroparesis on the CAT scan patient appears to have some diabetes's will like to avoid narcotics if possible. PLAN: Plan Hyperglycemia Patient with glucosuria on his urinalysis. No known history of diabetes but will start the patient on sign scale insulin. Check an A1c. 2000 kcal diet. Depression: Continue with buspirone, fluoxetine Hypertension: Continue with lisinopril VTE prophylaxis: Low risk at this time given observation status. CODE STATUS: Addressed with the patient. Patient wishes to be full code Case discussed with the patient's at bedside. Charges/Coding Visit Charges Inpatient E&M: 10206 Init Hosp L2
[2025-04-03 08:06] LABS: Troponin T High Sensitivity 16 ng/L (<=22)
[2025-04-03 08:10] LABS: Allen Test Positive; Base Excess 1 mmol/L (-2 to +2); FI02 21.0; PO2 71 mmHG (75-100); SITE L Radial; SO2 94 % (95-99)
[2025-04-03] MEDS: 0.9% Saline Lock 10 ML Syringe IV ×3 (09:07→16:56)
[2025-04-03] MEDS: 0.9% Normal Saline (1000mL) 1,000 ML 150 ML IV (09:09)
[2025-04-03] MEDS: Pantoprazole Sodium 40 MG in 0.9% Normal Saline (100mL MB+) 100 ML 300 MG IV ×2 (09:11→21:07)
[2025-04-03 10:03] LABS: Troponin T High Sens 2 HR 16 ng/L (<=22)
[2025-04-03 12:03] LABS: Troponin T High Sens 4 HR 16 ng/L (<=22)
--- NOTE | 2025-04-03 16:47 | CASEMGMT ---
JODIE MOSS NOTE/FRASER: Intro role of CM to patient and FRASER form explained re: Observation status for treatment of intractable nausea and vomiting.? Explained hospitalization will be paid per his insurance policy for Outpatient billing?and condition will continue to be evaluated for Inpt necessity. Also let pt know that [facility] sends paper in the billing packet with their phone number if questions arise. Pt and verbalize understanding and do not have any questions. ?Form signed, copy made and placed in chart, and original given to pt & . Armando MEYER RN CM
[2025-04-04] VITALS (8 sets, daily range): BP systolic 129–187; BP diastolic 71–103; PULSE 62–89; RESP 16–18; TEMP 36.7–37; O2SAT 94–95
[2025-04-04 06:13] LABS: Hematocrit 35.8 % (40-54); Hemoglobin 12.0 g/dL (13.0-16.5); Immature Granulocytes Count 0.030 X10^3/uL (0.0-0.0); Mean Corp Hgb Conc 33.5 g/dL (32-36); Mean Corpuscular Volume 89.7 fL (80-94); Mean Platelet Vol. 10.9 fl (6.2-12.0); NRBC Flagged by Analyzer 0 % (0-5); Platelet Count 187 K/mm3 (150-450); RBC Distribution Width CV 13.0 % (11.6-14.6); RBC Distribution Width SD 43.3 fl (35.1-43.9); Red Blood Count 3.99 M/mm3 (4.6-6.2); White Blood Count 9.7 K/mm3 (4.4-11.0)
[2025-04-04 06:38] LABS: Anion Gap 9 (5-15); BUN 20 mg/dL (4-19); BUN/Creat Ratio 18.7 RATIO (10-20); Calcium,Total 8.8 mg/dL (7.6-11.0); Carbon Dioxide 22.5 mmol/L (21.0-32.0); Chloride 109 mmol/L (98-108); Estimated Creatinine Clearance 56.46 ml/min (50-250); Glucose 86 mg/dL (70-99); Potassium 4.4 mmol/L (3.3-5.1)
--- NOTE | 2025-04-04 09:01 | PCM.PN.HOSP ---
Reason for Visit Chief Complaint: abdominal pain Subjective Subjective Complaining again of worsening abdominal pain. Feeling worse than he did last evening when I had seen him. Objective Data Objective Data Vital Signs: Vital Signs Temp Pulse Resp BP Pulse Ox O2 Del Method 37.0 C 62 16 130/83 H 94 Room Air 04/04/25 03:00 04/04/25 03:00 04/04/25 03:00 04/04/25 03:00 04/04/25 03:00 04/04/25 03:00 Oxygen Delivery Method Room Air Weight: 80.6 kg Body Mass Index (BMI) 27.0 Intake & Output: Intake and Output for Last 24 Hours 04/02/25 04/03/25 04/04/25 23:59 23:59 23:59 Intake Total 100 / 100 3484 / 3484 360 / 360 Balance 100 / 100 3484 / 3484 360 / 360 Lab / Micro Data 04/04/25 05:13 04/04/25 05:13 Labs: Laboratory Results - last 24 hr 04/03/25 09:42: Troponin T Hi Sens 2 Hr 16 04/03/25 11:27: POC Glucose 103 04/03/25 11:42: Troponin T Hi Sens 4Hr 16 04/03/25 16:13: POC Glucose 103 04/03/25 21:05: POC Glucose 85 04/04/25 05:13: WBC 9.7, RBC 3.99 L, Hgb 12.0 L, Hct 35.8 L, MCV 89.7, MCH 30.1, MCHC 33.5, RDW Std Deviation 43.3, RDW Coeff of Clarence 13.0, Plt Count 187, MPV 10.9, Immature Gran % (Auto) 0.300, Neut % (Auto) 71.9 H, Lymph % (Auto) 18.8 L, [place] % (Auto) 8.4, Eos % (Auto) 0.4, Baso % (Auto) 0.2, Absolute Neuts (auto) 7.0, Absolute Lymphs (auto) 1.82, Nucleated RBC % 0, Sodium 140, Potassium 4.4, Chloride 109 H, Carbon Dioxide 22.5, Anion Gap 9, BUN 20 H, Creatinine 1.06, Estim Creat Clear Calc 56.46, Est GFR (MDRD) Non-Af 72, BUN/Creatinine Ratio 18.7, Glucose 86, Calcium 8.8 04/04/25 06:11: POC Glucose 88 Physical Exam Const Constitutional Narrative: Uncomfortable. Afebrile. Writhing. HEENT head/scalp atraumatic and moist oral mucous membranes Resp normal respiratory effort, no retractions, no use of accessory muscles and clear to auscultation bilaterally Cardio regular rate, regular rhythm and S1 normal heart sound GI GI Narrative: Diffusely tender nondistended soft. Neuro Sensorium / Orientation: awake and alert Assessment & Plan Assessment/Plan (1) Intractable nausea and vomiting: PLAN: May be due to gastroenteritis versus gastroparesis versus other. Other possibilities could be cardiac variant as patient does have a right bundle branch block though that is not new. And other possibility could include cannabinoid hyperemesis syndrome. Patient does smoke marijuana daily though he only uses 1 bowl to smoke daily. Will cycle troponins Give IV fluids, antiemetics. Noted that possible gastroparesis on the CAT scan. On the , patient stated that he was feeling worse. His a.m. labs today appear to be unremarkable. He just did have a CT yesterday but with his worsening symptoms, will repeat imaging to see if any new developments have occurred. It was noted that he had some nonobstructive kidney stones. Will recheck the CAT scan and see if there is of any new developments. Given one-time dose of IV morphine to get further results from the CAT scan. PLAN: Plan Hyperglycemia Patient with glucosuria on his urinalysis. No known history of diabetes but will start the patient on sign scale insulin. Check an A1c. 2000 kcal diet. Depression: Continue with buspirone, fluoxetine Hypertension: Continue with lisinopril VTE prophylaxis: Low risk at this time given observation status. CODE STATUS: Addressed with the patient. Patient wishes to be full code Discussed with the patient's at bedside Charges/Coding Visit Charges Inpatient E&M: 94946 Subs Hosp L2
[2025-04-04] MEDS: Pantoprazole Sodium 40 MG in 0.9% Normal Saline (100mL MB+) 100 ML 300 MG IV ×2 (09:35→21:50)
[2025-04-04] MEDS: 0.9% Saline Lock 10 ML Syringe IV ×7 (09:44→21:50)
--- NOTE | 2025-04-04 13:35 | CT_ITS ---
PROCEDURE: ABDOMEN/PELVIS WITH CONTRAST 04/04/2025 REASON FOR EXAM: Constant abdominal pain TECHNIQUE: Procedure Code: [id number] Modality: CT Procedure: ABDOMEN/PELVIS WITH CONTRAST Coronal and Sagittal reconstruction series were provided. CONTRAST: Optiray 320 VOLUME: 100 mL. Oral contrast. One or more dose reduction techniques were used (e.g., Automated exposure control, adjustment of the mA and/or kV according to patient size, use of iterative reconstruction technique. RADIATION DOSE SUMMARY: CTDlvol: 35 mGy DLP: 1156 mGycm COMPARISON: April 03, 2025, August 10, 2024 FINDINGS: Lung bases: Linear platelike atelectasis of the lower lobes. Liver: Non cirrhotic. No mass. Gallbladder: Tiny calculi are seen within the gallbladder near the gallbladder neck along with a small amount of sludge. No biliary ductal dilation or choledocholithiasis. Spleen: Normal Pancreas: Normal Adrenals: Normal Kidneys: Water density cyst left upper pole 3.5 x 3.0 cm. 3 mm calculus right lower pole. No obstruction. Bladder: Bladder is not distended but there is some minimal bladder trabeculation. No bladder calculus seen. Reproductive Organs: Prostate is mildly enlarged. A few small dystrophic calcifications are seen within the prostate gland. Bowel: The colon is nearly completely evacuated. No wall thickening or pericolonic stranding. No pneumatosis is seen. Small bowel appears unremarkable. Stomach is normal. Appendix: Normal Lymph nodes: None appear enlarged. Vasculature: Moderate atherosclerotic plaque without aneurysm. Peritoneum / Retroperitoneum: No free air, free fluid or mass. Bones: Decreased bone mineralization commensurate with age. Disc space narrowing, marginal endplate spurring throughout the lumbar spine. Vacuum disc phenomenon mid and lower lumbar spine. Facet hypertrophy is seen. Osteoarthritis of both hips. CT/Abdomen/Pelvis WITH Contrast IMPRESSION: 1. No new acute abnormality. 2. Nonobstructing right lower pole renal calculus. Simple left renal cysts. Bosniak 1. No follow-up required. 3. Aortic atherosclerosis without aneurysm. 4. Mild bladder trabeculation without bladder wall thickening or distention. This is in the setting of a mildly enlarged prostate. Correlate with PSA and lower urinary tract symptoms. 5. Cholelithiasis. Reading Location: [id number]
[2025-04-05 03:40] VITALS: BP 133/75; PULSE 67; RESP 18; TEMP 36.9; O2SAT 94
[2025-04-05 07:12] LABS: Magnesium 2.3 mg/dL (1.5-2.2)
[2025-04-05 08:11] LABS: Hematocrit 37.5 % (40-54); Hemoglobin 12.5 g/dL (13.0-16.5); Immature Granulocytes Count 0.020 X10^3/uL (0.0-0.0); Mean Corp Hgb Conc 33.3 g/dL (32-36); Mean Corpuscular Volume 90.1 fL (80-94); Mean Platelet Vol. 11.3 fl (6.2-12.0); NRBC Flagged by Analyzer 0 % (0-5); Platelet Count 190 K/mm3 (150-450); RBC Distribution Width CV 12.7 % (11.6-14.6); RBC Distribution Width SD 41.7 fl (35.1-43.9); Red Blood Count 4.16 M/mm3 (4.6-6.2); White Blood Count 9.5 K/mm3 (4.4-11.0)
[2025-04-05 08:29] LABS: AST(SGOT) 40 U/L (<=37); Alanine Aminotransfer ALT/SGPT 21 U/L (<=46); Albumin, Serum 3.6 g/dL (3.4-4.8); Alkaline Phosphatase 65 U/L (40-129); Anion Gap 11 (5-15); BUN 20 mg/dL (4-19); BUN/Creat Ratio 23.2 RATIO (10-20); Calcium,Total 8.8 mg/dL (7.6-11.0); Carbon Dioxide 21.4 mmol/L (21.0-32.0); Chloride 106 mmol/L (98-108); Estimated Creatinine Clearance 69.59 ml/min (50-250); Globulin 2.2 g/dL (2.2-4.2); Glucose 88 mg/dL (70-99); Potassium 3.8 mmol/L (3.3-5.1)
[2025-04-05 08:38] VITALS: BP 162/80; PULSE 69; RESP 17; TEMP 36.7; O2SAT 95
[2025-04-05] MEDS: Pantoprazole Sodium 40 MG in 0.9% Normal Saline (100mL MB+) 100 ML 300 MG IV ×2 (09:09→20:42)
--- NOTE | 2025-04-05 12:11 | PCM.PROGNOTE ---
Subjective Subjective Patient seen and examined. Present with his nurse by his bedside. He said his abdominal pain had improved this morning but later today complained of some abdominal pain. Review of systems is otherwise negative. Objective Data Objective Data Vital Signs: Vital Signs Temp Pulse Resp BP Pulse Ox O2 Del Method 98.0 F 69 17 162/80 H 95 Room Air 04/05/25 08:38 04/05/25 08:38 04/05/25 08:38 04/05/25 08:38 04/05/25 08:38 04/05/25 08:38 Oxygen Delivery Method Room Air Weight: 177 lb 11.081 oz Body Mass Index (BMI) 27.0 Intake & Output: Intake and Output for Last 24 Hours 04/03/25 04/04/25 04/05/25 23:59 23:59 23:59 Intake Total 3484 / 3484 1680 / 1680 100 / 100 Balance 3484 / 3484 1680 / 1680 100 / 100 Lab / Micro Data 04/05/25 06:45 04/05/25 06:45 Labs: Laboratory Results - last 24 hr 04/04/25 12:25: POC Glucose 125 H 04/04/25 16:07: POC Glucose 119 H 04/04/25 21:49: POC Glucose 109 H 04/05/25 06:01: POC Glucose 80 04/05/25 06:45: WBC 9.5, RBC 4.16 L, Hgb 12.5 L, Hct 37.5 L, MCV 90.1, MCH 30.0, MCHC 33.3, RDW Std Deviation 41.7, RDW Coeff of Clarence 12.7, Plt Count 190, MPV 11.3, Immature Gran % (Auto) 0.200, Neut % (Auto) 72.5 H, Lymph % (Auto) 16.6 L, [place] % (Auto) 8.5, Eos % (Auto) 1.9, Baso % (Auto) 0.3, Absolute Neuts (auto) 6.9, Absolute Lymphs (auto) 1.58, Nucleated RBC % 0, Sodium 138, Potassium 3.8, Chloride 106, Carbon Dioxide 21.4, Anion Gap 11, BUN 20 H, Creatinine 0.86, Estim Creat Clear Calc 69.59, Est GFR (MDRD) Non-Af 89, BUN/Creatinine Ratio 23.2 H, Glucose 88, Calcium 8.8, Magnesium 2.3 H, Total Bilirubin 0.67, AST 40 H, ALT 21, Alkaline Phosphatase 65, Total Protein 5.8 L, Albumin 3.6, Globulin 2.2, Albumin/Globulin Ratio 1.6 04/05/25 11:37: POC Glucose 117 H Radiography Diagnostic Testing: Radiology Impression Abdomen/Pelvis CT 04/04/25 13:35 IMPRESSION: 1. No new acute abnormality. 2. Nonobstructing right lower pole renal calculus. Simple left renal cysts. Bosniak 1. No follow-up required. 3. Aortic atherosclerosis without aneurysm. 4. Mild bladder trabeculation without bladder wall thickening or distention. This is in the setting of a mildly enlarged prostate. Correlate with PSA and lower urinary tract symptoms. 5. Cholelithiasis. Reading Location: [facility] Physical Exam Const alert, oriented x3 and no apparent distress General Appearance: cooperative HEENT normocephalic, head/scalp atraumatic, moist oral mucous membranes and oropharynx normal Eyes EOMs intact bilaterally Neck no lymphadenopathy and supple Lymph Lymphatic: no lymphedema noted Resp normal respiratory effort, normal air movement and clear to auscultation bilaterally Cardio regular rate, regular rhythm, S1 normal heart sound, S2 normal heart sound and no murmurs GI normal to inspection, nondistended, normoactive bowel sounds and soft to palpation GI Narrative: mild epigastric tenderness, no guarding or rebound tenderness. Extremity normal capillary refill General Extremity: no tenderness to palpation of joints or extremities Skin General Skin Exam: no breakdown Neuro CN's II-XII intact bilaterally and no focal motor deficits Motor Exam: strength 5/5 throughout and general weakness Psych thought process normal and cooperative Appearance: appropriate Assessment & Plan Assessment/Plan (1) Intractable nausea and vomiting: PLAN: Plan #Intractable nausea and vomiting Thought to be due to gastroparesis. Patient was having some abdominal pain later this morning as well as some nausea and vomiting though he said he had improved earlier this morning. On IV morphine as needed for pain. CT adomen was concerning for gastroparesis opn admission. Repeat CT abdomen pelvis done on 04/04/2025 showed no new acute abnormality and showed nonobstructing right lower pole renal calculus simple left renal cysts and mild bladder trabeculation without bladder wall thickening or distention. Stomach was normal with no evidence of gastroparesis Consult gastroenterology in light of this intractable nausea and vomiting. On p.o. Tylenol, p.o. oxycodone and IV morphine as needed for pain. #Depression: On buspirone and fluoxetine #Hypertension, on lisinopril #DVT prophylaxis:SCDs Code status: full code Charges/Coding Visit Charges Inpatient E&M: 95536 Subs Hosp L2
[2025-04-05 13:44] VITALS: BP 193/94; PULSE 71; RESP 18; TEMP 37.2; O2SAT 95
[2025-04-05 13:50] VITALS: PULSE 71
--- NOTE | 2025-04-05 13:59 | CHAPLAIN ---
Type of Pastoral Visit _x__ Initial Visit ___ Follow-up Visit ___ On-call Visit ___ General Patient Visit ___ Spiritual Assessment ___ Family Conference ___ Bereavement ___ Rapid Response ___ Code Blue ___ Other (describe below) Pastoral Care Referral From _x__ Patient ___ Family ___ Nurse ___ Physician ___ Tour Manager ___ Microfabrication Engineer Manager ___ Other (describe below) Sacrament/Intervention _x__ Active listening ___ Anointing ___ Baptist ___ Bereavement ___ Communion ___ Rachel exploration ___ ___ Life review _x__ Prayer ___ Reconciliation ___ Sacrament of Sick _x__ Supportive presence ___ Wedding ___ Other (describe below) Pastoral Comments patient is welcoming and acknowledges his discomfort and some frustrations over the time it is taking to get well; pt says that he has support; pt states he is missing being outside and doing some minor yard work around the house; pt is a bit anxious to hear about his test results; pt is not affiliated with a hindu group but welcomes a prayer for support;
--- NOTE | 2025-04-05 18:02 | EX.PCM.CON.G ---
HPI Consult Data Date of Consult: 04/05/25 HPI Narrative Reason for Consultation: Intractable abdominal pain HPI Narrative: MARQUEZ ENNIS, is a 79 M who presented to the ED with intractable nausea, vomiting and abdominal pain. ?His past medical history significant for nephrolithiasis and occasional pain, managed with regular THC use. Presents with ongoing, severe, and persistent nausea and vomiting that he has been unable to control at home. The patient reports little to no relief despite typical antiemetic medications. He also reports diffuse, crampy abdominal pain. The patient's long-term, cannabis had raised the suspicion for Cannabinoid Hyperemesis Syndrome (CHS), as he reported temporary relief with hot showers or baths.He was concerned that he developed another kidney stone as he was admitted back in August 2024 for nephrolithiasis. Patient had a CAT scan that showed a 3 mm right renal nonobstructive stone. Mild gastroparesis/gastritis. Mild diffuse thickening of the colon. Patient received morphine, Toradol, IV fluids, hydromorphone, Haldol, metoclopramide. Was feeling better and then got worse again. I was consulted because he A little bit better then subsequently got worse again when he tried to eat. Diagnostic Studies: CT Abdomen/Pelvis: Kidney:?2 mm non-obstructing calculus in the right kidney. No evidence of hydronephrosis. GI:?Findings consistent with gastritis and colitis. [facility] Medical History Skin cancer CKD (chronic kidney disease) Hypercholesterolemia Hypertension Home Medications ?Medication ?Instructions ?Recorded ?Last Taken ?Type atorvastatin 40 mg tablet 40 mg PO DAILY 08/10/24 08/09/24 History gabapentin 300 mg capsule 600 mg PO QHS 08/10/24 08/09/24 History acetaminophen 500 mg tablet 1,000 mg PO Q6H PRN pain 08/11/24 08/10/24 History diphenhydramine 25 2 tab PO QHS 08/11/24 08/09/24 History mg-acetaminophen 500 mg tablet (Tylenol PM Extra Strength) fluoxetine 20 mg capsule 20 mg PO QHS 08/11/24 08/09/24 History fluoxetine 40 mg capsule 40 mg PO DAILY 08/11/24 08/10/24 History lisinopril 10 mg tablet 10 mg PO DAILY 08/11/24 08/10/24 History buspirone 5 mg tablet 5 mg PO QHS 04/03/25 Unknown History ondansetron 4 mg disintegrating 4 mg PO Q8H PRN PRN Nausea #10 tabs 04/03/25 Unknown Rx tablet Allergy/AdvReac Type Severity Reaction Status Date / Time No Known Allergies Allergy Verified 04/06/24 15:16 Family History Mother Cancer Father Cancer Surgical History Status post surgical removal of malignant neoplasm of skin Social History household members: spouse Smoking Status: Never smoker alcohol intake: never substance use type: marijuana ROS Constitutional Constitutional: Denies fatigue, fever(s), poor appetite, weight gain or weight loss Gastrointestinal Gastrointestinal: Denies belching, bloating, change in bowel habits, change in stool character, chewing difficulty, coffee ground emesis, constipation, cramping, diarrhea, dyspepsia, dysphagia, early satiety, excessive flatus, fecal incontinence, heartburn, hematemesis, hematochezia, hemorrhoids, loose stools, melena, nausea, odynophagia, rectal bleeding, tenesmus, vomiting or weight changes Physical Exam Const alert, oriented x3, no apparent distress and healthy appearing General Appearance: cooperative GI normal to inspection, nondistended, normoactive bowel sounds, soft to palpation, non-tender and non-distended Percussion: normal to percussion Rectal Exam: deferred Lab / Micro Data 04/05/25 06:45 04/05/25 06:45 Labs: Laboratory Results - last 24 hr 04/04/25 21:49: POC Glucose 109 H 04/05/25 06:01: POC Glucose 80 04/05/25 06:45: WBC 9.5, RBC 4.16 L, Hgb 12.5 L, Hct 37.5 L, MCV 90.1, MCH 30.0, MCHC 33.3, RDW Std Deviation 41.7, RDW Coeff of Clarence 12.7, Plt Count 190, MPV 11.3, Immature Gran % (Auto) 0.200, Neut % (Auto) 72.5 H, Lymph % (Auto) 16.6 L, [place] % (Auto) 8.5, Eos % (Auto) 1.9, Baso % (Auto) 0.3, Absolute Neuts (auto) 6.9, Absolute Lymphs (auto) 1.58, Nucleated RBC % 0, Sodium 138, Potassium 3.8, Chloride 106, Carbon Dioxide 21.4, Anion Gap 11, BUN 20 H, Creatinine 0.86, Estim Creat Clear Calc 69.59, Est GFR (MDRD) Non-Af 89, BUN/Creatinine Ratio 23.2 H, Glucose 88, Calcium 8.8, Magnesium 2.3 H, Total Bilirubin 0.67, AST 40 H, ALT 21, Alkaline Phosphatase 65, Total Protein 5.8 L, Albumin 3.6, Globulin 2.2, Albumin/Globulin Ratio 1.6 04/05/25 11:37: POC Glucose 117 H 04/05/25 16:19: POC Glucose 109 H Imaging Radiology Impression Abdomen/Pelvis CT 04/04/25 13:35 IMPRESSION: 1. No new acute abnormality. 2. Nonobstructing right lower pole renal calculus. Simple left renal cysts. Bosniak 1. No follow-up required. 3. Aortic atherosclerosis without aneurysm. 4. Mild bladder trabeculation without bladder wall thickening or distention. This is in the setting of a mildly enlarged prostate. Correlate with PSA and lower urinary tract symptoms. 5. Cholelithiasis. Reading Location: [facility] Assessment & Plan Assessment/Plan (1) Intractable nausea and vomiting: PLAN: 79-year-old male with intractable nausea and vomiting possibly due to?Cannabinoid Hyperemesis Syndrome , given the history of chronic THC use, intractability of symptoms, and absence of an alternative diagnosis that fully explains the presentation. Differential Diagnoses: Cannabinoid Hyperemesis Syndrome :?Consistent with long-term daily cannabis use, severe nausea and vomiting, and potential lack of response to standard antiemetics. Gastritis/Colitis:?The CT findings confirm inflammation, which can be a contributing factor or a separate issue. Other GI pathology:?Though less likely given the CT, other causes such as peptic ulcer disease or inflammatory bowel disease could cause similar symptoms. Nephrolithiasis:?The right-sided renal stone is non-obstructing and unlikely to be the cause of the intractable symptoms at this time. Other causes of nausea/vomiting:?Other etiologies, including metabolic, infectious, or neurologic, must also be considered, particularly if symptoms do not improve with THC cessation. Plan: Management of nausea/vomiting: Intravenous (IV) fluids for rehydration. Trial of antiemetics, with scopolamine patch. Though they may be ineffective in CHS. Consider alternative agents like benzodiazepines or haloperidol if standard therapies fail. Capsaicin cream application to the abdomen, as the heat sensation may provide temporary relief similar to a hot shower. EGD in a.m. n.p.o. past midnight Charges/Coding Visit Charges Inpatient E&M: 28449 Init Hosp L3
[2025-04-05 18:33] VITALS: BP 177/85; PULSE 85; RESP 15; TEMP 37.4; O2SAT 98
[2025-04-05 19:57] VITALS: BP 175/92; PULSE 74; RESP 18; TEMP 37; O2SAT 97
[2025-04-05] MEDS: 0.9% Saline Lock 10 ML Syringe IV ×2 (20:41→21:30)
[2025-04-05 22:50] VITALS: BMI 27.0
[2025-04-06] VITALS (10 sets, daily range): BP systolic 149–186; BP diastolic 70–96; PULSE 70–76; RESP 16–18; TEMP 35.5–37.6; O2SAT 96–100
[2025-04-06] MEDS: 0.9% Saline Lock 10 ML Syringe IV ×2 (02:21→10:05)
[2025-04-06 05:01] LABS: Hematocrit 39.5 % (40-54); Hemoglobin 13.2 g/dL (13.0-16.5); Immature Granulocytes Count 0.030 X10^3/uL (0.0-0.0); Mean Corp Hgb Conc 33.4 g/dL (32-36); Mean Corpuscular Volume 89.0 fL (80-94); Mean Platelet Vol. 11.3 fl (6.2-12.0); NRBC Flagged by Analyzer 0 % (0-5); Platelet Count 197 K/mm3 (150-450); RBC Distribution Width CV 12.5 % (11.6-14.6); RBC Distribution Width SD 41.0 fl (35.1-43.9); Red Blood Count 4.44 M/mm3 (4.6-6.2); White Blood Count 9.3 K/mm3 (4.4-11.0)
[2025-04-06 05:20] LABS: Anion Gap 12 (5-15); BUN 17 mg/dL (4-19); BUN/Creat Ratio 23.2 RATIO (10-20); Calcium,Total 8.8 mg/dL (7.6-11.0); Carbon Dioxide 23.3 mmol/L (21.0-32.0); Chloride 103 mmol/L (98-108); Estimated Creatinine Clearance 74.81 ml/min (50-250); Glucose 98 mg/dL (70-99); Potassium 3.6 mmol/L (3.3-5.1)
[2025-04-06 08:36] LABS: AST(SGOT) 41 U/L (<=37); Alanine Aminotransfer ALT/SGPT 26 U/L (<=46); Albumin, Serum 3.8 g/dL (3.4-4.8); Alkaline Phosphatase 72 U/L (40-129); Bilirubin, Direct 0.30 mg/dL (0.00-0.30); Globulin 2.4 g/dL (2.2-4.2)
[2025-04-06] MEDS: Pantoprazole Sodium 40 MG in 0.9% Normal Saline (100mL MB+) 100 ML 300 MG IV ×2 (10:04→21:51)
--- NOTE | 2025-04-06 13:11 | CASEMGMT ---
Dx: ALEX:2 6-Clicks:23 Medical record reviewed and patient evaluated for identification of discharge planning needs. Based on this review, at this time criteria are not present to indicate a need for discharge planning. Will remain available to assist with discharge planning needs as identified or requested.
--- NOTE | 2025-04-06 13:41 | PN_ITS ---
Subjective Subjective Patient seen and examined with his nurse by his bedside. He still complained of nausea and dry heaving. Review of systems is otherwise negative. He is due for EGD today. GI on board. Review of systems is otherwise negative. Objective Data Objective Data Vital Signs: Vital Signs Temp Pulse Resp BP Pulse Ox O2 Del Method 98.6 F 70 16 149/93 H 96 Room Air 04/06/25 10:20 04/06/25 10:20 04/06/25 10:20 04/06/25 11:00 04/06/25 02:45 04/06/25 10:20 Oxygen Delivery Method Room Air Weight: 177 lb 11.081 oz Body Mass Index (BMI) 27.0 Intake & Output: Intake and Output for Last 24 Hours 04/04/25 04/05/25 04/06/25 23:59 23:59 23:59 Intake Total 1680 / 1680 1150 / 1150 100 / 100 Balance 1680 / 1680 1150 / 1150 100 / 100 Lab / Micro Data 04/06/25 03:28 04/06/25 03:28 Labs: Laboratory Results - last 24 hr 04/05/25 16:19: POC Glucose 109 H 04/05/25 20:39: POC Glucose 110 H 04/06/25 03:28: WBC 9.3, RBC 4.44 L, Hgb 13.2, Hct 39.5 L, MCV 89.0, MCH 29.7, MCHC 33.4, RDW Std Deviation 41.0, RDW Coeff of Clarence 12.5, Plt Count 197, MPV 11.3, Immature Gran % (Auto) 0.300, Neut % (Auto) 76.3 H, Lymph % (Auto) 12.3 L, [place] % (Auto) 9.2, Eos % (Auto) 1.7, Baso % (Auto) 0.2, Absolute Neuts (auto) 7.1, Absolute Lymphs (auto) 1.14, Nucleated RBC % 0, Sodium 138, Potassium 3.6, Chloride 103, Carbon Dioxide 23.3, Anion Gap 12, BUN 17, Creatinine 0.71, Estim Creat Clear Calc 74.81, Est GFR (MDRD) Non-Af 94, BUN/Creatinine Ratio 23.2 H, Glucose 98, Calcium 8.8, Total Bilirubin 0.69, Direct Bilirubin 0.30, AST 41 H, ALT 26, Alkaline Phosphatase 72, Total Protein 6.2, Albumin 3.8, Globulin 2.4 04/06/25 06:14: POC Glucose 104 04/06/25 12:10: POC Glucose 92 Physical Exam Const alert, oriented x3 and no apparent distress General Appearance: cooperative HEENT normocephalic, head/scalp atraumatic, moist oral mucous membranes and oropharynx normal Eyes EOMs intact bilaterally Neck no lymphadenopathy and supple Lymph Lymphatic: no lymphedema noted Resp normal respiratory effort, normal air movement, no retractions, no use of accessory muscles and clear to auscultation bilaterally Cardio regular rate, regular rhythm, S1 normal heart sound, S2 normal heart sound and no murmurs GI normal to inspection, nondistended, normoactive bowel sounds GI Narrative: mild epigastric tenderness, no guarding or rebound tenderness. Extremity normal to inspection and normal capillary refill General Extremity: no tenderness to palpation of joints or extremities Skin General Skin Exam: no breakdown Neuro CN's II-XII intact bilaterally and no focal motor deficits Sensorium / Orientation: awake and alert Motor Exam: strength 5/5 throughout and general weakness Psych thought process normal, cooperative and affect normal Appearance: appropriate Assessment & Plan Assessment/Plan (1) Intractable nausea and vomiting: PLAN: Plan #Intractable nausea and vomiting * Thought to be due to gastroparesis. Patient was having some abdominal pain later this morning as well as some nausea and vomiting though he said he had improved earlier this morning. * On IV morphine as needed for pain. * CT adomen was concerning for gastroparesis opn admission. Repeat CT abdomen pelvis done on 04/04/2025 showed no new acute abnormality and showed nonobstructing right lower pole renal calculus simple left renal cysts and mild bladder trabeculation without bladder wall thickening or distention. Stomach was normal with no evidence of gastroparesis * GI on board. For EGD today. GI is concerned about cannabinoid hyperemesis syndrome * On p.o. Tylenol, p.o. oxycodone and IV morphine as needed for pain. * #Depression: On buspirone and fluoxetine #Hypertension, on lisinopril #DVT prophylaxis:SCDs Code status: full code Charges/Coding Visit Charges Inpatient E&M: 23042 Subs Hosp L2
[2025-04-06] MEDS: Lactated Ringers 1,000 ML 15 ML IV (17:52)
--- NOTE | 2025-04-06 18:00 | EGD_PTH ---
PATIENT: MARQUEZ ENNIS LOC: [facility] U#:[id number] AGE/SX: 79/M ROOM: [facility] RE04/05/[address]: Dr. Jing Tanner MD : 1945 BED: 1 DIS: 04/08/2025 SPEC #: [id number] RECD: 04/07/25 08:32 STATUS: OSCAR REQ #: [id number] MARTIN: 04/06/25 18:[address]: Jing Tanner DEPT: SURGICAL PATHOLOGY RECD BY: Narayan Marquis ENTERED: 04/07/25 14:50 SP TYPE: EGD BIOPSY OTHR DR: DO Dr. Antonino Coles MD Dr. Rahsaan Friend, DO Tessa Ham NP-Nora Loo NP-C JONA Ruano PA Tissues: A - Gastric mucous membrane Procedures: Immunohistochemical Stains Surgery Specimen Level IV HEADER OPERATION: EGD with biopsy PRE-OP DIAGNOSIS: Intractable nausea and vomiting TISSUE SUBMITTED: A- Gastric cardia biopsy MICROSCOPIC DIAGNOSIS A. Gastric cardia, biopsy: * Active chronic gastritis with focal intestinal metaplasia. * Negative for dysplasia. * IHC positive for H. pylori organisms. MICROSCOPIC DESCRIPTION Slides are reviewed. All matched controls reacted appropriately. These tests were developed and their performance characteristics determined by [facility]. They may not have been cleared or approved by the U.S. Food and Drug Administration. The FDA has determined that such clearance or approval is not necessary. The above immunohistochemical/dualISH markers are viewed by the Pathologist. GROSS DESCRIPTION A. Received in fixative is one container labeled with the patient's name and designated Gastric cardia biopsy. The specimen consists of three irregular fragments of foley tissue that measure 0.4 to 0.7 cm. The specimen is totally submitted in one cassette. CT 04/07/2025 CPT:64616,50117
--- NOTE | 2025-04-06 20:22 | PRE.ANES_ITS ---
ASA Classification* ASA Classification ASA Classification: 2 and E Assessment & Plan Anesthesia* Anesthesia Assessment Anesthesia Assessment: Discussed sedation and/or anesthesia options, risks, benefits, and alternatives with patient/parents/legal guardian/POA. Questions invited. The patient/parents/legal guardian/POA seems to understand and agrees to proceed with anesthesia plan. Reviewed the physical assessment, medical history, allergy history and patient home medications list prior to surgery/procedure/anesthetic and documented any changes. Performed airway and anesthesia risk assessments. Anesthesia Type Anesthesia Type: MAC History Source History Obtained from:: Patient and Chart Anesthesia Focused Assessment* Temperature: 99.1 F Pulse Rate: 70 Blood Pressure: 170/70 Respiratory Rate: 16 Pulse Ox: 99 Oxygen Delivery Method: Room Air Airway Assessment Mouth opens: >3 cm Mallampati Score: I Teeth Condition: Missing (Patient has a single tooth remaining. It is tight.) Neck Range of motion (ROM): Limited ROM (Somewhat Decreased) Labs Anesthesia Preop lab: CBC WBC, (4.4-11.0) 9.3 K/mm3 Today, 03:28 RBC, (4.6-6.2) 4.44 M/mm3 L Today, 03:28 Hgb, (13.0-16.5) 13.2 g/dL Today, 03:28 Hct, (40-54) 39.5 % L Today, 03:28 Plt Count, (150-450) 197 K/mm3 Today, 03:28 CHEMISTRY Potassium, (3.3-5.1) 3.6 mmol/L Today, 03:28 Sodium, (133-145) 138 mmol/L Today, 03:28 Magnesium, (1.5-2.2) 2.3 mg/dL H 04/05/25, 06:45 BUN, (4-19) 17 mg/dL Today, 03:28 Creatinine, (0.70-1.20) 0.71 mg/dL Today, 03:28 Glucose, (70-99) 98 mg/dL Today, 03:28 POC Glucose, (74-106) 92 mg/dL Today, 12:10 COAG PT, (11.7-14.9) 13.2 SECONDS 08/10/24, 17:04 Pre-Assessment Diagnosis/Proposed Procedure Planned Operative Procedure(s): EGD Anesthesia History 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 When Was Last Pacemaker Check QUESTION #4 FULL TEXT: You/Your Family Experience fever (hyperthermia) with Anesthesia Last Oral Intake Last Oral intake: Last Oral Intake NPO since 00:00 04/05/25 22:50 Meds taken in AM with sips of water? Meds patient instructed to take am of surgery Any additional information?: Yes Meds taken in AM with sips of water?: Yes Meds patient instructed to take am of surgery: Bienvenido SANTOROV PONV - salesperson household appliances: PONV - salesperson household appliances Female HX of Motion Sickness HX of N/V After Surgery Non-Smoker Duration of Surgery greater than 60 minutes Number of Risk Factors PONV Score Height & Weight Height & Weight: Anesthesia: Height & Weight Height 5 ft 8 in 04/05/25 22:50 Weight: 80.6 kg 04/05/25 22:50 Body Mass Index (BMI) 27.0 04/05/25 22:50 Respiratory Assessment Respiratory Assessment - salesperson household appliances: Respiratory Tract Infection Hx - salesperson household appliances Hx Respiratory Tract Infection No 08/11/24 21:23 STOP Sleep Apnea STOP Sleep Apnea - salesperson household appliances: STOP Sleep Apnea - salesperson household appliances Hx Hypertension Yes 04/05/25 14:47 Hx Sleep Apnea No 04/03/25 08:45 CPAP BIPAP Do you snore loudly (louder Yes 04/03/25 08:45 than talking or can be heard Do you often feel tired/ No 04/03/25 08:45 fatigued/ sleepy during daytime? Has anyone observed you stop No 04/03/25 08:45 breathing during sleep? STOP Results Positive 04/03/25 08:45 QUESTION #5 FULL TEXT : Do you snore loudly (louder than talking or can be heard through closed doors)? 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 Specify any problems Hx of Preganancy in last 3 N/A 04/03/25 08:45 Months Nurse Filling Out Transfusion [email or web address] 04/03/25 08:45 & Questions: Date: 04/03/25 04/03/25 08:45 Time: 08:47 04/03/25 08:45 Patient unable to answer at this time (ie. confused, unrespo /Reproduction History /Reproductive History - salesperson household appliances: /Reproductive Hx- salesperson household appliances Hx Now No 04/05/25 22:50 Gestational Age (in weeks): EDC: Hx Hx Para Hx Section SAB No 04/05/25 22:50 Active Medications Active Medications: Current Medications Generic Name Dose Route Start Last Admin Trade Name Freq PRN Reason Stop Dose Admin Acetaminophen 1,000 mg 04/03/25 08:35 04/06/25 06:16 Acetaminophen 500 Mg Tablet PO 1,000 mg Q6H PRN Administration Pain Score 1-10 Buspirone HCl 5 mg 04/03/25 22:00 04/05/25 20:42 Buspirone 5 Mg Tablet PO 5 mg QHS ASHLEY Administration Fluoxetine HCl 40 mg 04/03/25 10:00 04/06/25 10:12 Fluoxetine Hcl 40 Mg Capsule PO 40 mg DAILY ASHLEY Administration Fluoxetine HCl 20 mg 04/03/25 22:00 04/05/25 20:42 Fluoxetine 20 Mg Capsule PO 20 mg QHS ASHLEY Administration Gabapentin 600 mg 04/03/25 22:00 04/05/25 20:41 Gabapentin 600 Mg Tablet PO 600 mg QHS ASHLEY Administration Glucagon 1 mg 04/03/25 08:35 Glucagon 1 Mg/Ml Syringe IM X1 PRN Hypoglycemia Protocol Hydralazine HCl 10 mg 04/04/25 16:02 04/06/25 10:20 Hydralazine 20 Mg/Ml Vial IV 10 mg Q4H PRN PRN Administration SBP GREATER THAN 180 Protocol Pantoprazole Sodium 40 mg/ 100 mls @ 300 mls/hr 04/03/25 10:00 04/06/25 10:24 Sodium Chloride IV Infused Q12 ASHLEY Infusion Dextrose 250 mls @ 0 mls/hr 04/03/25 08:35 Dextrose 10%-Water IV .Q0M PRN HYPOGLYCEMIA Protocol As Directed Lactated Ringer's 1,000 mls @ 15 mls/hr 04/06/25 18:00 04/06/25 17:52 IV 15 mls/hr .Q48H ASHLEY Administration Insulin Human Lispro 0 unit 04/03/25 11:00 04/06/25 18:41 Insulin Lispro 100 Unit/Ml Insuln.Pen SC Not Given ACHS ASHLEY Protocol Ketorolac Tromethamine 15 mg 04/03/25 08:35 04/06/25 02:21 Ketorolac 15 Mg/Ml Vial IV 04/08/25 08:35 15 mg Q6H PRN PRN Administration Pain Score 1-10 Lisinopril 10 mg 04/03/25 10:00 04/06/25 10:12 Lisinopril 10 Mg Tablet PO 10 mg DAILY ASHLEY Administration Protocol Morphine Sulfate 1 mg 04/05/25 12:05 04/05/25 21:30 Morphine 2 Mg/Ml Syringe IV 1 mg Q3H PRN PRN Administration Pain Score 6-10 Ondansetron HCl 4 mg 04/03/25 08:35 04/05/25 10:57 Ondansetron 4 Mg/2 Ml Vial IV 4 mg Q8H PRN PRN Administration NAUSEA/VOMITING Sodium Chloride 10 - 40 ml 04/03/25 08:41 04/06/25 10:05 0.9% Saline Lock 10 Ml Syringe IV 10 ml UD PRN Administration SALINE FLUSH PFSH Medical History Skin cancer CKD (chronic kidney disease) Hypercholesterolemia Hypertension Home Medications ?Medication ?Instructions ?Recorded ?Last Taken ?Type atorvastatin 40 mg tablet 40 mg PO DAILY 08/10/2409/01 History gabapentin 300 mg capsule 600 mg PO QHS 08/10/2408/09 History acetaminophen 500 mg tablet 1,000 mg PO Q6H PRN pain 0 08/11/24 08/10/24 History diphenhydramine 25 2 tab PO QHS 08/11/24 History mg-acetaminophen 500 mg tablet (Tylenol PM Extra Strength) fluoxetine 20 mg capsule 20 mg PO QHS 08/11/24 History fluoxetine 40 mg capsule 40 mg PO DAILY 08/11/2409/29 History lisinopril 10 mg tablet 10 mg PO DAILY 08/11/2409/29 History buspirone 5 mg tablet 5 mg PO QHS 04/03/25 Unknown History ondansetron 4 mg disintegrating 4 mg PO Q8H PRN PRN Na usea #10 tabs 04/03/25 Unknown Rx tablet Allergy/AdvReac Type Severity Reaction Status Date / Time No Known Allergies Allergy Verified 04/06/24 15:16 Family History Mother Cancer Father Cancer Surgical History Status post surgical removal of malignant neoplasm of skin Social History household members: spouse Smoking Status: Never smoker alcohol intake: never substance use type: marijuana Review of Systems (Anesthesia) ROS Narrative System reviewed and no additional complaints, except as documented.
--- NOTE | 2025-04-06 20:47 | PCM.POST.ANE ---
Anesthesia: Postop Eval I Current Vital Signs Temperature: 99.6 F Pulse Rate: 70 Blood Pressure: 172/96 Respiratory Rate: 16 Pulse Ox: 100 Oxygen Delivery Method: Room Air Assessment Airway patent: Yes Spontaneous unlabored respirations: Yes Mental status: Awake and Calm nausea: No Vomiting: No Anesthesia Complication: No Fluid Hydration Crystalloid volume administer (ml): 200 Total IV fluid infused: 200 Progress Note Anesthesia document: Postop Eval 1 completed: Yes
--- NOTE | 2025-04-06 20:49 | OP.EGD_ITS ---
Patient Name: George Norwood Procedure Date: 04/06/2025 7:32 PM Date of : 1945 Age: 79 Procedure: Upper GI endoscopy Indications: Epigastric abdominal pain, Upper abdominal pain Providers: Matthew Rivera DO Medicines: Monitored Anesthesia Care Patient Profile: This is a 79 year old male. Refer to note in patient chart for documentation of history and physical. Patient has symptoms of acute abdominal cramping, acute abdominal distention, acute dyspepsia, chronic heartburn, chronic nausea and acute vomiting. Complications: No immediate complications. Procedure: Pre-Anesthesia Assessment: - Prior to the procedure, a History and Physical was performed, and patient medications and allergies were reviewed. The patient is competent. The risks and benefits of the procedure and the sedation options and risks were discussed with the patient. All questions were answered and informed consent was obtained. Patient identification and proposed procedure were verified by the physician in the pre-procedure area. Mental Status Examination: alert and oriented. Airway Examination: normal oropharyngeal airway and neck mobility. Respiratory Examination: clear to auscultation. CV Examination: normal. Prophylactic Antibiotics: The patient does not require prophylactic antibiotics. Prior Anticoagulants: The patient has taken no anticoagulant or antiplatelet agents except for NSAID medication. ASA Grade Assessment: II - A patient with mild systemic disease. After reviewing the risks and benefits, the patient was deemed in satisfactory condition to undergo the procedure. The anesthesia plan was to use monitored anesthesia care (MAC). Immediately prior to administration of medications, the patient was re-assessed for adequacy to receive sedatives. The heart rate, respiratory rate, oxygen saturations, blood pressure, adequacy of pulmonary ventilation, and response to care were monitored throughout the procedure. The physical status of the patient was re-assessed after the procedure. After obtaining informed consent, the endoscope was passed under direct vision. Throughout the procedure, the patient's blood pressure, pulse, and oxygen saturations were monitored continuously. The Endoscope was introduced through the mouth, and advanced to the third part of the duodenum. Small bowel enteroscopy was deemed necessary. The upper GI endoscopy was accomplished without difficulty. The patient tolerated the procedure well. Scope In: 8:34:22 PM Scope Out: 8:37:40 PM Total Procedure Duration Time 0 hours 3 minutes 18 seconds Findings: The examined esophagus was normal. Patchy mild inflammation characterized by erythema was found in the cardia. Biopsies were taken with a cold forceps for histology. Biopsies were taken with a cold forceps for Helicobacter pylori testing. Verification of patient identification for the specimen was done. Estimated blood loss was minimal. No gross lesions were noted in the entire examined duodenum. Impression: - Normal esophagus. - Chronic gastritis. Biopsied. - No gross lesions in the entire examined duodenum. Recommendation: - [facility]. - Advance diet as tolerated. - Continue present medications. - Await pathology results. Procedure Code(s): --- Professional --- 12696, Small intestinal endoscopy, enteroscopy beyond second portion of duodenum, not including ileum; with biopsy, single or multiple CPT copyright 2021 [employer]. All rights reserved. The codes documented in this report are preliminary and upon custom wood stair builder review may be revised to meet current compliance requirements. Matthew Rivera DO 04/06/2025 8:49:28 PM This report has been signed electronically. Number of Addenda: 0 Note Initiated On: 04/06/2025 7:32 PM
--- NOTE | 2025-04-06 20:50 | OP.PROVAT_ITS ---
04/06/2025 Bryon Ovalles Re : Upper GI endoscopy procedure for George Norwood Dear Josr This procedure was performed on Sunday, April 06, 2025. My impressions and recommendations are as follows: Impressions : - Normal esophagus. - Chronic gastritis. Biopsied. - No gross lesions in the entire examined duodenum. Recommendations : - [facility] patient to [facility]. - Advance diet as tolerated. - Continue present medications. - Await pathology results. My findings are described in the full procedure note, which is enclosed. If I can be of further assistance, please feel free to contact me at . Sincerely, Matthew Rivera, 04/06/2025 8:49:28 PM This report has been signed electronically.
[2025-04-06] MEDS: Scopolamine 1mg/72hr Patch 1 PATCH TD (20:56)
--- NOTE | 2025-04-06 21:07 | SUR.PHASEI ---
called for transport
--- NOTE | 2025-04-06 22:13 | PCM.POSTANE2 ---
Anesthesia Postop Eval I Sum Postop Eval Completion status Anesthesia document: Postop Eval 1 completed: Yes Anesthesia Postop Eval I Summary Anesthesia Postop Eval I Summary: Anesthesia Postop Eval I: Assessment Summary Airway patent Yes 04/06/25 20:48 Spontaneous unlabored Yes 04/06/25 20:48 respirations Mental status Awake,Calm 04/06/25 20:48 nausea No 04/06/25 20:48 Vomiting No 04/06/25 20:48 Anesthesia Postop Eval I: Fluid Summary Crystalloid volume administer 200 04/06/25 20:48 (ml) Colloids volume administered ( ml) Blood Product volume administered (ml) Total IV fluid infused 200 04/06/25 20:48 Anesthesia Postop Eval I: Summary Notes Anesthesia Complication No 04/06/25 20:48 Anesthesia Complication Comment: Post-operative progress note Anesthesia: Postop Eval II Evaluation Mental status: Awake and Calm Pain Level: 0 nausea: Yes Vomiting: No Progress Note Post-operative progress note: Patient is once again nauseated in PACU. This is his original problem and may not be solved by antiemetics. He has already gotten Zofran, scopolamine and Reglan. Complications Anesthesia Complication: No
[2025-04-07 04:26] LABS: Hematocrit 35.4 % (40-54); Hemoglobin 12.2 g/dL (13.0-16.5); Immature Granulocytes Count 0.040 X10^3/uL (0.0-0.0); Mean Corp Hgb Conc 34.5 g/dL (32-36); Mean Corpuscular Volume 86.6 fL (80-94); Mean Platelet Vol. 10.8 fl (6.2-12.0); NRBC Flagged by Analyzer 0 % (0-5); Platelet Count 197 K/mm3 (150-450); RBC Distribution Width CV 12.5 % (11.6-14.6); RBC Distribution Width SD 39.2 fl (35.1-43.9); Red Blood Count 4.09 M/mm3 (4.6-6.2); White Blood Count 8.0 K/mm3 (4.4-11.0)
[2025-04-07 04:36] LABS: Anion Gap 13 (5-15); BUN 15 mg/dL (4-19); BUN/Creat Ratio 19.1 RATIO (10-20); Calcium,Total 8.7 mg/dL (7.6-11.0); Carbon Dioxide 23.4 mmol/L (21.0-32.0); Chloride 98 mmol/L (98-108); Estimated Creatinine Clearance 74.81 ml/min (50-250); Glucose 109 mg/dL (70-99); Potassium 3.1 mmol/L (3.3-5.1)
[2025-04-07 06:50] VITALS: BP 152/81; PULSE 69; RESP 18; TEMP 35.5; O2SAT 95
[2025-04-07] MEDS: Potassium Chloride Oral Tablet 20 MEQ 40 MEQ PO (08:46)
[2025-04-07] MEDS: Pantoprazole Sodium 40 MG in 0.9% Normal Saline (100mL MB+) 100 ML 300 MG IV ×2 (09:05→21:44)
[2025-04-07] MEDS: 0.9% Saline Lock 10 ML Syringe IV ×3 (09:05→22:06)
[2025-04-07 12:00] VITALS: BP 162/75; PULSE 72; RESP 18; TEMP 36.2; O2SAT 98
--- NOTE | 2025-04-07 16:20 | PN_ITS ---
Subjective Subjective Patient seen and examined with his nurse by his bedside. He had no complaints. He did have the EGD yesterday with no show any acute findings. He still having some mild nausea but is not as severe as previous. Review of systems otherwise negative. Patient wants to stay 1 more day. Objective Data Objective Data Vital Signs: Vital Signs Temp Pulse Resp BP Pulse Ox O2 Del Method 96 F L 69 18 152/81 H 95 Room Air 04/07/25 06:50 04/07/25 06:50 04/07/25 06:50 04/07/25 06:50 04/07/25 06:50 04/07/25 06:50 Oxygen Delivery Method Room Air Weight: 177 lb 11.081 oz Body Mass Index (BMI) 27.0 Intake & Output: Intake and Output for Last 24 Hours 04/05/25 04/06/25 04/07/25 23:59 23:59 23:59 Intake Total 1150 / 1150 279 / 379 450 / 450 Balance 1150 / 1150 279 / 379 450 / 450 Lab / Micro Data 04/07/25 03:37 04/07/25 03:37 Labs: Laboratory Results - last 24 hr 04/06/25 22:36: POC Glucose 88 04/07/25 03:37: WBC 8.0, RBC 4.09 L, Hgb 12.2 L, Hct 35.4 L, MCV 86.6, MCH 29.8, MCHC 34.5, RDW Std Deviation 39.2, RDW Coeff of Clarence 12.5, Plt Count 197, MPV 10.8, Immature Gran % (Auto) 0.500, Neut % (Auto) 70.5 H, Lymph % (Auto) 13.5 L, [place] % (Auto) 12.3 H, Eos % (Auto) 3.1, Baso % (Auto) 0.1, Absolute Neuts (auto) 5.6, Absolute Lymphs (auto) 1.08, Nucleated RBC % 0, Sodium 134, Potassium 3.1 L , Chloride 98, Carbon Dioxide 23.4, Anion Gap 13, BUN 15, Creatinine 0.78, Estim Creat Clear Calc 74.81, Est GFR (MDRD) Non-Af 92, BUN/Creatinine Ratio 19.1, G lucose 109 H, Calcium 8.7 04/07/25 06:51: POC Glucose 77 04/07/25 11:30: POC Glucose 113 H Physical Exam Const alert, oriented x3 and no apparent distress General Appearance: cooperative HEENT normocephalic, head/scalp atraumatic, moist oral mucous membranes and oropharynx normal Eyes EOMs intact bilaterally Neck no lymphadenopathy and supple Lymph Lymphatic: no lymphedema noted Resp normal respiratory effort, normal air movement, no retractions, no use of accessory muscles and clear to auscultation bilaterally Cardio regular rate, regular rhythm, S1 normal heart sound, S2 normal heart sound and no murmurs GI GI Narrative: minimal epigastric tenderness, no guarding or rebound tenderness. Extremity normal to inspection and normal capillary refill General Extremity: no tenderness to palpation of joints or extremities Skin General Skin Exam: no breakdown Neuro CN's II-XII intact bilaterally and no focal motor deficits Sensorium / Orientation: awake and alert Motor Exam: strength 5/5 throughout and general weakness Psych thought process normal, cooperative and affect normal Appearance: appropriate Assessment & Plan Assessment/Plan (1) Intractable nausea and vomiting: PLAN: Plan #Intractable nausea and vomiting * Thought to be due to gastroparesis. Patient was having some abdominal pain later this morning as well as some nausea and vomiting though he said he had improved earlier this morning. * On IV morphine as needed for pain. * CT adomen was concerning for gastroparesis opn admission. Repeat CT abdomen pelvis done on 04/04/2025 showed no new acute abnormality and showed nonobstructing right lower pole renal calculus simple left renal cysts and mild bladder trabeculation without bladder wall thickening or distention. Stomach was normal with no evidence of gastroparesis * GI on board.had EGD which showed normal esophagus and chronic gastritis Which was biopsied and no gross lesions in the entire examined duodenum. * On p.o. Tylenol, p.o. oxycodone and IV morphine as needed for pain. * Patient's diet advanced to regular diet. * #Depression: On buspirone and fluoxetine #Hypertension, on lisinopril #DVT prophylaxis:SCDs Code status: full code Disposition: Patient wants to stay 1 more day and was will likely be discharged tomorrow. Charges/Coding Visit Charges Inpatient E&M: 73815 Subs Hosp L2
[2025-04-07 18:00] VITALS: BP 159/72; PULSE 69; RESP 16; TEMP 36.2; O2SAT 98
[2025-04-07 21:48] VITALS: BP 148/82; PULSE 70; RESP 18; TEMP 36.2; O2SAT 97
[2025-04-07] MEDS: MELATONIN 3 MG TABLET PO (22:04)
[2025-04-08] MEDS: Capsaicin 0.025% 1 APPLIC Tube TOPICAL (05:34)
[2025-04-08 05:40] VITALS: BP 172/94; PULSE 64; RESP 18; TEMP 36.9; O2SAT 100
[2025-04-08 05:44] VITALS: BP 184/94; PULSE 66
[2025-04-08] MEDS: 0.9% Saline Lock 10 ML Syringe IV (05:44)
[2025-04-08 05:55] LABS: Hematocrit 39.5 % (40-54); Hemoglobin 13.8 g/dL (13.0-16.5); Immature Granulocytes Count 0.030 X10^3/uL (0.0-0.0); Mean Corp Hgb Conc 34.9 g/dL (32-36); Mean Corpuscular Volume 86.1 fL (80-94); Mean Platelet Vol. 11.1 fl (6.2-12.0); NRBC Flagged by Analyzer 0 % (0-5); Platelet Count 201 K/mm3 (150-450); RBC Distribution Width CV 12.2 % (11.6-14.6); RBC Distribution Width SD 38.2 fl (35.1-43.9); Red Blood Count 4.59 M/mm3 (4.6-6.2); White Blood Count 8.3 K/mm3 (4.4-11.0)
[2025-04-08 06:11] LABS: Anion Gap 13 (5-15); BUN 11 mg/dL (4-19); BUN/Creat Ratio 15.7 RATIO (10-20); Calcium,Total 8.8 mg/dL (7.6-11.0); Carbon Dioxide 23.3 mmol/L (21.0-32.0); Chloride 97 mmol/L (98-108); Estimated Creatinine Clearance 74.81 ml/min (50-250); Glucose 100 mg/dL (70-99); Potassium 3.2 mmol/L (3.3-5.1)
[2025-04-08 06:40] VITALS: BP 169/89; PULSE 76
[2025-04-08 09:55] VITALS: BP 137/86; PULSE 64; RESP 16; TEMP 36.9; O2SAT 100
[2025-04-08] MEDS: Potassium Chloride Oral Tablet 20 MEQ 40 MEQ PO (10:07)
[2025-04-08] MEDS: Pantoprazole Sodium 40 MG in 0.9% Normal Saline (100mL MB+) 100 ML 300 MG IV (10:18)
[2025-04-08 13:34] VITALS: BP 162/84; PULSE 84; RESP 16; TEMP 37.3; O2SAT 96
--- NOTE | 2025-04-08 13:39 | PCM.DC.SUM ---
Providers Date of Admission: 04/05/25 Date of Discharge: 04/08/25 Primary Care Physician: JONA Ruano Consultations 04/05/25 12:25 Consult: Gastroenterology Routine Consulting Provider: N[facility] G[facility] Reason for Consult: intractable nausea and vomiting EMERGENT Consult: No MD Notified: Yes Date Notified: 04/05/25 Time Notified: 12:25 Method of Notification: Text Reason For Visit: INTRACTABLE NAUSEA AND VOMITING. Diagnosis Discharge Diagnosis (1) Intractable nausea and vomiting: Status: Acute Code(s): R11.2 - Nausea with vomiting, unspecified Plan #Intractable nausea and vomiting Thought to be due to gastroparesis. Patient was having some abdominal pain later this morning as well as some nausea and vomiting though he said he had improved earlier this morning. On IV morphine as needed for pain. CT adomen was concerning for gastroparesis opn admission. Repeat CT abdomen pelvis done on 04/04/2025 showed no new acute abnormality and showed nonobstructing right lower pole renal calculus simple left renal cysts and mild bladder trabeculation without bladder wall thickening or distention. Stomach was normal with no evidence of gastroparesis GI on board.had EGD which showed normal esophagus and chronic gastritis Which was biopsied and no gross lesions in the entire examined duodenum. On p.o. Tylenol, p.o. oxycodone and IV morphine as needed for pain. Patient's diet advanced to regular diet. #Depression: On buspirone and fluoxetine #Hypertension, on lisinopril #DVT prophylaxis:SCDs Code status: full code Disposition: Patient wants to stay 1 more day and was will likely be discharged tomorrow. Medications at Discharge Home Medications atorvastatin 40 mg tablet 40 mg PO DAILY cholesterol 08/10/24 gabapentin 300 mg capsule 600 mg PO QHS nerve pain 08/10/24 acetaminophen 500 mg tablet 1,000 mg PO Q6H PRN pain 08/11/24 diphenhydramine 25 mg-acetaminophen 500 mg tablet (Tylenol PM Extra Strength) 2 tab PO QHS sleep 08/11/24 fluoxetine 20 mg capsule 20 mg PO QHS mental health 08/11/24 fluoxetine 40 mg capsule 40 mg PO DAILY mental health 08/11/24 lisinopril 10 mg tablet 10 mg PO DAILY blood pressure 08/11/24 buspirone 5 mg tablet 5 mg PO QHS mental health 04/03/25 ondansetron 4 mg disintegrating tablet 4 mg PO Q8H PRN PRN Nausea #10 tabs 04/03/25 pantoprazole 40 mg tablet,delayed release 40 mg PO DAILY #30 tabs 04/08/25 Hospital Course Operations None Procedures EGD Summary of Care Provided Minutes Spent on Discharge: 37 Hospital Course: Patient is a 79-year-old male with a past medical history as outlined including chronic marijuana use disorder was admitted to the ED on 04/03/2025 with complaint of intractable nausea and vomiting as well as abdominal pain with symptoms starting in the evening on the day before admission. He was concerned about a kidney stone because he had had similar presentation when he had a kidney stone. CT of the abdomen and pelvis done showed a 3 mm right renal nonobstructive kidney stone and showed mild gastroparesis and gastritis with mild diffuse thickening of the colon. He was given pain medication and nausea medication and admitted to be managed for intractable nausea and vomiting. He was hydrated with IV fluids. The pain was not really improving so GI was consulted and patient had EGD which showed normal esophagus with chronic gastritis and no gross lesions in the entire examined duodenum. He was placed back on a diet which he tolerated. He was also placed on pantoprazole to help with the abdominal pain which helped improve it. Patient remained stable and was discharged on 07/27/2024. He was counseled that his symptoms were likely due to his prolonged use of marijuana and counseled to abstain from this. He was discharged home on 04/08/2025 and is to follow-up with his primary care doctor and gastroenterology within 1 to 2 weeks. Patient seen and examined prior to discharge. She had no active complaints and had an uneventful night. Review of systems otherwise negative. Labs and vitals reviewed. Home medication reviewed and reconciled. Physical Exam Const alert, oriented x3 and no apparent distress General Appearance: cooperative HEENT normocephalic, head/scalp atraumatic, hearing grossly normal bilaterally, moist oral mucous membranes and oropharynx normal Mouth: oral and palatal mucosa normal Eyes EOMs intact bilaterally and conjunctivae normal Neck no lymphadenopathy and supple Lymph Lymphatic: no lymphedema noted Resp normal respiratory effort, normal air movement, no retractions, no use of accessory muscles and clear to auscultation bilaterally Cardio regular rate, regular rhythm, S1 normal heart sound, S2 normal heart sound and no murmurs GI normal to inspection, nondistended, normoactive bowel sounds, soft to palpation, non-tender, non-distended and hepatosplenomegaly GI Narrative: abdominal tenderness has resolved Extremity normal to inspection, full ROM and normal capillary refill General Extremity: no tenderness to palpation of joints or extremities Skin no rashes or lesions noted General Skin Exam: no breakdown Neuro oriented x3, CN's II-XII intact bilaterally, moves all extremities and no focal motor deficits Sensorium / Orientation: awake and alert Motor Exam: strength 5/5 throughout and general weakness Psych thought process normal, cooperative and affect normal Appearance: appropriate Weight / BMI Weight Weight: 177 lb 11.081 oz Body Mass Index (BMI) 27.0 ABG / Lab / Microbiology Data 04/08/25 04:41 04/08/25 04:41 Laboratory: Laboratory Results - last 24 hr 04/07/25 17:59: POC Glucose 94 04/07/25 22:00: POC Glucose 101 04/08/25 04:41: WBC 8.3, RBC 4.59 L, Hgb 13.8, Hct 39.5 L, MCV 86.1, MCH 30.1, MCHC 34.9, RDW Std Deviation 38.2, RDW Coeff of Clarence 12.2, Plt Count 201, MPV 11.1, Immature Gran % (Auto) 0.400, Neut % (Auto) 61.6, Lymph % (Auto) 20.9, [place] % (Auto) 12.6 H, Eos % (Auto) 4.3, Baso % (Auto) 0.2, Absolute Neuts (auto) 5.1, Absolute Lymphs (auto) 1.74, Nucleated RBC % 0, Sodium 134, Potassium 3.2 L, Chloride 97 L, Carbon Dioxide 23.3, Anion Gap 13, BUN 11, Creatinine 0.69 L, Estim Creat Clear Calc 74.81, Est GFR (MDRD) Non-Af 95, BUN/Creatinine Ratio 15.7, Glucose 100 H, Hemoglobin A1c 5.8 H, Calcium 8.8 D/C Instructions Discharge Activity: Return to Normal Activity Weight Bearing Status: Weight bearing as tolerated Call your doctor if you observe: Fever of 101 or Higher, Shortness of breath, Dizziness, Swelling in the ankles and Chest pain DC O2, CPAP, BIPAP Needs Home O2 Discharge instructions: No DC home with Oxygen: No Meaningful Use Info Meaningful Use Meaningful Use Diagnoses (Choose all that apply): None applicable Discharge Plan Admission Admit Date/Time: 04/05/25 17:10 Primary Reason for Your Visit: intactable nausea and vomiting Attending Provider: Jing Tanner Primary Care Provider: Bryon Ovalles Consulting Providers: Shilo Ambrose; Antonino Rangel; Matthew Rivera; Tessa Ham; Lindsey Loo; Dora Maria Instructions Patient Instructions: ED Abdominal Pain Unkn Cause Male... Additional Instructions / Restrictions: Thank you for trusting us with your care today! Your labs images were overall reassuring. They showed signs of inflammation of your colon which is nonspecific and may cause your abdominal pain. Please take Zofran as needed for nausea vomiting control Please take Tylenol (2 pills, 650 mg), ibuprofen (2 pills, 400 mg) every 6 hours as needed for pain and fever control. Please return to the emergency department if your symptoms change or worsen. Please follow with your primary care physician for further outpatient evaluation and management. Discharge Orders/Prescriptions Prescriptions: New ondansetron 4 mg tablet,disintegrating 4 mg PO Q8H PRN PRN (Reason: Nausea) Qty: 10 0RF pantoprazole 40 mg tablet,delayed release (DR/EC) 40 mg PO DAILY Qty: 30 2RF Continued buspirone 5 mg tablet 5 mg PO QHS atorvastatin 40 mg tablet 40 mg PO DAILY gabapentin 300 mg capsule 600 mg PO QHS fluoxetine 40 mg capsule 40 mg PO DAILY fluoxetine 20 mg capsule 20 mg PO QHS Patient Comments: take 1 capsule by mouth once daily WITH 40 MG AND 60 MG CAPSULES lisinopril 10 mg tablet 10 mg PO DAILY diphenhydramine-acetaminophen [Tylenol PM Extra Strength] 25-500 mg tablet 2 tab PO QHS acetaminophen 500 mg tablet 1,000 mg PO Q6H PRN (Reason: pain) Referrals / Follow Up: Matthew Rivera DO [Med Staff - Active Staff, Gastroenterology] - Within 2 Weeks Bryon Ovalles PA [Primary Care Provider, Medical] - Within 1 Week Disposition Disposition (needs filled in before D/C Order can be placed): Home, Self Care Charges/Coding Visit Charges Inpatient E&M: 58978 Disch Hosp >30min
--- NOTE | 2025-04-08 13:57 | CASEMGMT ---
JODIE MOSS NOTE: Discharge order is in. RN CM to room. Pt ambulating in room ad santos. He denies having any discharge needs or concerns. Armando FREDERICKN JODIE MOSS
== END 2025-04-08 14:47 | disposition home or self-care (01) | DRG 392 ==
LOC: ED 04-03 07:15 → PCU 04-03 07:57
PROVIDERS: Internal Medicine; Internal Medicine Gastroenterology; Emergency Provider Emergency Medicine; PCP Physician Assistant; Visit Provider Student in an Organized Health Care Education/Training Program
PROC: 0DJ08ZZ Inspection of Upper Intestinal Tract, Via Natural or Artificial Opening Endoscopic (ICD-10-PCS; CPT 43235; principal; 2025-04-06 17:55)
DX: R11.16 Cannabis hyperemesis syndrome (principal); E78.00 Pure hypercholesterolemia, unspecified; N18.9 Chronic kidney disease, unspecified; I12.9 Hypertensive chronic kidney disease with stage 1 through stage 4 chronic kidney disease, or unspecified chronic kidney disease; F32.A Depression, unspecified; K29.50 Unspecified chronic gastritis without bleeding; E86.0 Dehydration; F12.90 Cannabis use, unspecified, uncomplicated; R73.9 Hyperglycemia, unspecified; R94.31 Abnormal electrocardiogram [ECG] [EKG]; Z79.899 Other long term (current) drug therapy
CPT/HCPCS: 36415; 36600; 74177; 80048; 80053; 80076; 81001; 82803; 82962; 83036; 83690; 83735; 84484; 85025; 88305; 88342; 93005; 97162; 97166; 97530; 99285; Q9967; A4216; J2405

== ENCOUNTER 2025-05-11 06:35 | Outpatient (CLI) | payer MEDICARE, SELFPAY ==
--- NOTE | 2025-05-11 07:00 | PET_ITS ---
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 A preliminary CT study encompassing the Skull base, neck, chest, abdomen, pelvis, and proximal thighs was performed for purposes of attenuation correction and anatomic localization. The proximal thighs were also included. The patient's blood glucose level was 93 mg/dL (allowable range: 50-180 mg/dL). RADIOPHARMACEUTICAL: 14.872 mCi 18F-FDG (Fluorodeoxyglucose F18) IV was injected into he patient. RADIATION DOSE SUMMARY: Effective Dose: Approximately 7 mSv for a standard whole-body PET scan Organ Doses: Varies by organ, with higher doses typically to the bladder, liver, and brain COMPARISON: COMPARISON FROM CT, PET OR OTHER PERTINENT EXAMS: Abdomen and pelvis CT 03/27/2025.. FINDINGS: Physiologic uptake: There may be expected metabolic uptake within the brain, tongue and floor of the mouth and larynx/vocal cords, heart, hank (many normal individuals have hilar uptake in less than 3 nodes with mildly avid hilar nodes less than 2.7 SUV), liver and spleen, system, and GI tract and symmetric muscle uptake. FDG AVID AND NON-AVID LESIONS. Reported avid SUV values (g/mL*) are maximum SUV. NECK: There are no significant neck abnormalities. CHEST: Chest wall- There are no significant chest wall abnormalities. Axilla- There are no significant axillary abnormalities. Lung parenchyma- There are no significant lung parenchyma abnormalities. Mediastinum- There are no significant hilar or mediastinal adenopathy. Pleura- There are no significant pleural abnormalities. ABDOMEN: A calcified and tortuous aorta is seen; no evidence of abdominal aortic aneurysm. Stomach- No significant abnormalities. Liver- No significant abnormalities. Spleen- No significant abnormalities. Pancrease- No significant abnormalities. Kidneys- No significant abnormalities. Bowel- Normal bowel activity. Spine- No significant abnormalities. PELVIS: Small fat containing left inguinal hernia identified. Bowel- Normal physiologic bowel activity is identified. Masses- There are no pelvic masses. Bones- Prominent degenerative changes of the spine. With the use of bone window settings, there are no osteolytic or osteoblastic lesions. There are no FDG avid lesions within the visualized portion of the axial skeleton. PET/PET/CT Tumor Base -Thigh Init IMPRESSION: FDG avid- No significant avid lesions. Other: 1. Small fat containing left inguinal hernia. 2. Calcified and tortuous aorta; no evidence of abdominal aortic aneurysm. 3. Prominent degenerative changes of the spine. Please note the low-dose CT scan was performed to facilitate PET image reconstr uction and anatomic localization and does not replace a diagnostic CT. Any diagnostic CT requested and performed at the time of the PET will be reported separately. Reading Location: [place] [id number]
== END 2025-05-11 23:59 | disposition home or self-care (01) ==
PROVIDERS: PCP Physician Assistant; Referring Provider Internal Medicine Hematology & Oncology; Visit Provider Internal Medicine Hematology & Oncology
DX: C80.1 Malignant (primary) neoplasm, unspecified (principal); G13.0 Paraneoplastic neuromyopathy and neuropathy
CPT/HCPCS: 78815; A9552